=== PATIENT | female | born 1950 | race Caucasian/White ===

== ENCOUNTER 2023-06-27 13:04 | Observation (INO) | payer OTHER ==
--- OUTSIDE RECORDS SUMMARY | 2023-06-27 13:17 | XMS REPORT | Continuity of Care Document ---
Author Name Unknown Address [address] [facility] [address] [place] [address] [facility] thconnect Address [address] [facility] [address] [place] [address] Care Team Providers Care Watch Parts Inspector Name Role Phone Juan Carlos Snow Primary Care Physician [phone] JANICE ANDINO Attending Clinician Unavailable Sina HEATH, Janice Attending Clinician [phone] Doctor Unassigned, [place] Attending Clinician [facility] Attending Clinician Unavailable Abigail Carroll RN Attending Clinician Unavailable MARTHA SANABRIA Attending Clinician Unavailable Sugar PAC, K Priscilla Attending Clinician [phone] Martha Sanabria MD Attending Clinician [phone] Radiology Attending Clinician Unavailable RADIOLOGY Attending Clinician Unavailable MATT MILLS Attending Clinician Unavail able MATT MILLS Attending Clinician Unavail able Lissett Salgado Attending Clinician [phone] Sly Lechuga Attending Clinician [phone] LISSETT LEGGETT Attending Clinician Unavailable SLY NEUMANN Attending Clinician Unavailable Lab, Ang - Db Attending Clinician Unavailable Team, [facility] Maintenance Attending Clinicia n Unavailable Magdalene Orr LVN Attending Clinician Raul Tracy MD, Xena Zhu Attending Clinician [phone] Erinn CABRAL, Lucille Cabrales Attending Clinician Unavail able Keagan Solano Attending Clinician [phone] Edionwe MD, Mercy Attending Clinician XENA TRACY Attending Clinician Unavailmarko Cali MD, Fariha Bnada Attending Clinician [phone] FARIHA CALI Attending Clinician Raul Kearns RN, Elvis Zhu Attending Clinician Unavailab le Vaccine, Ang Db Cbc Fam Attending Clinician Unav ailable CHINO BARAHONA Attending Clinician Unavailable MAIKOL BILLY Attending Clinician Un available Maikol Billy MD Attending Clinician MARTHA SANABRIA Admitting Clinician Unavailable Daniele HEATH, Martha Admitting Clinician [phone] Vicki Gillespie MD Admitting Clinician [phone] VICKI GILLESPIE Admitting Clinician Unavailable MAIKOL BILLY Admitting Clinician Un available Maikol Billy MD Admitting Clinician Payers Payer Name Policy Type Policy Number Effective Date Expirati on Date Source [employer] MED[employer]AGE [id number] 2019 00:00:00 Problems Condition Name Condition Details Condition Category Status Onset Date Resolution Date Last Treatment Date Treating Clinician Comments Source Cardiomyop athy, unspecifie d type Cardiomyop athy, unspecifie d type Disease Active 06-14 00:00: 00 [facility] Chronic heart failure with preserved ejection fraction Chronic heart failure with preserved ejection fraction Disease Active 05-26 00:00: 00 [facility] Acute pulmonary edema Acute pulmonary edema Disease Active 05-26 00:00: 00 [facility] PAF (paroxysma l atrial fibrillati on) PAF (paroxysma l atrial fibrillati on) Disease Active 05-26 00:00: 00 [facility] Preop cardiovasc ular exam Preop cardiovasc ular exam Disease Active 05-26 00:00: 00 [facility] Nausea and vomiting, unspecifie d vomiting type Nausea and vomiting, unspecifie d vomiting type Disease Active - 00:00: 00 [facility] Chest pain, unspecifie d type Chest pain, unspecifie d type Disease Active 5- 00:00: 00 [facility] Status post fall Status post fall Disease Active 2021-04 00:00: 00 [facility] Acute left-sided low back pain, unspecifie d whether sciatica present Acute left-sided low back pain, unspecifie d whether sciatica present Disease Active 2021-04 00:00: 00 [facility] Flank pain Flank pain Disease Active 2021-04 00:00: 00 [facility] Hypomagnes emia Hypomagnes emia Disease Active 8 00:00: 00 [facility] Hematuria, unspecifie d type Hematuria, unspecifie d type Disease Active 8 00:00: 00 [facility] Hospital discharge follow-up Hospital discharge follow-up Disease Active 8 00:00: 00 [facility] E46 Unspecifie d severe protein-ca shant malnutriti on E46 Unspecifie d severe protein-ca shant malnutriti on Disease Active 11-20 00:00: 00 [facility] Diarrhea, unspecifie d type Diarrhea, unspecifie d type Disease Active 11-18 00:00: 00 [facility] Weight loss Weight loss Disease Active 11-18 00:00: 00 [facility] Non-intrac table vomiting with nausea, unspecifie d vomiting type Non-intrac table vomiting with nausea, unspecifie d vomiting type Disease Active 11-18 00:00: 00 [facility] Hyponatrem ia Hyponatrem ia Disease Active 11-18 00:00: 00 [facility] Mild anemia Mild anemia Disease Active 3-31 00:00: 00 [facility] Essential hypertensi on Essential hypertensi on Disease Active 2020-04 00:00: 00 [facility] Seasonal allergies Seasonal allergies Disease Active 2020-04 00:00: 00 [facility] Anxiety Anxiety Disease Active 2020-04 00:00: 00 [facility] Arthritis Arthritis Disease Active 2020-04 00:00: 00 [facility] Asthma Asthma Disease Active 2020-04 00:00: 00 [facility] Depression Depression Disease Active 2020-04 00:00: 00 [facility] Hyperchole sterolemia Hyperchole sterolemia Disease Active 2020-04 00:00: 00 [facility] GERD (gastroeso phageal reflux disease) GERD (gastroeso phageal reflux disease) Disease Active 2020-04 00:00: 00 [facility] Tachycardi a Tachycardi a Disease Active 2020-04 00:00: 00 [facility] Prediabete s Prediabete s Disease Active 2020-04 00:00: 00 [facility] 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 Disease Active 2020-04 00:00: 00 [facility] Allergies, Adverse Reactions, Alerts Allergy Name Allergy Type Status Severity Reaction(s) Onset Date Inactive Date Treating Clinician Comments Source SERTRALI NE DRUG INGREDI Active Dizziness 05-17 00:00: 00 [facility] DOXEPIN DRUG INGREDI Active Dizziness 05-17 00:00: 00 [facility] Doxepin Propensi ty to adverse reaction s Active Dizziness 05-17 00:00: 00 [facility] Sertrali ne Propensi ty to adverse reaction s Active Dizziness 05-17 00:00: 00 [facility] CODEINE DRUG INGREDI Active N/V 2020-04 00:00: 00 [facility] DESFLURA NE DRUG INGREDI Active N/V 2020-04 00:00: 00 [facility] FENTANYL DRUG INGREDI Active Other-Cmnt 2020-04 00:00: 00 [facility] IODINE DRUG INGREDI Active Hives 2020-04 00:00: 00 [facility] PROPOFOL DRUG INGREDI Active N/V 2020-04 00:00: 00 [facility] SUCCINYL CHOLINE DRUG INGREDI Active Other-Cmnt 2020-04 00:00: 00 [facility] ONDANSET KENNA HCL DRUG INGREDI Active N/V 2020-04 00:00: 00 [facility] Codeine Propensi ty to adverse reaction s Active Nausea and/or Vomiting 2020-04 00:00: 00 [facility] Desflura ne Propensi ty to adverse reaction s Active Nausea and/or Vomiting 2020-04 00:00: 00 [facility] Fentanyl Propensi ty to adverse reaction s Active Other - See comments 2020-04 00:00: 00 Slow recovery [facility] Iodine Propensi ty to adverse reaction s Active Shortness of Breath 2020-04 00:00: 00 [facility] Propofol Propensi ty to adverse reaction s Active Nausea and/or Vomiting 2020-04 00:00: 00 [facility] Succinyl choline Propensi ty to adverse reaction s Active Other - See comments 2020-04 00:00: 00 Due to pseudocho linestera se deficienc y [facility] Ondanset kenna Hcl Propensi ty to adverse reaction s Active Nausea and/or Vomiting 2020-04 00:00: 00 [facility] Social History Social Habit Start Date Stop Date Quantity Comments Source History SDOH Alcohol Frequency [facility] History SDOH Alcohol Std Drinks [facility] History SDOH Alcohol Binge [facility] Gender identity [facility] History of tobacco use Current smoker [facility] Alcohol intake 2023-06-14 00:00:00 2023-06-14 00:00:00 Ex-drinker (finding) [facility] Exposure to SARS-CoV-2 (event) 2022-09-04 00:00:00 2022-09-14 11:13:00 Not sure [facility] History of Social function 2022-03-30 00:00:00 2022-03-30 00:00:00 [facility] Tobacco Comment 2021-11-18 00:00:00 2021-11-18 00:00:00 smoked for less than 5 years after high school [facility] Tobacco use and exposure 2021-11-18 00:00:00 2021-11-18 00:00:00 Smokeless tobacco non-user [facility] Alcohol Comment 2021-03-02 00:00:00 2021-03-02 00:00:00 7 drinks per week [facility] Sex Assigned At 1950 00:00:00 1950 00:00:00 [facility] Smoking Status Start Date Stop Date Source Ex-smoker 2021-11-18 00:00:00 2021-11-18 00:00:00 [facility] Medications Ordered Medication Name Filled Medication Name Start Date Stop Date Current Medication? Ordering Clinician Indication Dosage Frequency Signature (SIG) Comments Components Source sulfur hexafluorid e microsphr (LUMASON) injection 5 mL 06-08 16:15: 00 06-08 16:12 :00 No [id number] 5mL 5 mL, Intravenou s, ONCE, 1 dose, On Tue06/08/23 at 1015, Routine [facility] aspirin 81 mg EC tablet 05-26 12:59: 22 Yes 81mg Take 1 tablet by mouth in the morning. [facility] cholecalcif bronwyn, vitamin D3, (VITAMIN D3 ORAL) 05-26 12:59: 22 Yes 1{capsu le} Take 1 capsule by mouth daily. [facility] aspirin 81 mg EC tablet 05-26 12:59: 22 Yes 81mg Take 1 tablet by mouth in the morning. [facility] cholecalcif bronwyn, vitamin D3, (VITAMIN D3 ORAL) 05-26 12:59: 22 Yes 1{capsu le} Take 1 capsule by mouth daily. [facility] aspirin 81 mg EC tablet 05-26 12:59: 22 Yes 81mg Take 1 tablet by mouth in the morning. [facility] cholecalcif bronwyn, vitamin D3, (VITAMIN D3 ORAL) 05-26 12:59: 22 Yes 1{capsu le} Take 1 capsule by mouth daily. [facility] aspirin 81 mg EC tablet 05-26 12:59: 22 Yes 81mg Take 1 tablet by mouth in the morning. [facility] cholecalcif bronwyn, vitamin D3, (VITAMIN D3 ORAL) 05-26 12:59: 22 Yes 1{capsu le} Take 1 capsule by mouth daily. [facility] aspirin 81 mg EC tablet 05-26 12:59: 22 Yes 81mg Take 1 tablet by mouth in the morning. [facility] cholecalcif bronwyn, vitamin D3, (VITAMIN D3 ORAL) 05-26 12:59: 22 Yes 1{capsu le} Take 1 capsule by mouth daily. [facility] aspirin 81 mg EC tablet 05-26 12:59: 22 Yes 81mg Take 1 tablet by mouth in the morning. [facility] cholecalcif bronwyn, vitamin D3, (VITAMIN D3 ORAL) 05-26 12:59: 22 Yes 1{capsu le} Take 1 capsule by mouth daily. [facility] aspirin 81 mg EC tablet 05-26 12:59: 22 Yes 81mg Take 1 tablet by mouth in the morning. [facility] cholecalcif bronwyn, vitamin D3, (VITAMIN D3 ORAL) 05-26 12:59: 22 Yes 1{capsu le} Take 1 capsule by mouth daily. [facility] aspirin 81 mg EC tablet 0 05-26 12:59: 22 Yes 81mg Take 1 tablet by mouth in the morning. [facility] cholecalcif bronwyn, vitamin D3, (VITAMIN D3 ORAL) 05-26 12:59: 22 Yes 1{capsu le} Take 1 capsule by mouth daily. [facility] aspirin 81 mg EC tablet 05-26 12:59: 22 Yes 81mg Take 1 tablet by mouth in the morning. [facility] cholecalcif bronwyn, vitamin D3, (VITAMIN D3 ORAL) 05-26 12:59: 22 Yes 1{capsu le} Take 1 capsule by mouth daily. [facility] aspirin 81 mg EC tablet 05-26 12:59: 22 Yes 81mg Take 1 tablet by mouth in the morning. [facility] cholecalcif bronwyn, vitamin D3, (VITAMIN D3 ORAL) 05-26 12:59: 22 Yes 1{capsu le} Take 1 capsule by mouth daily. [facility] aspirin 81 mg EC tablet 05-26 12:59: 22 Yes 81mg Take 1 tablet by mouth in the morning. [facility] cholecalcif bronwyn, vitamin D3, (VITAMIN D3 ORAL) 05-26 12:59: 22 Yes 1{capsu le} Take 1 capsule by mouth daily. [facility] aspirin 81 mg EC tablet 05-26 12:59: 22 Yes 81mg Take 1 tablet by mouth in the morning. [facility] cholecalcif bronwyn, vitamin D3, (VITAMIN D3 ORAL) 05-26 12:59: 22 Yes 1{capsu le} Take 1 capsule by mouth daily. [facility] aspirin 81 mg EC tablet 05-26 12:59: 22 Yes 81mg Take 1 tablet by mouth in the morning. [facility] cholecalcif bronwyn, vitamin D3, (VITAMIN D3 ORAL) 05-26 12:59: 22 Yes 1{capsu le} Take 1 capsule by mouth daily. [facility] atenoloL 25 mg tablet 05-26 00:00: 00 Yes [id number] 25mg Take 1 tablet by mouth in the morning and 1 tablet in the evening. [facility] furosemide 20 mg tablet 05-26 00:00: 00 Yes [id number] 20mg Take 1 tablet by mouth in the morning. [facility] KCL 20 mEq tablet 2023-0 2- 00:00: 00 Yes [id number] 20meq Take 1 tablet by mouth in the morning. [facility] atenoloL 25 mg tablet 2023-0 2- 00:00: 00 Yes [id number] 25mg Take 1 tablet by mouth in the morning and 1 tablet in the evening. [facility] furosemide 20 mg tablet 2023-0 2 00:00: 00 Yes [id number] 20mg Take 1 tablet by mouth in the morning. [facility] KCL 20 mEq tablet 2023-0 2- 00:00: 00 Yes [id number] 20meq Take 1 tablet by mouth in the morning. [facility] atenoloL 25 mg tablet 0 05-26 00:00: 00 Yes [id number] 25mg Take 1 tablet by mouth in the morning and 1 tablet in the evening. [facility] furosemide 20 mg tablet 2023-0 05-26 00:00: 00 Yes [id number] 20mg Take 1 tablet by mouth in the morning. [facility] KCL 20 mEq tablet 2023-0 05-26 00:00: 00 Yes [id number] 20meq Take 1 tablet by mouth in the morning. [facility] atenoloL 25 mg tablet 2023-0 05-26 00:00: 00 Yes [id number] 25mg Take 1 tablet by mouth in the morning and 1 tablet in the evening. [facility] furosemide 20 mg tablet 2023-0 2 00:00: 00 Yes [id number] 20mg Take 1 tablet by mouth in the morning. [facility] KCL 20 mEq tablet 2023-0 2 00:00: 00 Yes [id number] 20meq Take 1 tablet by mouth in the morning. [facility] atenoloL 25 mg tablet 2023-0 2- 00:00: 00 Yes [id number] 25mg Take 1 tablet by mouth in the morning and 1 tablet in the evening. [facility] furosemide 20 mg tablet 2023-0 2- 00:00: 00 Yes [id number] 20mg Take 1 tablet by mouth in the morning. [facility] KCL 20 mEq tablet 2023-0 2- 00:00: 00 Yes [id number] 20meq Take 1 tablet by mouth in the morning. [facility] atenoloL 25 mg tablet 2023-0 2- 00:00: 00 Yes [id number] 25mg Take 1 tablet by mouth in the morning and 1 tablet in the evening. [facility] furosemide 20 mg tablet 2023-0 2 00:00: 00 Yes [id number] 20mg Take 1 tablet by mouth in the morning. [facility] KCL 20 mEq tablet 2023-0 05-26 00:00: 00 Yes [id number] 20meq Take 1 tablet by mouth in the morning. [facility] atenoloL 25 mg tablet 2023-0 05-26 00:00: 00 Yes [id number] 25mg Take 1 tablet by mouth in the morning and 1 tablet in the evening. [facility] furosemide 20 mg tablet 2023-0 05-26 00:00: 00 Yes [id number] 20mg Take 1 tablet by mouth in the morning. [facility] KCL 20 mEq tablet 2023-0 05-26 00:00: 00 Yes [id number] 20meq Take 1 tablet by mouth in the morning. [facility] atenoloL 25 mg tablet 2023-0 05-26 00:00: 00 Yes [id number] 25mg Take 1 tablet by mouth in the morning and 1 tablet in the evening. [facility] furosemide 20 mg tablet 2023-0 2 00:00: 00 Yes [id number] 20mg Take 1 tablet by mouth in the morning. [facility] KCL 20 mEq tablet 2023-0 2 00:00: 00 Yes [id number] 20meq Take 1 tablet by mouth in the morning. [facility] atenoloL 25 mg tablet 2023-0 2 00:00: 00 Yes [id number] 25mg Take 1 tablet by mouth in the morning and 1 tablet in the evening. [facility] furosemide 20 mg tablet 2023-0 2 00:00: 00 Yes [id number] 20mg Take 1 tablet by mouth in the morning. [facility] KCL 20 mEq tablet 2023-0 2- 00:00: 00 Yes [id number] 20meq Take 1 tablet by mouth in the morning. [facility] atenoloL 25 mg tablet 2023-0 2- 00:00: 00 Yes [id number] 25mg Take 1 tablet by mouth in the morning and 1 tablet in the evening. [facility] furosemide 20 mg tablet 0 2 00:00: 00 Yes [id number] 20mg Take 1 tablet by mouth in the morning. [facility] KCL 20 mEq tablet 0 2- 00:00: 00 Yes [id number] 20meq Take 1 tablet by mouth in the morning. [facility] atenoloL 25 mg tablet 0 05-26 00:00: 00 Yes [id number] 25mg Take 1 tablet by mouth in the morning and 1 tablet in the evening. [facility] furosemide 20 mg tablet 2023-0 05-26 00:00: 00 Yes [id number] 20mg Take 1 tablet by mouth in the morning. [facility] KCL 20 mEq tablet 2023-0 05-26 00:00: 00 Yes [id number] 20meq Take 1 tablet by mouth in the morning. [facility] atenoloL 25 mg tablet 2023-0 05-26 00:00: 00 Yes [id number] 25mg Take 1 tablet by mouth in the morning and 1 tablet in the evening. [facility] furosemide 20 mg tablet 0 05-26 00:00: 00 Yes [id number] 20mg Take 1 tablet by mouth in the morning. [facility] KCL 20 mEq tablet 2023-0 2- 00:00: 00 Yes [id number] 20meq Take 1 tablet by mouth in the morning. [facility] atenoloL 25 mg tablet 2023-0 2 00:00: 00 Yes [id number] 25mg Take 1 tablet by mouth in the morning and 1 tablet in the evening. [facility] furosemide 20 mg tablet 2023-0 2- 00:00: 00 Yes [id number] 20mg Take 1 tablet by mouth in the morning. [facility] KCL 20 mEq tablet 2023-0 2-01 00:00: 00 Yes [id number] 20meq Take 1 tablet by mouth in the morning. [facility] foLIC acid 1 mg tablet 4-0 1-27 00:00: 00 Yes [id number] 1mg Take 1 tablet by mouth in the morning. [facility] thiamine 100 mg tablet 4-0 1-27 00:00: 00 Yes [id number] 100mg Take 1 tablet by mouth in the morning. [facility] foLIC acid 1 mg tablet 4-0 1-27 00:00: 00 Yes [id number] 1mg Take 1 tablet by mouth in the morning. [facility] thiamine 100 mg tablet 4-0 1-27 00:00: 00 Yes [id number] 100mg Take 1 tablet by mouth in the morning. [facility] foLIC acid 1 mg tablet 4-0 1-27 00:00: 00 Yes [id number] 1mg Take 1 tablet by mouth in the morning. [facility] thiamine 100 mg tablet 4-0 1-27 00:00: 00 Yes [id number] 100mg Take 1 tablet by mouth in the morning. [facility] foLIC acid 1 mg tablet 4-0 127 00:00: 00 Yes [id number] 1mg Take 1 tablet by mouth in the morning. [facility] thiamine 100 mg tablet 4-0 1-27 00:00: 00 Yes [id number] 100mg Take 1 tablet by mouth in the morning. [facility] foLIC acid 1 mg tablet 4-0 1-27 00:00: 00 Yes [id number] 1mg Take 1 tablet by mouth in the morning. [facility] thiamine 100 mg tablet 4-0 1-27 00:00: 00 Yes [id number] 100mg Take 1 tablet by mouth in the morning. [facility] foLIC acid 1 mg tablet 4-0 1-27 00:00: 00 Yes [id number] 1mg Take 1 tablet by mouth in the morning. [facility] thiamine 100 mg tablet 2024-0 1-27 00:00: 00 Yes [id number] 100mg Take 1 tablet by mouth in the morning. [facility] foLIC acid 1 mg tablet 4-0 1-27 00:00: 00 Yes [id number] 1mg Take 1 tablet by mouth in the morning. [facility] thiamine 100 mg tablet 4-0 127 00:00: 00 Yes [id number] 100mg Take 1 tablet by mouth in the morning. [facility] foLIC acid 1 mg tablet 4-0 1-27 00:00: 00 Yes [id number] 1mg Take 1 tablet by mouth in the morning. [facility] thiamine 100 mg tablet 2024-0 127 00:00: 00 Yes [id number] 100mg Take 1 tablet by mouth in the morning. [facility] foLIC acid 1 mg tablet 4-0 127 00:00: 00 Yes [id number] 1mg Take 1 tablet by mouth in the morning. [facility] thiamine 100 mg tablet 4-0 127 00:00: 00 Yes [id number] 100mg Take 1 tablet by mouth in the morning. [facility] foLIC acid 1 mg tablet 4-0 127 00:00: 00 Yes [id number] 1mg Take 1 tablet by mouth in the morning. [facility] thiamine 100 mg tablet 4-0 127 00:00: 00 Yes [id number] 100mg Take 1 tablet by mouth in the morning. [facility] foLIC acid 1 mg tablet 4-0 27 00:00: 00 Yes [id number] 1mg Take 1 tablet by mouth in the morning. [facility] thiamine 100 mg tablet 4-0 127 00:00: 00 Yes [id number] 100mg Take 1 tablet by mouth in the morning. [facility] foLIC acid 1 mg tablet 4-0 127 00:00: 00 Yes [id number] 1mg Take 1 tablet by mouth in the morning. [facility] thiamine 100 mg tablet 4-0 1-27 00:00: 00 Yes [id number] 100mg Take 1 tablet by mouth in the morning. [facility] foLIC acid 1 mg tablet 2024-0 1-27 00:00: 00 Yes [id number] 1mg Take 1 tablet by mouth in the morning. [facility] thiamine 100 mg tablet 2024-0 1-27 00:00: 00 Yes [id number] 100mg Take 1 tablet by mouth in the morning. [facility] foLIC acid 1 mg tablet 05-21 00:00: 00 Yes [id number] 1mg Take 1 tablet by mouth in the morning. [facility] thiamine 100 mg tablet 05-21 00:00: 00 Yes [id number] 100mg Take 1 tablet by mouth in the morning. [facility] foLIC acid 1 mg tablet 05-21 00:00: 00 Yes [id number] 1mg Take 1 tablet by mouth in the morning. [facility] thiamine 100 mg tablet 05-21 00:00: 00 Yes [id number] 100mg Take 1 tablet by mouth in the morning. [facility] aspirin 81 mg EC tablet 05-20 15:25: 42 Yes 81mg Take 1 tablet by mouth in the morning. [facility] cholecalcif bronwyn, vitamin D3, (VITAMIN D3 ORAL) 05-20 15:25: 42 Yes 1{capsu le} Take 1 capsule by mouth daily. [facility] aspirin 81 mg EC tablet 05-20 15:25: 42 Yes 81mg Take 1 tablet by mouth in the morning. [facility] cholecalcif bronwyn, vitamin D3, (VITAMIN D3 ORAL) 05-20 15:25: 42 Yes 1{capsu le} Take 1 capsule by mouth daily. [facility] lisinopriL (PRINIVIL,Z ESTRIL) tablet 20 mg 05-20 15:00: 00 Yes 20mg 20 mg, Oral, DAILY, First dose on Tue05/20/23 at 0900, Until Discontinu ed [facility] atorvastati n (LIPITOR) tablet 40 mg 05-20 15:00: 00 Yes 40mg 40 mg, Oral, DAILY, First dose on Tue05/20/23 at 0900, Until Discontinu ed, Routine [facility] dextrometho deborah-cesar enesin (ROBITUSSIN DM) 10-100 mg/5 mL solution 5 mL 05-20 07:57: 20 Yes 5mL 5 mL, Oral, Q6HPRN, Starting on Tue05/20/23 at 0157, Until Discontinu ed, Routine, Cough [facility] cyclobenzap rine (FLEXERIL) tablet 5 mg 05-20 02:00: 00 Yes 5mg 5 mg, Oral, TID, First dose on Tue05/19/23 at 2000, Until Discontinu ed, Routine [facility] dextrometho rphan-guaif enesin 10-100 mg/5 mL solution 05-20 00:00: 00 Yes [id number] 5mL Take 5 mL by mouth every 6 (six) hours as needed for Cough. [facility] cephALEXin 500 mg tablet 05-20 00:00: 00 Yes [id number] 500mg Take 1 tablet by mouth 4 (four) times daily. [facility] dextrometho rphan-guaif enesin 10-100 mg/5 mL solution 05-20 00:00: 00 Yes [id number] 5mL Take 5 mL by mouth every 6 (six) hours as needed for Cough. [facility] cephALEXin 500 mg tablet 05-20 00:00: 00 Yes [id number] 500mg Take 1 tablet by mouth 4 (four) times daily. [facility] dextrometho rphan-guaif enesin 10-100 mg/5 mL solution 05-20 00:00: 00 Yes [id number] 5mL Take 5 mL by mouth every 6 (six) hours as needed for Cough. [facility] cephALEXin 500 mg tablet 05-20 00:00: 00 Yes [id number] 500mg Take 1 tablet by mouth 4 (four) times daily. [facility] dextrometho rphan-guaif enesin 10-100 mg/5 mL solution 05-20 00:00: 00 Yes [id number] 5mL Take 5 mL by mouth every 6 (six) hours as needed for Cough. [facility] cephALEXin 500 mg tablet 05-20 00:00: 00 Yes [id number] 500mg Take 1 tablet by mouth 4 (four) times daily. [facility] dextrometho rphan-guaif enesin 10-100 mg/5 mL solution 0 05-20 00:00: 00 Yes [id number] 5mL Take 5 mL by mouth every 6 (six) hours as needed for Cough. [facility] cephALEXin 500 mg tablet 2023-0 05-20 00:00: 00 Yes [id number] 500mg Take 1 tablet by mouth 4 (four) times daily. [facility] dextrometho rphan-guaif enesin 10-100 mg/5 mL solution 0 05-20 00:00: 00 Yes [id number] 5mL Take 5 mL by mouth every 6 (six) hours as needed for Cough. [facility] cephALEXin 500 mg tablet 0 05-20 00:00: 00 Yes [id number] 500mg Take 1 tablet by mouth 4 (four) times daily. [facility] dextrometho rphan-guaif enesin 10-100 mg/5 mL solution 2023-0 05-20 00:00: 00 Yes [id number] 5mL Take 5 mL by mouth every 6 (six) hours as needed for Cough. [facility] cephALEXin 500 mg tablet 05-20 00:00: 00 Yes [id number] 500mg Take 1 tablet by mouth 4 (four) times daily. [facility] dextrometho rphan-guaif enesin 10-100 mg/5 mL solution 0 05-20 00:00: 00 Yes [id number] 5mL Take 5 mL by mouth every 6 (six) hours as needed for Cough. [facility] cephALEXin 500 mg tablet 0 05-20 00:00: 00 Yes [id number] 500mg Take 1 tablet by mouth 4 (four) times daily. [facility] dextrometho rphan-guaif enesin 10-100 mg/5 mL solution 2023-0 05-20 00:00: 00 Yes [id number] 5mL Take 5 mL by mouth every 6 (six) hours as needed for Cough. [facility] cephALEXin 500 mg tablet 0 05-20 00:00: 00 Yes [id number] 500mg Take 1 tablet by mouth 4 (four) times daily. [facility] dextrometho rphan-guaif enesin 10-100 mg/5 mL solution 05-20 00:00: 00 Yes [id number] 5mL Take 5 mL by mouth every 6 (six) hours as needed for Cough. [facility] cephALEXin 500 mg tablet 0 05-20 00:00: 00 Yes [id number] 500mg Take 1 tablet by mouth 4 (four) times daily. [facility] dextrometho rphan-guaif enesin 10-100 mg/5 mL solution 05-20 00:00: 00 Yes [id number] 5mL Take 5 mL by mouth every 6 (six) hours as needed for Cough. [facility] cephALEXin 500 mg tablet 0 05-20 00:00: 00 Yes [id number] 500mg Take 1 tablet by mouth 4 (four) times daily. [facility] dextrometho rphan-guaif enesin 10-100 mg/5 mL solution 05-20 00:00: 00 Yes [id number] 5mL Take 5 mL by mouth every 6 (six) hours as needed for Cough. [facility] cephALEXin 500 mg tablet 05-20 00:00: 00 Yes [id number] 500mg Take 1 tablet by mouth 4 (four) times daily. [facility] dextrometho rphan-guaif enesin 10-100 mg/5 mL solution 05-20 00:00: 00 Yes [id number] 5mL Take 5 mL by mouth every 6 (six) hours as needed for Cough. [facility] cephALEXin 500 mg tablet 0 05-20 00:00: 00 Yes [id number] 500mg Take 1 tablet by mouth 4 (four) times daily. [facility] dextrometho rphan-guaif enesin 10-100 mg/5 mL solution 0 05-20 00:00: 00 Yes [id number] 5mL Take 5 mL by mouth every 6 (six) hours as needed for Cough. [facility] cephALEXin 500 mg tablet 05-20 00:00: 00 Yes [id number] 500mg Take 1 tablet by mouth 4 (four) times daily. [facility] dextrometho rphan-guaif enesin 10-100 mg/5 mL solution 05-20 00:00: 00 Yes [id number] 5mL Take 5 mL by mouth every 6 (six) hours as needed for Cough. [facility] cephALEXin 500 mg tablet 05-20 00:00: 00 Yes [id number] 500mg Take 1 tablet by mouth 4 (four) times daily. [facility] atenoloL (TENORMIN) tablet 25 mg 05-19 23:45: 00 Yes 25mg 25 mg, Oral, DAILY, First dose on Priya 05/19/23 at 1745, Until Discontinu ed, Routine [facility] magnesium sulfate in water 2 gram/50 mL (4 %) infusion 2 g 05-18 23:45: 00 05-19 01:06 :00 No 2g 2 g, IV Piggyback, Administer over 60 Minutes, ONCE, 1 dose, On Tue05/18/23 at 1745, Routine [facility] cefTRIAXone (ROCEPHIN) 1,000 mg in NaCl 0.9% (NS) 100 mL MINI-BAG 05-18 20:30: 00 05-24 20:29 :00 Yes 1000mg 1,000 mg, IV Piggyback, Q24H ABX, 6 doses, First dose on Tue05/18/23 at 1430, Last dose on Tue05/23/23 at 1430, Administer over 30 Minutes, 100 mL
Reas on for Anti-Infec tive: Documented Infection< br>Documen suzette Infection Site: Urine
D uration of Therapy: 7 days [facility] magnesium sulfate in water 2 gram/50 mL (4 %) infusion 2 g 05-18 15:45: 00 05-18 17:20 :00 No 2g 2 g, IV Piggyback, Administer over 60 Minutes, ONCE, 1 dose, On Tue05/18/23 at 0945, Routine [facility] sodium chloride tablet 1 g 05-18 15:00: 00 Yes 1g 1 g, Oral, TID MEALS, First dose on Tue05/18/23 at 0900, Until Discontinu ed, Routine [facility] foLIC acid (FOLATE) tablet 1 mg 05-18 15:00: 00 Yes 1mg 1 mg, Oral, DAILY, First dose on Tue05/18/23 at 0900, Until Discontinu ed, Routine [facility] thiamine (VITAMIN B1) tablet 100 mg 05-18 15:00: 00 Yes 100mg 100 mg, Oral, DAILY, First dose on Tue05/18/23 at 0900, Until Discontinu ed, Routine [facility] pantoprazol e (PROTONIX) EC tablet 40 mg 05-18 15:00: 00 Yes 40mg 40 mg, Oral, QAM, First dose on Tue05/18/23 at 0900, Until Discontinu ed, Routine [facility] aspirin EC tablet 81 mg 05-18 15:00: 00 Yes 81mg 81 mg, Oral, DAILY, First dose on Tue05/18/23 at 0900, Until Discontinu ed, Routine [facility] albumin (PLASBUMIN) 25 % injection 25 g 05-18 04:30: 00 05-18 04:55 :00 No 25g 25 g, IV Infusion, ONCE, 1 dose, On Tue05/17/23 at 2230, 100 mL
Erlinda cation: HEPATORENA L SYNDROME (TREATMENT )
Comme nts: 1. Albumin + octreotide and midodrine< br>Comment s: 2. Albumin + norepineph rine for patients in the ICU [facility] enoxaparin (LOVENOX) injection 40 mg 05-17 23:00: 00 Yes 40mg 40 mg, Subcutaneo us, DAILY, First dose on Tue05/17/23 at 1700, Until Discontinu ed, Routine [facility] oxazepam (SERAX) capsule 15 mg 05-17 22:58: 52 Yes 15mg 15 mg, Oral, Q4HPRN, Starting on Tue05/17/23 at 1658, Until Discontinu ed, Routine, Only while awake for DBP equal to or greater than 100, HR equal to or greater than 100. [facility] magnesium sulfate in water 2 gram/50 mL (4 %) infusion 2 g 05-17 22:15: 00 05-17 23:12 :00 No 2g 2 g, IV Piggyback, Administer over 60 Minutes, ONCE, 1 dose, On Tue05/17/23 at 1615, STAT [facility] proMETHazin e (PHENERGAN) 25 mg in NS 50 mL IV piggyback (CNR) 05-17 21:47: 22 Yes 25mg 25 mg, IV Piggyback, at 200 mL/hr Administer over 15 Minutes, Q6HPRN, Starting on Tue05/17/23 at 1547, Until Discontinu ed, Routine, Nausea and Vomiting (N/V) [facility] lactated ringers IV infusion 1,000 mL 05-17 21:30: 00 Yes 1000mL at 150 mL/hr, 1,000 mL, IV Infusion, CONTINUOUS , Starting on Tue05/17/23 at 1530, Until Discontinu ed, Routine [facility] acetaminoph en (TYLENOL) tablet 650 mg 05-17 21:22: 59 Yes 650mg 650 mg, Oral, Q6HPRN, Starting on Tue05/17/23 at 1522, Until Discontinu ed, Routine, Pain (scale 1-3), Temp > 38 C [facility] traZODone (DESYREL) tablet 50 mg 05-17 21:21: 05 Yes 50mg 50 mg, Oral, QHSPRN, Starting on Tue05/17/23 at 1521, Until Discontinu ed, Routine, Insomnia [facility] cefTRIAXone (ROCEPHIN) 1,000 mg in NaCl 0.9% (NS) 100 mL MINI-BAG 05-17 19:45: 00 05-17 20:58 :00 No 1000mg 1,000 mg, IV Piggyback, ONCE, 1 dose, On Tue05/17/23 at 1345, Administer over 30 Minutes, 100 mL
Reas on for Anti-Infec tive: Documented Infection< br>Documen suzette Infection Site: Urine
D uration of Therapy: Other (see Comments) [facility] NaCl 0.9% (NS) bolus infusion 500 mL 05-17 19:15: 00 05-17 20:02 :00 No 500mL at 999 mL/hr, 500 mL, IV Infusion, ONCE, 1 dose, On Tue05/17/23 at 1315, STAT [facility] atorvastati n 40 mg tablet 12-20 00:00: 00 Yes [id number] 40mg Take 1 tablet by mouth in the morning. [facility] atorvastati n 40 mg tablet 12-20 00:00: 00 Yes [id number] 40mg Take 1 tablet by mouth in the morning. [facility] atorvastati n 40 mg tablet 0 12-20 00:00: 00 Yes [id number] 40mg Take 1 tablet by mouth in the morning. [facility] atorvastati n 40 mg tablet 0 12-20 00:00: 00 Yes [id number] 40mg Take 1 tablet by mouth in the morning. [facility] atorvastati n 40 mg tablet 0 12-20 00:00: 00 Yes [id number] 40mg Take 1 tablet by mouth in the morning. [facility] atorvastati n 40 mg tablet 0 12-20 00:00: 00 Yes [id number] 40mg Take 1 tablet by mouth in the morning. [facility] atorvastati n 40 mg tablet 0 12-20 00:00: 00 Yes [id number] 40mg Take 1 tablet by mouth in the morning. [facility] atorvastati n 40 mg tablet 2022-0 12-20 00:00: 00 Yes [id number] 40mg Take 1 tablet by mouth in the morning. [facility] atorvastati n 40 mg tablet 3-0 28 00:00: 00 Yes [id number] 40mg Take 1 tablet by mouth in the morning. [facility] atorvastati n 40 mg tablet 3-0 8 00:00: 00 Yes [id number] 40mg Take 1 tablet by mouth in the morning. [facility] atorvastati n 40 mg tablet 3-0 828 00:00: 00 Yes [id number] 40mg Take 1 tablet by mouth in the morning. [facility] atorvastati n 40 mg tablet 3-0 8 00:00: 00 Yes [id number] 40mg Take 1 tablet by mouth in the morning. [facility] atorvastati n 40 mg tablet 3-0 12-20 00:00: 00 Yes [id number] 40mg Take 1 tablet by mouth in the morning. [facility] atorvastati n 40 mg tablet 3-0 12-20 00:00: 00 Yes [id number] 40mg Take 1 tablet by mouth in the morning. [facility] atorvastati n 40 mg tablet 3-0 12-20 00:00: 00 Yes [id number] 40mg Take 1 tablet by mouth in the morning. [facility] atorvastati n 40 mg tablet 3-0 12-20 00:00: 00 Yes [id number] 40mg Take 1 tablet by mouth in the morning. [facility] atorvastati n 40 mg tablet 3-0 12-20 00:00: 00 Yes [id number] 40mg Take 1 tablet by mouth in the morning. [facility] atorvastati n 40 mg tablet 3-0 28 00:00: 00 Yes [id number] 40mg Take 1 tablet by mouth in the morning. [facility] atorvastati n 40 mg tablet 3-0 8-28 00:00: 00 Yes [id number] 40mg Take 1 tablet by mouth in the morning. [facility] atorvastati n 40 mg tablet 3-0 8-28 00:00: 00 Yes [id number] 40mg Take 1 tablet by mouth in the morning. [facility] atorvastati n 40 mg tablet 2022-0 12-20 00:00: 00 Yes [id number] 40mg Take 1 tablet by mouth in the morning. [facility] atorvastati n 40 mg tablet 2022-0 12-20 00:00: 00 Yes [id number] 40mg Take 1 tablet by mouth in the morning. [facility] atorvastati n 40 mg tablet 2022-0 12-20 00:00: 00 Yes [id number] 40mg Take 1 tablet by mouth in the morning. [facility] atorvastati n 40 mg tablet 2022-0 12-20 00:00: 00 Yes [id number] 40mg Take 1 tablet by mouth in the morning. [facility] traZODone 50 mg tablet 2022-0 12-16 00:00: 00 Yes [id number] 25mg Take 0.5-1 tablets by mouth at bedtime as needed for Insomnia. F/u and labs needed [facility] traZODone 50 mg tablet 3-0 12-16 00:00: 00 Yes [id number] 25mg Take 0.5-1 tablets by mouth at bedtime as needed for Insomnia. F/u and labs needed [facility] traZODone 50 mg tablet 3-0 12-16 00:00: 00 Yes [id number] 25mg Take 0.5-1 tablets by mouth at bedtime as needed for Insomnia. F/u and labs needed [facility] traZODone 50 mg tablet 3-0 824 00:00: 00 Yes [id number] 25mg Take 0.5-1 tablets by mouth at bedtime as needed for Insomnia. F/u and labs needed [facility] traZODone 50 mg tablet 3-0 824 00:00: 00 Yes [id number] 25mg Take 0.5-1 tablets by mouth at bedtime as needed for Insomnia. F/u and labs needed [facility] traZODone 50 mg tablet 3-0 824 00:00: 00 Yes [id number] 25mg Take 0.5-1 tablets by mouth at bedtime as needed for Insomnia. F/u and labs needed [facility] traZODone 50 mg tablet 2023-0 8-24 00:00: 00 Yes [id number] 25mg Take 0.5-1 tablets by mouth at bedtime as needed for Insomnia. F/u and labs needed [facility] traZODone 50 mg tablet 2023-0 8-24 00:00: 00 Yes [id number] 25mg Take 0.5-1 tablets by mouth at bedtime as needed for Insomnia. F/u and labs needed [facility] traZODone 50 mg tablet 2023-0 8-24 00:00: 00 Yes [id number] 25mg Take 0.5-1 tablets by mouth at bedtime as needed for Insomnia. F/u and labs needed [facility] traZODone 50 mg tablet 3-0 8-24 00:00: 00 Yes [id number] 25mg Take 0.5-1 tablets by mouth at bedtime as needed for Insomnia. F/u and labs needed [facility] traZODone 50 mg tablet 3-0 8-24 00:00: 00 Yes [id number] 25mg Take 0.5-1 tablets by mouth at bedtime as needed for Insomnia. F/u and labs needed [facility] traZODone 50 mg tablet 2023-0 8-24 00:00: 00 Yes [id number] 25mg Take 0.5-1 tablets by mouth at bedtime as needed for Insomnia. F/u and labs needed [facility] traZODone 50 mg tablet 2023-0 8-24 00:00: 00 Yes [id number] 25mg Take 0.5-1 tablets by mouth at bedtime as needed for Insomnia. F/u and labs needed [facility] traZODone 50 mg tablet 2023-0 8-24 00:00: 00 Yes [id number] 25mg Take 0.5-1 tablets by mouth at bedtime as needed for Insomnia. F/u and labs needed [facility] traZODone 50 mg tablet 2023-0 8-24 00:00: 00 Yes [id number] 25mg Take 0.5-1 tablets by mouth at bedtime as needed for Insomnia. F/u and labs needed [facility] traZODone 50 mg tablet 2023-0 8-24 00:00: 00 Yes [id number] 25mg Take 0.5-1 tablets by mouth at bedtime as needed for Insomnia. F/u and labs needed [facility] traZODone 50 mg tablet 2023-0 8-24 00:00: 00 Yes [id number] 25mg Take 0.5-1 tablets by mouth at bedtime as needed for Insomnia. F/u and labs needed [facility] traZODone 50 mg tablet 2023-0 8-24 00:00: 00 Yes [id number] 25mg Take 0.5-1 tablets by mouth at bedtime as needed for Insomnia. F/u and labs needed [facility] traZODone 50 mg tablet 3-0 8-24 00:00: 00 Yes [id number] 25mg Take 0.5-1 tablets by mouth at bedtime as needed for Insomnia. F/u and labs needed [facility] traZODone 50 mg tablet 3-0 8-24 00:00: 00 Yes [id number] 25mg Take 0.5-1 tablets by mouth at bedtime as needed for Insomnia. F/u and labs needed [facility] traZODone 50 mg tablet 3-0 8-24 00:00: 00 Yes [id number] 25mg Take 0.5-1 tablets by mouth at bedtime as needed for Insomnia. F/u and labs needed [facility] traZODone 50 mg tablet 2023-0 8-24 00:00: 00 Yes [id number] 25mg Take 0.5-1 tablets by mouth at bedtime as needed for Insomnia. F/u and labs needed [facility] traZODone 50 mg tablet 2023-0 8-24 00:00: 00 Yes [id number] 25mg Take 0.5-1 tablets by mouth at bedtime as needed for Insomnia. F/u and labs needed [facility] traZODone 50 mg tablet 2023-0 8-24 00:00: 00 Yes [id number] 25mg Take 0.5-1 tablets by mouth at bedtime as needed for Insomnia. F/u and labs needed [facility] traZODone 50 mg tablet 2022-0 8-24 00:00: 00 Yes [id number] 25mg Take 0.5-1 tablets by mouth at bedtime as needed for Insomnia. F/u and labs needed [facility] atenoloL 25 mg tablet 3-0 8-14 00:00: 00 Yes [id number] 25mg Take 1 tablet by mouth in the morning. [facility] atenoloL 25 mg tablet 2022-0 8-14 00:00: 00 Yes [id number] 25mg Take 1 tablet by mouth in the morning. [facility] atenoloL 25 mg tablet 2022-0 8-14 00:00: 00 Yes [id number] 25mg Take 1 tablet by mouth in the morning. [facility] atenoloL 25 mg tablet 2022-0 8-14 00:00: 00 Yes [id number] 25mg Take 1 tablet by mouth in the morning. [facility] atenoloL 25 mg tablet 2022-0 8-14 00:00: 00 Yes [id number] 25mg Take 1 tablet by mouth in the morning. [facility] atenoloL 25 mg tablet 2022-0 8-14 00:00: 00 Yes [id number] 25mg Take 1 tablet by mouth in the morning. [facility] atenoloL 25 mg tablet 3-0 8-14 00:00: 00 Yes [id number] 25mg Take 1 tablet by mouth in the morning. [facility] atenoloL 25 mg tablet 3-0 8-14 00:00: 00 Yes [id number] 25mg Take 1 tablet by mouth in the morning. [facility] atenoloL 25 mg tablet 3-0 8-14 00:00: 00 Yes [id number] 25mg Take 1 tablet by mouth in the morning. [facility] atenoloL 25 mg tablet 3-0 8-14 00:00: 00 Yes [id number] 25mg Take 1 tablet by mouth in the morning. [facility] atenoloL 25 mg tablet 3-0 8-14 00:00: 00 Yes [id number] 25mg Take 1 tablet by mouth in the morning. [facility] atenoloL 25 mg tablet 3-0 8-14 00:00: 00 Yes [id number] 25mg Take 1 tablet by mouth in the morning. [facility] atenoloL 25 mg tablet 3-0 8-14 00:00: 00 Yes [id number] 25mg Take 1 tablet by mouth in the morning. [facility] atenoloL 25 mg tablet 3-0 8-14 00:00: 00 Yes [id number] 25mg Take 1 tablet by mouth in the morning. [facility] atenoloL 25 mg tablet 3-0 8-14 00:00: 00 Yes [id number] 25mg Take 1 tablet by mouth in the morning. [facility] atenoloL 25 mg tablet 3-0 8-14 00:00: 00 Yes [id number] 25mg Take 1 tablet by mouth in the morning. [facility] atenoloL 25 mg tablet 3-0 8-14 00:00: 00 05-26 00:00 :00 No [id number] 25mg Take 1 tablet by mouth in the morning. [facility] atenoloL 25 mg tablet 3-0 8-14 00:00: 00 05-26 00:00 :00 No [id number] 25mg Take 1 tablet by mouth in the morning. [facility] atenoloL 25 mg tablet 3-0 8-14 00:00: 00 05-26 00:00 :00 No [id number] 25mg Take 1 tablet by mouth in the morning. [facility] atenoloL 25 mg tablet 3-0 8-14 00:00: 00 05-26 00:00 :00 No [id number] 25mg Take 1 tablet by mouth in the morning. [facility] atorvastati n 40 mg tablet 3-0 6-16 00:00: 00 Yes [id number] 40mg Take 1 tablet by mouth in the morning. [facility] atorvastati n 40 mg tablet 3-0 6-16 00:00: 00 Yes [id number] 40mg Take 1 tablet by mouth in the morning. [facility] atorvastati n 40 mg tablet 3-0 6-16 00:00: 00 Yes [id number] 40mg Take 1 tablet by mouth in the morning. [facility] atorvastati n 40 mg tablet 3-0 6-16 00:00: 00 Yes [id number] 40mg Take 1 tablet by mouth in the morning. [facility] atorvastati n 40 mg tablet 3-0 6-16 00:00: 00 Yes [id number] 40mg Take 1 tablet by mouth in the morning. [facility] atorvastati n 40 mg tablet 3-0 6-16 00:00: 00 Yes [id number] 40mg Take 1 tablet by mouth in the morning. [facility] atorvastati n 40 mg tablet 3-0 6-16 00:00: 00 Yes [id number] 40mg Take 1 tablet by mouth in the morning. [facility] atorvastati n 40 mg tablet 3-0 6-16 00:00: 00 Yes [id number] 40mg Take 1 tablet by mouth in the morning. [facility] atorvastati n 40 mg tablet 3-0 6-16 00:00: 00 Yes [id number] 40mg Take 1 tablet by mouth in the morning. [facility] atorvastati n 40 mg tablet 3-0 6-16 00:00: 00 202-28 00:00 :00 No [id number] 40mg Take 1 tablet by mouth in the morning. [facility] atorvastati n 40 mg tablet 3-0 5-23 00:00: 00 Yes [id number] 40mg Take 1 tablet by mouth in the morning. [facility] atorvastati n 40 mg tablet 3-0 5-23 00:00: 00 Yes [id number] 40mg Take 1 tablet by mouth in the morning. [facility] atorvastati n 40 mg tablet 3-0 5-23 00:00: 00 10-08 00:00 :00 No [id number] 40mg Take 1 tablet by mouth in the morning. [facility] tiZANidine 2 mg tablet 08-25 00:00: 00 Yes [id number] 2mg Take 1 tablet by mouth every 6 (six) hours as needed for Pain (scale 4-6). [facility] diclofenac 50 mg tablet 08-25 00:00: 00 Yes [id number] 50mg Take 1 tablet by mouth 3 (three) times daily as needed for Pain (scale 4-6). [facility] tiZANidine 2 mg tablet 08-25 00:00: 00 Yes [id number] 2mg Take 1 tablet by mouth every 6 (six) hours as needed for Pain (scale 4-6). [facility] diclofenac 50 mg tablet 08-25 00:00: 00 Yes [id number] 50mg Take 1 tablet by mouth 3 (three) times daily as needed for Pain (scale 4-6). [facility] tiZANidine 2 mg tablet 08-25 00:00: 00 Yes [id number] 2mg Take 1 tablet by mouth every 6 (six) hours as needed for Pain (scale 4-6). [facility] diclofenac 50 mg tablet 08-25 00:00: 00 Yes [id number] 50mg Take 1 tablet by mouth 3 (three) times daily as needed for Pain (scale 4-6). [facility] tiZANidine 2 mg tablet 08-25 00:00: 00 Yes [id number] 2mg Take 1 tablet by mouth every 6 (six) hours as needed for Pain (scale 4-6). [facility] diclofenac 50 mg tablet 08-25 00:00: 00 Yes [id number] 50mg Take 1 tablet by mouth 3 (three) times daily as needed for Pain (scale 4-6). [facility] tiZANidine 2 mg tablet 08-25 00:00: 00 Yes [id number] 2mg Take 1 tablet by mouth every 6 (six) hours as needed for Pain (scale 4-6). [facility] diclofenac 50 mg tablet 08-25 00:00: 00 Yes [id number] 50mg Take 1 tablet by mouth 3 (three) times daily as needed for Pain (scale 4-6). [facility] tiZANidine 2 mg tablet 08-25 00:00: 00 Yes [id number] 2mg Take 1 tablet by mouth every 6 (six) hours as needed for Pain (scale 4-6). [facility] diclofenac 50 mg tablet 08-25 00:00: 00 Yes [id number] 50mg Take 1 tablet by mouth 3 (three) times daily as needed for Pain (scale 4-6). [facility] tiZANidine 2 mg tablet 08-25 00:00: 00 Yes [id number] 2mg Take 1 tablet by mouth every 6 (six) hours as needed for Pain (scale 4-6). [facility] diclofenac 50 mg tablet 08-25 00:00: 00 Yes [id number] 50mg Take 1 tablet by mouth 3 (three) times daily as needed for Pain (scale 4-6). [facility] tiZANidine 2 mg tablet 08-25 00:00: 00 Yes [id number] 2mg Take 1 tablet by mouth every 6 (six) hours as needed for Pain (scale 4-6). [facility] diclofenac 50 mg tablet 0 08-25 00:00: 00 Yes [id number] 50mg Take 1 tablet by mouth 3 (three) times daily as needed for Pain (scale 4-6). [facility] tiZANidine 2 mg tablet 0 08-25 00:00: 00 Yes [id number] 2mg Take 1 tablet by mouth every 6 (six) hours as needed for Pain (scale 4-6). [facility] diclofenac 50 mg tablet 0 08-25 00:00: 00 Yes [id number] 50mg Take 1 tablet by mouth 3 (three) times daily as needed for Pain (scale 4-6). [facility] tiZANidine 2 mg tablet 08-25 00:00: 00 Yes [id number] 2mg Take 1 tablet by mouth every 6 (six) hours as needed for Pain (scale 4-6). [facility] diclofenac 50 mg tablet 08-25 00:00: 00 Yes [id number] 50mg Take 1 tablet by mouth 3 (three) times daily as needed for Pain (scale 4-6). [facility] tiZANidine 2 mg tablet 08-25 00:00: 00 Yes [id number] 2mg Take 1 tablet by mouth every 6 (six) hours as needed for Pain (scale 4-6). [facility] diclofenac 50 mg tablet 08-25 00:00: 00 Yes [id number] 50mg Take 1 tablet by mouth 3 (three) times daily as needed for Pain (scale 4-6). [facility] tiZANidine 2 mg tablet 08-25 00:00: 00 Yes [id number] 2mg Take 1 tablet by mouth every 6 (six) hours as needed for Pain (scale 4-6). [facility] diclofenac 50 mg tablet 08-25 00:00: 00 Yes [id number] 50mg Take 1 tablet by mouth 3 (three) times daily as needed for Pain (scale 4-6). [facility] tiZANidine 2 mg tablet 08-25 00:00: 00 Yes [id number] 2mg Take 1 tablet by mouth every 6 (six) hours as needed for Pain (scale 4-6). [facility] diclofenac 50 mg tablet 08-25 00:00: 00 Yes [id number] 50mg Take 1 tablet by mouth 3 (three) times daily as needed for Pain (scale 4-6). [facility] [facility] tablet 08-25 00:00: 00 Yes [id number] 2mg Take 1 tablet by mouth every 6 (six) hours as needed for Pain (scale 4-6). [facility] diclofenac 50 mg tablet 08-25 00:00: 00 Yes [id number] 50mg Take 1 tablet by mouth 3 (three) times daily as needed for Pain (scale 4-6). [facility] tiZANidine 2 mg tablet 08-25 00:00: 00 Yes [id number] 2mg Take 1 tablet by mouth every 6 (six) hours as needed for Pain (scale 4-6). [facility] diclofenac 50 mg tablet 08-25 00:00: 00 Yes [id number] 50mg Take 1 tablet by mouth 3 (three) times daily as needed for Pain (scale 4-6). [facility] tiZANidine 2 mg tablet 08-25 00:00: 00 Yes [id number] 2mg Take 1 tablet by mouth every 6 (six) hours as needed for Pain (scale 4-6). [facility] diclofenac 50 mg tablet 08-25 00:00: 00 Yes [id number] 50mg Take 1 tablet by mouth 3 (three) times daily as needed for Pain (scale 4-6). [facility] tiZANidine 2 mg tablet 08-25 00:00: 00 Yes [id number] 2mg Take 1 tablet by mouth every 6 (six) hours as needed for Pain (scale 4-6). [facility] diclofenac 50 mg tablet 08-25 00:00: 00 Yes [id number] 50mg Take 1 tablet by mouth 3 (three) times daily as needed for Pain (scale 4-6). [facility] tiZANidine 2 mg tablet 08-25 00:00: 00 Yes [id number] 2mg Take 1 tablet by mouth every 6 (six) hours as needed for Pain (scale 4-6). [facility] diclofenac 50 mg tablet 08-25 00:00: 00 Yes [id number] 50mg Take 1 tablet by mouth 3 (three) times daily as needed for Pain (scale 4-6). [facility] tiZANidine 2 mg tablet 08-25 00:00: 00 Yes [id number] 2mg Take 1 tablet by mouth every 6 (six) hours as needed for Pain (scale 4-6). [facility] diclofenac 50 mg tablet 08-25 00:00: 00 Yes [id number] 50mg Take 1 tablet by mouth 3 (three) times daily as needed for Pain (scale 4-6). [facility] tiZANidine 2 mg tablet 08-25 00:00: 00 Yes [id number] 2mg Take 1 tablet by mouth every 6 (six) hours as needed for Pain (scale 4-6). [facility] diclofenac 50 mg tablet 08-25 00:00: 00 Yes [id number] 50mg Take 1 tablet by mouth 3 (three) times daily as needed for Pain (scale 4-6). [facility] tiZANidine 2 mg tablet 08-25 00:00: 00 Yes [id number] 2mg Take 1 tablet by mouth every 6 (six) hours as needed for Pain (scale 4-6). [facility] diclofenac 50 mg tablet 08-25 00:00: 00 Yes [id number] 50mg Take 1 tablet by mouth 3 (three) times daily as needed for Pain (scale 4-6). [facility] tiZANidine 2 mg tablet 0 08-25 00:00: 00 Yes [id number] 2mg Take 1 tablet by mouth every 6 (six) hours as needed for Pain (scale 4-6). [facility] diclofenac 50 mg tablet 0 08-25 00:00: 00 Yes [id number] 50mg Take 1 tablet by mouth 3 (three) times daily as needed for Pain (scale 4-6). [facility] tiZANidine 2 mg tablet 0 08-25 00:00: 00 Yes [id number] 2mg Take 1 tablet by mouth every 6 (six) hours as needed for Pain (scale 4-6). [facility] diclofenac 50 mg tablet 0 08-25 00:00: 00 Yes [id number] 50mg Take 1 tablet by mouth 3 (three) times daily as needed for Pain (scale 4-6). [facility] tiZANidine 2 mg tablet 0 08-25 00:00: 00 Yes [id number] 2mg Take 1 tablet by mouth every 6 (six) hours as needed for Pain (scale 4-6). [facility] diclofenac 50 mg tablet 08-25 00:00: 00 Yes [id number] 50mg Take 1 tablet by mouth 3 (three) times daily as needed for Pain (scale 4-6). [facility] tiZANidine 2 mg tablet 08-25 00:00: 00 Yes [id number] 2mg Take 1 tablet by mouth every 6 (six) hours as needed for Pain (scale 4-6). [facility] diclofenac 50 mg tablet 08-25 00:00: 00 Yes [id number] 50mg Take 1 tablet by mouth 3 (three) times daily as needed for Pain (scale 4-6). [facility] tiZANidine 2 mg tablet 0 08-25 00:00: 00 Yes [id number] 2mg Take 1 tablet by mouth every 6 (six) hours as needed for Pain (scale 4-6). [facility] diclofenac 50 mg tablet 0 08-25 00:00: 00 Yes [id number] 50mg Take 1 tablet by mouth 3 (three) times daily as needed for Pain (scale 4-6). [facility] tiZANidine 2 mg tablet 0 08-25 00:00: 00 Yes [id number] 2mg Take 1 tablet by mouth every 6 (six) hours as needed for Pain (scale 4-6). [facility] diclofenac 50 mg tablet 0 08-25 00:00: 00 Yes [id number] 50mg Take 1 tablet by mouth 3 (three) times daily as needed for Pain (scale 4-6). [facility] tiZANidine 2 mg tablet 08-25 00:00: 00 Yes [id number] 2mg Take 1 tablet by mouth every 6 (six) hours as needed for Pain (scale 4-6). [facility] diclofenac 50 mg tablet 08-25 00:00: 00 Yes [id number] 50mg Take 1 tablet by mouth 3 (three) times daily as needed for Pain (scale 4-6). [facility] tiZANidine 2 mg tablet 08-25 00:00: 00 Yes [id number] 2mg Take 1 tablet by mouth every 6 (six) hours as needed for Pain (scale 4-6). [facility] diclofenac 50 mg tablet 08-25 00:00: 00 Yes [id number] 50mg Take 1 tablet by mouth 3 (three) times daily as needed for Pain (scale 4-6). [facility] tiZANidine 2 mg tablet 08-25 00:00: 00 Yes [id number] 2mg Take 1 tablet by mouth every 6 (six) hours as needed for Pain (scale 4-6). [facility] diclofenac 50 mg tablet 08-25 00:00: 00 Yes [id number] 50mg Take 1 tablet by mouth 3 (three) times daily as needed for Pain (scale 4-6). [facility] tiZANidine 2 mg tablet 08-25 00:00: 00 Yes [id number] 2mg Take 1 tablet by mouth every 6 (six) hours as needed for Pain (scale 4-6). [facility] diclofenac 50 mg tablet 08-25 00:00: 00 Yes [id number] 50mg Take 1 tablet by mouth 3 (three) times daily as needed for Pain (scale 4-6). [facility] tiZANidine 2 mg tablet 08-25 00:00: 00 Yes [id number] 2mg Take 1 tablet by mouth every 6 (six) hours as needed for Pain (scale 4-6). [facility] diclofenac 50 mg tablet 0 08-25 00:00: 00 Yes [id number] 50mg Take 1 tablet by mouth 3 (three) times daily as needed for Pain (scale 4-6). [facility] tiZANidine 2 mg tablet 08-25 00:00: 00 Yes [id number] 2mg Take 1 tablet by mouth every 6 (six) hours as needed for Pain (scale 4-6). [facility] diclofenac 50 mg tablet 08-25 00:00: 00 Yes [id number] 50mg Take 1 tablet by mouth 3 (three) times daily as needed for Pain (scale 4-6). [facility] tiZANidine 2 mg tablet 08-25 00:00: 00 Yes [id number] 2mg Take 1 tablet by mouth every 6 (six) hours as needed for Pain (scale 4-6). [facility] diclofenac 50 mg tablet 08-25 00:00: 00 Yes [id number] 50mg Take 1 tablet by mouth 3 (three) times daily as needed for Pain (scale 4-6). [facility] tiZANidine 2 mg tablet 0 08-25 00:00: 00 Yes [id number] 2mg Take 1 tablet by mouth every 6 (six) hours as needed for Pain (scale 4-6). [facility] diclofenac 50 mg tablet 0 08-25 00:00: 00 Yes [id number] 50mg Take 1 tablet by mouth 3 (three) times daily as needed for Pain (scale 4-6). [facility] tiZANidine 2 mg tablet 0 08-25 00:00: 00 Yes [id number] 2mg Take 1 tablet by mouth every 6 (six) hours as needed for Pain (scale 4-6). [facility] diclofenac 50 mg tablet 0 08-25 00:00: 00 Yes [id number] 50mg Take 1 tablet by mouth 3 (three) times daily as needed for Pain (scale 4-6). [facility] tiZANidine 2 mg tablet 08-25 00:00: 00 Yes [id number] 2mg Take 1 tablet by mouth every 6 (six) hours as needed for Pain (scale 4-6). [facility] diclofenac 50 mg tablet 08-25 00:00: 00 Yes [id number] 50mg Take 1 tablet by mouth 3 (three) times daily as needed for Pain (scale 4-6). [facility] tiZANidine 2 mg tablet 08-25 00:00: 00 Yes [id number] 2mg Take 1 tablet by mouth every 6 (six) hours as needed for Pain (scale 4-6). [facility] diclofenac 50 mg tablet 08-25 00:00: 00 Yes [id number] 50mg Take 1 tablet by mouth 3 (three) times daily as needed for Pain (scale 4-6). [facility] tiZANidine 2 mg tablet 08-25 00:00: 00 Yes [id number] 2mg Take 1 tablet by mouth every 6 (six) hours as needed for Pain (scale 4-6). [facility] diclofenac 50 mg tablet 08-25 00:00: 00 Yes [id number] 50mg Take 1 tablet by mouth 3 (three) times daily as needed for Pain (scale 4-6). [facility] tiZANidine 2 mg tablet 0 08-25 00:00: 00 Yes [id number] 2mg Take 1 tablet by mouth every 6 (six) hours as needed for Pain (scale 4-6). [facility] diclofenac 50 mg tablet 0 08-25 00:00: 00 Yes [id number] 50mg Take 1 tablet by mouth 3 (three) times daily as needed for Pain (scale 4-6). [facility] tiZANidine 2 mg tablet 0 08-25 00:00: 00 Yes [id number] 2mg Take 1 tablet by mouth every 6 (six) hours as needed for Pain (scale 4-6). [facility] diclofenac 50 mg tablet 08-25 00:00: 00 Yes [id number] 50mg Take 1 tablet by mouth 3 (three) times daily as needed for Pain (scale 4-6). [facility] tiZANidine 2 mg tablet 08-25 00:00: 00 Yes [id number] 2mg Take 1 tablet by mouth every 6 (six) hours as needed for Pain (scale 4-6). [facility] diclofenac 50 mg tablet 08-25 00:00: 00 Yes [id number] 50mg Take 1 tablet by mouth 3 (three) times daily as needed for Pain (scale 4-6). [facility] tiZANidine 2 mg tablet 08-25 00:00: 00 Yes [id number] 2mg Take 1 tablet by mouth every 6 (six) hours as needed for Pain (scale 4-6). [facility] diclofenac 50 mg tablet 08-25 00:00: 00 Yes [id number] 50mg Take 1 tablet by mouth 3 (three) times daily as needed for Pain (scale 4-6). [facility] aspirin 81 mg EC tablet 08-24 10:52: 58 Yes 81mg Take 1 tablet by mouth in the morning. [facility] cholecalcif bronwyn, vitamin D3, (VITAMIN D3 ORAL) 08-24 10:52: 58 Yes 1{capsu le} Take 1 capsule by mouth daily. [facility] aspirin 81 mg EC tablet 08-24 10:52: 58 Yes 81mg Take 1 tablet by mouth in the morning. [facility] cholecalcif bronwyn, vitamin D3, (VITAMIN D3 ORAL) 08-24 10:52: 58 Yes 1{capsu le} Take 1 capsule by mouth daily. [facility] aspirin 81 mg EC tablet 08-24 10:52: 58 Yes 81mg Take 1 tablet by mouth in the morning. [facility] cholecalcif bronwyn, vitamin D3, (VITAMIN D3 ORAL) 08-24 10:52: 58 Yes 1{capsu le} Take 1 capsule by mouth daily. [facility] aspirin 81 mg EC tablet 08-24 10:52: 58 Yes 81mg Take 1 tablet by mouth in the morning. [facility] cholecalcif bronwyn, vitamin D3, (VITAMIN D3 ORAL) 08-24 10:52: 58 Yes 1{capsu le} Take 1 capsule by mouth daily. [facility] aspirin 81 mg EC tablet 08-24 10:52: 58 Yes 81mg Take 1 tablet by mouth in the morning. [facility] cholecalcif bronwyn, vitamin D3, (VITAMIN D3 ORAL) 08-24 10:52: 58 Yes 1{capsu le} Take 1 capsule by mouth daily. [facility] aspirin 81 mg EC tablet 08-24 10:52: 58 Yes 81mg Take 1 tablet by mouth in the morning. [facility] cholecalcif bronwyn, vitamin D3, (VITAMIN D3 ORAL) 08-24 10:52: 58 Yes 1{capsu le} Take 1 capsule by mouth daily. [facility] aspirin 81 mg EC tablet 08-24 10:52: 58 Yes 81mg Take 1 tablet by mouth in the morning. [facility] cholecalcif bronwyn, vitamin D3, (VITAMIN D3 ORAL) 08-24 10:52: 58 Yes 1{capsu le} Take 1 capsule by mouth daily. [facility] aspirin 81 mg EC tablet 08-24 10:52: 58 Yes 81mg Take 1 tablet by mouth in the morning. [facility] cholecalcif bronwyn, vitamin D3, (VITAMIN D3 ORAL) 08-24 10:52: 58 Yes 1{capsu le} Take 1 capsule by mouth daily. [facility] aspirin 81 mg EC tablet 08-24 10:52: 58 Yes 81mg Take 1 tablet by mouth in the morning. [facility] cholecalcif bronwyn, vitamin D3, (VITAMIN D3 ORAL) 08-24 10:52: 58 Yes 1{capsu le} Take 1 capsule by mouth daily. [facility] aspirin 81 mg EC tablet 08-24 10:52: 58 Yes 81mg Take 1 tablet by mouth in the morning. [facility] cholecalcif bronwyn, vitamin D3, (VITAMIN D3 ORAL) 08-24 10:52: 58 Yes 1{capsu le} Take 1 capsule by mouth daily. [facility] aspirin 81 mg EC tablet 08-24 10:52: 58 Yes 81mg Take 1 tablet by mouth in the morning. [facility] cholecalcif bronwyn, vitamin D3, (VITAMIN D3 ORAL) 08-24 10:52: 58 Yes 1{capsu le} Take 1 capsule by mouth daily. [facility] aspirin 81 mg EC tablet 08-24 10:52: 58 Yes 81mg Take 1 tablet by mouth in the morning. [facility] cholecalcif bronwyn, vitamin D3, (VITAMIN D3 ORAL) 08-24 10:52: 58 Yes 1{capsu le} Take 1 capsule by mouth daily. [facility] aspirin 81 mg EC tablet 08-24 10:52: 58 Yes 81mg Take 1 tablet by mouth in the morning. [facility] cholecalcif bronwyn, vitamin D3, (VITAMIN D3 ORAL) 08-24 10:52: 58 Yes 1{capsu le} Take 1 capsule by mouth daily. [facility] aspirin 81 mg EC tablet 08-24 10:52: 58 Yes 81mg Take 1 tablet by mouth in the morning. [facility] cholecalcif bronwyn, vitamin D3, (VITAMIN D3 ORAL) 08-24 10:52: 58 Yes 1{capsu le} Take 1 capsule by mouth daily. [facility] aspirin 81 mg EC tablet 08-24 10:52: 58 Yes 81mg Take 1 tablet by mouth in the morning. [facility] cholecalcif bronwyn, vitamin D3, (VITAMIN D3 ORAL) 08-24 10:52: 58 Yes 1{capsu le} Take 1 capsule by mouth daily. [facility] aspirin 81 mg EC tablet 08-24 10:52: 58 Yes 81mg Take 1 tablet by mouth in the morning. [facility] cholecalcif bronwyn, vitamin D3, (VITAMIN D3 ORAL) 08-24 10:52: 58 Yes 1{capsu le} Take 1 capsule by mouth daily. [facility] aspirin 81 mg EC tablet 08-24 10:52: 58 Yes 81mg Take 1 tablet by mouth in the morning. [facility] cholecalcif bronwyn, vitamin D3, (VITAMIN D3 ORAL) 08-24 10:52: 58 Yes 1{capsu le} Take 1 capsule by mouth daily. [facility] aspirin 81 mg EC tablet 08-24 10:52: 58 Yes 81mg Take 1 tablet by mouth in the morning. [facility] cholecalcif bronwyn, vitamin D3, (VITAMIN D3 ORAL) 08-24 10:52: 58 Yes 1{capsu le} Take 1 capsule by mouth daily. [facility] aspirin 81 mg EC tablet 08-24 10:52: 58 Yes 81mg Take 1 tablet by mouth in the morning. [facility] cholecalcif bronwyn, vitamin D3, (VITAMIN D3 ORAL) 08-24 10:52: 58 Yes 1{capsu le} Take 1 capsule by mouth daily. [facility] aspirin 81 mg EC tablet 08-24 10:52: 58 Yes 81mg Take 1 tablet by mouth in the morning. [facility] cholecalcif bronwyn, vitamin D3, (VITAMIN D3 ORAL) 08-24 10:52: 58 Yes 1{capsu le} Take 1 capsule by mouth daily. [facility] aspirin 81 mg EC tablet 08-24 10:52: 58 Yes 81mg Take 1 tablet by mouth in the morning. [facility] cholecalcif bronwyn, vitamin D3, (VITAMIN D3 ORAL) 08-24 10:52: 58 Yes 1{capsu le} Take 1 capsule by mouth daily. [facility] aspirin 81 mg EC tablet 08-24 10:52: 58 Yes 81mg Take 1 tablet by mouth in the morning. [facility] cholecalcif bronwyn, vitamin D3, (VITAMIN D3 ORAL) 08-24 10:52: 58 Yes 1{capsu le} Take 1 capsule by mouth daily. [facility] aspirin 81 mg EC tablet 08-24 10:52: 58 Yes 81mg Take 1 tablet by mouth in the morning. [facility] cholecalcif bronwyn, vitamin D3, (VITAMIN D3 ORAL) 08-24 10:52: 58 Yes 1{capsu le} Take 1 capsule by mouth daily. [facility] aspirin 81 mg EC tablet 08-24 10:52: 58 Yes 81mg Take 1 tablet by mouth in the morning. [facility] cholecalcif bronwyn, vitamin D3, (VITAMIN D3 ORAL) 08-24 10:52: 58 Yes 1{capsu le} Take 1 capsule by mouth daily. [facility] aspirin 81 mg EC tablet 08-24 10:52: 58 Yes 81mg Take 1 tablet by mouth in the morning. [facility] cholecalcif bronwyn, vitamin D3, (VITAMIN D3 ORAL) 08-24 10:52: 58 Yes 1{capsu le} Take 1 capsule by mouth daily. [facility] aspirin 81 mg EC tablet 08-24 10:52: 58 Yes 81mg Take 1 tablet by mouth in the morning. [facility] cholecalcif bronwyn, vitamin D3, (VITAMIN D3 ORAL) 08-24 10:52: 58 Yes 1{capsu le} Take 1 capsule by mouth daily. [facility] aspirin 81 mg EC tablet 08-24 10:52: 58 Yes 81mg Take 1 tablet by mouth in the morning. [facility] cholecalcif bronwyn, vitamin D3, (VITAMIN D3 ORAL) 08-24 10:52: 58 Yes 1{capsu le} Take 1 capsule by mouth daily. [facility] aspirin 81 mg EC tablet 08-24 10:52: 58 Yes 81mg Take 1 tablet by mouth in the morning. [facility] cholecalcif bronwyn, vitamin D3, (VITAMIN D3 ORAL) 08-24 10:52: 58 Yes 1{capsu le} Take 1 capsule by mouth daily. [facility] aspirin 81 mg EC tablet 08-24 10:52: 58 Yes 81mg Take 1 tablet by mouth in the morning. [facility] cholecalcif bronwyn, vitamin D3, (VITAMIN D3 ORAL) 08-24 10:52: 58 Yes 1{capsu le} Take 1 capsule by mouth daily. [facility] aspirin 81 mg EC tablet 08-24 10:52: 58 Yes 81mg Take 1 tablet by mouth in the morning. [facility] cholecalcif bronwyn, vitamin D3, (VITAMIN D3 ORAL) 08-24 10:52: 58 Yes 1{capsu le} Take 1 capsule by mouth daily. [facility] aspirin 81 mg EC tablet 08-24 10:52: 58 Yes 81mg Take 1 tablet by mouth in the morning. [facility] cholecalcif bronwyn, vitamin D3, (VITAMIN D3 ORAL) 08-24 10:52: 58 Yes 1{capsu le} Take 1 capsule by mouth daily. [facility] aspirin 81 mg EC tablet 08-24 10:52: 58 Yes 81mg Take 1 tablet by mouth in the morning. [facility] cholecalcif bronwyn, vitamin D3, (VITAMIN D3 ORAL) 08-24 10:52: 58 Yes 1{capsu le} Take 1 capsule by mouth daily. [facility] aspirin 81 mg EC tablet 08-24 10:52: 58 Yes 81mg Take 1 tablet by mouth in the morning. [facility] cholecalcif bronwyn, vitamin D3, (VITAMIN D3 ORAL) 08-24 10:52: 58 Yes 1{capsu le} Take 1 capsule by mouth daily. [facility] aspirin 81 mg EC tablet 08-24 10:52: 58 Yes 81mg Take 1 tablet by mouth in the morning. [facility] cholecalcif bronwyn, vitamin D3, (VITAMIN D3 ORAL) 08-24 10:52: 58 Yes 1{capsu le} Take 1 capsule by mouth daily. [facility] aspirin 81 mg EC tablet 08-24 10:52: 58 Yes 81mg Take 1 tablet by mouth in the morning. [facility] cholecalcif bronwyn, vitamin D3, (VITAMIN D3 ORAL) 08-24 10:52: 58 Yes 1{capsu le} Take 1 capsule by mouth daily. [facility] aspirin 81 mg EC tablet 08-24 10:52: 58 Yes 81mg Take 1 tablet by mouth in the morning. [facility] cholecalcif bronwyn, vitamin D3, (VITAMIN D3 ORAL) 08-24 10:52: 58 Yes 1{capsu le} Take 1 capsule by mouth daily. [facility] aspirin 81 mg EC tablet 08-24 10:52: 58 Yes 81mg Take 1 tablet by mouth in the morning. [facility] cholecalcif bronwyn, vitamin D3, (VITAMIN D3 ORAL) 08-24 10:52: 58 Yes 1{capsu le} Take 1 capsule by mouth daily. [facility] aspirin 81 mg EC tablet 08-24 10:52: 58 Yes 81mg Take 1 tablet by mouth in the morning. [facility] cholecalcif bronwyn, vitamin D3, (VITAMIN D3 ORAL) 08-24 10:52: 58 Yes 1{capsu le} Take 1 capsule by mouth daily. [facility] aspirin 81 mg EC tablet 08-24 10:52: 58 Yes 81mg Take 1 tablet by mouth in the morning. [facility] cholecalcif bronwyn, vitamin D3, (VITAMIN D3 ORAL) 08-24 10:52: 58 Yes 1{maineu le} Take 1 capsule by mouth daily. [facility] cyclobenzap rine 5 mg tablet 08-24 00:00: 00 Yes [id number] 5mg Take 1 tablet by mouth in the morning and 1 tablet at noon and 1 tablet in the evening. [facility] cyclobenzap rine 5 mg tablet 08-24 00:00: 00 Yes [id number] 5mg Take 1 tablet by mouth in the morning and 1 tablet at noon and 1 tablet in the evening. [facility] cyclobenzap rine 5 mg tablet 08-24 00:00: 00 Yes [id number] 5mg Take 1 tablet by mouth in the morning and 1 tablet at noon and 1 tablet in the evening. [facility] cyclobenzap rine 5 mg tablet 08-24 00:00: 00 Yes [id number] 5mg Take 1 tablet by mouth in the morning and 1 tablet at noon and 1 tablet in the evening. [facility] cyclobenzap rine 5 mg tablet 08-24 00:00: 00 Yes [id number] 5mg Take 1 tablet by mouth in the morning and 1 tablet at noon and 1 tablet in the evening. [facility] cyclobenzap rine 5 mg tablet 0 08-24 00:00: 00 Yes [id number] 5mg Take 1 tablet by mouth in the morning and 1 tablet at noon and 1 tablet in the evening. [facility] cyclobenzap rine 5 mg tablet 0 08-24 00:00: 00 Yes [id number] 5mg Take 1 tablet by mouth in the morning and 1 tablet at noon and 1 tablet in the evening. [facility] cyclobenzap rine 5 mg tablet 0 08-24 00:00: 00 Yes [id number] 5mg Take 1 tablet by mouth in the morning and 1 tablet at noon and 1 tablet in the evening. [facility] cyclobenzap rine 5 mg tablet 0 08-24 00:00: 00 Yes [id number] 5mg Take 1 tablet by mouth in the morning and 1 tablet at noon and 1 tablet in the evening. [facility] cyclobenzap rine 5 mg tablet 2022-0 08-24 00:00: 00 Yes [id number] 5mg Take 1 tablet by mouth in the morning and 1 tablet at noon and 1 tablet in the evening. [facility] cyclobenzap rine 5 mg tablet 2022-0 08-24 00:00: 00 Yes [id number] 5mg Take 1 tablet by mouth in the morning and 1 tablet at noon and 1 tablet in the evening. [facility] cyclobenzap rine 5 mg tablet 2022-0 08-24 00:00: 00 Yes [id number] 5mg Take 1 tablet by mouth in the morning and 1 tablet at noon and 1 tablet in the evening. [facility] cyclobenzap rine 5 mg tablet 2022-0 08-24 00:00: 00 Yes [id number] 5mg Take 1 tablet by mouth in the morning and 1 tablet at noon and 1 tablet in the evening. [facility] cyclobenzap rine 5 mg tablet 2022-0 08-24 00:00: 00 Yes [id number] 5mg Take 1 tablet by mouth in the morning and 1 tablet at noon and 1 tablet in the evening. [facility] cyclobenzap rine 5 mg tablet 2022-0 08-24 00:00: 00 Yes [id number] 5mg Take 1 tablet by mouth in the morning and 1 tablet at noon and 1 tablet in the evening. [facility] cyclobenzap rine 5 mg tablet 2022-0 08-24 00:00: 00 Yes [id number] 5mg Take 1 tablet by mouth in the morning and 1 tablet at noon and 1 tablet in the evening. [facility] cyclobenzap rine 5 mg tablet 2022-0 - 00:00: 00 Yes [id number] 5mg Take 1 tablet by mouth in the morning and 1 tablet at noon and 1 tablet in the evening. [facility] cyclobenzap rine 5 mg tablet 3-0 - 00:00: 00 Yes [id number] 5mg Take 1 tablet by mouth in the morning and 1 tablet at noon and 1 tablet in the evening. [facility] cyclobenzap rine 5 mg tablet 2022-0 08-24 00:00: 00 Yes [id number] 5mg Take 1 tablet by mouth in the morning and 1 tablet at noon and 1 tablet in the evening. [facility] cyclobenzap rine 5 mg tablet 2022-0 08-24 00:00: 00 Yes [id number] 5mg Take 1 tablet by mouth in the morning and 1 tablet at noon and 1 tablet in the evening. [facility] cyclobenzap rine 5 mg tablet 2022-0 08-24 00:00: 00 Yes [id number] 5mg Take 1 tablet by mouth in the morning and 1 tablet at noon and 1 tablet in the evening. [facility] cyclobenzap rine 5 mg tablet 2022-0 - 00:00: 00 Yes [id number] 5mg Take 1 tablet by mouth in the morning and 1 tablet at noon and 1 tablet in the evening. [facility] cyclobenzap rine 5 mg tablet 2022-0 08-24 00:00: 00 Yes [id number] 5mg Take 1 tablet by mouth in the morning and 1 tablet at noon and 1 tablet in the evening. [facility] cyclobenzap rine 5 mg tablet 2022-0 08-24 00:00: 00 Yes [id number] 5mg Take 1 tablet by mouth in the morning and 1 tablet at noon and 1 tablet in the evening. [facility] cyclobenzap rine 5 mg tablet 2022-0 08-24 00:00: 00 Yes [id number] 5mg Take 1 tablet by mouth in the morning and 1 tablet at noon and 1 tablet in the evening. [facility] cyclobenzap rine 5 mg tablet 2022-0 5- 00:00: 00 Yes [id number] 5mg Take 1 tablet by mouth in the morning and 1 tablet at noon and 1 tablet in the evening. [facility] cyclobenzap rine 5 mg tablet 2022-0 - 00:00: 00 Yes [id number] 5mg Take 1 tablet by mouth in the morning and 1 tablet at noon and 1 tablet in the evening. [facility] cyclobenzap rine 5 mg tablet 2022-0 08-24 00:00: 00 Yes [id number] 5mg Take 1 tablet by mouth in the morning and 1 tablet at noon and 1 tablet in the evening. [facility] cyclobenzap rine 5 mg tablet 2022-0 08-24 00:00: 00 Yes [id number] 5mg Take 1 tablet by mouth in the morning and 1 tablet at noon and 1 tablet in the evening. [facility] cyclobenzap rine 5 mg tablet 2022-0 - 00:00: 00 Yes [id number] 5mg Take 1 tablet by mouth in the morning and 1 tablet at noon and 1 tablet in the evening. [facility] cyclobenzap rine 5 mg tablet 2022-0 - 00:00: 00 Yes [id number] 5mg Take 1 tablet by mouth in the morning and 1 tablet at noon and 1 tablet in the evening. [facility] cyclobenzap rine 5 mg tablet 2022-0 - 00:00: 00 Yes [id number] 5mg Take 1 tablet by mouth in the morning and 1 tablet at noon and 1 tablet in the evening. [facility] cyclobenzap rine 5 mg tablet 2022-0 08-24 00:00: 00 Yes [id number] 5mg Take 1 tablet by mouth in the morning and 1 tablet at noon and 1 tablet in the evening. [facility] cyclobenzap rine 5 mg tablet 2022-0 08-24 00:00: 00 Yes [id number] 5mg Take 1 tablet by mouth in the morning and 1 tablet at noon and 1 tablet in the evening. [facility] cyclobenzap rine 5 mg tablet 2022-0 - 00:00: 00 Yes [id number] 5mg Take 1 tablet by mouth in the morning and 1 tablet at noon and 1 tablet in the evening. [facility] cyclobenzap rine 5 mg tablet 3-0 5- 00:00: 00 Yes [id number] 5mg Take 1 tablet by mouth in the morning and 1 tablet at noon and 1 tablet in the evening. [facility] cyclobenzap rine 5 mg tablet 2022-0 08-24 00:00: 00 Yes [id number] 5mg Take 1 tablet by mouth in the morning and 1 tablet at noon and 1 tablet in the evening. [facility] cyclobenzap rine 5 mg tablet 2022-0 - 00:00: 00 Yes [id number] 5mg Take 1 tablet by mouth in the morning and 1 tablet at noon and 1 tablet in the evening. [facility] cyclobenzap rine 5 mg tablet 2022-0 - 00:00: 00 Yes [id number] 5mg Take 1 tablet by mouth in the morning and 1 tablet at noon and 1 tablet in the evening. [facility] cyclobenzap rine 5 mg tablet 2022-0 - 00:00: 00 Yes [id number] 5mg Take 1 tablet by mouth in the morning and 1 tablet at noon and 1 tablet in the evening. [facility] cyclobenzap rine 5 mg tablet 2022-0 - 00:00: 00 Yes [id number] 5mg Take 1 tablet by mouth in the morning and 1 tablet at noon and 1 tablet in the evening. [facility] cyclobenzap rine 5 mg tablet 2022-0 08-24 00:00: 00 Yes [id number] 5mg Take 1 tablet by mouth in the morning and 1 tablet at noon and 1 tablet in the evening. [facility] cyclobenzap rine 5 mg tablet 2022-0 - 00:00: 00 Yes [id number] 5mg Take 1 tablet by mouth in the morning and 1 tablet at noon and 1 tablet in the evening. [facility] cyclobenzap rine 5 mg tablet 3-0 08-24 00:00: 00 Yes [id number] 5mg Take 1 tablet by mouth in the morning and 1 tablet at noon and 1 tablet in the evening. [facility] cyclobenzap rine 5 mg tablet 2022-0 5- 00:00: 00 Yes [id number] 5mg Take 1 tablet by mouth in the morning and 1 tablet at noon and 1 tablet in the evening. [facility] cyclobenzap rine 5 mg tablet 3-0 - 00:00: 00 Yes [id number] 5mg Take 1 tablet by mouth in the morning and 1 tablet at noon and 1 tablet in the evening. [facility] cyclobenzap rine 5 mg tablet 0 08-24 00:00: 00 Yes [id number] 5mg Take 1 tablet by mouth in the morning and 1 tablet at noon and 1 tablet in the evening. [facility] cyclobenzap rine 5 mg tablet 0 08-24 00:00: 00 Yes [id number] 5mg Take 1 tablet by mouth in the morning and 1 tablet at noon and 1 tablet in the evening. [facility] cyclobenzap rine 5 mg tablet 0 08-24 00:00: 00 Yes [id number] 5mg Take 1 tablet by mouth in the morning and 1 tablet at noon and 1 tablet in the evening. [facility] cyclobenzap rine 5 mg tablet 0 08-24 00:00: 00 Yes [id number] 5mg Take 1 tablet by mouth in the morning and 1 tablet at noon and 1 tablet in the evening. [facility] cyclobenzap rine 5 mg tablet 0 08-24 00:00: 00 Yes [id number] 5mg Take 1 tablet by mouth in the morning and 1 tablet at noon and 1 tablet in the evening. [facility] cyclobenzap rine 5 mg tablet 08-24 00:00: 00 Yes [id number] 5mg Take 1 tablet by mouth in the morning and 1 tablet at noon and 1 tablet in the evening. [facility] cyclobenzap rine 5 mg tablet 0 08-24 00:00: 00 Yes [id number] 5mg Take 1 tablet by mouth in the morning and 1 tablet at noon and 1 tablet in the evening. [facility] hydrOXYzine 25 mg tablet 08-24 00:00: 00 10-24 04:59 :00 No [id number] 25mg Take 1 tablet by mouth every 6 (six) hours as needed for Itching or Anxiety for up to 60 days. [facility] hydrOXYzine 25 mg tablet 0 08-24 00:00: 00 10-24 04:59 :00 No [id number] 25mg Take 1 tablet by mouth every 6 (six) hours as needed for Itching or Anxiety for up to 60 days. [facility] hydrOXYzine 25 mg tablet 0 08-24 00:00: 00 10-24 04:59 :00 No [id number] 25mg Take 1 tablet by mouth every 6 (six) hours as needed for Itching or Anxiety for up to 60 days. [facility] hydrOXYzine 25 mg tablet 0 08-24 00:00: 00 10-24 04:59 :00 No [id number] 25mg Take 1 tablet by mouth every 6 (six) hours as needed for Itching or Anxiety for up to 60 days. [facility] hydrOXYzine 25 mg tablet 0 08-24 00:00: 00 10-24 04:59 :00 No [id number] 25mg Take 1 tablet by mouth every 6 (six) hours as needed for Itching or Anxiety for up to 60 days. [facility] hydrOXYzine 25 mg tablet 08-24 00:00: 00 10-24 04:59 :00 No [id number] 25mg Take 1 tablet by mouth every 6 (six) hours as needed for Itching or Anxiety for up to 60 days. [facility] hydrOXYzine 25 mg tablet 0 08-24 00:00: 00 10-24 04:59 :00 No [id number] 25mg Take 1 tablet by mouth every 6 (six) hours as needed for Itching or Anxiety for up to 60 days. [facility] hydrOXYzine 25 mg tablet 0 08-24 00:00: 00 10-24 04:59 :00 No [id number] 25mg Take 1 tablet by mouth every 6 (six) hours as needed for Itching or Anxiety for up to 60 days. [facility] hydrOXYzine 25 mg tablet 0 08-24 00:00: 00 10-24 04:59 :00 No [id number] 25mg Take 1 tablet by mouth every 6 (six) hours as needed for Itching or Anxiety for up to 60 days. [facility] hydrOXYzine 25 mg tablet 0 5 00:00: 00 10-24 04:59 :00 No [id number] 25mg Take 1 tablet by mouth every 6 (six) hours as needed for Itching or Anxiety for up to 60 days. [facility] hydrOXYzine 25 mg tablet 0 5 00:00: 00 10-24 04:59 :00 No [id number] 25mg Take 1 tablet by mouth every 6 (six) hours as needed for Itching or Anxiety for up to 60 days. [facility] hydrOXYzine 25 mg tablet 0 5 00:00: 00 10-24 04:59 :00 No [id number] 25mg Take 1 tablet by mouth every 6 (six) hours as needed for Itching or Anxiety for up to 60 days. [facility] hydrOXYzine 25 mg tablet 0 5 00:00: 00 10-24 04:59 :00 No [id number] 25mg Take 1 tablet by mouth every 6 (six) hours as needed for Itching or Anxiety for up to 60 days. [facility] hydrOXYzine 25 mg tablet 0 5 00:00: 00 10-24 04:59 :00 No [id number] 25mg Take 1 tablet by mouth every 6 (six) hours as needed for Itching or Anxiety for up to 60 days. [facility] hydrOXYzine 25 mg tablet 0 5 00:00: 00 10-24 04:59 :00 No [id number] 25mg Take 1 tablet by mouth every 6 (six) hours as needed for Itching or Anxiety for up to 60 days. [facility] hydrOXYzine 25 mg tablet 0 5- 00:00: 00 10-24 04:59 :00 No [id number] 25mg Take 1 tablet by mouth every 6 (six) hours as needed for Itching or Anxiety for up to 60 days. [facility] hydrOXYzine 25 mg tablet 0 5- 00:00: 00 10-24 04:59 :00 No [id number] 25mg Take 1 tablet by mouth every 6 (six) hours as needed for Itching or Anxiety for up to 60 days. [facility] hydrOXYzine 25 mg tablet 0 08-24 00:00: 00 10-24 04:59 :00 No [id number] 25mg Take 1 tablet by mouth every 6 (six) hours as needed for Itching or Anxiety for up to 60 days. [facility] hydrOXYzine 25 mg tablet 08-24 00:00: 00 10-24 04:59 :00 No [id number] 25mg Take 1 tablet by mouth every 6 (six) hours as needed for Itching or Anxiety for up to 60 days. [facility] hydrOXYzine 25 mg tablet 08-24 00:00: 00 10-24 04:59 :00 No [id number] 25mg Take 1 tablet by mouth every 6 (six) hours as needed for Itching or Anxiety for up to 60 days. [facility] hydrOXYzine 25 mg tablet 08-24 00:00: 00 10-24 04:59 :00 No [id number] 25mg Take 1 tablet by mouth every 6 (six) hours as needed for Itching or Anxiety for up to 60 days. [facility] hydrOXYzine 25 mg tablet 08-24 00:00: 00 10-24 04:59 :00 No [id number] 25mg Take 1 tablet by mouth every 6 (six) hours as needed for Itching or Anxiety for up to 60 days. [facility] traZODone 50 mg tablet 2022-0 07-30 00:00: 00 Yes [id number] 25mg Take 0.5-1 tablets by mouth at bedtime as needed for Insomnia. [facility] traZODone 50 mg tablet 2022-0 -07 00:00: 00 Yes [id number] 25mg Take 0.5-1 tablets by mouth at bedtime as needed for Insomnia. [facility] traZODone 50 mg tablet 3-0 -07 00:00: 00 Yes [id number] 25mg Take 0.5-1 tablets by mouth at bedtime as needed for Insomnia. [facility] traZODone 50 mg tablet 2023-0 4-07 00:00: 00 Yes [id number] 25mg Take 0.5-1 tablets by mouth at bedtime as needed for Insomnia. [facility] traZODone 50 mg tablet 2023-0 4- 00:00: 00 Yes [id number] 25mg Take 0.5-1 tablets by mouth at bedtime as needed for Insomnia. [facility] traZODone 50 mg tablet 2023-0 4-07 00:00: 00 Yes [id number] 25mg Take 0.5-1 tablets by mouth at bedtime as needed for Insomnia. [facility] traZODone 50 mg tablet 2023-0 4-07 00:00: 00 Yes [id number] 25mg Take 0.5-1 tablets by mouth at bedtime as needed for Insomnia. [facility] traZODone 50 mg tablet 2023-0 4- 00:00: 00 Yes [id number] 25mg Take 0.5-1 tablets by mouth at bedtime as needed for Insomnia. [facility] traZODone 50 mg tablet 2023-0 4-07 00:00: 00 Yes [id number] 25mg Take 0.5-1 tablets by mouth at bedtime as needed for Insomnia. [facility] traZODone 50 mg tablet 2023-0 4-07 00:00: 00 Yes [id number] 25mg Take 0.5-1 tablets by mouth at bedtime as needed for Insomnia. [facility] traZODone 50 mg tablet 2023-0 4-07 00:00: 00 Yes [id number] 25mg Take 0.5-1 tablets by mouth at bedtime as needed for Insomnia. [facility] traZODone 50 mg tablet 2023-0 4-07 00:00: 00 Yes [id number] 25mg Take 0.5-1 tablets by mouth at bedtime as needed for Insomnia. [facility] traZODone 50 mg tablet 2023-0 4-07 00:00: 00 Yes [id number] 25mg Take 0.5-1 tablets by mouth at bedtime as needed for Insomnia. [facility] traZODone 50 mg tablet 2023-0 4-07 00:00: 00 Yes [id number] 25mg Take 0.5-1 tablets by mouth at bedtime as needed for Insomnia. [facility] traZODone 50 mg tablet 2023-0 4- 00:00: 00 Yes [id number] 25mg Take 0.5-1 tablets by mouth at bedtime as needed for Insomnia. [facility] traZODone 50 mg tablet 2023-0 4-07 00:00: 00 Yes [id number] 25mg Take 0.5-1 tablets by mouth at bedtime as needed for Insomnia. [facility] traZODone 50 mg tablet 2023-0 4-07 00:00: 00 Yes [id number] 25mg Take 0.5-1 tablets by mouth at bedtime as needed for Insomnia. [facility] traZODone 50 mg tablet 2023-0 4- 00:00: 00 Yes [id number] 25mg Take 0.5-1 tablets by mouth at bedtime as needed for Insomnia. [facility] traZODone 50 mg tablet 2023-0 4-07 00:00: 00 Yes [id number] 25mg Take 0.5-1 tablets by mouth at bedtime as needed for Insomnia. [facility] traZODone 50 mg tablet 2023-0 4-07 00:00: 00 Yes [id number] 25mg Take 0.5-1 tablets by mouth at bedtime as needed for Insomnia. [facility] traZODone 50 mg tablet 2023-0 4-07 00:00: 00 Yes [id number] 25mg Take 0.5-1 tablets by mouth at bedtime as needed for Insomnia. [facility] traZODone 50 mg tablet 2023-0 4-07 00:00: 00 Yes [id number] 25mg Take 0.5-1 tablets by mouth at bedtime as needed for Insomnia. [facility] traZODone 50 mg tablet 2023-0 4-07 00:00: 00 Yes [id number] 25mg Take 0.5-1 tablets by mouth at bedtime as needed for Insomnia. [facility] traZODone 50 mg tablet 3-0 4-07 00:00: 00 Yes [id number] 25mg Take 0.5-1 tablets by mouth at bedtime as needed for Insomnia. [facility] traZODone 50 mg tablet 3-0 4- 00:00: 00 Yes [id number] 25mg Take 0.5-1 tablets by mouth at bedtime as needed for Insomnia. [facility] traZODone 50 mg tablet 3-0 4- 00:00: 00 Yes [id number] 25mg Take 0.5-1 tablets by mouth at bedtime as needed for Insomnia. [facility] traZODone 50 mg tablet 3-0 07-30 00:00: 00 Yes [id number] 25mg Take 0.5-1 tablets by mouth at bedtime as needed for Insomnia. [facility] traZODone 50 mg tablet 3-0 07-30 00:00: 00 Yes [id number] 25mg Take 0.5-1 tablets by mouth at bedtime as needed for Insomnia. [facility] traZODone 50 mg tablet 3-0 07-30 00:00: 00 Yes [id number] 25mg Take 0.5-1 tablets by mouth at bedtime as needed for Insomnia. [facility] traZODone 50 mg tablet 3-0 07-30 00:00: 00 Yes [id number] 25mg Take 0.5-1 tablets by mouth at bedtime as needed for Insomnia. [facility] traZODone 50 mg tablet 3-0 07-30 00:00: 00 Yes [id number] 25mg Take 0.5-1 tablets by mouth at bedtime as needed for Insomnia. [facility] traZODone 50 mg tablet 3-0 07-30 00:00: 00 12-15 00:00 :00 No [id number] 25mg Take 0.5-1 tablets by mouth at bedtime as needed for Insomnia. [facility] molnupiravi r 200 mg capsule 2022-0 3-02 00:00: 00 Yes [id number] 800mg Take 4 capsules by mouth every 12 (twelve) hours. [facility] molnupiravi r 200 mg capsule 2023-0 3-02 00:00: 00 Yes [id number] 800mg Take 4 capsules by mouth every 12 (twelve) hours. [facility] molnupiravi r 200 mg capsule 2023-0 3-02 00:00: 00 Yes [id number] 800mg Take 4 capsules by mouth every 12 (twelve) hours. [facility] molnupiravi r 200 mg capsule 2023-0 3-02 00:00: 00 Yes [id number] 800mg Take 4 capsules by mouth every 12 (twelve) hours. [facility] molnupiravi r 200 mg capsule 2023-0 3-02 00:00: 00 Yes [id number] 800mg Take 4 capsules by mouth every 12 (twelve) hours. [facility] molnupiravi r 200 mg capsule 2023-0 3-02 00:00: 00 Yes [id number] 800mg Take 4 capsules by mouth every 12 (twelve) hours. [facility] molnupiravi r 200 mg capsule 2023-0 3-02 00:00: 00 Yes [id number] 800mg Take 4 capsules by mouth every 12 (twelve) hours. [facility] molnupiravi r 200 mg capsule 2023-0 3-02 00:00: 00 Yes [id number] 800mg Take 4 capsules by mouth every 12 (twelve) hours. [facility] molnupiravi r 200 mg capsule 2023-0 3-02 00:00: 00 Yes [id number] 800mg Take 4 capsules by mouth every 12 (twelve) hours. [facility] molnupiravi r 200 mg capsule 2023-0 3-02 00:00: 00 Yes [id number] 800mg Take 4 capsules by mouth every 12 (twelve) hours. [facility] molnupiravi r 200 mg capsule 2023-0 3-02 00:00: 00 Yes [id number] 800mg Take 4 capsules by mouth every 12 (twelve) hours. [facility] molnupiravi r 200 mg capsule 2023-0 3-02 00:00: 00 Yes [id number] 800mg Take 4 capsules by mouth every 12 (twelve) hours. [facility] molnupiravi r 200 mg capsule 2023-0 3-02 00:00: 00 Yes [id number] 800mg Take 4 capsules by mouth every 12 (twelve) hours. [facility] molnupiravi r 200 mg capsule 2023-0 3-02 00:00: 00 Yes [id number] 800mg Take 4 capsules by mouth every 12 (twelve) hours. [facility] molnupiravi r 200 mg capsule 2023-0 3-02 00:00: 00 Yes [id number] 800mg Take 4 capsules by mouth every 12 (twelve) hours. [facility] molnupiravi r 200 mg capsule 2023-0 3-02 00:00: 00 Yes [id number] 800mg Take 4 capsules by mouth every 12 (twelve) hours. [facility] molnupiravi r 200 mg capsule 2023-0 3-02 00:00: 00 Yes [id number] 800mg Take 4 capsules by mouth every 12 (twelve) hours. [facility] molnupiravi r 200 mg capsule 2023-0 3-02 00:00: 00 Yes [id number] 800mg Take 4 capsules by mouth every 12 (twelve) hours. [facility] molnupiravi r 200 mg capsule 2023-0 3-02 00:00: 00 Yes [id number] 800mg Take 4 capsules by mouth every 12 (twelve) hours. [facility] molnupiravi r 200 mg capsule 2023-0 3-02 00:00: 00 Yes [id number] 800mg Take 4 capsules by mouth every 12 (twelve) hours. [facility] molnupiravi r 200 mg capsule 2023-0 3-02 00:00: 00 Yes [id number] 800mg Take 4 capsules by mouth every 12 (twelve) hours. [facility] molnupiravi r 200 mg capsule 2023-0 3-02 00:00: 00 Yes [id number] 800mg Take 4 capsules by mouth every 12 (twelve) hours. [facility] molnupiravi r 200 mg capsule 2023-0 3-02 00:00: 00 Yes [id number] 800mg Take 4 capsules by mouth every 12 (twelve) hours. [facility] molnupiravi r 200 mg capsule 2023-0 3-02 00:00: 00 Yes [id number] 800mg Take 4 capsules by mouth every 12 (twelve) hours. [facility] molnupiravi r 200 mg capsule 2023-0 3-02 00:00: 00 Yes [id number] 800mg Take 4 capsules by mouth every 12 (twelve) hours. [facility] molnupiravi r 200 mg capsule 2023-0 3-02 00:00: 00 Yes [id number] 800mg Take 4 capsules by mouth every 12 (twelve) hours. [facility] molnupiravi r 200 mg capsule 2023-0 3-02 00:00: 00 Yes [id number] 800mg Take 4 capsules by mouth every 12 (twelve) hours. [facility] molnupiravi r 200 mg capsule 2023-0 3-02 00:00: 00 Yes [id number] 800mg Take 4 capsules by mouth every 12 (twelve) hours. [facility] molnupiravi r 200 mg capsule 2023-0 3-02 00:00: 00 Yes [id number] 800mg Take 4 capsules by mouth every 12 (twelve) hours. [facility] molnupiravi r 200 mg capsule 2023-0 3-02 00:00: 00 Yes [id number] 800mg Take 4 capsules by mouth every 12 (twelve) hours. [facility] molnupiravi r 200 mg capsule 2023-0 3-02 00:00: 00 Yes [id number] 800mg Take 4 capsules by mouth every 12 (twelve) hours. [facility] molnupiravi r 200 mg capsule 2023-0 3-02 00:00: 00 Yes [id number] 800mg Take 4 capsules by mouth every 12 (twelve) hours. [facility] molnupiravi r 200 mg capsule 2023-0 3-02 00:00: 00 Yes [id number] 800mg Take 4 capsules by mouth every 12 (twelve) hours. [facility] molnupiravi r 200 mg capsule 2023-0 3-02 00:00: 00 Yes [id number] 800mg Take 4 capsules by mouth every 12 (twelve) hours. [facility] molnupiravi r 200 mg capsule 2023-0 3-02 00:00: 00 Yes [id number] 800mg Take 4 capsules by mouth every 12 (twelve) hours. [facility] molnupiravi r 200 mg capsule 2023-0 3-02 00:00: 00 Yes [id number] 800mg Take 4 capsules by mouth every 12 (twelve) hours. [facility] molnupiravi r 200 mg capsule 2023-0 3-02 00:00: 00 Yes [id number] 800mg Take 4 capsules by mouth every 12 (twelve) hours. [facility] molnupiravi r 200 mg capsule 2023-0 3-02 00:00: 00 Yes [id number] 800mg Take 4 capsules by mouth every 12 (twelve) hours. [facility] molnupiravi r 200 mg capsule 2023-0 3-02 00:00: 00 Yes [id number] 800mg Take 4 capsules by mouth every 12 (twelve) hours. [facility] molnupiravi r 200 mg capsule 2023-0 3-02 00:00: 00 Yes [id number] 800mg Take 4 capsules by mouth every 12 (twelve) hours. [facility] molnupiravi r 200 mg capsule 2023-0 3-02 00:00: 00 Yes [id number] 800mg Take 4 capsules by mouth every 12 (twelve) hours. [facility] molnupiravi r 200 mg capsule 2023-0 3-02 00:00: 00 Yes [id number] 800mg Take 4 capsules by mouth every 12 (twelve) hours. [facility] molnupiravi r 200 mg capsule 2023-0 3-02 00:00: 00 Yes [id number] 800mg Take 4 capsules by mouth every 12 (twelve) hours. [facility] molnupiravi r 200 mg capsule 2023-0 3-02 00:00: 00 Yes [id number] 800mg Take 4 capsules by mouth every 12 (twelve) hours. [facility] molnupiravi r 200 mg capsule 2023-0 3-02 00:00: 00 Yes [id number] 800mg Take 4 capsules by mouth every 12 (twelve) hours. [facility] molnupiravi r 200 mg capsule 2023-0 3-02 00:00: 00 Yes [id number] 800mg Take 4 capsules by mouth every 12 (twelve) hours. [facility] molnupiravi r 200 mg capsule 2023-0 3-02 00:00: 00 Yes [id number] 800mg Take 4 capsules by mouth every 12 (twelve) hours. [facility] molnupiravi r 200 mg capsule 2023-0 3-02 00:00: 00 Yes [id number] 800mg Take 4 capsules by mouth every 12 (twelve) hours. [facility] molnupiravi r 200 mg capsule 2023-0 3-02 00:00: 00 Yes [id number] 800mg Take 4 capsules by mouth every 12 (twelve) hours. [facility] molnupiravi r 200 mg capsule 2023-0 3-02 00:00: 00 Yes [id number] 800mg Take 4 capsules by mouth every 12 (twelve) hours. [facility] molnupiravi r 200 mg capsule 2023-0 3-02 00:00: 00 Yes [id number] 800mg Take 4 capsules by mouth every 12 (twelve) hours. [facility] molnupiravi r 200 mg capsule 2023-0 3-02 00:00: 00 Yes [id number] 800mg Take 4 capsules by mouth every 12 (twelve) hours. [facility] molnupiravi r 200 mg capsule 2023-0 3-02 00:00: 00 Yes [id number] 800mg Take 4 capsules by mouth every 12 (twelve) hours. [facility] molnupiravi r 200 mg capsule 2023-0 3-02 00:00: 00 Yes [id number] 800mg Take 4 capsules by mouth every 12 (twelve) hours. [facility] molnupiravi r 200 mg capsule 3-0 3-02 00:00: 00 Yes [id number] 800mg Take 4 capsules by mouth every 12 (twelve) hours. [facility] molnupiravi r 200 mg capsule 3-0 3-02 00:00: 00 Yes [id number] 800mg Take 4 capsules by mouth every 12 (twelve) hours. [facility] molnupiravi r 200 mg capsule 3-0 3-02 00:00: 00 Yes [id number] 800mg Take 4 capsules by mouth every 12 (twelve) hours. [facility] PANTOPRAZOL E 40 mg EC tablet 2022-0 2-13 00:00: 00 Yes [id number] TAKE 1 TABLET BY MOUTH IN THE MORNING [facility] PANTOPRAZOL E 40 mg EC tablet 2022-0 2-13 00:00: 00 Yes [id number] TAKE 1 TABLET BY MOUTH IN THE MORNING [facility] PANTOPRAZOL E 40 mg EC tablet 2022-0 2-13 00:00: 00 Yes [id number] TAKE 1 TABLET BY MOUTH IN THE MORNING [facility] PANTOPRAZOL E 40 mg EC tablet 2022-0 2-13 00:00: 00 Yes [id number] TAKE 1 TABLET BY MOUTH IN THE MORNING [facility] PANTOPRAZOL E 40 mg EC tablet 2022-0 2-13 00:00: 00 Yes [id number] TAKE 1 TABLET BY MOUTH IN THE MORNING [facility] PANTOPRAZOL E 40 mg EC tablet 2022-0 2-13 00:00: 00 Yes [id number] TAKE 1 TABLET BY MOUTH IN THE MORNING [facility] PANTOPRAZOL E 40 mg EC tablet 3-0 2-13 00:00: 00 Yes [id number] TAKE 1 TABLET BY MOUTH IN THE MORNING [facility] PANTOPRAZOL E 40 mg EC tablet 3-0 2-13 00:00: 00 Yes [id number] TAKE 1 TABLET BY MOUTH IN THE MORNING [facility] PANTOPRAZOL E 40 mg EC tablet 3-0 2-13 00:00: 00 Yes [id number] TAKE 1 TABLET BY MOUTH IN THE MORNING [facility] PANTOPRAZOL E 40 mg EC tablet 2022-0 2-13 00:00: 00 Yes [id number] TAKE 1 TABLET BY MOUTH IN THE MORNING [facility] PANTOPRAZOL E 40 mg EC tablet 2022-0 2-13 00:00: 00 Yes [id number] TAKE 1 TABLET BY MOUTH IN THE MORNING [facility] PANTOPRAZOL E 40 mg EC tablet 2022-0 2-13 00:00: 00 Yes [id number] TAKE 1 TABLET BY MOUTH IN THE MORNING [facility] PANTOPRAZOL E 40 mg EC tablet 2022-0 2-13 00:00: 00 Yes [id number] TAKE 1 TABLET BY MOUTH IN THE MORNING [facility] PANTOPRAZOL E 40 mg EC tablet 2022-0 2-13 00:00: 00 Yes [id number] TAKE 1 TABLET BY MOUTH IN THE MORNING [facility] PANTOPRAZOL E 40 mg EC tablet 2022-0 2-13 00:00: 00 Yes [id number] TAKE 1 TABLET BY MOUTH IN THE MORNING [facility] PANTOPRAZOL E 40 mg EC tablet 2022-0 2-13 00:00: 00 Yes [id number] TAKE 1 TABLET BY MOUTH IN THE MORNING [facility] PANTOPRAZOL E 40 mg EC tablet 2022-0 2-13 00:00: 00 Yes [id number] TAKE 1 TABLET BY MOUTH IN THE MORNING [facility] PANTOPRAZOL E 40 mg EC tablet 2022-0 2-13 00:00: 00 Yes [id number] TAKE 1 TABLET BY MOUTH IN THE MORNING [facility] PANTOPRAZOL E 40 mg EC tablet 2022-0 2-13 00:00: 00 Yes [id number] TAKE 1 TABLET BY MOUTH IN THE MORNING [facility] PANTOPRAZOL E 40 mg EC tablet 3-0 2-13 00:00: 00 Yes [id number] TAKE 1 TABLET BY MOUTH IN THE MORNING [facility] PANTOPRAZOL E 40 mg EC tablet 3-0 2-13 00:00: 00 Yes [id number] TAKE 1 TABLET BY MOUTH IN THE MORNING [facility] PANTOPRAZOL E 40 mg EC tablet 2022-0 2-13 00:00: 00 Yes [id number] TAKE 1 TABLET BY MOUTH IN THE MORNING [facility] PANTOPRAZOL E 40 mg EC tablet 2022-0 2-13 00:00: 00 Yes [id number] TAKE 1 TABLET BY MOUTH IN THE MORNING [facility] PANTOPRAZOL E 40 mg EC tablet 2022-0 2-13 00:00: 00 Yes [id number] TAKE 1 TABLET BY MOUTH IN THE MORNING [facility] PANTOPRAZOL E 40 mg EC tablet 2022-0 2-13 00:00: 00 Yes [id number] TAKE 1 TABLET BY MOUTH IN THE MORNING [facility] PANTOPRAZOL E 40 mg EC tablet 2022-0 2-13 00:00: 00 Yes [id number] TAKE 1 TABLET BY MOUTH IN THE MORNING [facility] PANTOPRAZOL E 40 mg EC tablet 2022-0 2-13 00:00: 00 Yes [id number] TAKE 1 TABLET BY MOUTH IN THE MORNING [facility] PANTOPRAZOL E 40 mg EC tablet 2022-0 2-13 00:00: 00 Yes [id number] TAKE 1 TABLET BY MOUTH IN THE MORNING [facility] PANTOPRAZOL E 40 mg EC tablet 2022-0 2-13 00:00: 00 Yes [id number] TAKE 1 TABLET BY MOUTH IN THE MORNING [facility] PANTOPRAZOL E 40 mg EC tablet 2022-0 2-13 00:00: 00 Yes [id number] TAKE 1 TABLET BY MOUTH IN THE MORNING [facility] PANTOPRAZOL E 40 mg EC tablet 2022-0 2-13 00:00: 00 Yes [id number] TAKE 1 TABLET BY MOUTH IN THE MORNING [facility] PANTOPRAZOL E 40 mg EC tablet 2022-0 2-13 00:00: 00 Yes [id number] TAKE 1 TABLET BY MOUTH IN THE MORNING [facility] PANTOPRAZOL E 40 mg EC tablet 2022-0 2-13 00:00: 00 Yes [id number] TAKE 1 TABLET BY MOUTH IN THE MORNING [facility] PANTOPRAZOL E 40 mg EC tablet 2022-0 2-13 00:00: 00 Yes [id number] TAKE 1 TABLET BY MOUTH IN THE MORNING [facility] PANTOPRAZOL E 40 mg EC tablet 2022-0 2-13 00:00: 00 Yes [id number] TAKE 1 TABLET BY MOUTH IN THE MORNING [facility] PANTOPRAZOL E 40 mg EC tablet 2022-0 2-13 00:00: 00 Yes [id number] TAKE 1 TABLET BY MOUTH IN THE MORNING [facility] PANTOPRAZOL E 40 mg EC tablet 2022-0 2-13 00:00: 00 Yes [id number] TAKE 1 TABLET BY MOUTH IN THE MORNING [facility] PANTOPRAZOL E 40 mg EC tablet 2022-0 2-13 00:00: 00 Yes [id number] TAKE 1 TABLET BY MOUTH IN THE MORNING [facility] PANTOPRAZOL E 40 mg EC tablet 2022-0 2-13 00:00: 00 Yes [id number] TAKE 1 TABLET BY MOUTH IN THE MORNING [facility] PANTOPRAZOL E 40 mg EC tablet 2022-0 2-13 00:00: 00 Yes [id number] TAKE 1 TABLET BY MOUTH IN THE MORNING [facility] PANTOPRAZOL E 40 mg EC tablet 2022-0 2-13 00:00: 00 Yes [id number] TAKE 1 TABLET BY MOUTH IN THE MORNING [facility] PANTOPRAZOL E 40 mg EC tablet 2022-0 2-13 00:00: 00 Yes [id number] TAKE 1 TABLET BY MOUTH IN THE MORNING [facility] PANTOPRAZOL E 40 mg EC tablet 2022-0 2-13 00:00: 00 Yes [id number] TAKE 1 TABLET BY MOUTH IN THE MORNING [facility] PANTOPRAZOL E 40 mg EC tablet 2022-0 2-13 00:00: 00 Yes [id number] TAKE 1 TABLET BY MOUTH IN THE MORNING [facility] PANTOPRAZOL E 40 mg EC tablet 3-0 2-13 00:00: 00 Yes [id number] TAKE 1 TABLET BY MOUTH IN THE MORNING [facility] PANTOPRAZOL E 40 mg EC tablet 3-0 2-13 00:00: 00 Yes [id number] TAKE 1 TABLET BY MOUTH IN THE MORNING [facility] PANTOPRAZOL E 40 mg EC tablet 2022-0 2-13 00:00: 00 Yes [id number] TAKE 1 TABLET BY MOUTH IN THE MORNING [facility] PANTOPRAZOL E 40 mg EC tablet 2022-0 2-13 00:00: 00 Yes [id number] TAKE 1 TABLET BY MOUTH IN THE MORNING [facility] PANTOPRAZOL E 40 mg EC tablet 2022-0 2-13 00:00: 00 Yes [id number] TAKE 1 TABLET BY MOUTH IN THE MORNING [facility] PANTOPRAZOL E 40 mg EC tablet 2022-0 2-13 00:00: 00 Yes [id number] TAKE 1 TABLET BY MOUTH IN THE MORNING [facility] PANTOPRAZOL E 40 mg EC tablet 2022-0 2-13 00:00: 00 Yes [id number] TAKE 1 TABLET BY MOUTH IN THE MORNING [facility] PANTOPRAZOL E 40 mg EC tablet 2022-0 2-13 00:00: 00 Yes [id number] TAKE 1 TABLET BY MOUTH IN THE MORNING [facility] PANTOPRAZOL E 40 mg EC tablet 2022-0 2-13 00:00: 00 Yes [id number] TAKE 1 TABLET BY MOUTH IN THE MORNING [facility] PANTOPRAZOL E 40 mg EC tablet 2022-0 2-13 00:00: 00 Yes [id number] TAKE 1 TABLET BY MOUTH IN THE MORNING [facility] PANTOPRAZOL E 40 mg EC tablet 2022-0 2-13 00:00: 00 Yes [id number] TAKE 1 TABLET BY MOUTH IN THE MORNING [facility] PANTOPRAZOL E 40 mg EC tablet 2022-0 2-13 00:00: 00 Yes [id number] TAKE 1 TABLET BY MOUTH IN THE MORNING [facility] PANTOPRAZOL E 40 mg EC tablet 2022-0 2-13 00:00: 00 Yes [id number] TAKE 1 TABLET BY MOUTH IN THE MORNING [facility] PANTOPRAZOL E 40 mg EC tablet 2022-0 2-13 00:00: 00 Yes [id number] TAKE 1 TABLET BY MOUTH IN THE MORNING [facility] PANTOPRAZOL E 40 mg EC tablet 2022-0 2-13 00:00: 00 Yes [id number] TAKE 1 TABLET BY MOUTH IN THE MORNING [facility] cyclobenzap rine 5 mg tablet 2021-04 00:00: 00 Yes [id number] 5mg Take 1 tablet by mouth in the morning and 1 tablet at noon and 1 tablet in the evening. [facility] cyclobenzap rine 5 mg tablet 2021-04 00:00: 00 Yes [id number] 5mg Take 1 tablet by mouth in the morning and 1 tablet at noon and 1 tablet in the evening. [facility] cyclobenzap rine 5 mg tablet 2021-04 00:00: 00 Yes [id number] 5mg Take 1 tablet by mouth in the morning and 1 tablet at noon and 1 tablet in the evening. [facility] cyclobenzap rine 5 mg tablet 2021-04 00:00: 00 Yes [id number] 5mg Take 1 tablet by mouth in the morning and 1 tablet at noon and 1 tablet in the evening. [facility] cyclobenzap rine 5 mg tablet 2021-04 00:00: 00 Yes [id number] 5mg Take 1 tablet by mouth in the morning and 1 tablet at noon and 1 tablet in the evening. [facility] cyclobenzap rine 5 mg tablet 2021-04 00:00: 00 Yes [id number] 5mg Take 1 tablet by mouth in the morning and 1 tablet at noon and 1 tablet in the evening. [facility] cyclobenzap rine 5 mg tablet 2021-04 00:00: 00 Yes [id number] 5mg Take 1 tablet by mouth in the morning and 1 tablet at noon and 1 tablet in the evening. [facility] cyclobenzap rine 5 mg tablet 2021-04 00:00: 00 Yes [id number] 5mg Take 1 tablet by mouth in the morning and 1 tablet at noon and 1 tablet in the evening. [facility] cyclobenzap rine 5 mg tablet 2021-04 00:00: 00 Yes [id number] 5mg Take 1 tablet by mouth in the morning and 1 tablet at noon and 1 tablet in the evening. [facility] cyclobenzap rine 5 mg tablet 2021-04 00:00: 00 Yes [id number] 5mg Take 1 tablet by mouth in the morning and 1 tablet at noon and 1 tablet in the evening. [facility] cyclobenzap rine 5 mg tablet 2021-04 00:00: 00 08-24 00:00 :00 No [id number] 5mg Take 1 tablet by mouth in the morning and 1 tablet at noon and 1 tablet in the evening. [facility] cyclobenzap rine 5 mg tablet 2021-04 00:00: 00 08-24 00:00 :00 No [id number] 5mg Take 1 tablet by mouth in the morning and 1 tablet at noon and 1 tablet in the evening. [facility] ibuprofen 600 mg tablet 2021-04 00:00: 00 05-06 05:59 :00 No [id number] 600mg Take 1 tablet by mouth every 6 (six) hours as needed for Temp > 38.5 C for up to 14 days. [facility] ibuprofen 600 mg tablet 2021-04 00:00: 00 05-06 05:59 :00 No [id number] 600mg Take 1 tablet by mouth every 6 (six) hours as needed for Temp > 38.5 C for up to 14 days. [facility] ibuprofen 600 mg tablet 2021-04 00:00: 00 05-06 05:59 :00 No [id number] 600mg Take 1 tablet by mouth every 6 (six) hours as needed for Temp > 38.5 C for up to 14 days. [facility] pantoprazol e 40 mg EC tablet 2021-04 00:00: 00 Yes [id number] 40mg Take 1 tablet by mouth every morning. [facility] pantoprazol e 40 mg EC tablet 2021-04 00:00: 00 Yes [id number] 40mg Take 1 tablet by mouth every morning. [facility] pantoprazol e 40 mg EC tablet 2021-04 00:00: 00 Yes [id number] 40mg Take 1 tablet by mouth every morning. [facility] pantoprazol e 40 mg EC tablet 2021-04 00:00: 00 Yes [id number] 40mg Take 1 tablet by mouth every morning. [facility] pantoprazol e 40 mg EC tablet 2021-04 00:00: 00 Yes [id number] 40mg Take 1 tablet by mouth every morning. [facility] pantoprazol e 40 mg EC tablet 2021-04 00:00: 00 Yes [id number] 40mg Take 1 tablet by mouth every morning. [facility] pantoprazol e 40 mg EC tablet 2021-04 00:00: 00 06-07 00:00 :00 No [id number] 40mg Take 1 tablet by mouth every morning. [facility] atorvastati n 40 mg tablet 2021-04 0-14 00:00: 00 Yes [id number] 40mg Take 1 tablet by mouth in the morning. [facility] atorvastati n 40 mg tablet 2021-04 014 00:00: 00 Yes [id number] 40mg Take 1 tablet by mouth in the morning. [facility] atorvastati n 40 mg tablet 2021-04 014 00:00: 00 Yes [id number] 40mg Take 1 tablet by mouth in the morning. [facility] atorvastati n 40 mg tablet 2021-04 0-14 00:00: 00 Yes [id number] 40mg Take 1 tablet by mouth in the morning. [facility] atorvastati n 40 mg tablet 2021-04 0-14 00:00: 00 Yes [id number] 40mg Take 1 tablet by mouth in the morning. [facility] atorvastati n 40 mg tablet 2021-04 0-14 00:00: 00 Yes [id number] 40mg Take 1 tablet by mouth in the morning. [facility] atorvastati n 40 mg tablet 2021-04 0-14 00:00: 00 Yes [id number] 40mg Take 1 tablet by mouth in the morning. [facility] atorvastati n 40 mg tablet 2021-04 014 00:00: 00 Yes [id number] 40mg Take 1 tablet by mouth in the morning. [facility] atorvastati n 40 mg tablet 2021-04 0-14 00:00: 00 Yes [id number] 40mg Take 1 tablet by mouth in the morning. [facility] atorvastati n 40 mg tablet 2021-04 0-14 00:00: 00 Yes [id number] 40mg Take 1 tablet by mouth in the morning. [facility] atorvastati n 40 mg tablet 2021-04 014 00:00: 00 Yes [id number] 40mg Take 1 tablet by mouth in the morning. [facility] atorvastati n 40 mg tablet 2021-04 014 00:00: 00 Yes [id number] 40mg Take 1 tablet by mouth in the morning. [facility] atorvastati n 40 mg tablet 2021-04 014 00:00: 00 Yes [id number] 40mg Take 1 tablet by mouth in the morning. [facility] atorvastati n 40 mg tablet 2021-04 014 00:00: 00 Yes [id number] 40mg Take 1 tablet by mouth in the morning. [facility] atorvastati n 40 mg tablet 2021-04 014 00:00: 00 Yes [id number] 40mg Take 1 tablet by mouth in the morning. [facility] atorvastati n 40 mg tablet 2021-04 014 00:00: 00 Yes [id number] 40mg Take 1 tablet by mouth in the morning. [facility] atorvastati n 40 mg tablet 2021-04 014 00:00: 00 Yes [id number] 40mg Take 1 tablet by mouth in the morning. [facility] atorvastati n 40 mg tablet 2021-04 0-14 00:00: 00 Yes [id number] 40mg Take 1 tablet by mouth in the morning. [facility] atorvastati n 40 mg tablet 2021-04 0-14 00:00: 00 Yes [id number] 40mg Take 1 tablet by mouth in the morning. [facility] atorvastati n 40 mg tablet 2021-04 0-14 00:00: 00 Yes [id number] 40mg Take 1 tablet by mouth in the morning. [facility] atorvastati n 40 mg tablet 2021-04 0-14 00:00: 00 Yes [id number] 40mg Take 1 tablet by mouth in the morning. [facility] atorvastati n 40 mg tablet 2021-04 0-14 00:00: 00 Yes [id number] 40mg Take 1 tablet by mouth in the morning. [facility] atorvastati n 40 mg tablet 2021-04 014 00:00: 00 Yes [id number] 40mg Take 1 tablet by mouth in the morning. [facility] atorvastati n 40 mg tablet 2021-04 014 00:00: 00 Yes [id number] 40mg Take 1 tablet by mouth in the morning. [facility] atorvastati n 40 mg tablet 2021-04 014 00:00: 00 Yes [id number] 40mg Take 1 tablet by mouth in the morning. [facility] atorvastati n 40 mg tablet 2021-04 014 00:00: 00 Yes [id number] 40mg Take 1 tablet by mouth in the morning. [facility] atorvastati n 40 mg tablet 2021-04 014 00:00: 00 Yes [id number] 40mg Take 1 tablet by mouth in the morning. [facility] atorvastati n 40 mg tablet 2021-04 014 00:00: 00 Yes [id number] 40mg Take 1 tablet by mouth in the morning. [facility] atorvastati n 40 mg tablet 2021-04 0-14 00:00: 00 Yes [id number] 40mg Take 1 tablet by mouth in the morning. [facility] atorvastati n 40 mg tablet 2021-04 0-14 00:00: 00 Yes [id number] 40mg Take 1 tablet by mouth in the morning. [facility] atorvastati n 40 mg tablet 2021-04 0-14 00:00: 00 Yes [id number] 40mg Take 1 tablet by mouth in the morning. [facility] atorvastati n 40 mg tablet 2021-04 014 00:00: 00 Yes [id number] 40mg Take 1 tablet by mouth in the morning. [facility] atorvastati n 40 mg tablet 2021-04 014 00:00: 00 Yes [id number] 40mg Take 1 tablet by mouth in the morning. [facility] atorvastati n 40 mg tablet 2021-0414 00:00: 00 Yes [id number] 40mg Take 1 tablet by mouth in the morning. [facility] atorvastati n 40 mg tablet 2021-04 0 00:00: 00 Yes [id number] 40mg Take 1 tablet by mouth in the morning. [facility] atorvastati n 40 mg tablet 2021-04 00:00: 00 Yes [id number] 40mg Take 1 tablet by mouth in the morning. [facility] atorvastati n 40 mg tablet 2021-0414 00:00: 00 Yes [id number] 40mg Take 1 tablet by mouth in the morning. [facility] atorvastati n 40 mg tablet 2021-04 014 00:00: 00 09-14 00:00 :00 No [id number] 40mg Take 1 tablet by mouth in the morning. [facility] atorvastati n 40 mg tablet 2021-0414 00:00: 00 09-14 00:00 :00 No [id number] 40mg Take 1 tablet by mouth in the morning. [facility] busPIRone 10 mg tablet 12-29 00:00: 00 Yes [id number] 10mg Take 1 tablet by mouth 2 (two) times daily as needed (anxiety). [facility] atenoloL 25 mg tablet 12-29 00:00: 00 Yes [id number] 25mg Take 1 tablet by mouth in the morning. [facility] busPIRone 10 mg tablet -06 00:00: 00 Yes [id number] 10mg Take 1 tablet by mouth 2 (two) times daily as needed (anxiety). [facility] atenoloL 25 mg tablet 2-0 - 00:00: 00 Yes [id number] 25mg Take 1 tablet by mouth in the morning. [facility] busPIRone 10 mg tablet 2-0 - 00:00: 00 Yes [id number] 10mg Take 1 tablet by mouth 2 (two) times daily as needed (anxiety). [facility] atenoloL 25 mg tablet 2021-0 - 00:00: 00 Yes [id number] 25mg Take 1 tablet by mouth in the morning. [facility] busPIRone 10 mg tablet 2021-0 - 00:00: 00 Yes [id number] 10mg Take 1 tablet by mouth 2 (two) times daily as needed (anxiety). [facility] atenoloL 25 mg tablet 2-0 - 00:00: 00 Yes [id number] 25mg Take 1 tablet by mouth in the morning. [facility] busPIRone 10 mg tablet 2-0 - 00:00: 00 Yes [id number] 10mg Take 1 tablet by mouth 2 (two) times daily as needed (anxiety). [facility] atenoloL 25 mg tablet 2-0 - 00:00: 00 Yes [id number] 25mg Take 1 tablet by mouth in the morning. [facility] busPIRone 10 mg tablet 2021-0 -06 00:00: 00 Yes [id number] 10mg Take 1 tablet by mouth 2 (two) times daily as needed (anxiety). [facility] atenoloL 25 mg tablet 2-0 -06 00:00: 00 Yes [id number] 25mg Take 1 tablet by mouth in the morning. [facility] busPIRone 10 mg tablet 2-0 -06 00:00: 00 Yes [id number] 10mg Take 1 tablet by mouth 2 (two) times daily as needed (anxiety). [facility] atenoloL 25 mg tablet 2021-0 12-29 00:00: 00 Yes [id number] 25mg Take 1 tablet by mouth in the morning. [facility] busPIRone 10 mg tablet 2021-0 12-29 00:00: 00 Yes [id number] 10mg Take 1 tablet by mouth 2 (two) times daily as needed (anxiety). [facility] 2021-0 12-29 00:00: 00 Yes [id number] 25mg Take 1 tablet by mouth in the morning. [facility] busPIRone 10 mg tablet 2021-0 12-29 00:00: 00 Yes [id number] 10mg Take 1 tablet by mouth 2 (two) times daily as needed (anxiety). [facility] atenoloL 25 mg tablet 2021-0 12-29 00:00: 00 Yes [id number] 25mg Take 1 tablet by mouth in the morning. [facility] busPIRone 10 mg tablet 2021-0 12-29 00:00: 00 Yes [id number] 10mg Take 1 tablet by mouth 2 (two) times daily as needed (anxiety). [facility] atenoloL 25 mg tablet 2021-0 12-29 00:00: 00 Yes [id number] 25mg Take 1 tablet by mouth in the morning. [facility] busPIRone 10 mg tablet 2021-0 12-29 00:00: 00 Yes [id number] 10mg Take 1 tablet by mouth 2 (two) times daily as needed (anxiety). [facility] atenoloL 25 mg tablet 2021-0 - 00:00: 00 Yes [id number] 25mg Take 1 tablet by mouth in the morning. [facility] busPIRone 10 mg tablet 2021-0 - 00:00: 00 Yes [id number] 10mg Take 1 tablet by mouth 2 (two) times daily as needed (anxiety). [facility] atenoloL 25 mg tablet 2021-0 - 00:00: 00 Yes [id number] 25mg Take 1 tablet by mouth in the morning. [facility] busPIRone 10 mg tablet 2021-0 12-29 00:00: 00 Yes [id number] 10mg Take 1 tablet by mouth 2 (two) times daily as needed (anxiety). [facility] atenoloL 25 mg tablet 2021-0 12-29 00:00: 00 Yes [id number] 25mg Take 1 tablet by mouth in the morning. [facility] busPIRone 10 mg tablet 2021-0 12-29 00:00: 00 Yes [id number] 10mg Take 1 tablet by mouth 2 (two) times daily as needed (anxiety). [facility] atenoloL 25 mg tablet 2021-0 12-29 00:00: 00 Yes [id number] 25mg Take 1 tablet by mouth in the morning. [facility] atenoloL 25 mg tablet 2021-0 12-29 00:00: 00 Yes [id number] 25mg Take 1 tablet by mouth in the morning. [facility] atenoloL 25 mg tablet 2021-0 12-29 00:00: 00 Yes [id number] 25mg Take 1 tablet by mouth in the morning. [facility] atenoloL 25 mg tablet 2021-0 12-29 00:00: 00 Yes [id number] 25mg Take 1 tablet by mouth in the morning. [facility] atenoloL 25 mg tablet 2021-0 12-29 00:00: 00 Yes [id number] 25mg Take 1 tablet by mouth in the morning. [facility] atenoloL 25 mg tablet 2021-0 12-29 00:00: 00 Yes [id number] 25mg Take 1 tablet by mouth in the morning. [facility] atenoloL 25 mg tablet 2021-0 12-29 00:00: 00 Yes [id number] 25mg Take 1 tablet by mouth in the morning. [facility] atenoloL 25 mg tablet 2-0 12-29 00:00: 00 Yes [id number] 25mg Take 1 tablet by mouth in the morning. [facility] atenoloL 25 mg tablet 2-0 - 00:00: 00 Yes [id number] 25mg Take 1 tablet by mouth in the morning. [facility] atenoloL 25 mg tablet 2-0 - 00:00: 00 Yes [id number] 25mg Take 1 tablet by mouth in the morning. [facility] atenoloL 25 mg tablet 2021-0 12-29 00:00: 00 Yes [id number] 25mg Take 1 tablet by mouth in the morning. [facility] atenoloL 25 mg tablet 2-0 12-29 00:00: 00 Yes [id number] 25mg Take 1 tablet by mouth in the morning. [facility] atenoloL 25 mg tablet 2-0 - 00:00: 00 Yes [id number] 25mg Take 1 tablet by mouth in the morning. [facility] atenoloL 25 mg tablet 2021-0 12-29 00:00: 00 Yes [id number] 25mg Take 1 tablet by mouth in the morning. [facility] atenoloL 25 mg tablet 2021-0 12-29 00:00: 00 Yes [id number] 25mg Take 1 tablet by mouth in the morning. [facility] atenoloL 25 mg tablet 2-0 12-29 00:00: 00 Yes [id number] 25mg Take 1 tablet by mouth in the morning. [facility] atenoloL 25 mg tablet 2021-0 12-29 00:00: 00 Yes [id number] 25mg Take 1 tablet by mouth in the morning. [facility] atenoloL 25 mg tablet 2-0 12-29 00:00: 00 Yes [id number] 25mg Take 1 tablet by mouth in the morning. [facility] atenoloL 25 mg tablet 2-0 12-29 00:00: 00 Yes [id number] 25mg Take 1 tablet by mouth in the morning. [facility] atenoloL 25 mg tablet 2-0 12-29 00:00: 00 Yes [id number] 25mg Take 1 tablet by mouth in the morning. [facility] atenoloL 25 mg tablet 2-0 - 00:00: 00 Yes [id number] 25mg Take 1 tablet by mouth in the morning. [facility] atenoloL 25 mg tablet 2022-0 12-29 00:00: 00 Yes [id number] 25mg Take 1 tablet by mouth in the morning. [facility] atenoloL 25 mg tablet 2-0 12-29 00:00: 00 Yes [id number] 25mg Take 1 tablet by mouth in the morning. [facility] atenoloL 25 mg tablet 2-0 12-29 00:00: 00 Yes [id number] 25mg Take 1 tablet by mouth in the morning. [facility] atenoloL 25 mg tablet 2-0 12-29 00:00: 00 Yes [id number] 25mg Take 1 tablet by mouth in the morning. [facility] atenoloL 25 mg tablet 2021-0 12-29 00:00: 00 Yes [id number] 25mg Take 1 tablet by mouth in the morning. [facility] atenoloL 25 mg tablet 2-0 12-29 00:00: 00 Yes [id number] 25mg Take 1 tablet by mouth in the morning. [facility] atenoloL 25 mg tablet 2-0 12-29 00:00: 00 Yes [id number] 25mg Take 1 tablet by mouth in the morning. [facility] atenoloL 25 mg tablet 2021-0 12-29 00:00: 00 Yes [id number] 25mg Take 1 tablet by mouth in the morning. [facility] atenoloL 25 mg tablet 2-0 12-29 00:00: 00 Yes [id number] 25mg Take 1 tablet by mouth in the morning. [facility] atenoloL 25 mg tablet 2-0 12-29 00:00: 00 Yes [id number] 25mg Take 1 tablet by mouth in the morning. [facility] atenoloL 25 mg tablet 2-0 12-29 00:00: 00 Yes [id number] 25mg Take 1 tablet by mouth in the morning. [facility] atenoloL 25 mg tablet 2-0 12-29 00:00: 00 Yes [id number] 25mg Take 1 tablet by mouth in the morning. [facility] atenoloL 25 mg tablet 12-29 00:00: 00 Yes [id number] 25mg Take 1 tablet by mouth in the morning. [facility] atenoloL 25 mg tablet 12-29 00:00: 00 Yes [id number] 25mg Take 1 tablet by mouth in the morning. [facility] atenoloL 25 mg tablet 12-29 00:00: 00 12-06 00:00 :00 No [id number] 25mg Take 1 tablet by mouth in the morning. [facility] busPIRone 10 mg tablet 12-29 00:00: 00 04-21 00:00 :00 No [id number] 10mg Take 1 tablet by mouth 2 (two) times daily as needed (anxiety). [facility] busPIRone 10 mg tablet 12-29 00:00: 00 04-21 00:00 :00 No [id number] 10mg Take 1 tablet by mouth 2 (two) times daily as needed (anxiety). [facility] aspirin 81 mg EC tablet 11-20 16:55: 00 Yes 81mg Take 81 mg by mouth daily. [facility] cholecalcif bronwyn, vitamin D3, (VITAMIN D3 ORAL) 11-20 16:55: 00 Yes 1{capsu le} Take 1 capsule by mouth daily. [facility] aspirin 81 mg EC tablet 11-20 16:55: 00 Yes 81mg Take 81 mg by mouth daily. [facility] cholecalcif bronwyn, vitamin D3, (VITAMIN D3 ORAL) 11-20 16:55: 00 Yes 1{capsu le} Take 1 capsule by mouth daily. [facility] aspirin 81 mg EC tablet 11-20 16:55: 00 Yes 81mg Take 81 mg by mouth daily. [facility] cholecalcif bronwyn, vitamin D3, (VITAMIN D3 ORAL) 11-20 16:55: 00 Yes 1{capsu le} Take 1 capsule by mouth daily. [facility] aspirin 81 mg EC tablet 11-20 16:55: 00 Yes 81mg Take 81 mg by mouth daily. [facility] cholecalcif bronwyn, vitamin D3, (VITAMIN D3 ORAL) 11-20 16:55: 00 Yes 1{capsu le} Take 1 capsule by mouth daily. [facility] aspirin 81 mg EC tablet 11-20 16:55: 00 Yes 81mg Take 81 mg by mouth daily. [facility] cholecalcif bronwyn, vitamin D3, (VITAMIN D3 ORAL) 11-20 16:55: 00 Yes 1{capsu le} Take 1 capsule by mouth daily. [facility] aspirin 81 mg EC tablet 11-20 16:55: 00 Yes 81mg Take 81 mg by mouth daily. [facility] cholecalcif bronwyn, vitamin D3, (VITAMIN D3 ORAL) 11-20 16:55: 00 Yes 1{capsu le} Take 1 capsule by mouth daily. [facility] aspirin 81 mg EC tablet 11-20 16:55: 00 Yes 81mg Take 81 mg by mouth daily. [facility] cholecalcif bronwyn, vitamin D3, (VITAMIN D3 ORAL) 11-20 16:55: 00 Yes 1{capsu le} Take 1 capsule by mouth daily. [facility] aspirin 81 mg EC tablet 11-20 16:55: 00 Yes 81mg Take 81 mg by mouth daily. [facility] cholecalcif bronwyn, vitamin D3, (VITAMIN D3 ORAL) 11-20 16:55: 00 Yes 1{capsu le} Take 1 capsule by mouth daily. [facility] aspirin 81 mg EC tablet 11-20 16:55: 00 Yes 81mg Take 81 mg by mouth daily. [facility] cholecalcif bronwyn, vitamin D3, (VITAMIN D3 ORAL) 11-20 16:55: 00 Yes 1{capsu le} Take 1 capsule by mouth daily. [facility] aspirin 81 mg EC tablet 11-20 16:55: 00 Yes 81mg Take 81 mg by mouth daily. [facility] cholecalcif bronwyn, vitamin D3, (VITAMIN D3 ORAL) 11-20 16:55: 00 Yes 1{capsu le} Take 1 capsule by mouth daily. [facility] aspirin 81 mg EC tablet 11-20 16:55: 00 Yes 81mg Take 81 mg by mouth daily. [facility] cholecalcif bronwyn, vitamin D3, (VITAMIN D3 ORAL) 11-20 16:55: 00 Yes 1{capsu le} Take 1 capsule by mouth daily. [facility] aspirin 81 mg EC tablet 11-20 16:55: 00 Yes 81mg Take 81 mg by mouth daily. [facility] cholecalcif bronwyn, vitamin D3, (VITAMIN D3 ORAL) 11-20 16:55: 00 Yes 1{capsu le} Take 1 capsule by mouth daily. [facility] aspirin 81 mg EC tablet 11-20 16:55: 00 Yes 81mg Take 81 mg by mouth daily. [facility] cholecalcif bronwyn, vitamin D3, (VITAMIN D3 ORAL) 11-20 16:55: 00 Yes 1{capsu le} Take 1 capsule by mouth daily. [facility] aspirin 81 mg EC tablet 11-20 16:55: 00 Yes 81mg Take 81 mg by mouth daily. [facility] cholecalcif bronwyn, vitamin D3, (VITAMIN D3 ORAL) 11-20 16:55: 00 Yes 1{capsu le} Take 1 capsule by mouth daily. [facility] aspirin 81 mg EC tablet 11-20 16:55: 00 Yes 81mg Take 81 mg by mouth daily. [facility] cholecalcif bronwyn, vitamin D3, (VITAMIN D3 ORAL) 11-20 16:55: 00 Yes 1{capsu le} Take 1 capsule by mouth daily. [facility] aspirin 81 mg EC tablet 11-20 16:55: 00 Yes 81mg Take 81 mg by mouth daily. [facility] cholecalcif bronwyn, vitamin D3, (VITAMIN D3 ORAL) 11-20 16:55: 00 Yes 1{capsu le} Take 1 capsule by mouth daily. [facility] aspirin 81 mg EC tablet 11-20 16:55: 00 Yes 81mg Take 81 mg by mouth daily. [facility] cholecalcif bronwyn, vitamin D3, (VITAMIN D3 ORAL) 11-20 16:55: 00 Yes 1{capsu le} Take 1 capsule by mouth daily. [facility] aspirin 81 mg EC tablet 11-20 16:55: 00 Yes 81mg Take 81 mg by mouth daily. [facility] cholecalcif bronwyn, vitamin D3, (VITAMIN D3 ORAL) 11-20 16:55: 00 Yes 1{capsu le} Take 1 capsule by mouth daily. [facility] aspirin 81 mg EC tablet 11-20 16:55: 00 Yes 81mg Take 81 mg by mouth daily. [facility] cholecalcif bronwyn, vitamin D3, (VITAMIN D3 ORAL) 11-20 16:55: 00 Yes 1{capsu le} Take 1 capsule by mouth daily. [facility] aspirin 81 mg EC tablet 11-20 16:55: 00 Yes 81mg Take 81 mg by mouth daily. [facility] cholecalcif bronwyn, vitamin D3, (VITAMIN D3 ORAL) 11-20 16:55: 00 Yes 1{capsu le} Take 1 capsule by mouth daily. [facility] aspirin 81 mg EC tablet 11-20 16:55: 00 Yes 81mg Take 81 mg by mouth daily. [facility] cholecalcif bronwyn, vitamin D3, (VITAMIN D3 ORAL) 11-20 16:55: 00 Yes 1{capsu le} Take 1 capsule by mouth daily. [facility] aspirin 81 mg EC tablet 11-20 16:55: 00 Yes 81mg Take 81 mg by mouth daily. [facility] cholecalcif bronwyn, vitamin D3, (VITAMIN D3 ORAL) 11-20 16:55: 00 Yes 1{capsu le} Take 1 capsule by mouth daily. [facility] aspirin 81 mg EC tablet 11-20 16:55: 00 Yes 81mg Take 81 mg by mouth daily. [facility] cholecalcif bronwyn, vitamin D3, (VITAMIN D3 ORAL) 11-20 16:55: 00 Yes 1{capsu le} Take 1 capsule by mouth daily. [facility] aspirin 81 mg EC tablet 11-20 16:55: 00 Yes 81mg Take 81 mg by mouth daily. [facility] cholecalcif bronwyn, vitamin D3, (VITAMIN D3 ORAL) 11-20 16:55: 00 Yes 1{capsu le} Take 1 capsule by mouth daily. [facility] PANTOPRAZOL E 40 mg EC tablet 11-18 00:00: 00 Yes [id number] TAKE 1 TABLET BY MOUTH IN THE MORNING [facility] PANTOPRAZOL E 40 mg EC tablet 11-18 00:00: 00 Yes [id number] TAKE 1 TABLET BY MOUTH IN THE MORNING [facility] PANTOPRAZOL E 40 mg EC tablet 11-18 00:00: 00 Yes [id number] TAKE 1 TABLET BY MOUTH IN THE MORNING [facility] PANTOPRAZOL E 40 mg EC tablet 11-18 00:00: 00 Yes [id number] TAKE 1 TABLET BY MOUTH IN THE MORNING [facility] PANTOPRAZOL E 40 mg EC tablet 11-18 00:00: 00 Yes [id number] TAKE 1 TABLET BY MOUTH IN THE MORNING [facility] PANTOPRAZOL E 40 mg EC tablet 0 11-18 00:00: 00 Yes [id number] TAKE 1 TABLET BY MOUTH IN THE MORNING [facility] PANTOPRAZOL E 40 mg EC tablet 11-18 00:00: 00 Yes [id number] TAKE 1 TABLET BY MOUTH IN THE MORNING [facility] PANTOPRAZOL E 40 mg EC tablet 11-18 00:00: 00 Yes [id number] TAKE 1 TABLET BY MOUTH IN THE MORNING [facility] PANTOPRAZOL E 40 mg EC tablet 11-18 00:00: 00 Yes [id number] TAKE 1 TABLET BY MOUTH IN THE MORNING [facility] PANTOPRAZOL E 40 mg EC tablet 11-18 00:00: 00 Yes [id number] TAKE 1 TABLET BY MOUTH IN THE MORNING [facility] PANTOPRAZOL E 40 mg EC tablet 11-18 00:00: 00 Yes [id number] TAKE 1 TABLET BY MOUTH IN THE MORNING [facility] PANTOPRAZOL E 40 mg EC tablet 11-18 00:00: 00 Yes [id number] TAKE 1 TABLET BY MOUTH IN THE MORNING [facility] PANTOPRAZOL E 40 mg EC tablet 11-18 00:00: 00 04-05 00:00 :00 No [id number] TAKE 1 TABLET BY MOUTH IN THE MORNING [facility] traZODone 50 mg tablet 2021-0 11-09 00:00: 00 Yes [id number] 25mg Take 0.5-1 tablets by mouth at bedtime as needed for Insomnia. [facility] traZODone 50 mg tablet 2021-0 18 00:00: 00 Yes [id number] 25mg Take 0.5-1 tablets by mouth at bedtime as needed for Insomnia. [facility] traZODone 50 mg tablet 2021-0 18 00:00: 00 Yes [id number] 25mg Take 0.5-1 tablets by mouth at bedtime as needed for Insomnia. [facility] traZODone 50 mg tablet 2021-0 18 00:00: 00 Yes [id number] 25mg Take 0.5-1 tablets by mouth at bedtime as needed for Insomnia. [facility] traZODone 50 mg tablet 2021-0 -18 00:00: 00 Yes [id number] 25mg Take 0.5-1 tablets by mouth at bedtime as needed for Insomnia. [facility] traZODone 50 mg tablet 2-0 -18 00:00: 00 Yes [id number] 25mg Take 0.5-1 tablets by mouth at bedtime as needed for Insomnia. [facility] traZ[facility] mg tablet 2022-0 7-18 00:00: 00 Yes [id number] 25mg Take 0.5-1 tablets by mouth at bedtime as needed for Insomnia. [facility] traZODone 50 mg tablet 2022-0 7-18 00:00: 00 Yes [id number] 25mg Take 0.5-1 tablets by mouth at bedtime as needed for Insomnia. [facility] traZODone 50 mg tablet 2022-0 7-18 00:00: 00 Yes [id number] 25mg Take 0.5-1 tablets by mouth at bedtime as needed for Insomnia. [facility] traZODone 50 mg tablet 2-0 7-18 00:00: 00 Yes [id number] 25mg Take 0.5-1 tablets by mouth at bedtime as needed for Insomnia. [facility] traZODone 50 mg tablet 2022-0 7-18 00:00: 00 Yes [id number] 25mg Take 0.5-1 tablets by mouth at bedtime as needed for Insomnia. [facility] traZODone 50 mg tablet 2-0 7-18 00:00: 00 Yes [id number] 25mg Take 0.5-1 tablets by mouth at bedtime as needed for Insomnia. [facility] traZODone 50 mg tablet 2022-0 7-18 00:00: 00 Yes [id number] 25mg Take 0.5-1 tablets by mouth at bedtime as needed for Insomnia. [facility] traZODone 50 mg tablet 2022-0 7-18 00:00: 00 Yes [id number] 25mg Take 0.5-1 tablets by mouth at bedtime as needed for Insomnia. [facility] traZODone 50 mg tablet 2022-0 7-18 00:00: 00 Yes [id number] 25mg Take 0.5-1 tablets by mouth at bedtime as needed for Insomnia. [facility] traZODone 50 mg tablet 2022-0 7-18 00:00: 00 Yes [id number] 25mg Take 0.5-1 tablets by mouth at bedtime as needed for Insomnia. [facility] traZODone 50 mg tablet 2-0 -18 00:00: 00 Yes [id number] 25mg Take 0.5-1 tablets by mouth at bedtime as needed for Insomnia. [facility] traZODone 50 mg tablet 2-0 7-18 00:00: 00 Yes [id number] 25mg Take 0.5-1 tablets by mouth at bedtime as needed for Insomnia. [facility] traZODone 50 mg tablet 2-0 -18 00:00: 00 Yes [id number] 25mg Take 0.5-1 tablets by mouth at bedtime as needed for Insomnia. [facility] traZODone 50 mg tablet 2021-0 -18 00:00: 00 Yes [id number] 25mg Take 0.5-1 tablets by mouth at bedtime as needed for Insomnia. [facility] traZODone 50 mg tablet 2-0 18 00:00: 00 Yes [id number] 25mg Take 0.5-1 tablets by mouth at bedtime as needed for Insomnia. [facility] traZODone 50 mg tablet 2021-0 18 00:00: 00 07-30 00:00 :00 No [id number] 25mg Take 0.5-1 tablets by mouth at bedtime as needed for Insomnia. [facility] enalapril 20 mg tablet 2020-04 00:00: 00 Yes 10mg Take 0.5 tablets by mouth daily. [facility] atorvastati n 40 mg tablet 2020-04 00:00: 00 Yes 40mg Take 1 tablet by mouth daily. [facility] enalapril 20 mg tablet 2020-04 00:00: 00 Yes 10mg Take 0.5 tablets by mouth daily. [facility] atorvastati n 40 mg tablet 2020-04 00:00: 00 Yes 40mg Take 1 tablet by mouth daily. [facility] enalapril 20 mg tablet 2020-04 00:00: 00 Yes 10mg Take 0.5 tablets by mouth daily. [facility] atorvastati n 40 mg tablet 2020-04 00:00: 00 Yes 40mg Take 1 tablet by mouth daily. [facility] enalapril 20 mg tablet 2020-04 00:00: 00 Yes 10mg Take 0.5 tablets by mouth daily. [facility] atorvastati n 40 mg tablet 2020-04 00:00: 00 Yes 40mg Take 1 tablet by mouth daily. [facility] enalapril 20 mg tablet 2020-04 00:00: 00 Yes 10mg Take 0.5 tablets by mouth daily. [facility] enalapril 20 mg tablet 2020-04 00:00: 00 Yes 10mg Take 0.5 tablets by mouth daily. [facility] enalapril 20 mg tablet 2020-04 00:00: 00 Yes 10mg Take 0.5 tablets by mouth daily. [facility] enalapril 20 mg tablet 2020-04 00:00: 00 Yes 10mg Take 0.5 tablets by mouth daily. [facility] enalapril 20 mg tablet 2020-04 00:00: 00 Yes 10mg Take 0.5 tablets by mouth daily. [facility] enalapril 20 mg tablet 2020-04 00:00: 00 Yes 10mg Take 0.5 tablets by mouth daily. [facility] enalapril 20 mg tablet 2020-04 00:00: 00 Yes 10mg Take 0.5 tablets by mouth daily. [facility] enalapril 20 mg tablet 2020-04 00:00: 00 Yes 10mg Take 0.5 tablets by mouth daily. [facility] enalapril 20 mg tablet 2020-04 00:00: 00 Yes 10mg Take 0.5 tablets by mouth daily. [facility] enalapril 20 mg tablet 2020-04 00:00: 00 Yes 10mg Take 0.5 tablets by mouth daily. [facility] enalapril 20 mg tablet 2020-04 00:00: 00 Yes 10mg Take 0.5 tablets by mouth daily. [facility] enalapril 20 mg tablet 2020-04 00:00: 00 Yes 10mg Take 0.5 tablets by mouth daily. [facility] enalapril 20 mg tablet 2020-04 00:00: 00 Yes 10mg Take 0.5 tablets by mouth daily. [facility] enalapril 20 mg tablet 2020-04 00:00: 00 Yes 10mg Take 0.5 tablets by mouth daily. [facility] enalapril 20 mg tablet 2020-04 00:00: 00 Yes 10mg Take 0.5 tablets by mouth daily. [facility] enalapril 20 mg tablet 2020-04 00:00: 00 Yes 10mg Take 0.5 tablets by mouth daily. [facility] enalapril 20 mg tablet 2020-04 00:00: 00 Yes 10mg Take 0.5 tablets by mouth daily. [facility] enalapril 20 mg tablet 2020-04 00:00: 00 Yes 10mg Take 0.5 tablets by mouth daily. [facility] enalapril 20 mg tablet 2020-04 00:00: 00 Yes 10mg Take 0.5 tablets by mouth daily. [facility] enalapril 20 mg tablet 2020-04 00:00: 00 Yes 10mg Take 0.5 tablets by mouth daily. [facility] enalapril 20 mg tablet 2020-04 00:00: 00 Yes 10mg Take 0.5 tablets by mouth in the morning. [facility] enalapril 20 mg tablet 2020-04 00:00: 00 Yes 10mg Take 0.5 tablets by mouth in the morning. [facility] enalapril 20 mg tablet 2020-04 00:00: 00 Yes 10mg Take 0.5 tablets by mouth in the morning. [facility] enalapril 20 mg tablet 2020-04 00:00: 00 Yes 10mg Take 0.5 tablets by mouth in the morning. [facility] enalapril 20 mg tablet 2020-04 00:00: 00 Yes 10mg Take 0.5 tablets by mouth in the morning. [facility] enalapril 20 mg tablet 2020-04 00:00: 00 Yes 10mg Take 0.5 tablets by mouth in the morning. [facility] enalapril 20 mg tablet 2020-04 00:00: 00 Yes 10mg Take 0.5 tablets by mouth in the morning. [facility] enalapril 20 mg tablet 2020-04 00:00: 00 Yes 10mg Take 0.5 tablets by mouth in the morning. [facility] enalapril 20 mg tablet 2020-04 00:00: 00 Yes 10mg Take 0.5 tablets by mouth in the morning. [facility] enalapril 20 mg tablet 2020-04 00:00: 00 Yes 10mg Take 0.5 tablets by mouth in the morning. [facility] enalapril 20 mg tablet 2020-04 00:00: 00 Yes 10mg Take 0.5 tablets by mouth in the morning. [facility] enalapril 20 mg tablet 2020-04 00:00: 00 Yes 10mg Take 0.5 tablets by mouth in the morning. [facility] enalapril 20 mg tablet 2020-04 00:00: 00 Yes 10mg Take 0.5 tablets by mouth in the morning. [facility] enalapril 20 mg tablet 2020-04 00:00: 00 Yes 10mg Take 0.5 tablets by mouth in the morning. [facility] enalapril 20 mg tablet 2020-04 00:00: 00 Yes 10mg Take 0.5 tablets by mouth in the morning. [facility] enalapril 20 mg tablet 2020-04 00:00: 00 Yes 10mg Take 0.5 tablets by mouth in the morning. [facility] enalapril 20 mg tablet 2020-04 00:00: 00 Yes 10mg Take 0.5 tablets by mouth in the morning. [facility] enalapril 20 mg tablet 2020-04 00:00: 00 Yes 10mg Take 0.5 tablets by mouth in the morning. [facility] enalapril 20 mg tablet 2020-04 00:00: 00 Yes 10mg Take 0.5 tablets by mouth in the morning. [facility] enalapril 20 mg tablet 2020-04 00:00: 00 Yes 10mg Take 0.5 tablets by mouth in the morning. [facility] enalapril 20 mg tablet 2020-04 00:00: 00 Yes 10mg Take 0.5 tablets by mouth in the morning. [facility] enalapril 20 mg tablet 2020-04 00:00: 00 Yes 10mg Take 0.5 tablets by mouth in the morning. [facility] enalapril 20 mg tablet 2020-04 00:00: 00 Yes 10mg Take 0.5 tablets by mouth in the morning. [facility] enalapril 20 mg tablet 2020-04 00:00: 00 Yes 10mg Take 0.5 tablets by mouth in the morning. [facility] enalapril 20 mg tablet 2020-04 00:00: 00 Yes 10mg Take 0.5 tablets by mouth in the morning. [facility] enalapril 20 mg tablet 2020-04 00:00: 00 Yes 10mg Take 0.5 tablets by mouth in the morning. [facility] enalapril 20 mg tablet 2020-04 00:00: 00 Yes 10mg Take 0.5 tablets by mouth in the morning. [facility] enalapril 20 mg tablet 2020-04 00:00: 00 Yes 10mg Take 0.5 tablets by mouth in the morning. [facility] enalapril 20 mg tablet 2020-04 00:00: 00 Yes 10mg Take 0.5 tablets by mouth in the morning. [facility] enalapril 20 mg tablet 2020-04 00:00: 00 Yes 10mg Take 0.5 tablets by mouth in the morning. [facility] enalapril 20 mg tablet 2020-04 00:00: 00 Yes 10mg Take 0.5 tablets by mouth in the morning. [facility] enalapril 20 mg tablet 2020-04 00:00: 00 Yes 10mg Take 0.5 tablets by mouth in the morning. [facility] enalapril 20 mg tablet 2020-04 00:00: 00 Yes 10mg Take 0.5 tablets by mouth in the morning. [facility] enalapril 20 mg tablet 2020-04 00:00: 00 Yes 10mg Take 0.5 tablets by mouth in the morning. [facility] enalapril 20 mg tablet 2020-04 00:00: 00 Yes 10mg Take 0.5 tablets by mouth in the morning. [facility] enalapril 20 mg tablet 2020-04 00:00: 00 Yes 10mg Take 0.5 tablets by mouth in the morning. [facility] enalapril 20 mg tablet 2020-04 00:00: 00 Yes 10mg Take 0.5 tablets by mouth in the morning. [facility] enalapril 20 mg tablet 2020-04 00:00: 00 Yes 10mg Take 0.5 tablets by mouth in the morning. [facility] enalapril 20 mg tablet 2020-04 00:00: 00 Yes 10mg Take 0.5 tablets by mouth in the morning. [facility] enalapril 20 mg tablet 2020-04 00:00: 00 Yes 10mg Take 0.5 tablets by mouth in the morning. [facility] enalapril 20 mg tablet 2020-04 00:00: 00 Yes 10mg Take 0.5 tablets by mouth in the morning. [facility] enalapril 20 mg tablet 2020-04 00:00: 00 Yes 10mg Take 0.5 tablets by mouth in the morning. [facility] enalapril 20 mg tablet 2020-04 00:00: 00 Yes 10mg Take 0.5 tablets by mouth in the morning. [facility] enalapril 20 mg tablet 2020-04 00:00: 00 Yes 10mg Take 0.5 tablets by mouth in the morning. [facility] enalapril 20 mg tablet 2020-04 00:00: 00 Yes 10mg Take 0.5 tablets by mouth in the morning. [facility] enalapril 20 mg tablet 2020-04 00:00: 00 Yes 10mg Take 0.5 tablets by mouth in the morning. [facility] enalapril 20 mg tablet 2020-04 00:00: 00 Yes 10mg Take 0.5 tablets by mouth in the morning. [facility] enalapril 20 mg tablet 2020-04 00:00: 00 Yes 10mg Take 0.5 tablets by mouth in the morning. [facility] enalapril 20 mg tablet 2020-04 00:00: 00 Yes 10mg Take 0.5 tablets by mouth in the morning. [facility] enalapril 20 mg tablet 2020-04 00:00: 00 Yes 10mg Take 0.5 tablets by mouth in the morning. [facility] enalapril 20 mg tablet 2020-04 00:00: 00 Yes 10mg Take 0.5 tablets by mouth in the morning. [facility] enalapril 20 mg tablet 2020-04 00:00: 00 Yes 10mg Take 0.5 tablets by mouth in the morning. [facility] enalapril 20 mg tablet 2020-04 00:00: 00 Yes 10mg Take 0.5 tablets by mouth in the morning. [facility] enalapril 20 mg tablet 2020-04 00:00: 00 Yes 10mg Take 0.5 tablets by mouth in the morning. [facility] atorvastati n 40 mg tablet 2020-04 00:00: 00 02-05 00:00 :00 No 40mg Take 1 tablet by mouth daily. [facility] atorvastati n 40 mg tablet 2020-04 00:00: 00 02-05 00:00 :00 No 40mg Take 1 tablet by mouth daily. [facility] Immunizations Ordered Immunization Name Filled Immunization Name Date Status Comments Source Influenza High Dose 2021-12-22 00:00:00 Completed [facility] Influenza High Dose 2021-12-22 00:00:00 Completed [facility] Influenza High Dose 2021-12-22 00:00:00 Completed [facility] Influenza High Dose 2021-12-22 00:00:00 Completed [facility] Influenza High Dose 2021-12-22 00:00:00 Completed [facility] Influenza High Dose 2021-12-22 00:00:00 Completed [facility] Influenza High Dose 2021-12-22 00:00:00 Completed [facility] Influenza High Dose 2021-12-22 00:00:00 Completed [facility] Influenza High Dose 2021-12-22 00:00:00 Completed [facility] Influenza High Dose 2021-12-22 00:00:00 Completed [facility] Influenza High Dose 2021-12-22 00:00:00 Completed [facility] Influenza High Dose 2021-12-22 00:00:00 Completed [facility] Influenza High Dose 2021-12-22 00:00:00 Completed [facility] Influenza High Dose 2021-12-22 00:00:00 Completed [facility] Influenza High Dose 2021-12-22 00:00:00 Completed [facility] Influenza High Dose 2021-12-22 00:00:00 Completed [facility] Influenza High Dose 2021-12-22 00:00:00 Completed [facility] Influenza High Dose 2021-12-22 00:00:00 Completed [facility] Influenza High Dose 2021-12-22 00:00:00 Completed [facility] Influenza High Dose 2021-12-22 00:00:00 Completed [facility] Influenza High Dose 2021-12-22 00:00:00 Completed [facility] Influenza High Dose 2021-12-22 00:00:00 Completed [facility] Influenza High Dose 2021-12-22 00:00:00 Completed [facility] Influenza High Dose 2021-12-22 00:00:00 Completed [facility] Influenza High Dose 2021-12-22 00:00:00 Completed [facility] Influenza High Dose 2021-12-22 00:00:00 Completed [facility] Influenza High Dose 2021-12-22 00:00:00 Completed [facility] Influenza High Dose 2021-12-22 00:00:00 Completed [facility] Influenza High Dose 2021-12-22 00:00:00 Completed [facility] Influenza High Dose 2021-12-22 00:00:00 Completed [facility] Influenza High Dose 2021-12-22 00:00:00 Completed [facility] Influenza High Dose 2021-12-22 00:00:00 Completed [facility] Influenza High Dose 2021-12-22 00:00:00 Completed [facility] Influenza High Dose 2021-12-22 00:00:00 Completed [facility] Influenza High Dose 2021-12-22 00:00:00 Completed [facility] Influenza High Dose 2021-12-22 00:00:00 Completed [facility] Influenza High Dose 2021-12-22 00:00:00 Completed [facility] Influenza High Dose 2021-12-22 00:00:00 Completed [facility] Influenza High Dose 2021-12-22 00:00:00 Completed [facility] Influenza High Dose 2021-12-22 00:00:00 Completed [facility] Influenza High Dose 2021-12-22 00:00:00 Completed [facility] Influenza High Dose 2021-12-22 00:00:00 Completed [facility] Influenza High Dose 2021-12-22 00:00:00 Completed [facility] Influenza High Dose 2021-12-22 00:00:00 Completed [facility] Influenza High Dose 2021-12-22 00:00:00 Completed [facility] Influenza High Dose 2021-12-22 00:00:00 Completed [facility] Influenza High Dose 2021-12-22 00:00:00 Completed [facility] Influenza High Dose 2021-12-22 00:00:00 Completed [facility] Influenza High Dose 2021-12-22 00:00:00 Completed [facility] Influenza High Dose 2021-12-22 00:00:00 Completed [facility] Influenza High Dose 2021-12-22 00:00:00 Completed [facility] Influenza High Dose 2021-12-22 00:00:00 Completed [facility] Influenza High Dose 2021-12-22 00:00:00 Completed [facility] Influenza High Dose 2021-12-22 00:00:00 Completed [facility] Influenza High Dose 2021-12-22 00:00:00 Completed [facility] SARS-COV-2 COVID-19 PFIZER VACCINE 2021-11-13 00:00:00 Completed [facility] SARS-COV-2 COVID-19 PFIZER VACCINE 2021-11-13 00:00:00 Completed [facility] SARS-COV-2 COVID-19 PFIZER VACCINE 2021-11-13 00:00:00 Completed [facility] SARS-COV-2 COVID-19 PFIZER VACCINE 2021-11-13 00:00:00 Completed [facility] SARS-COV-2 COVID-19 PFIZER VACCINE 2021-11-13 00:00:00 Completed [facility] SARS-COV-2 COVID-19 PFIZER VACCINE 2021-11-13 00:00:00 Completed [facility] SARS-COV-2 COVID-19 PFIZER VACCINE 2021-11-13 00:00:00 Completed [facility] SARS-COV-2 COVID-19 PFIZER VACCINE 2021-11-13 00:00:00 Completed [facility] SARS-COV-2 COVID-19 PFIZER VACCINE 2021-11-13 00:00:00 Completed [facility] SARS-COV-2 COVID-19 PFIZER VACCINE 2021-11-13 00:00:00 Completed [facility] SARS-COV-2 COVID-19 PFIZER VACCINE 2021-11-13 00:00:00 Completed [facility] SARS-COV-2 COVID-19 PFIZER VACCINE 2021-11-13 00:00:00 Completed [facility] SARS-COV-2 COVID-19 PFIZER VACCINE 2021-11-13 00:00:00 Completed [facility] SARS-COV-2 COVID-19 PFIZER VACCINE 2021-11-13 00:00:00 Completed [facility] SARS-COV-2 COVID-19 PFIZER VACCINE 2021-11-13 00:00:00 Completed [facility] SARS-COV-2 COVID-19 PFIZER VACCINE 2021-11-13 00:00:00 Completed [facility] SARS-COV-2 COVID-19 PFIZER VACCINE 2021-11-13 00:00:00 Completed [facility] SARS-COV-2 COVID-19 PFIZER VACCINE 2021-11-13 00:00:00 Completed [facility] SARS-COV-2 COVID-19 PFIZER VACCINE 2021-11-13 00:00:00 Completed [facility] SARS-COV-2 COVID-19 PFIZER VACCINE 2021-11-13 00:00:00 Completed [facility] SARS-COV-2 COVID-19 PFIZER VACCINE 2021-11-13 00:00:00 Completed [facility] SARS-COV-2 COVID-19 PFIZER VACCINE 2021-11-13 00:00:00 Completed [facility] SARS-COV-2 COVID-19 PFIZER VACCINE 2021-11-13 00:00:00 Completed [facility] SARS-COV-2 COVID-19 PFIZER VACCINE 2021-11-13 00:00:00 Completed [facility] SARS-COV-2 COVID-19 PFIZER VACCINE 2021-11-13 00:00:00 Completed [facility] SARS-COV-2 COVID-19 PFIZER VACCINE 2021-11-13 00:00:00 Completed [facility] SARS-COV-2 COVID-19 PFIZER VACCINE 2021-11-13 00:00:00 Completed [facility] SARS-COV-2 COVID-19 PFIZER VACCINE 2021-11-13 00:00:00 Completed [facility] SARS-COV-2 COVID-19 PFIZER VACCINE 2021-11-13 00:00:00 Completed [facility] SARS-COV-2 COVID-19 PFIZER VACCINE 2021-11-13 00:00:00 Completed [facility] SARS-COV-2 COVID-19 PFIZER VACCINE 2021-11-13 00:00:00 Completed [facility] SARS-COV-2 COVID-19 PFIZER VACCINE 2021-11-13 00:00:00 Completed [facility] SARS-COV-2 COVID-19 PFIZER VACCINE 2021-11-13 00:00:00 Completed [facility] SARS-COV-2 COVID-19 PFIZER VACCINE 2021-11-13 00:00:00 Completed [facility] SARS-COV-2 COVID-19 PFIZER VACCINE 2021-11-13 00:00:00 Completed [facility] SARS-COV-2 COVID-19 PFIZER VACCINE 2021-11-13 00:00:00 Completed [facility] SARS-COV-2 COVID-19 PFIZER VACCINE 2021-11-13 00:00:00 Completed [facility] SARS-COV-2 COVID-19 PFIZER VACCINE 2021-11-13 00:00:00 Completed [facility] SARS-COV-2 COVID-19 PFIZER VACCINE 2021-11-13 00:00:00 Completed [facility] SARS-COV-2 COVID-19 PFIZER VACCINE 2021-11-13 00:00:00 Completed [facility] SARS-COV-2 COVID-19 PFIZER VACCINE 2021-11-13 00:00:00 Completed [facility] SARS-COV-2 COVID-19 PFIZER VACCINE 2021-11-13 00:00:00 Completed [facility] SARS-COV-2 COVID-19 PFIZER VACCINE 2021-11-13 00:00:00 Completed [facility] SARS-COV-2 COVID-19 PFIZER VACCINE 2021-11-13 00:00:00 Completed [facility] SARS-COV-2 COVID-19 PFIZER VACCINE 2021-11-13 00:00:00 Completed [facility] SARS-COV-2 COVID-19 PFIZER VACCINE 2021-11-13 00:00:00 Completed [facility] SARS-COV-2 COVID-19 PFIZER VACCINE 2021-11-13 00:00:00 Completed [facility] SARS-COV-2 COVID-19 PFIZER VACCINE 2021-11-13 00:00:00 Completed [facility] SARS-COV-2 COVID-19 PFIZER VACCINE 2021-11-13 00:00:00 Completed [facility] SARS-COV-2 COVID-19 PFIZER VACCINE 2021-11-13 00:00:00 Completed [facility] SARS-COV-2 COVID-19 PFIZER VACCINE 2021-11-13 00:00:00 Completed [facility] SARS-COV-2 COVID-19 PFIZER VACCINE 2021-11-13 00:00:00 Completed [facility] SARS-COV-2 COVID-19 PFIZER VACCINE 2021-11-13 00:00:00 Completed [facility] SARS-COV-2 COVID-19 PFIZER VACCINE 2021-11-13 00:00:00 Completed [facility] SARS-COV-2 COVID-19 PFIZER VACCINE 2021-11-13 00:00:00 Completed [facility] SARS-COV-2 COVID-19 PFIZER VACCINE 2021-04-28 00:00:00 Completed [facility] SARS-COV-2 COVID-19 PFIZER VACCINE 2021-04-28 00:00:00 Completed [facility] SARS-COV-2 COVID-19 PFIZER VACCINE 2021-04-28 00:00:00 Completed [facility] SARS-COV-2 COVID-19 PFIZER VACCINE 2021-04-28 00:00:00 Completed [facility] SARS-COV-2 COVID-19 PFIZER VACCINE 2021-04-28 00:00:00 Completed [facility] SARS-COV-2 COVID-19 PFIZER VACCINE 2021-04-28 00:00:00 Completed [facility] SARS-COV-2 COVID-19 PFIZER VACCINE 2021-04-28 00:00:00 Completed [facility] SARS-COV-2 COVID-19 PFIZER VACCINE 2021-04-28 00:00:00 Completed [facility] SARS-COV-2 COVID-19 PFIZER VACCINE 2021-04-28 00:00:00 Completed [facility] SARS-COV-2 COVID-19 PFIZER VACCINE 2021-04-28 00:00:00 Completed [facility] SARS-COV-2 COVID-19 PFIZER VACCINE 2021-04-28 00:00:00 Completed [facility] SARS-COV-2 COVID-19 PFIZER VACCINE 2021-04-28 00:00:00 Completed [facility] SARS-COV-2 COVID-19 PFIZER VACCINE 2021-04-28 00:00:00 Completed [facility] SARS-COV-2 COVID-19 PFIZER VACCINE 2021-04-28 00:00:00 Completed [facility] SARS-COV-2 COVID-19 PFIZER VACCINE 2021-04-28 00:00:00 Completed [facility] SARS-COV-2 COVID-19 PFIZER VACCINE 2021-04-28 00:00:00 Completed [facility] SARS-COV-2 COVID-19 PFIZER VACCINE 2021-04-28 00:00:00 Completed [facility] SARS-COV-2 COVID-19 PFIZER VACCINE 2021-04-28 00:00:00 Completed [facility] SARS-COV-2 COVID-19 PFIZER VACCINE 2021-04-28 00:00:00 Completed [facility] SARS-COV-2 COVID-19 PFIZER VACCINE 2021-04-28 00:00:00 Completed [facility] SARS-COV-2 COVID-19 PFIZER VACCINE 2021-04-28 00:00:00 Completed [facility] SARS-COV-2 COVID-19 PFIZER VACCINE 2021-04-28 00:00:00 Completed [facility] SARS-COV-2 COVID-19 PFIZER VACCINE 2021-04-28 00:00:00 Completed [facility] SARS-COV-2 COVID-19 PFIZER VACCINE 2021-04-28 00:00:00 Completed [facility] SARS-COV-2 COVID-19 PFIZER VACCINE 2021-04-28 00:00:00 Completed [facility] SARS-COV-2 COVID-19 PFIZER VACCINE 2021-04-28 00:00:00 Completed [facility] SARS-COV-2 COVID-19 PFIZER VACCINE 2021-04-28 00:00:00 Completed [facility] SARS-COV-2 COVID-19 PFIZER VACCINE 2021-04-28 00:00:00 Completed [facility] SARS-COV-2 COVID-19 PFIZER VACCINE 2021-04-28 00:00:00 Completed [facility] SARS-COV-2 COVID-19 PFIZER VACCINE 2021-04-28 00:00:00 Completed [facility] SARS-COV-2 COVID-19 PFIZER VACCINE 2021-04-28 00:00:00 Completed [facility] SARS-COV-2 COVID-19 PFIZER VACCINE 2021-04-28 00:00:00 Completed [facility] SARS-COV-2 COVID-19 PFIZER VACCINE 2021-04-28 00:00:00 Completed [facility] SARS-COV-2 COVID-19 PFIZER VACCINE 2021-04-28 00:00:00 Completed [facility] SARS-COV-2 COVID-19 PFIZER VACCINE 2021-04-28 00:00:00 Completed [facility] SARS-COV-2 COVID-19 PFIZER VACCINE 2021-04-28 00:00:00 Completed [facility] SARS-COV-2 COVID-19 PFIZER VACCINE 2021-04-28 00:00:00 Completed [facility] SARS-COV-2 COVID-19 PFIZER VACCINE 2021-04-28 00:00:00 Completed [facility] SARS-COV-2 COVID-19 PFIZER VACCINE 2021-04-28 00:00:00 Completed [facility] SARS-COV-2 COVID-19 PFIZER VACCINE 2021-04-28 00:00:00 Completed [facility] SARS-COV-2 COVID-19 PFIZER VACCINE 2021-04-28 00:00:00 Completed [facility] SARS-COV-2 COVID-19 PFIZER VACCINE 2021-04-28 00:00:00 Completed [facility] SARS-COV-2 COVID-19 PFIZER VACCINE 2021-04-28 00:00:00 Completed [facility] SARS-COV-2 COVID-19 PFIZER VACCINE 2021-04-28 00:00:00 Completed [facility] SARS-COV-2 COVID-19 PFIZER VACCINE 2021-04-28 00:00:00 Completed [facility] SARS-COV-2 COVID-19 PFIZER VACCINE 2021-04-28 00:00:00 Completed [facility] SARS-COV-2 COVID-19 PFIZER VACCINE 2021-04-28 00:00:00 Completed [facility] SARS-COV-2 COVID-19 PFIZER VACCINE 2021-04-28 00:00:00 Completed [facility] SARS-COV-2 COVID-19 PFIZER VACCINE 2021-04-28 00:00:00 Completed [facility] SARS-COV-2 COVID-19 PFIZER VACCINE 2021-04-28 00:00:00 Completed [facility] SARS-COV-2 COVID-19 PFIZER VACCINE 2021-04-28 00:00:00 Completed [facility] SARS-COV-2 COVID-19 PFIZER VACCINE 2021-04-28 00:00:00 Completed [facility] SARS-COV-2 COVID-19 PFIZER VACCINE 2021-04-28 00:00:00 Completed [facility] SARS-COV-2 COVID-19 PFIZER VACCINE 2021-04-28 00:00:00 Completed [facility] SARS-COV-2 COVID-19 PFIZER VACCINE 2021-04-28 00:00:00 Completed [facility] Influenza Virus Vaccine,quad Im,preserve Free 2021-03-02 00:00:00 Completed [facility] Influenza Virus Vaccine,quad Im,preserve Free 2021-03-02 00:00:00 Completed [facility] Influenza Virus Vaccine,quad Im,preserve Free 2021-03-02 00:00:00 Completed [facility] Influenza Virus Vaccine,quad Im,preserve Free 2021-03-02 00:00:00 Completed [facility] Influenza Virus Vaccine,quad Im,preserve Free 2021-03-02 00:00:00 Completed [facility] Influenza Virus Vaccine,quad Im,preserve Free 2021-03-02 00:00:00 Completed [facility] Influenza Virus Vaccine,quad Im,preserve Free 2021-03-02 00:00:00 Completed [facility] Influenza Virus Vaccine,quad Im,preserve Free 2021-03-02 00:00:00 Completed [facility] Influenza Virus Vaccine,quad Im,preserve Free 2021-03-02 00:00:00 Completed [facility] Influenza Virus Vaccine,quad Im,preserve Free 2021-03-02 00:00:00 Completed [facility] Influenza Virus Vaccine,quad Im,preserve Free 2021-03-02 00:00:00 Completed [facility] Influenza Virus Vaccine,quad Im,preserve Free 2021-03-02 00:00:00 Completed [facility] Influenza Virus Vaccine,quad Im,preserve Free 2021-03-02 00:00:00 Completed [facility] Influenza Virus Vaccine,quad Im,preserve Free 2021-03-02 00:00:00 Completed [facility] Influenza Virus Vaccine,quad Im,preserve Free 2021-03-02 00:00:00 Completed [facility] Influenza Virus Vaccine,quad Im,preserve Free 2021-03-02 00:00:00 Completed [facility] Influenza Virus Vaccine,quad Im,preserve Free 2021-03-02 00:00:00 Completed [facility] Influenza Virus Vaccine,quad Im,preserve Free 2021-03-02 00:00:00 Completed [facility] Influenza Virus Vaccine,quad Im,preserve Free 2021-03-02 00:00:00 Completed [facility] Influenza Virus Vaccine,quad Im,preserve Free 2021-03-02 00:00:00 Completed [facility] Influenza Virus Vaccine,quad Im,preserve Free 2021-03-02 00:00:00 Completed [facility] Influenza Virus Vaccine,quad Im,preserve Free 2021-03-02 00:00:00 Completed [facility] Influenza Virus Vaccine,quad Im,preserve Free 2021-03-02 00:00:00 Completed [facility] Influenza Virus Vaccine,quad Im,preserve Free 2021-03-02 00:00:00 Completed [facility] Influenza Virus Vaccine,quad Im,preserve Free 2021-03-02 00:00:00 Completed [facility] Influenza Virus Vaccine,quad Im,preserve Free 2021-03-02 00:00:00 Completed [facility] Influenza Virus Vaccine,quad Im,preserve Free 2021-03-02 00:00:00 Completed [facility] Influenza Virus Vaccine,quad Im,preserve Free 2021-03-02 00:00:00 Completed [facility] Influenza Virus Vaccine,quad Im,preserve Free 2021-03-02 00:00:00 Completed [facility] Influenza Virus Vaccine,quad Im,preserve Free 2021-03-02 00:00:00 Completed [facility] Influenza Virus Vaccine,quad Im,preserve Free 2021-03-02 00:00:00 Completed [facility] Influenza Virus Vaccine,quad Im,preserve Free 2021-03-02 00:00:00 Completed [facility] Influenza Virus Vaccine,quad Im,preserve Free 2021-03-02 00:00:00 Completed [facility] Influenza Virus Vaccine,quad Im,preserve Free 2021-03-02 00:00:00 Completed [facility] Influenza Virus Vaccine,quad Im,preserve Free 2021-03-02 00:00:00 Completed [facility] Influenza Virus Vaccine,quad Im,preserve Free 2021-03-02 00:00:00 Completed [facility] Influenza Virus Vaccine,quad Im,preserve Free 2021-03-02 00:00:00 Completed [facility] Influenza Virus Vaccine,quad Im,preserve Free 2021-03-02 00:00:00 Completed [facility] Influenza Virus Vaccine,quad Im,preserve Free 2021-03-02 00:00:00 Completed [facility] Influenza Virus Vaccine,quad Im,preserve Free 2021-03-02 00:00:00 Completed [facility] Influenza Virus Vaccine,quad Im,preserve Free 2021-03-02 00:00:00 Completed [facility] Influenza Virus Vaccine,quad Im,preserve Free 2021-03-02 00:00:00 Completed [facility] Influenza Virus Vaccine,quad Im,preserve Free 65+ 2021-03-02 00:00:00 Completed [facility] Influenza Virus Vaccine,quad Im,preserve Free 65+ 2021-03-02 00:00:00 Completed [facility] Influenza Virus Vaccine,quad Im,preserve Free 65+ 2021-03-02 00:00:00 Completed [facility] Influenza Virus Vaccine,quad Im,preserve Free 65+ 2021-03-02 00:00:00 Completed [facility] Influenza Virus Vaccine,quad Im,preserve Free 65+ 2021-03-02 00:00:00 Completed [facility] Influenza Virus Vaccine,quad Im,preserve Free 65+ 2021-03-02 00:00:00 Completed [facility] Influenza Virus Vaccine,quad Im,preserve Free 65+ 2021-03-02 00:00:00 Completed [facility] Influenza Virus Vaccine,quad Im,preserve Free 65+ 2021-03-02 00:00:00 Completed [facility] Influenza Virus Vaccine,quad Im,preserve Free 652021-03-02 00:00:00 Completed [facility] Influenza Virus Vaccine,quad Im,preserve Free 65+ 2021-03-02 00:00:00 Completed [facility] Influenza Virus Vaccine,quad Im,preserve Free 65+ 2021-03-02 00:00:00 Completed [facility] Influenza Virus Vaccine,quad Im,preserve Free + 2021-03-02 00:00:00 Completed [facility] Influenza Virus Vaccine,quad Im,preserve Free 65+ (FLUAD) 2021-03-02 00:00:00 Completed [facility] Zoster Vaccine Recombinant 2021-01-23 00:00:00 Completed [facility] Zoster Vaccine Recombinant 2021-01-23 00:00:00 Completed [facility] Zoster Vaccine Recombinant 2021-01-23 00:00:00 Completed [facility] Zoster Vaccine Recombinant 2021-01-23 00:00:00 Completed [facility] Zoster Vaccine Recombinant 2021-01-23 00:00:00 Completed [facility] Zoster Vaccine Recombinant 2021-01-23 00:00:00 Completed [facility] Zoster Vaccine Recombinant 2021-01-23 00:00:00 Completed [facility] Zoster Vaccine Recombinant 2021-01-23 00:00:00 Completed [facility] Zoster Vaccine Recombinant 2021-01-23 00:00:00 Completed [facility] Zoster Vaccine Recombinant 2021-01-23 00:00:00 Completed [facility] Zoster Vaccine Recombinant 2021-01-23 00:00:00 Completed [facility] Zoster Vaccine Recombinant 2021-01-23 00:00:00 Completed [facility] Zoster Vaccine Recombinant 2021-01-23 00:00:00 Completed [facility] Zoster Vaccine Recombinant 2021-01-23 00:00:00 Completed [facility] Zoster Vaccine Recombinant 2021-01-23 00:00:00 Completed [facility] Zoster Vaccine Recombinant 2021-01-23 00:00:00 Completed [facility] Zoster Vaccine Recombinant 2021-01-23 00:00:00 Completed [facility] Zoster Vaccine Recombinant 2021-01-23 00:00:00 Completed [facility] Zoster Vaccine Recombinant 2021-01-23 00:00:00 Completed [facility] Zoster Vaccine Recombinant 2021-01-23 00:00:00 Completed [facility] Zoster Vaccine Recombinant 2021-01-23 00:00:00 Completed [facility] Zoster Vaccine Recombinant 2021-01-23 00:00:00 Completed [facility] Zoster Vaccine Recombinant 2021-01-23 00:00:00 Completed [facility] Zoster Vaccine Recombinant 2021-01-23 00:00:00 Completed [facility] Zoster Vaccine Recombinant 2021-01-23 00:00:00 Completed [facility] Zoster Vaccine Recombinant 2021-01-23 00:00:00 Completed [facility] Zoster Vaccine Recombinant 2021-01-23 00:00:00 Completed [facility] Zoster Vaccine Recombinant 2021-01-23 00:00:00 Completed [facility] Zoster Vaccine Recombinant 2021-01-23 00:00:00 Completed [facility] Zoster Vaccine Recombinant 2021-01-23 00:00:00 Completed [facility] Zoster Vaccine Recombinant 2021-01-23 00:00:00 Completed [facility] Zoster Vaccine Recombinant 2021-01-23 00:00:00 Completed [facility] Zoster Vaccine Recombinant 2021-01-23 00:00:00 Completed [facility] Zoster Vaccine Recombinant 2021-01-23 00:00:00 Completed [facility] Zoster Vaccine Recombinant 2021-01-23 00:00:00 Completed [facility] Zoster Vaccine Recombinant 2021-01-23 00:00:00 Completed [facility] Zoster Vaccine Recombinant 2021-01-23 00:00:00 Completed [facility] Zoster Vaccine Recombinant 2021-01-23 00:00:00 Completed [facility] Zoster Vaccine Recombinant 2021-01-23 00:00:00 Completed [facility] Zoster Vaccine Recombinant 2021-01-23 00:00:00 Completed [facility] Zoster Vaccine Recombinant 2021-01-23 00:00:00 Completed [facility] Zoster Vaccine Recombinant 2021-01-23 00:00:00 Completed [facility] Zoster Vaccine Recombinant 2021-01-23 00:00:00 Completed [facility] Zoster Vaccine Recombinant 2021-01-23 00:00:00 Completed [facility] Zoster Vaccine Recombinant 2021-01-23 00:00:00 Completed [facility] Zoster Vaccine Recombinant 2021-01-23 00:00:00 Completed [facility] Zoster Vaccine Recombinant 2021-01-23 00:00:00 Completed [facility] Zoster Vaccine Recombinant 2021-01-23 00:00:00 Completed [facility] Zoster Vaccine Recombinant 2021-01-23 00:00:00 Completed [facility] Zoster Vaccine Recombinant 2021-01-23 00:00:00 Completed [facility] Zoster Vaccine Recombinant 2021-01-23 00:00:00 Completed [facility] Zoster Vaccine Recombinant 2021-01-23 00:00:00 Completed [facility] Zoster Vaccine Recombinant 2021-01-23 00:00:00 Completed [facility] Zoster Vaccine Recombinant 2021-01-23 00:00:00 Completed [facility] Zoster Vaccine Recombinant 2021-01-23 00:00:00 Completed [facility] Zoster Vaccine Recombinant 2020-11-23 00:00:00 Completed [facility] Zoster Vaccine Recombinant 2020-11-23 00:00:00 Completed [facility] Zoster Vaccine Recombinant 2020-11-23 00:00:00 Completed [facility] Zoster Vaccine Recombinant 2020-11-23 00:00:00 Completed [facility] Zoster Vaccine Recombinant 2020-11-23 00:00:00 Completed [facility] Zoster Vaccine Recombinant 2020-11-23 00:00:00 Completed [facility] Zoster Vaccine Recombinant 2020-11-23 00:00:00 Completed [facility] Zoster Vaccine Recombinant 2020-11-23 00:00:00 Completed [facility] Zoster Vaccine Recombinant 2020-11-23 00:00:00 Completed [facility] Zoster Vaccine Recombinant 2020-11-23 00:00:00 Completed [facility] Zoster Vaccine Recombinant 2020-11-23 00:00:00 Completed [facility] Zoster Vaccine Recombinant 2020-11-23 00:00:00 Completed [facility] Zoster Vaccine Recombinant 2020-11-23 00:00:00 Completed [facility] Zoster Vaccine Recombinant 2020-11-23 00:00:00 Completed [facility] Zoster Vaccine Recombinant 2020-11-23 00:00:00 Completed [facility] Zoster Vaccine Recombinant 2020-11-23 00:00:00 Completed [facility] Zoster Vaccine Recombinant 2020-11-23 00:00:00 Completed [facility] Zoster Vaccine Recombinant 2020-11-23 00:00:00 Completed [facility] Zoster Vaccine Recombinant 2020-11-23 00:00:00 Completed [facility] Zoster Vaccine Recombinant 2020-11-23 00:00:00 Completed [facility] Zoster Vaccine Recombinant 2020-11-23 00:00:00 Completed [facility] Zoster Vaccine Recombinant 2020-11-23 00:00:00 Completed [facility] Zoster Vaccine Recombinant 2020-11-23 00:00:00 Completed [facility] Zoster Vaccine Recombinant 2020-11-23 00:00:00 Completed [facility] Zoster Vaccine Recombinant 2020-11-23 00:00:00 Completed [facility] Zoster Vaccine Recombinant 2020-11-23 00:00:00 Completed [facility] Zoster Vaccine Recombinant 2020-11-23 00:00:00 Completed [facility] Zoster Vaccine Recombinant 2020-11-23 00:00:00 Completed [facility] Zoster Vaccine Recombinant 2020-11-23 00:00:00 Completed [facility] Zoster Vaccine Recombinant 2020-11-23 00:00:00 Completed [facility] Zoster Vaccine Recombinant 2020-11-23 00:00:00 Completed [facility] Zoster Vaccine Recombinant 2020-11-23 00:00:00 Completed [facility] Zoster Vaccine Recombinant 2020-11-23 00:00:00 Completed [facility] [facility] Vaccine Recombinant 2020-11-23 00:00:00 Completed [facility] Zoster Vaccine Recombinant 2020-11-23 00:00:00 Completed [facility] Zoster Vaccine Recombinant 2020-11-23 00:00:00 Completed [facility] Zoster Vaccine Recombinant 2020-11-23 00:00:00 Completed [facility] Zoster Vaccine Recombinant 2020-11-23 00:00:00 Completed [facility] Zoster Vaccine Recombinant 2020-11-23 00:00:00 Completed [facility] Zoster Vaccine Recombinant 2020-11-23 00:00:00 Completed [facility] Zoster Vaccine Recombinant 2020-11-23 00:00:00 Completed [facility] Zoster Vaccine Recombinant 2020-11-23 00:00:00 Completed [facility] Zoster Vaccine Recombinant 2020-11-23 00:00:00 Completed [facility] Zoster Vaccine Recombinant 2020-11-23 00:00:00 Completed [facility] Zoster Vaccine Recombinant 2020-11-23 00:00:00 Completed [facility] Zoster Vaccine Recombinant 2020-11-23 00:00:00 Completed [facility] Zoster Vaccine Recombinant 2020-11-23 00:00:00 Completed [facility] Zoster Vaccine Recombinant 2020-11-23 00:00:00 Completed [facility] Zoster Vaccine Recombinant 2020-11-23 00:00:00 Completed [facility] Zoster Vaccine Recombinant 2020-11-23 00:00:00 Completed [facility] Zoster Vaccine Recombinant 2020-11-23 00:00:00 Completed [facility] Zoster Vaccine Recombinant 2020-11-23 00:00:00 Completed [facility] Zoster Vaccine Recombinant 2020-11-23 00:00:00 Completed [facility] Zoster Vaccine Recombinant 2020-11-23 00:00:00 Completed [facility] Zoster Vaccine Recombinant 2020-11-23 00:00:00 Completed [facility] SARS-COV-2 COVID-19 PFIZER VACCINE 2020-07-08 00:00:00 Completed [facility] SARS-COV-2 COVID-19 PFIZER VACCINE 2020-07-08 00:00:00 Completed [facility] SARS-COV-2 COVID-19 PFIZER VACCINE 2020-07-08 00:00:00 Completed [facility] SARS-COV-2 COVID-19 PFIZER VACCINE 2020-07-08 00:00:00 Completed [facility] SARS-COV-2 COVID-19 PFIZER VACCINE 2020-07-08 00:00:00 Completed [facility] SARS-COV-2 COVID-19 PFIZER VACCINE 2020-07-08 00:00:00 Completed [facility] SARS-COV-2 COVID-19 PFIZER VACCINE 2020-07-08 00:00:00 Completed [facility] SARS-COV-2 COVID-19 PFIZER VACCINE 2020-07-08 00:00:00 Completed [facility] SARS-COV-2 COVID-19 PFIZER VACCINE 2020-07-08 00:00:00 Completed [facility] SARS-COV-2 COVID-19 PFIZER VACCINE 2020-07-08 00:00:00 Completed [facility] SARS-COV-2 COVID-19 PFIZER VACCINE 2020-07-08 00:00:00 Completed [facility] SARS-COV-2 COVID-19 PFIZER VACCINE 2020-07-08 00:00:00 Completed [facility] SARS-COV-2 COVID-19 PFIZER VACCINE 2020-07-08 00:00:00 Completed [facility] SARS-COV-2 COVID-19 PFIZER VACCINE 2020-07-08 00:00:00 Completed [facility] SARS-COV-2 COVID-19 PFIZER VACCINE 2020-07-08 00:00:00 Completed [facility] SARS-COV-2 COVID-19 PFIZER VACCINE 2020-07-08 00:00:00 Completed [facility] SARS-COV-2 COVID-19 PFIZER VACCINE 2020-07-08 00:00:00 Completed [facility] SARS-COV-2 COVID-19 PFIZER VACCINE 2020-07-08 00:00:00 Completed [facility] SARS-COV-2 COVID-19 PFIZER VACCINE 2020-07-08 00:00:00 Completed [facility] SARS-COV-2 COVID-19 PFIZER VACCINE 2020-07-08 00:00:00 Completed [facility] SARS-COV-2 COVID-19 PFIZER VACCINE 2020-07-08 00:00:00 Completed [facility] SARS-COV-2 COVID-19 PFIZER VACCINE 2020-07-08 00:00:00 Completed [facility] SARS-COV-2 COVID-19 PFIZER VACCINE 2020-07-08 00:00:00 Completed [facility] SARS-COV-2 COVID-19 PFIZER VACCINE 2020-07-08 00:00:00 Completed [facility] SARS-COV-2 COVID-19 PFIZER VACCINE 2020-07-08 00:00:00 Completed [facility] SARS-COV-2 COVID-19 PFIZER VACCINE 2020-07-08 00:00:00 Completed [facility] SARS-COV-2 COVID-19 PFIZER VACCINE 2020-07-08 00:00:00 Completed [facility] SARS-COV-2 COVID-19 PFIZER VACCINE 2020-07-08 00:00:00 Completed [facility] SARS-COV-2 COVID-19 PFIZER VACCINE 2020-07-08 00:00:00 Completed [facility] SARS-COV-2 COVID-19 PFIZER VACCINE 2020-07-08 00:00:00 Completed [facility] SARS-COV-2 COVID-19 PFIZER VACCINE 2020-07-08 00:00:00 Completed [facility] SARS-COV-2 COVID-19 PFIZER VACCINE 2020-07-08 00:00:00 Completed [facility] SARS-COV-2 COVID-19 PFIZER VACCINE 2020-07-08 00:00:00 Completed [facility] SARS-COV-2 COVID-19 PFIZER VACCINE 2020-07-08 00:00:00 Completed [facility] SARS-COV-2 COVID-19 PFIZER VACCINE 2020-07-08 00:00:00 Completed [facility] SARS-COV-2 COVID-19 PFIZER VACCINE 2020-07-08 00:00:00 Completed [facility] SARS-COV-2 COVID-19 PFIZER VACCINE 2020-07-08 00:00:00 Completed [facility] SARS-COV-2 COVID-19 PFIZER VACCINE 2020-07-08 00:00:00 Completed [facility] SARS-COV-2 COVID-19 PFIZER VACCINE 2020-07-08 00:00:00 Completed [facility] SARS-COV-2 COVID-19 PFIZER VACCINE 2020-07-08 00:00:00 Completed [facility] SARS-COV-2 COVID-19 PFIZER VACCINE 2020-07-08 00:00:00 Completed [facility] SARS-COV-2 COVID-19 PFIZER VACCINE 2020-07-08 00:00:00 Completed [facility] SARS-COV-2 COVID-19 PFIZER VACCINE 2020-07-08 00:00:00 Completed [facility] SARS-COV-2 COVID-19 PFIZER VACCINE 2020-07-08 00:00:00 Completed [facility] SARS-COV-2 COVID-19 PFIZER VACCINE 2020-07-08 00:00:00 Completed [facility] SARS-COV-2 COVID-19 PFIZER VACCINE 2020-07-08 00:00:00 Completed [facility] SARS-COV-2 COVID-19 PFIZER VACCINE 2020-07-08 00:00:00 Completed [facility] SARS-COV-2 COVID-19 PFIZER VACCINE 2020-07-08 00:00:00 Completed [facility] SARS-COV-2 COVID-19 PFIZER VACCINE 2020-07-08 00:00:00 Completed [facility] SARS-COV-2 COVID-19 PFIZER VACCINE 2020-07-08 00:00:00 Completed [facility] SARS-COV-2 COVID-19 PFIZER VACCINE 2020-07-08 00:00:00 Completed [facility] SARS-COV-2 COVID-19 PFIZER VACCINE 2020-07-08 00:00:00 Completed [facility] SARS-COV-2 COVID-19 PFIZER VACCINE 2020-07-08 00:00:00 Completed [facility] SARS-COV-2 COVID-19 PFIZER VACCINE 2020-07-08 00:00:00 Completed [facility] SARS-COV-2 COVID-19 PFIZER VACCINE 2020-07-08 00:00:00 Completed [facility] SARS-COV-2 COVID-19 PFIZER VACCINE 2020-06-17 00:00:00 Completed [facility] SARS-COV-2 COVID-19 PFIZER VACCINE 2020-06-17 00:00:00 Completed [facility] SARS-COV-2 COVID-19 PFIZER VACCINE 2020-06-17 00:00:00 Completed [facility] SARS-COV-2 COVID-19 PFIZER VACCINE 2020-06-17 00:00:00 Completed [facility] SARS-COV-2 COVID-19 PFIZER VACCINE 2020-06-17 00:00:00 Completed [facility] SARS-COV-2 COVID-19 PFIZER VACCINE 2020-06-17 00:00:00 Completed [facility] SARS-COV-2 COVID-19 PFIZER VACCINE 2020-06-17 00:00:00 Completed [facility] SARS-COV-2 COVID-19 PFIZER VACCINE 2020-06-17 00:00:00 Completed [facility] SARS-COV-2 COVID-19 PFIZER VACCINE 2020-06-17 00:00:00 Completed [facility] SARS-COV-2 COVID-19 PFIZER VACCINE 2020-06-17 00:00:00 Completed [facility] SARS-COV-2 COVID-19 PFIZER VACCINE 2020-06-17 00:00:00 Completed [facility] SARS-COV-2 COVID-19 PFIZER VACCINE 2020-06-17 00:00:00 Completed [facility] SARS-COV-2 COVID-19 PFIZER VACCINE 2020-06-17 00:00:00 Completed [facility] SARS-COV-2 COVID-19 PFIZER VACCINE 2020-06-17 00:00:00 Completed [facility] SARS-COV-2 COVID-19 PFIZER VACCINE 2020-06-17 00:00:00 Completed [facility] SARS-COV-2 COVID-19 PFIZER VACCINE 2020-06-17 00:00:00 Completed [facility] SARS-COV-2 COVID-19 PFIZER VACCINE 2020-06-17 00:00:00 Completed [facility] SARS-COV-2 COVID-19 PFIZER VACCINE 2020-06-17 00:00:00 Completed [facility] SARS-COV-2 COVID-19 PFIZER VACCINE 2020-06-17 00:00:00 Completed [facility] SARS-COV-2 COVID-19 PFIZER VACCINE 2020-06-17 00:00:00 Completed [facility] SARS-COV-2 COVID-19 PFIZER VACCINE 2020-06-17 00:00:00 Completed [facility] SARS-COV-2 COVID-19 PFIZER VACCINE 2020-06-17 00:00:00 Completed [facility] SARS-COV-2 COVID-19 PFIZER VACCINE 2020-06-17 00:00:00 Completed [facility] SARS-COV-2 COVID-19 PFIZER VACCINE 2020-06-17 00:00:00 Completed [facility] SARS-COV-2 COVID-19 PFIZER VACCINE 2020-06-17 00:00:00 Completed [facility] SARS-COV-2 COVID-19 PFIZER VACCINE 2020-06-17 00:00:00 Completed [facility] SARS-COV-2 COVID-19 PFIZER VACCINE 2020-06-17 00:00:00 Completed [facility] SARS-COV-2 COVID-19 PFIZER VACCINE 2020-06-17 00:00:00 Completed [facility] SARS-COV-2 COVID-19 PFIZER VACCINE 2020-06-17 00:00:00 Completed [facility] SARS-COV-2 COVID-19 PFIZER VACCINE 2020-06-17 00:00:00 Completed [facility] SARS-COV-2 COVID-19 PFIZER VACCINE 2020-06-17 00:00:00 Completed [facility] SARS-COV-2 COVID-19 PFIZER VACCINE 2020-06-17 00:00:00 Completed [facility] SARS-COV-2 COVID-19 PFIZER VACCINE 2020-06-17 00:00:00 Completed [facility] SARS-COV-2 COVID-19 PFIZER VACCINE 2020-06-17 00:00:00 Completed [facility] SARS-COV-2 COVID-19 PFIZER VACCINE 2020-06-17 00:00:00 Completed [facility] SARS-COV-2 COVID-19 PFIZER VACCINE 2020-06-17 00:00:00 Completed [facility] SARS-COV-2 COVID-19 PFIZER VACCINE 2020-06-17 00:00:00 Completed [facility] SARS-COV-2 COVID-19 PFIZER VACCINE 2020-06-17 00:00:00 Completed [facility] SARS-COV-2 COVID-19 PFIZER VACCINE 2020-06-17 00:00:00 Completed [facility] SARS-COV-2 COVID-19 PFIZER VACCINE 2020-06-17 00:00:00 Completed [facility] SARS-COV-2 COVID-19 PFIZER VACCINE 2020-06-17 00:00:00 Completed [facility] SARS-COV-2 COVID-19 PFIZER VACCINE 2020-06-17 00:00:00 Completed [facility] SARS-COV-2 COVID-19 PFIZER VACCINE 2020-06-17 00:00:00 Completed [facility] SARS-COV-2 COVID-19 PFIZER VACCINE 2020-06-17 00:00:00 Completed [facility] SARS-COV-2 COVID-19 PFIZER VACCINE 2020-06-17 00:00:00 Completed [facility] SARS-COV-2 COVID-19 PFIZER VACCINE 2020-06-17 00:00:00 Completed [facility] SARS-COV-2 COVID-19 PFIZER VACCINE 2020-06-17 00:00:00 Completed [facility] SARS-COV-2 COVID-19 PFIZER VACCINE 2020-06-17 00:00:00 Completed [facility] SARS-COV-2 COVID-19 PFIZER VACCINE 2020-06-17 00:00:00 Completed [facility] SARS-COV-2 COVID-19 PFIZER VACCINE 2020-06-17 00:00:00 Completed [facility] SARS-COV-2 COVID-19 PFIZER VACCINE 2020-06-17 00:00:00 Completed [facility] SARS-COV-2 COVID-19 PFIZER VACCINE 2020-06-17 00:00:00 Completed [facility] SARS-COV-2 COVID-19 PFIZER VACCINE 2020-06-17 00:00:00 Completed [facility] SARS-COV-2 COVID-19 PFIZER VACCINE 2020-06-17 00:00:00 Completed [facility] SARS-COV-2 COVID-19 PFIZER VACCINE 2020-06-17 00:00:00 Completed [facility] Pneumococcal Polysaccharide, PPSV23 (PNEUMOVAX) 2018-10-14 00:00:00 Completed [facility] Pneumococcal Polysaccharide, PPSV23 (PNEUMOVAX) 2018-10-14 00:00:00 Completed [facility] Pneumococcal Polysaccharide, PPSV23 (PNEUMOVAX) 2018-10-14 00:00:00 Completed [facility] Pneumococcal Polysaccharide, PPSV23 (PNEUMOVAX) 2018-10-14 00:00:00 Completed [facility] Pneumococcal Polysaccharide, PPSV23 (PNEUMOVAX) 2018-10-14 00:00:00 Completed [facility] Pneumococcal Polysaccharide, PPSV23 (PNEUMOVAX) 2018-10-14 00:00:00 Completed [facility] Pneumococcal Polysaccharide, PPSV23 (PNEUMOVAX) 2018-10-14 00:00:00 Completed [facility] Pneumococcal Polysaccharide, PPSV23 (PNEUMOVAX) 2018-10-14 00:00:00 Completed [facility] Pneumococcal Polysaccharide, PPSV23 (PNEUMOVAX) 2018-10-14 00:00:00 Completed [facility] Pneumococcal Polysaccharide, PPSV23 (PNEUMOVAX) 2018-10-14 00:00:00 Completed [facility] Pneumococcal Polysaccharide, PPSV23 (PNEUMOVAX) 2018-10-14 00:00:00 Completed [facility] Pneumococcal Polysaccharide, PPSV23 (PNEUMOVAX) 2018-10-14 00:00:00 Completed [facility] Pneumococcal Polysaccharide, PPSV23 (PNEUMOVAX) 2018-10-14 00:00:00 Completed [facility] Pneumococcal Polysaccharide, PPSV23 (PNEUMOVAX) 2018-10-14 00:00:00 Completed [facility] Pneumococcal Polysaccharide, PPSV23 (PNEUMOVAX) 2018-10-14 00:00:00 Completed [facility] Pneumococcal Polysaccharide, PPSV23 (PNEUMOVAX) 2018-10-14 00:00:00 Completed [facility] Pneumococcal Polysaccharide, PPSV23 (PNEUMOVAX) 2018-10-14 00:00:00 Completed [facility] Pneumococcal Polysaccharide, PPSV23 (PNEUMOVAX) 2018-10-14 00:00:00 Completed [facility] Pneumococcal Polysaccharide, PPSV23 (PNEUMOVAX) 2018-10-14 00:00:00 Completed [facility] Pneumococcal Polysaccharide, PPSV23 (PNEUMOVAX) 2018-10-14 00:00:00 Completed [facility] Pneumococcal Polysaccharide, PPSV23 (PNEUMOVAX) 2018-10-14 00:00:00 Completed [facility] Pneumococcal Polysaccharide, PPSV23 (PNEUMOVAX) 2018-10-14 00:00:00 Completed [facility] Pneumococcal Polysaccharide, PPSV23 (PNEUMOVAX) 2018-10-14 00:00:00 Completed [facility] Pneumococcal Polysaccharide, PPSV23 (PNEUMOVAX) 2018-10-14 00:00:00 Completed [facility] Pneumococcal Polysaccharide, PPSV23 (PNEUMOVAX) 2018-10-14 00:00:00 Completed [facility] Pneumococcal Polysaccharide, PPSV23 (PNEUMOVAX) 2018-10-14 00:00:00 Completed [facility] Pneumococcal Polysaccharide, PPSV23 (PNEUMOVAX) 2018-10-14 00:00:00 Completed [facility] Pneumococcal Polysaccharide, PPSV23 (PNEUMOVAX) 2018-10-14 00:00:00 Completed [facility] Pneumococcal Polysaccharide, PPSV23 (PNEUMOVAX) 2018-10-14 00:00:00 Completed [facility] Pneumococcal Polysaccharide, PPSV23 (PNEUMOVAX) 2018-10-14 00:00:00 Completed [facility] Pneumococcal Polysaccharide, PPSV23 (PNEUMOVAX) 2018-10-14 00:00:00 Completed [facility] Pneumococcal Polysaccharide, PPSV23 (PNEUMOVAX) 2018-10-14 00:00:00 Completed [facility] Pneumococcal Polysaccharide, PPSV23 (PNEUMOVAX) 2018-10-14 00:00:00 Completed [facility] Pneumococcal Polysaccharide, PPSV23 (PNEUMOVAX) 2018-10-14 00:00:00 Completed [facility] Pneumococcal Polysaccharide, PPSV23 (PNEUMOVAX) 2018-10-14 00:00:00 Completed [facility] Pneumococcal Polysaccharide, PPSV23 (PNEUMOVAX) 2018-10-14 00:00:00 Completed [facility] Pneumococcal Polysaccharide, PPSV23 (PNEUMOVAX) 2018-10-14 00:00:00 Completed [facility] Pneumococcal Polysaccharide, PPSV23 (PNEUMOVAX) 2018-10-14 00:00:00 Completed [facility] Pneumococcal Polysaccharide, PPSV23 (PNEUMOVAX) 2018-10-14 00:00:00 Completed [facility] Pneumococcal Polysaccharide, PPSV23 (PNEUMOVAX) 2018-10-14 00:00:00 Completed [facility] Pneumococcal Polysaccharide, PPSV23 (PNEUMOVAX) 2018-10-14 00:00:00 Completed [facility] Pneumococcal Polysaccharide, PPSV23 (PNEUMOVAX) 2018-10-14 00:00:00 Completed [facility] Pneumococcal Polysaccharide, PPSV23 (PNEUMOVAX) 2018-10-14 00:00:00 Completed [facility] Pneumococcal Polysaccharide, PPSV23 (PNEUMOVAX) 2018-10-14 00:00:00 Completed [facility] Pneumococcal Polysaccharide, PPSV23 (PNEUMOVAX) 2018-10-14 00:00:00 Completed [facility] Pneumococcal Polysaccharide, PPSV23 (PNEUMOVAX) 2018-10-14 00:00:00 Completed [facility] Pneumococcal Polysaccharide, PPSV23 (PNEUMOVAX) 2018-10-14 00:00:00 Completed [facility] Pneumococcal Polysaccharide, PPSV23 (PNEUMOVAX) 2018-10-14 00:00:00 Completed [facility] Pneumococcal Polysaccharide, PPSV23 (PNEUMOVAX) 2018-10-14 00:00:00 Completed [facility] Pneumococcal Polysaccharide, PPSV23 (PNEUMOVAX) 2018-10-14 00:00:00 Completed [facility] Pneumococcal Polysaccharide, PPSV23 (PNEUMOVAX) 2018-10-14 00:00:00 Completed [facility] Pneumococcal Polysaccharide, PPSV23 (PNEUMOVAX) 2018-10-14 00:00:00 Completed [facility] Pneumococcal Polysaccharide, PPSV23 (PNEUMOVAX) 2018-10-14 00:00:00 Completed [facility] Pneumococcal Polysaccharide, PPSV23 (PNEUMOVAX) 2018-10-14 00:00:00 Completed [facility] Pneumococcal Polysaccharide, PPSV23 (PNEUMOVAX) 2018-10-14 00:00:00 Completed [facility] SARS-COV-2 COVID-19 PFIZER VACCINE Unknown Completed [facility] SARS-COV-2 COVID-19 PFIZER VACCINE Unknown Completed [facility] Influenza Virus Vaccine,quad Im,preserve Free 65+ (FLUAD) Unknown Completed [facility] SARS-COV-2 COVID-19 PFIZER VACCINE Unknown Completed [facility] Pneumococcal Polysaccharide, PPSV23 (PNEUMOVAX) Unknown Completed [facility] Vaccine Recombinant Unknown Completed [facility] Vaccine Recombinant Unknown Completed [facility] Influenza High Dose Unknown Completed [facility] SARS-COV-2 COVID-19 PFIZER VACCINE Unknown Completed [facility] SARS-COV-2 COVID-19 PFIZER VACCINE Unknown Completed [facility] SARS-COV-2 COVID-19 PFIZER VACCINE Unknown Completed [facility] Influenza Virus Vaccine,quad Im,preserve Free 65+ (FLUAD) Unknown Completed [facility] SARS-COV-2 COVID-19 PFIZER VACCINE Unknown Completed [facility] Pneumococcal Polysaccharide, PPSV23 (PNEUMOVAX) Unknown Completed [facility] Vaccine Recombinant Unknown Completed [facility] Vaccine Recombinant Unknown Completed [facility] Influenza High Dose Unknown Completed [facility] SARS-COV-2 COVID-19 PFIZER VACCINE Unknown Completed [facility] SARS-COV-2 COVID-19 PFIZER VACCINE Unknown Completed [facility] SARS-COV-2 COVID-19 PFIZER VACCINE Unknown Completed [facility] Influenza Virus Vaccine,quad Im,preserve Free 65+ (FLUAD) Unknown Completed [facility] SARS-COV-2 COVID-19 PFIZER VACCINE Unknown Completed [facility] Pneumococcal Polysaccharide, PPSV23 (PNEUMOVAX) Unknown Completed [facility] Vaccine Recombinant Unknown Completed [facility] Vaccine Recombinant Unknown Completed [facility] Influenza High Dose Unknown Completed [facility] SARS-COV-2 COVID-19 PFIZER VACCINE Unknown Completed [facility] SARS-COV-2 COVID-19 PFIZER VACCINE Unknown Completed [facility] SARS-COV-2 COVID-19 PFIZER VACCINE Unknown Completed [facility] Influenza Virus Vaccine,quad Im,preserve Free 65+ (FLUAD) Unknown Completed [facility] SARS-COV-2 COVID-19 PFIZER VACCINE Unknown Completed [facility] Pneumococcal Polysaccharide, PPSV23 (PNEUMOVAX) Unknown Completed [facility] Vaccine Recombinant Unknown Completed [facility] Vaccine Recombinant Unknown Completed [facility] Influenza High Dose Unknown Completed [facility] SARS-COV-2 COVID-19 PFIZER VACCINE Unknown Completed [facility] SARS-COV-2 COVID-19 PFIZER VACCINE Unknown Completed [facility] SARS-COV-2 COVID-19 PFIZER VACCINE Unknown Completed [facility] Influenza Virus Vaccine,quad Im,preserve Free 65+ (FLUAD) Unknown Completed [facility] SARS-COV-2 COVID-19 PFIZER VACCINE Unknown Completed [facility] Pneumococcal Polysaccharide, PPSV23 (PNEUMOVAX) Unknown Completed [facility] Vaccine Recombinant Unknown Completed [facility] Vaccine Recombinant Unknown Completed [facility] Influenza High Dose Unknown Completed [facility] SARS-COV-2 COVID-19 PFIZER VACCINE Unknown Completed [facility] SARS-COV-2 COVID-19 PFIZER VACCINE Unknown Completed [facility] SARS-COV-2 COVID-19 PFIZER VACCINE Unknown Completed [facility] Influenza Virus Vaccine,quad Im,preserve Free 65+ (FLUAD) Unknown Completed [facility] SARS-COV-2 COVID-19 PFIZER VACCINE Unknown Completed [facility] Pneumococcal Polysaccharide, PPSV23 (PNEUMOVAX) Unknown Completed [facility] Vaccine Recombinant Unknown Completed [facility] Vaccine Recombinant Unknown Completed [facility] Influenza High Dose Unknown Completed [facility] SARS-COV-2 COVID-19 PFIZER VACCINE Unknown Completed [facility] SARS-COV-2 COVID-19 PFIZER VACCINE Unknown Completed [facility] SARS-COV-2 COVID-19 PFIZER VACCINE Unknown Completed [facility] Influenza Virus Vaccine,quad Im,preserve Free 65+ (FLUAD) Unknown Completed [facility] SARS-COV-2 COVID-19 PFIZER VACCINE Unknown Completed [facility] Pneumococcal Polysaccharide, PPSV23 (PNEUMOVAX) Unknown Completed [facility] Vaccine Recombinant Unknown Completed [facility] Vaccine Recombinant Unknown Completed [facility] Influenza High Dose Unknown Completed [facility] SARS-COV-2 COVID-19 PFIZER VACCINE Unknown Completed [facility] SARS-COV-2 COVID-19 PFIZER VACCINE Unknown Completed [facility] SARS-COV-2 COVID-19 PFIZER VACCINE Unknown Completed [facility] Influenza Virus Vaccine,quad Im,preserve Free 65+ (FLUAD) Unknown Completed [facility] SARS-COV-2 COVID-19 PFIZER VACCINE Unknown Completed [facility] Pneumococcal Polysaccharide, PPSV23 (PNEUMOVAX) Unknown Completed [facility] Vaccine Recombinant Unknown Completed [facility]oster Vaccine Recombinant Unknown Completed [facility] Influenza High Dose Unknown Completed [facility] SARS-COV-2 COVID-19 PFIZER VACCINE Unknown Completed [facility] SARS-COV-2 COVID-19 PFIZER VACCINE Unknown Completed [facility] SARS-COV-2 COVID-19 PFIZER VACCINE Unknown Completed [facility] Influenza Virus Vaccine,quad Im,preserve Free 65+ (FLUAD) Unknown Completed [facility] SARS-COV-2 COVID-19 PFIZER VACCINE Unknown Completed [facility] Pneumococcal Polysaccharide, PPSV23 (PNEUMOVAX) Unknown Completed [facility] Vaccine Recombinant Unknown Completed [facility] Zoster Vaccine Recombinant Unknown Completed [facility] Influenza High Dose Unknown Completed [facility] SARS-COV-2 COVID-19 PFIZER VACCINE Unknown Completed [facility] SARS-COV-2 COVID-19 PFIZER VACCINE Unknown Completed [facility] SARS-COV-2 COVID-19 PFIZER VACCINE Unknown Completed [facility] Influenza Virus Vaccine,quad Im,preserve Free 65+ (FLUAD) Unknown Completed [facility] SARS-COV-2 COVID-19 PFIZER VACCINE Unknown Completed [facility] Pneumococcal Polysaccharide, PPSV23 (PNEUMOVAX) Unknown Completed [facility] Vaccine Recombinant Unknown Completed [facility] Zoster Vaccine Recombinant Unknown Completed [facility] Influenza High Dose Unknown Completed [facility] SARS-COV-2 COVID-19 PFIZER VACCINE Unknown Completed [facility] SARS-COV-2 COVID-19 PFIZER VACCINE Unknown Completed [facility] SARS-COV-2 COVID-19 PFIZER VACCINE Unknown Completed [facility] Influenza Virus Vaccine,quad Im,preserve Free 65+ (FLUAD) Unknown Completed [facility] SARS-COV-2 COVID-19 PFIZER VACCINE Unknown Completed [facility] Pneumococcal Polysaccharide, PPSV23 (PNEUMOVAX) Unknown Completed [facility] Vacc[facility] Recombinant Unknown Completed [facility] Zoster Vaccine Recombinant Unknown Completed [facility] Influenza High Dose Unknown Completed [facility] SARS-COV-2 COVID-19 PFIZER VACCINE Unknown Completed [facility] SARS-COV-2 COVID-19 PFIZER VACCINE Unknown Completed [facility] SARS-COV-2 COVID-19 PFIZER VACCINE Unknown Completed [facility] Influenza Virus Vaccine,quad Im,preserve Free 65+ (FLUAD) Unknown Completed [facility] SARS-COV-2 COVID-19 PFIZER VACCINE Unknown Completed [facility] Pneumococcal Polysaccharide, PPSV23 (PNEUMOVAX) Unknown Completed [facility] Vaccine Recombinant Unknown Completed [facility] Zoster Vaccine Recombinant Unknown Completed [facility] Influenza High Dose Unknown Completed [facility] SARS-COV-2 COVID-19 PFIZER VACCINE Unknown Completed [facility] SARS-COV-2 COVID-19 PFIZER VACCINE Unknown Completed [facility] SARS-COV-2 COVID-19 PFIZER VACCINE Unknown Completed [facility] Influenza Virus Vaccine,quad Im,preserve Free 65+ (FLUAD) Unknown Completed [facility] SARS-COV-2 COVID-19 PFIZER VACCINE Unknown Completed [facility] Pneumococcal Polysaccharide, PPSV23 (PNEUMOVAX) Unknown Completed [facility] Vaccine Recombinant Unknown Completed [facility] Zoster Vaccine Recombinant Unknown Completed [facility] Influenza High Dose Unknown Completed [facility] SARS-COV-2 COVID-19 PFIZER VACCINE Unknown Completed [facility] SARS-COV-2 COVID-19 PFIZER VACCINE Unknown Completed [facility] SARS-COV-2 COVID-19 PFIZER VACCINE Unknown Completed [facility] Influenza Virus Vaccine,quad Im,preserve Free 65+ (FLUAD) Unknown Completed [facility] SARS-COV-2 COVID-19 PFIZER VACCINE Unknown Completed [facility] Pneumococcal Polysaccharide, PPSV23 (PNEUMOVAX) Unknown Completed [facility] Vaccine Recombinant Unknown Completed [facility] Zoster Vaccine Recombinant Unknown Completed [facility] Influenza High Dose Unknown Completed [facility] SARS-COV-2 COVID-19 PFIZER VACCINE Unknown Completed [facility] SARS-COV-2 COVID-19 PFIZER VACCINE Unknown Completed [facility] SARS-COV-2 COVID-19 PFIZER VACCINE Unknown Completed [facility] Influenza Virus Vaccine,quad Im,preserve Free 65+ (FLUAD) Unknown Completed [facility] SARS-COV-2 COVID-19 PFIZER VACCINE Unknown Completed [facility] Pneumococcal Polysaccharide, PPSV23 (PNEUMOVAX) Unknown Completed [facility] Vaccine Recombinant Unknown Completed [facility] Zoster Vaccine Recombinant Unknown Completed [facility] Influenza High Dose Unknown Completed [facility] SARS-COV-2 COVID-19 PFIZER VACCINE Unknown Completed [facility] SARS-COV-2 COVID-19 PFIZER VACCINE Unknown Completed [facility] SARS-COV-2 COVID-19 PFIZER VACCINE Unknown Completed [facility] Influenza Virus Vaccine,quad Im,preserve Free 65+ (FLUAD) Unknown Completed [facility] SARS-COV-2 COVID-19 PFIZER VACCINE Unknown Completed [facility] Pneumococcal Polysaccharide, PPSV23 (PNEUMOVAX) Unknown Completed [facility] Vaccine Recombinant Unknown Completed [facility] Zoster Vaccine Recombinant Unknown Completed [facility] Influenza High Dose Unknown Completed [facility] SARS-COV-2 COVID-19 PFIZER VACCINE Unknown Completed [facility] SARS-COV-2 COVID-19 PFIZER VACCINE Unknown Completed [facility] SARS-COV-2 COVID-19 PFIZER VACCINE Unknown Completed [facility] Influenza Virus Vaccine,quad Im,preserve Free 65+ (FLUAD) Unknown Completed [facility] SARS-COV-2 COVID-19 PFIZER VACCINE Unknown Completed [facility] Pneumococcal Polysaccharide, PPSV23 (PNEUMOVAX) Unknown Completed [facility] Vaccine Recombinant Unknown Completed [facility] Zoster Vaccine Recombinant Unknown Completed [facility] Influenza High Dose Unknown Completed [facility] SARS-COV-2 COVID-19 PFIZER VACCINE Unknown Completed [facility] SARS-COV-2 COVID-19 PFIZER VACCINE Unknown Completed [facility] SARS-COV-2 COVID-19 PFIZER VACCINE Unknown Completed [facility] Influenza Virus Vaccine,quad Im,preserve Free 65+ (FLUAD) Unknown Completed [facility] SARS-COV-2 COVID-19 PFIZER VACCINE Unknown Completed [facility] Pneumococcal Polysaccharide, PPSV23 (PNEUMOVAX) Unknown Completed [facility] Vaccine Recombinant Unknown Completed [facility] Zoster Vaccine Recombinant Unknown Completed [facility] Influenza High Dose Unknown Completed [facility] SARS-COV-2 COVID-19 PFIZER VACCINE Unknown Completed [facility] SARS-COV-2 COVID-19 PFIZER VACCINE Unknown Completed [facility] SARS-COV-2 COVID-19 PFIZER VACCINE Unknown Completed [facility] Influenza Virus Vaccine,quad Im,preserve Free 65+ (FLUAD) Unknown Completed [facility] SARS-COV-2 COVID-19 PFIZER VACCINE Unknown Completed [facility] Pneumococcal Polysaccharide, PPSV23 (PNEUMOVAX) Unknown Completed [facility] Vaccine Recombinant Unknown Completed [facility] Zoster Vaccine Recombinant Unknown Completed [facility] Influenza High Dose Unknown Completed [facility] SARS-COV-2 COVID-19 PFIZER VACCINE Unknown Completed [facility] SARS-COV-2 COVID-19 PFIZER VACCINE Unknown Completed [facility] SARS-COV-2 COVID-19 PFIZER VACCINE Unknown Completed [facility] Influenza Virus Vaccine,quad Im,preserve Free 65+ (FLUAD) Unknown Completed [facility] SARS-COV-2 COVID-19 PFIZER VACCINE Unknown Completed [facility] Pneumococcal Polysaccharide, PPSV23 (PNEUMOVAX) Unknown Completed [facility] Vaccine Recombinant Unknown Completed [facility] Zoster Vaccine Recombinant Unknown Completed [facility] Influenza High Dose Unknown Completed [facility] SARS-COV-2 COVID-19 PFIZER VACCINE Unknown Completed [facility] SARS-COV-2 COVID-19 PFIZER VACCINE Unknown Completed [facility] SARS-COV-2 COVID-19 PFIZER VACCINE Unknown Completed [facility] Influenza Virus Vaccine,quad Im,preserve Free 65+ (FLUAD) Unknown Completed [facility] SARS-COV-2 COVID-19 PFIZER VACCINE Unknown Completed [facility] Pneumococcal Polysaccharide, PPSV23 (PNEUMOVAX) Unknown Completed [facility] Vaccine Recombinant Unknown Completed [facility] Zoster Vaccine Recombinant Unknown Completed [facility] Influenza High Dose Unknown Completed [facility] SARS-COV-2 COVID-19 PFIZER VACCINE Unknown Completed [facility] SARS-COV-2 COVID-19 PFIZER VACCINE Unknown Completed [facility] SARS-COV-2 COVID-19 PFIZER VACCINE Unknown Completed [facility] Influenza Virus Vaccine,quad Im,preserve Free 65+ (FLUAD) Unknown Completed [facility] SARS-COV-2 COVID-19 PFIZER VACCINE Unknown Completed [facility] Pneumococcal Polysaccharide, PPSV23 (PNEUMOVAX) Unknown Completed [facility] Vaccine Recombinant Unknown Completed [facility] Zoster Vaccine Recombinant Unknown Completed [facility] Influenza High Dose Unknown Completed [facility] SARS-COV-2 COVID-19 PFIZER VACCINE Unknown Completed [facility] SARS-COV-2 COVID-19 PFIZER VACCINE Unknown Completed [facility] SARS-COV-2 COVID-19 PFIZER VACCINE Unknown Completed [facility] Influenza Virus Vaccine,quad Im,preserve Free 65+ (FLUAD) Unknown Completed [facility] SARS-COV-2 COVID-19 PFIZER VACCINE Unknown Completed [facility] Pneumococcal Polysaccharide, PPSV23 (PNEUMOVAX) Unknown Completed [facility] Vaccine Recombinant Unknown Completed [facility] Zoster Vaccine Recombinant Unknown Completed [facility] Influenza High Dose Unknown Completed [facility] SARS-COV-2 COVID-19 PFIZER VACCINE Unknown Completed [facility] Vital Signs Vital Name Observation Time Observation Value Comments S ource Systolic blood pressure 2023-06-14 19:37:00 145 mm[Hg] [facility] Diastolic blood pressure 2023-06-14 19:37:00 80 mm[Hg] [facility] Heart rate 2023-06-14 19:34:00 79 /min Unive [facility] Body temperature 2023-06-14 19:34:00 36.78 Amanda [facility] Body height 2023-06-14 19:34:00 157.5 cm Univ [facility] Body weight 2023-06-14 19:34:00 44.135 kg Univ [facility] BMI 2023-06-14 19:34:00 17.80 kg/m2 Univ [facility] Oxygen saturation in Arterial blood by Pulse oximetry 2023-06-14 19:34:00 100 /min [facility] Systolic blood pressure 2023-05-26 19:08:00 147 mm[Hg] [facility] Diastolic blood pressure 2023-05-26 19:08:00 100 mm[Hg] [facility] Heart rate 2023-05-26 19:08:00 101 /min Unive [facility] Body height 2023-05-26 19:08:00 157.5 cm [facility] Body weight 2023-05-26 19:08:00 48.444 kg [facility] BMI 2023-05-26 19:08:00 19.53 kg/m2 [facility] Oxygen saturation in Arterial blood by Pulse oximetry 2023-05-26 19:08:00 94 /min [facility] Systolic blood pressure 2023-05-20 17:38:00 103 mm[Hg] [facility] Diastolic blood pressure 2023-05-20 17:38:00 64 mm[Hg] [facility] Heart rate 2023-05-20 17:38:00 79 /min Un[facility] Body temperature 2023-05-20 17:38:00 36.94 Amanda [facility] Respiratory rate 2023-05-20 17:38:00 18 /min [facility] Oxygen saturation in Arterial blood by Pulse oximetry 2023-05-20 17:38:00 95 /min [facility] Body weight 2023-05-20 09:31:00 50.621 kg Univ [facility] BMI 2023-05-20 09:31:00 20.41 kg/m2 Univ [facility] Body height 2023-05-17 21:21:00 157.5 cm [facility] Systolic blood pressure 2022-08-24 15:51:00 183 mm[Hg] [facility] Diastolic blood pressure 2022-08-24 15:51:00 74 mm[Hg] [facility] Heart rate 2022-08-24 15:50:00 66 /min Unive [facility] Body temperature 2022-08-24 15:50:00 36.72 Amanda [facility] Body height 2022-08-24 15:50:00 157.5 cm [facility] Body weight 2022-08-24 15:50:00 44.135 kg [facility] BMI 2022-08-24 15:50:00 17.80 kg/m2 [facility] Oxygen saturation in Arterial blood by Pulse oximetry 2022-08-24 15:50:00 99 /min [facility] Systolic blood pressure 2022-04-21 19:26:00 133 mm[Hg] [facility] Diastolic blood pressure 2022-04-21 19:26:00 72 mm[Hg] [facility] Heart rate 2022-04-21 19:26:00 78 /min Unive [facility] Body temperature 2022-04-21 19:26:00 36.72 Amanda [facility] Body height 2022-04-21 19:26:00 157.5 cm Univ [facility] Body weight 2022-04-21 19:26:00 44.453 kg [facility] BMI 2022-04-21 19:26:00 17.92 kg/m2 [facility] Oxygen saturation in Arterial blood by Pulse oximetry 2022-04-21 19:26:00 99 /min [facility] Systolic blood pressure 2022-03-30 16:46:00 133 mm[Hg] [facility] Diastolic blood pressure 2022-03-30 16:46:00 63 mm[Hg] [facility] Heart rate 2022-03-30 16:46:00 63 /min [facility] Body temperature 2022-03-30 16:46:00 36.83 Amanda [facility] Body height 2022-03-30 16:46:00 157.5 cm [facility] Body weight 2022-03-30 16:46:00 44.725 kg [facility] BMI 2022-03-30 16:46:00 18.03 kg/m2 [facility] Oxygen saturation in Arterial blood by Pulse oximetry 2022-03-30 16:46:00 98 /min [facility] Procedures Procedure Date / Time Performed Performing Clinician Source MEDICAL RELEASE/CLEARANCE FORMS 2023-06-21 06:01:00 Doctor Unassigned, [place] [facility] TRANSTHORACIC ECHO (TTE) COMPLETE W/ CONTRAST 2023-06-08 16:30:00 Janice Andino [facility] HB ECG ROUTINE & RHYTHM STRIP 2023-05-26 19:03:[facility]W 2023-05-20 09:49:05 Vicki Gillespie [facility] LIPASE 2023-05-19 10:46:00 [facility] 2023-05-19 10:46:00 Gldais Escobar [facility] HEPATIC FUNCTION PANEL (73844) (ALB,T.PRO,BILI T,BU/BC,ALT,AST,ALK PHOS) 2023-05-19 10:46:00 Martha Sanabria [facility] BASIC METABOLIC PANEL (NA, K, CL, CO2, GLUCOSE, BUN, CREATININE, CA) 2023-05-19 10:46:00 Gladis Escobar [facility] CBC WITHOUT DIFF 2023-05-19 10:46:00 Martha Sanabria [facility] MAGNESIUM 2023-05-18 23:09:00 Gladis Escobar [facility] LIPASE 2023-05-18 10:42:00 Martha Sanabria [facility] MAGNESIUM 2023-05-18 10:42:00 [facility] (50365) (ALB,T.PRO,BILI T,BU/BC,ALT,AST,ALK PHOS) 2023-05-18 10:42:00 Daniele [facility] BASIC METABOLIC PANEL (NA, K, CL, CO2, GLUCOSE, BUN, CREATININE, CA) 2023-05-18 10:42:00 Daniele [facility] CBC WITH DIFF 2023-05-18 10:42[facility]00 [facility] URINE CULTURE 2023-05-18 03:40:00 Marvel Wooten Priscilla [facility] PROTHROMBIN TIME / INR 2023-05-17 20:57:00 Naif Sanabria [facility] LIPASE 2023-05-17 18:10:00 [facility] MAGNESIUM 2023-05-17 18:10:00 [facility] COMP. METABOLIC PANEL (56670) 2023-05-17 18:10:00 Marvel Wooten Priscilla [facility] CBC WITH DIFF 2023-05-17 18:10:00 Marvel Wooten [facility] GLYCOSYLATED HEMOGLOBIN (A1C) 2023-05-17 18:10:00 Gladis Escobar [facility] URINALYSIS 2023-05-17 18:10:00 Mavrel Wooten [facility] ASSIGNMENT OF BENEFITS 2023-05-06 20:31:09 Docto r Unassigned, [place] [facility] MEDICAL RELEASE/CLEARANCE FORMS 2023-04-06 06:01:00 Doctor Unassigned, [place] [facility] REFERRAL- REQUEST/RESPONSE 2023-02-02 05:01:00 Doctor Unassigned, [place] [facility] DEXA AXIAL (HIP AND SPINE) 2022-09-14 15:01:36 Sly Neumann [facility] CONSENT/REFUSAL FOR DIAGNOSIS AND TREATMENT 2022-09-14 14:39:10 Doctor Unassigned, [place] [facility] ASSIGNMENT OF BENEFITS 2022-09-14 14:38:56 Docto r Unassigned, [place] [facility] PATIENT FINANCIAL POLICY 2022-08-24 15:19:41 Doctor Unassigned, [place] [facility] EXTERNAL FIT DNA 2021-03-13 16:49:00 Doctor Unas signed, [place] [facility] Encounters Start Date/Time End Date/Time Encounter Type Admission Type Attending [facility] Facility Care Department Encounter ID Source 2023-07-13 13:40:00 2023-07-13 13:40:00 Outpatient R SINA [facility] [id number] [facility] 2023-06-21 00:00:00 2023-06-21 00:00:00 Telephone Sina [facility] BUILDING [id number] 350.1.13.10 4.2.7.2.686 [id number] [facility] 2023-06-21 00:00:00 2023-06-21 00:00:00 Orders Only Doctor Unassigned, [place] [facility] 1.2.840.114 350.1.13.10 4.2.7.2.686 [id number] [facility] 2023-06-14 14:15:00 2023-06-14 14:30:00 Vinyl Hanger Visit 2, Adc Lab Sina [facility] BUILDING 1.2.840.114 350.1.13.10 4.2.7.2.686 [id number] [facility] 2023-06-14 14:15:00 2023-06-14 14:15:00 [facility] [id number] 2023-06-14 13:40:00 2023-06-14 13:53:14 Office Visit Sina [facility] BUILDING 1.2.840.114 350.1.13.10 4.2.7.2.686 [id number] [facility] 2023-06-08 09:36:33 2023-06-08 23:59:00 [id number] 2023-06-08 09:36:33 2023-06-08 23:59:00 Hospital Encounter Sina [facility] BUILDING 1.2.840.114 350.1.13.10 4.2.7.2.686 [id number] [facility] 2023-06-08 08:30:00 2023-06-08 09:35:00 Hospital Encounter Sina [facility] 1.2.840.114 350.1.13.10 4.2.7.2.686 [id number] [facility] 2023-05-26 13:00:00 2023-05-26 13:33:54 [facility] [id number] [facility] 2023-05-26 13:00:00 2023-05-26 13:33:54 Office Visit Sina [facility] 1.2.840.114 350.1.13.10 4.2.7.2.686 [id number] [facility] 2023-05-26 00:00:00 2023-05-26 00:00:00 [facility] 1.2.840.114 350.1.13.10 4.2.7.2.686 [id number] [facility] 2023-05-23 00:00:00 2023-05-23 00:00:00 Transition of Care Abigail Carroll 1.2.840.114 350.1.13.10 4.2.7.2.686 [id number] [facility] 2023-05-17 11:05:00 2023-05-20 15:23:00 Inpatient X MARTHA SANABRIA [facility] [id number] [facility] 2023-05-17 11:05:00 2023-05-20 15:23:00 Hospital Encounter Sugar Marvel Priscilla Martha Sanabria [facility] 1.2.840.114 350.1.13.10 4.2.7.2.686 [id number] [facility] 2023-05-06 14:32:38 2023-05-06 23:59:00 Hospital Encounter Radiology [facility] 1.2.840.114 350.1.13.10 4.2.7.2.686 [id number] [facility] 2023-05-06 14:32:05 2023-05-06 23:59:00 Outpatient R RADIOLOGY [facility] [id number] [facility] 2023-05-06 14:32:05 2023-05-06 23:59:00 Hospital Encounter Radiology [facility] 1.2.840.114 350.1.13.10 4.2.7.2.686 [id number] [facility] 2023-05-06 00:00:00 2023-05-06 00:00:00 Orders Only Doctor Unassigned, [place] [facility] 1.2.840.114 350.1.13.10 4.2.7.2.686 [id number] [facility] 2023-04-28 10:00:00 2023-04-28 10:00:00 Outpatient R JANICE ANDINO [facility] [id number] [facility] 2023-04-06 00:00:00 2023-04-06 00:00:00 Telephone Janice Andino [facility] 1.0.114 350.1.13.10 4.2.7.2.686 [id number] [facility] 2023-04-06 00:00:00 2023-04-06 00:00:00 Orders Only Doctor Unassigned, [place] [facility] 1.20.114 350.1.13.10 4.2.7.2.686 [id number] [facility] 2023-03-11 13:40:00 2023-03-11 13:40:00 Outpatient MATT GOLDSTEIN HOWARD [facility] [id number] [facility] 2023-02-10 00:00:00 2023-02-10 00:00:00 Patient Secure Msg Doctor Unassigned, [place] [facility] 1.0.114 350.1.13.10 4.2.7.2.686 [id number] [facility] 2023-02-02 00:00:00 2023-02-02 00:00:00 Orders Only Doctor Unassigned, [place] [facility] 1.20.114 350.1.13.10 4.2.7.2.686 [id number] [facility] 2022-12-27 00:00:00 2022-12-27 00:00:00 Telephone [facility] 1..114 350.1.13.10 4.2.7.2.686 [id number] [facility] 2022-12-20 00:00:00 2022-12-20 00:00:00 Refill Betsey [facility] 1.0.114 350.1.13.10 4.2.7.2.686 [id number] [facility] 2022-12-15 00:00:00 2022-12-15 00:00:00 Refill Sly Neumann [facility] 1.2840.114 350.1.13.10 4.2.7.2.686 [id number] [facility] 2022-12-15 00:00:00 2022-12-15 00:00:00 Refill Sly Neumann [facility] 1.840.114 350.1.13.10 4.2.7.2.686 [id number] [facility] 2022-12-08 00:00:00 2022-12-08 00:00:00 Telephone Lissett Leggett [facility] 1.2840.114 350.1.13.10 4.2.7.2.686 [id number] [facility] 2022-12-06 00:00:00 2022-12-06 00:00:00 Refill Sly Neumann [facility] [facility] 1.2840.114 350.1.13.10 4.2.7.2.686 [id number] [facility] 2022-11-28 00:00:00 2022-11-28 00:00:00 Refill Sly Neumann [facility] 1.2840.114 350.1.13.10 4.2.7.2.686 [id number] [facility] 2022-10-31 00:00:00 2022-10-31 00:00:00 Refill Sly Neumann [facility] DE [facility] G[facility] 1.2840.114 350.1.13.10 4.2.7.2.686 [id number] [id number] [facility] 2022-10-18 00:00:00 2022-10-18 00:00:00 Refill NelSly [facility] 1.84.114 350.1.13.10 4.2.7.2.686 [id number] [facility] 2022-10-08 00:00:00 2022-10-08 00:00:00 Telephone Lissett Leggett [facility] 1.84.114 350.1.13.10 4.2.7.2.686 [id number] [id number] [facility] 2022-10-02 00:00:00 2022-10-02 00:00:00 Refill Barbara LeggettOn license of [facility] HOLLI?[facility] 1.84.114 350.1.13.10 4.2.7.2.686 [id number] 044 [id number] [facility] 2022-09-28 14:00:00 2022-09-28 14:00:00 Outpatient R LISSETT LEGGETT [facility] [id number] [facility] 2022-09-14 09:39:33 2022-09-14 23:59:00 Outpatient R SLY NEUMANN [facility] [id number] [facility] 2022-09-14 09:39:33 2022-09-14 23:59:00 Hospital Encounter Sly Neumann [facility] 1.840.114 350.1.13.10 4.2.7.2.686 [id number] [facility] 2022-09-14 11:15:00 2022-09-14 11:20:59 Vinyl Hanger Visit Lab, Kimo - Yang Neumann Sly [facility] 1.2840.114 350.1.13.10 4.2.7.2.686 [id number] [facility] 2022-09-14 00:00:00 2022-09-14 00:00:00 Orders Only Doctor Unassigned, [place] [facility] 1.2840.114 350.1.13.10 4.2.7.2.686 [id number] [facility] 2022-09-11 00:00:00 2022-09-11 00:00:00 Telephone Lissett Leggett [facility] 1.2840.114 350.1.13.10 4.2.7.2.686 [id number] 044 [id number] [facility] 2022-09-06 00:00:00 2022-09-06 00:00:00 Telephone Team, [facility] 1.2840.114 350.1.13.10 4.2.7.2.686 [id number] [facility] 2022-08-25 00:00:00 2022-08-25 00:00:00 Patient Secure Magdalene Larose [facility] 1.2840.114 350.1.13.10 4.2.7.2.686 [id number] [id number] [facility] 2022-08-25 00:00:00 2022-08-25 00:00:00 Telephone Sly Neumann [facility] 1.2840.114 350.1.13.10 4.2.7.2.686 [id number] [facility] 2022-08-25 00:00:00 2022-08-25 00:00:00 Telephone Sly Neumann [facility] 1.2840.114 350.1.13.10 4.2.7.2.686 [id number] [id number] [facility] 2022-08-25 00:00:00 2022-08-25 00:00:00 Telephone RafaelSly zhu [facility] 1.840.114 350.1.13.10 4.2.7.2.686 [id number] 044 [id number] [facility] 2022-08-24 11:00:00 2022-08-24 11:15:00 Vinyl Hanger Visit Lab, Lissett Banegas [facility] 1..114 350.1.13.10 4.2.7.2.686 [id number] [facility] 2022-08-24 10:30:00 2022-08-24 11:07:37 Outpatient R RAFAELSLY Zhu [facility] [id number] [facility] 2022-08-24 10:30:00 2022-08-24 11:07:37 Office Visit [facility] 1..114 350.1.13.10 4.2.7.2.686 [id number] [id number] [facility] 2022-08-24 00:00:00 2022-08-24 00:00:00 Orders Only Doctor Unassigned, [place] [facility] 1..114 350.1.13.10 4.2.7.2.686 [id number] [facility] 2022-08-24 00:00:00 2022-08-24 00:00:00 Telephone Sly Neumann [facility] 1.0.114 350.1.13.10 4.2.7.2.686 [id number] 044 [id number] [facility] 2022-08-07 00:00:00 2022-08-07 00:00:00 Refill Sly Neumann [facility] 1.2840.114 350.1.13.10 4.2.7.2.686 [id number] 044 [id number] [facility] 2022-07-30 00:00:00 2022-07-30 00:00:00 Refill Lissett Leggett [facility] 1.2840.114 350.1.13.10 4.2.7.2.686 [id number] 044 [id number] [facility] 2022-06-23 00:00:00 2022-06-23 00:00:00 Telephone Lissett Leggett [facility] 1.2840.114 350.1.13.10 4.2.7.2.686 [id number] [id number] [facility] 2022-06-07 00:00:00 2022-06-07 00:00:00 Refill Sly Neumann [facility] 1.2840.114 350.1.13.10 4.2.7.2.686 [id number] 044 [id number] [facility] 2022-06-06 00:00:00 2022-06-06 00:00:00 Refill Sly Neumann [facility] 1.2840.114 350.1.13.10 4.2.7.2.686 [id number] [id number] [facility] 2022-05-12 00:00:00 2022-05-12 00:00:00 Telephone Lissett Leggett [facility] 1.2840.114 350.1.13.10 4.2.7.2.686 [id number] [id number] [facility] 2022-04-21 13:43:12 2022-04-21 23:59:00 Outpatient R NEL SLY [facility] [id number] [facility] 2022-04-21 14:00:00 2022-04-21 14:15:00 Vinyl Hanger Visit Lab, Kimo - Yang HallSly zhu [facility] 1.2.840.114 350.1.13.10 4.2.7.2.686 [id number] [facility] 2022-04-21 13:30:00 2022-04-21 14:00:00 Office Visit NelSly [facility] 1.2.840.114 350.1.13.10 4.2.7.2.686 [id number] 044 [id number] [facility] 2022-04-20 00:00:00 2022-04-20 00:00:00 Refill Lissett Leggett [facility] 1..840.114 350.1.13.10 4.2.7.2.686 [id number] 044 [id number] [facility] 2022-04-05 00:00:00 2022-04-05 00:00:00 Refill NelSly [facility] 1.2.840.114 350.1.13.10 4.2.7.2.686 [id number] [id number] [facility] 2022-03-30 11:00:00 2022-03-30 11:03:11 Outpatient R NEL SLY [facility] [id number] [facility] 2022-03-30 11:00:00 2022-03-30 11:03:11 Office Visit NelSly [facility] 1.2.840.114 350.1.13.10 4.2.7.2.686 [id number] [id number] [facility] 2022-03-12 00:00:00 2022-03-12 00:00:00 Patient Secure Msg Doctor Unassigned, [place] [facility] 1.2840.114 350.1.13.10 4.2.7.2.686 [id number] 044 [id number] [facility] 2022-03-05 00:00:00 2022-03-05 00:00:00 Telephone Nel Sly [facility] 1.84.114 350.1.13.10 4.2.7.2.686 [id number] [id number] [facility] 2022-02-23 11:15:00 2022-02-23 11:30:00 Vinyl Hanger Visit Lab, Kimo Neumann Sly [facility] 1.84.114 350.1.13.10 4.2.7.2.686 [id number] [facility] 2022-02-23 11:15:00 2022-02-23 11:15:00 Outpatient R SLY NEUMANN [facility] [id number] [facility] 2022-02-04 00:00:00 2022-02-04 00:00:00 Lissett Reese [facility] 1.84.114 350.1.13.10 4.2.7.2.686 [id number] [id number] [facility] 2022-01-26 00:00:00 2022-01-26 00:00:00 Telephone Nel Sly [facility] 1.840.114 350.1.13.10 4.2.7.2.686 [id number] [id number] [facility] 2022-01-25 11:30:00 2022-01-25 11:45:00 Vinyl Hanger Visit [facility] 1.2.840.114 350.1.13.10 4.2.7.2.686 [id number] [facility] 2022-01-25 11:30:00 2022-01-25 11:30:00 Outpatient Jay LISSETT LEGGETT [facility] [id number] [facility] 2022-01-22 11:30:00 2022-01-22 11:30:00 Outpatient Jay LISSETT LEGGETT [facility] [id number] [facility] 2022-01-22 11:30:00 2022-01-22 11:30:00 Outpatient R DAVIDLISSETT LI [facility] [id number] [facility] 2022-01-22 11:30:00 2022-01-22 11:30:00 Outpatient R LISSETT LEGGETT [facility] [id number] [facility] 2022-01-22 11:30:00 2022-01-22 11:30:00 Outpatient R LISSETT LEGGETT [facility] [id number] [facility] 2021-12-30 00:00:00 2021-12-30 00:00:00 Telephone Sly Neumann [facility] 1.2.840.114 350.1.13.10 4.2.7.2.686 [id number] [facility] 2021-12-29 12:00:00 2021-12-29 12:00:00 Outpatient SLY SCHUSTER [facility] [id number] [facility] 2021-12-29 12:00:00 2021-12-29 12:00:00 Vinyl Hanger Visit Lab, Sly Bustos [facility] 1.2.840.114 350.1.13.10 4.2.7.2.686 [id number] [facility] 2021-12-29 11:00:00 2021-12-29 11:30:00 Office Visit Sly Neumann [facility] 1.840.114 350.1.13.10 4.2.7.2.686 [id number] 044 [id number] [facility] 2021-12-29 11:00:00 2021-12-29 11:00:00 Outpatient R RAFAELSLY Zhu [facility] [id number] [facility] 2021-12-29 11:00:00 2021-12-29 11:00:00 Outpatient R RAFAELSLY Zhu [facility] [id number] [facility] 2021-12-18 00:00:00 2021-12-18 00:00:00 Telephone Lissett Leggett [facility] 1.840.114 350.1.13.10 4.2.7.2.686 [id number] [facility] 2021-12-02 00:00:00 2021-12-02 00:00:00 Patient Secure Msg Doctor Unassigned, [place] [facility] 1..840.114 350.1.13.10 4.2.7.2.686 [id number] [facility] 2021-11-27 10:45:00 2021-11-27 11:00:00 Vinyl Hanger Visit Lab, Kimo Hallmarko Sly [facility] 1..840.114 350.1.13.10 4.2.7.2.686 [id number] [facility] 2021-11-27 10:00:00 2021-11-27 10:48:11 Outpatient R SLY NEUMANN [facility] [id number] [facility] 2021-11-27 10:00:00 2021-11-27 10:48:11 Office Visit Sly Neumann [facility] 1.2840.114 350.1.13.10 4.2.7.2.686 [id number] [facility] 2021-11-27 10:00:00 2021-11-27 10:00:00 Outpatient R SLY NEUMANN [facility] [id number] [facility] 2021-11-27 00:00:00 2021-11-27 00:00:00 Telephone Sly Neumann [facility] 1.840.114 350.1.13.10 4.2.7.2.686 [id number] [facility] 2021-11-25 00:00:00 2021-11-25 00:00:00 Refill Rossana, Xena Zhu [facility] 1..114 350.1.13.10 4.2.7.2.686 [id number] 044 [id number] [facility] 2021-11-23 00:00:00 2021-11-23 00:00:00 Transition of Care Lucille Plasencia 1.20.114 350.1.13.10 4.2.7.2.686 [id number] [facility] 2021-11-18 18:32:00 2021-11-20 16:03:00 Hospital Encounter Keagan Coreas, Martha Sullivan [facility] 1.20.114 350.1.13.10 4.2.7.2.686 [id number] [facility] 2021-11-18 11:00:00 2021-11-18 11:15:00 Vinyl Hanger Visit Lab, Kimo Neumann Sly [facility] 1.840.114 350.1.13.10 4.2.7.2.686 [id number] [facility] 2021-11-18 09:30:00 2021-11-18 11:01:17 Outpatient R NELSLY [facility] [id number] [facility] 2021-11-18 09:30:00 2021-11-18 11:01:17 [facility] 1.840.114 350.1.13.10 4.2.7.2.686 [id number] [id number] [facility] 2021-11-18 09:30:00 2021-11-18 11:01:17 Outpatient R RAFAELSLY Zhu [facility] [id number] [facility] 2021-11-18 09:30:00 2021-11-18 11:01:17 Outpatient R NELSLY [facility] [id number] [facility] 2021-11-18 00:00:00 2021-11-18 00:00:00 [facility] 1.840.114 350.1.13.10 4.2.7.2.686 [id number] 044 [id number] [facility] 2021-11-09 16:00:00 2021-11-09 16:15:00 Vinyl Hanger Visit Lab, Lissett Banegas [facility] 1..840.114 350.1.13.10 4.2.7.2.686 [id number] [facility] 2021-11-09 16:00:00 2021-11-09 16:09:54 Vinyl Hanger Visit Lab, Ang - Db Lissett Leggett [facility] 1..840.114 350.1.13.10 4.2.7.2.686 [id number] [facility] 2021-11-09 16:00:00 2021-11-09 16:00:00 Outpatient R LISSETT LEGGETT [facility] [id number] [facility] 2021-11-09 15:00:00 2021-11-09 15:57:42 Office Visit Barbara LeggettOn license of [facility] 1..840.114 350.1.13.10 4.2.7.2.686 [id number] [facility] 2021-11-09 15:00:00 2021-11-09 15:57:42 Outpatient R LISSETT LEGGETT [facility] [id number] [facility] 2021-11-09 15:00:00 2021-11-09 15:57:42 Outpatient R LISSETT LEGGETT [facility] [id number] [facility] 2021-11-09 15:00:00 2021-11-09 15:57:42 Office Visit Barbara LeggettOn license of [facility] 1..840.114 350.1.13.10 4.2.7.2.686 [id number] [facility] 2021-09-10 00:00:00 2021-09-10 00:00:00 Refill Xena Tracy A [facility] 1..840.114 350.1.13.10 4.2.7.2.686 [id number] [facility] 2021-08-04 00:00:00 2021-08-04 00:00:00 Refill Xena Tracy [facility] 1.840.114 350.1.13.10 4.2.7.2.686 [id number] [facility] 2021-07-23 12:15:00 2021-07-23 12:30:00 Vinyl Hanger Visit Lab, Ang - Yang Xena Tracy [facility] 1.840.114 350.1.13.10 4.2.7.2.686 [id number] [facility] 2021-07-23 11:30:00 2021-07-23 12:13:54 Outpatient R ROSSANA XENA [facility] [id number] [facility] 2021-07-23 11:30:00 2021-07-23 12:13:54 Office Visit Xena Tracy [facility] 1.840.114 350.1.13.10 4.2.7.2.686 [id number] [facility] 2021-07-21 10:30:00 2021-07-21 10:30:00 Outpatient R ROSSANA LORRAINEELIANLENO [facility] [id number] [facility] 2021-07-21 10:30:00 2021-07-21 10:30:00 Outpatient R ROSSANA LORRAINEELIANLENO [facility] [id number] [facility] 2021-06-23 13:00:00 2021-06-23 13:47:11 Outpatient R ROSSANA LORRAINEELIANLENO [facility] [id number] [facility] 2021-06-12 11:15:00 2021-06-12 11:30:00 [facility] 1..840.114 350.1.13.10 4.2.7.2.686 [id number] [facility] 2021-06-12 11:15:00 2021-06-12 11:15:00 Outpatient R FARIHA CALI [facility] [id number] [facility] 2021-05-28 00:00:00 2021-05-28 00:00:00 Telephone Elvis Kearns [facility] 1.2840.114 350.1.13.10 4.2.7.2.686 [id number] [facility] 2021-05-25 00:00:00 2021-05-25 00:00:00 Telephone Xena Tracy Marko [facility] 1.284.114 350.1.13.10 4.2.7.2.686 [id number] [facility] 2021-05-25 00:00:00 2021-05-25 00:00:00 Telephone Xena Tracy [facility] 1.2840.114 350.1.13.10 4.2.7.2.686 [id number] [facility] 2021-05-25 00:00:00 2021-05-25 00:00:00 Refill Xena Tracy Marko [facility] 1.2840.114 350.1.13.10 4.2.7.2.686 [id number] [facility] 2021-04-28 16:00:00 2021-04-28 16:10:00 Imm/Inj Visit Vaccine, Ang Db Cbc Fam Rossana Lorraineelianful A [facility] 1.2840.114 350.1.13.10 4.2.7.2.686 [id number] [facility] 2021-04-28 16:00:00 2021-04-28 16:00:00 Outpatient R XENA TARCY [facility] [id number] [facility] 2021-04-10 11:00:00 2021-04-10 11:00:00 Outpatient R [facility] [id number] [facility] 2021-03-06 00:00:00 2021-03-06 00:00:00 Telephone Xena Tracy [facility] HOLLI?[facility] [id number] 350.1.13.10 4.2.7.2.686 [id number] [facility] 2021-03-02 13:40:07 2021-03-02 14:33:01 Office Visit Xena Tracy [facility] HOLLI?[facility] [id number] 350.1.13.10 4.2.7.2.686 [id number] [facility] 2021-03-02 13:30:00 2021-03-02 14:33:01 Outpatient R XENA TRACY [facility] [id number] [facility] 2021-03-02 13:30:00 2021-03-02 14:33:01 Outpatient R XENA TRACY [facility] [id number] [facility] 2020-12-23 14:29:02 2020-12-23 23:59:00 Hospital Encounter Radiology [facility] 1.2840.114 350.1.13.10 4.2.7.2.686 [id number] [facility] 2020-12-23 14:29:02 2020-12-23 23:59:00 Outpatient R RADIOLOGY [facility] [id number] [facility] 2020-12-23 14:27:10 2020-12-23 14:28:00 Hospital Encounter Radiology [facility] [id number] 350.1.13.10 4.2.7.2.686 [id number] [facility] 2020-12-23 00:00:00 2020-12-23 00:00:00 Outpatient R RADIOLOGY [facility] [id number] [facility] 2020-07-08 11:30:00 2020-07-08 11:30:00 Outpatient R CHINO BARAHONA [facility] [id number] [facility] 2020-06-17 10:20:00 2020-06-17 10:20:00 Outpatient R CHINO BARAHONA [facility] [id number] [facility] 2019-11-01 00:00:00 2019-11-01 00:00:00 Outpatient R RADIOLOGY [facility] [id number] [facility] 2019-05-03 00:00:00 2019-05-03 23:59:00 Outpatient R SHAKEEL BILLY I [facility] [id number] [facility] 2019-05-03 14:11:09 2019-05-03 14:12:00 Outpatient R SHAKEEL BILLY I [facility] [id number] [facility] 2019-05-03 14:11:00 2019-05-03 14:12:00 Hospital Encounter Shakeel Billy i [facility] [id number] 350.1.13.10 4.2.7.2.686 [id number] [facility] Results Test Description Test Time Test Comments Results Result Co [facility] [id number] 09:58:05Study: Single view chest. Ordering Physician: ANISA GILLESPIE Date: 05/20/2023 3:45 AM History:shortness of breath and cough COMPARISON: None. Findings: Single frontal view chest demonstrates a normal heart size.Perihilar interstitial edema is present with small pleural effusions.Bibasilar airspace opacities are identified which may result fromatelectasis or pneumonia. No pneumothorax is present. [facility]2023-05-18 02:08:43* Test Item Value Reference Range Interpretation Comme nts HGB A1C (test code = 4548-4) 5.4 % 4.0-5.7 AGUSTIN (test code = AGUSTIN) Reference RangesNormal: <5.7%Prediabetes: 5.7 - 6.4%Diabetes: > 6.5% Lab Interpretation (test code = 65936-8) Normal [facility] / [id number] 21:27:23* Test Item Value Reference Range Interpretation Comme nts PROTIME PATIENT (test code = 5964-2) 12.1 See_Comment [Automated [employer]] The system which generated this result transmitted reference range: 12.0 - 14.7 Seconds. The reference range was not used to interpret this result as normal/abnormal. INR (test code = 6301-6) 0.9 Normal INR <1.1; Warfarin Therapeutic range 2.0 to 3.0 or 2.5 to 3.5, depending upon the indications. Lab Interpretation (test code = 20085-0) [facility]22:03* Test Item Value Reference Range Interpretation Comme nts MAGNESIUM (test code = 1715129682) 0.8 mg/dL 1.7-2.4 L Lab Interpretation (test cod e = 36234-7) [facility] (26341)2023-05-17 19:05:37* Test Item Value Reference Range Interpretation Comme nts NA (test code = 5969785000) 127 mmol/L 135-145 L K (test code = 8800255052) 3.6 mmol/L 3.5-5.0 CL (test code = 1714198336) 87 mmol/L 98-108 L CO2 TOTAL (test code = 3646249714) 16 mmol/L 23-31 L AGAP (test code = 2793181735) 24 2-16 H BUN (test code = 0639359774) 13 mg/dL 7-23 GLUCOSE (test code = 9866231296) 179 mg/dL 70-110 H CREATININE (test code = 5016030874) 0.64 mg/dL 0.50-1.04 TOTAL BILI (test code = 0283967955) 2.1 mg/dL 0.1-1.1 H CALCIUM (test code = 5128968083) 9.0 mg/dL 8.6-10.6 T PROTEIN (test code = 9494643249) 8.6 g/dL 6.3-8.2 H ALBUMIN (test code = 3397937970) 4.9 g/dL 3.5-5.0 ALK PHOS (test code = 7243144403) 165 U/L 34-122 H ALTv (test code = 1742-6) 118 U/L 5-35 H AST(SGOT) (test code = 3658437182) 237 U/L 13-40 H eGFR (test code = 72141-3) 94.6 mL/min/1.73m2 CKD-EPI eGFR (2020). Assuming creatinine has been stable day-to-day for at least three months, the eGFR indicates Category G1 (>= 90 mL/min/1.73 m2) Lab Interpretation (test code = 28646-5) [facility] 19:05:36* Test Item Value Reference Range Interpretation Comme nts LIPASE (test code = 3684727436) 265 U/L 0-220 H Lab Interpretation (test cod e = 48764-0) [facility] NortheastCb with Afho8493-03-81 18:53:14* Test Item Value Reference Range Interpretation Comme nts WBC (test code = 6690-2) 10.19 See_Comment [[employer]ated [employer]] The system which generated this result transmitted reference range: 4.30 - 11.10 10*3/?L. The reference range was not used to interpret this result as normal/abnormal. RBC (test code = 789-8) 3.68 See_Comment L [[employer]] The system which generated this result transmitted reference range: 3.93 - 5.25 10*6/?L. The reference range was not used to interpret this result as normal/abnormal. HGB (test code = 718-7) 13.2 g/dL 11.6-15.0 HCT (test code = 4544-3) 37.7 % 35.7-45.2 MCV (test code = 787-2) 102.4 fL 80.6-95.5 H MCH (test code = 785-6) 35.9 pg 25.9-32.8 H MCHC (test code = 786-4) 35.0 g/dL 31.6-35.1 RDW-SD (test code = 22091-6) 48.0 fL 39.0-49.9 RDW-CV (test code = 788-0) 12.8 % 12.0-15.5 PLT (test code = 777-3) 133 See_Comment L [Automated messa ge] The system which generated this result transmitted reference range: 166 - 358 10*3/?L. The reference range was not used to interpret this result as normal/abnormal. MPV (test code = 97240-4) 11.0 fL 9.5-12.9 NRBC/100 WBC (test code = 1480747847) 0.0 See_Comment [Automated me ssage] The system which generated this result transmitted reference range: 0.0 - 10.0 /100 WBCs. The reference range was not used to interpret this result as normal/abnormal. NRBC x10^3 (test code = 3743765282) See_Comment [Automated messa ge] The system which generated this result transmitted reference range: 10*3/?L. The reference range was not used to interpret this result as normal/abnormal. GRAN MAT (NEUT) % (test code = 770-8) 79.6 % IMM GRAN % (test code = 3678714038) 0.80 % LYMPH % (test code = 736-9) 8.6 % MONO % (test code = 5905-5) 10.8 % EOS % (test code = 713-8) 0.0 % BASO % (test code = 706-2) 0.2 % GRAN MAT x10^3(ANC) (test code = 1994656638) 8.11 10*3/uL 1.88-7.09 H IMM GRAN x10^3 (test code = 5696487906) 0.08 10*3/uL 0.00-0.06 H LYMPH x10^3 (test code = 731-0) 0.88 10*3/uL 1.32-3.29 L MONO x10^3 (test code = 742-7) 1.10 10*3/uL 0.33-0.92 H EOS x10^3 (test code = 711-2) 0.03-0.39 L BASO x10^3 (test code = 704-7) 0.01-0.07 Lab Interpretation (test code = 75446-0) [facility] FIT VIZ3662-18-07 07:58:00* Test Item Value Reference Range Interpretation Comme nts AGUSTIN (test code = AGUSTIN) Please find result in Care Everywhere. Specimen: ?Stool - Rectum structure (body structure) Test Result Negative CommentsNEGATIVE TEST RESULT. A negative Cologuard result indicates a low likelihood that a colorectal cancer (CRC) or advanced adenoma (adenomatous polyps with more advanced pre-malignant features) ?is present. The chance that a person with a negative Cologuard test has a colorectal cancer is less than 1 in 1500 (negative predictive value >99.9%) or has an ?advanced adenoma is less than ?5.3% (negative predictive value 94.7%). These data are based on a prospective cross-sectional study of 10,000 individuals at average risk for colorectal cancer who were screened with both Cologuard and colonoscopy. (Hanna Deras. et al, N Engl J Med 2014;370(14):8099-0217) The normal value (reference range) for this assay is negative. COLOGUARD RE-SCREENING RECOMMENDATION: Periodic colorectal cancer screening is an important part of preventive healthcare for asymptomatic individuals at average risk for colorectal cancer. ?Following a negative Cologuard result, the [employer] [employer] and U.S. Multi-Society Task Force?screening guidelines recommend a Cologuard re-screening interval of 3 years. References: [employer] [employer] Guideline for Colorectal Cancer Screening: https://www.cancer.org/ cancer/frrgi-ehwcie-hvw cer/detection-diagnosis -staging/acs-recommenda tions.html.; [place] MATAMOROS, Laura MARTINEZ, Dirk HopsonK, Colorectal Cancer Screening: Recommendations for Physicians and Patients from the U.S. Multi-Society Task Force on Colorectal Cancer Screening , Am J Gastroenterology 2017; 112:6187-8033. TEST DESCRIPTION: Composite algorithmic analysis of stool DNA-biomarkers with hemoglobin immunoassay. ? Quantitative values of individual biomarkers are not reportable and are not associated with individual biomarker result reference ranges. Cologuard is intended for colorectal cancer screening of adults of either sex, 45 years or older, who are at average-risk for colorectal cancer (CRC). Cologuard has been approved for use by the U.S. FDA. The performance of Cologuard was established in a cross sectional study of average-risk adults aged 50-84. Cologuard performance in patients ages 45 to 49 years was estimated by sub-group analysis of near-age groups. Colonoscopies performed for a positive result may find as the most clinically significant lesion: colorectal cancer [4.0%], advanced adenoma (including sessile serrated polyps greater than or equal to 1cm diameter) [20%] or non- advanced adenoma [31%]; or no colorectal neoplasia [45%]. These estimates are derived from a prospective cross-sectional screening study of 10,000 individuals at average risk for colorectal cancer who were screened with both Cologuard and colonoscopy. (Hanna Ruff et al, N Engl J Med 2014;370(14):2316-7345. ) Cologuard may produce a false negative or false positive result (no colorectal cancer or?precancerous polyp present at colonoscopy follow up). A negative Cologuard test result does not guarantee the absence of CRC or advanced adenoma (pre-cancer). The current Cologuard screening interval is every 3 years. ([employer] [employer] and U.S. Multi-Society Task Force). Cologuard performance data in a 10,000 patient pivotal study using colonoscopy as the reference method can be accessed at the following location: www.[employer]/resul ts. Additional description of the Cologuard test process, warnings and precautions can be found at www.[employer]. Resulting Agency [employer] (CLIA #:[id number]) Specimen Collected: 03/13/21 10:49 Last Resulted: 03/25/21 01:58 Received From: [facility] Result Received: 08/24/22 10:19 Lab Interpretation (test code = 78706-6) [facility] History and Physical Notes Date/Time Note Provider Source 2023-05-17 17:58:26 DnkfHlcRZ9qlLG2bOYOF OXZzhfDkB4/i13C8um9ymZ /HlSZFEeRMaIa/NWGqAe1049-63-32V19:58:26F ormatting of this note is different from the original.[facility] Hospitalist Admission H&PDate of Service: 4CHIEF COMPLAINT: Nausea and diarrheaHISTORY OF PRESENT ILLNESSHomar Alvarez is a 73 year old female with history of anxiety, depression, GERD, HTN who presents with vaginal onset of vomiting and diarrhea for the last 2 weeks. Patient reports that the vomiting happened several times today whenever she with put any food in her stomach she would have immediate emesis. Patient denies fever, chills, abdominal pain. Although patient does state that she has loss weight over several months. Patient was brought in by her son to the ED for evaluation. Hospitalist were consulted for inpatient admission and further evaluation.PAST MEDICAL HISTORYPast Medical History:Diagnosis DateAnxiety 1Arrhythmia 03/02/2021rthritis 03/02/2021sthma 03/02/2021epression 1Essential hypertension 03/02/2021GERD (gastroesophageal reflux disease)History of hepatitis AHypercholesterolemia 03/02/2021Mild anemia 2Persistent disorder of initiating or maintaining sleep 03/02/2021rediabetesSeasonal allergies 03/02/2021Tachycardia 1PAST SURGICAL HISTORYPast Surgical History:Procedure Laterality DateBLEPHAROPLASTYBREAST BIOPSY [id number]-imri, 1993-B/lBUNIONECTOMYRADICAL HYSTERECTOMYALLERGIESAllergiesAllergen ReactionsCodeine Nausea and/or VomitingDesflurane Nausea and/or VomitingDoxepin DizzinessFentanyl Other - See commentsSlow recoveryIodine Hives, Nausea and/or Vomiting and Shortness of BreathPropofol Nausea and/or VomitingSertraline DizzinessSuccinylcholine Other - See commentsDue to pseudocholinesterase deficiencyZofran [Ondansetron Hcl] Nausea and/or VomitingMEDICATIONSCurrent home medication list reviewed:Current Discharge Medication ListSTOP taking these medicationsatorvastatin 40 mg tablet Comments:Reason for Stopping:traZODone 50 mg tablet Comments:Reason for Stopping:atenoloL 25 mg tablet Comments:Reason for Stopping:diclofenac 50 mg tablet Comments:Reason for Stopping:tiZANidine 2 mg tablet Comments:Reason for Stopping:cyclobenzaprine 5 mg tablet Comments:Reason for Stopping:molnupiravir 200 mg capsule Comments:Reason for Stopping:PANTOPRAZOLE 40 mg EC tablet Comments:Reason for Stopping:aspirin 81 mg EC tablet Comments:Reason for Stopping:cholecalciferol, vitamin D3, (VITAMIN D3 ORAL) Comments:Reason for Stopping:enalapril 20 mg tablet Comments:Reason for Stopping:FAMILY HISTORYFamily HistoryProblem Relation Age of OnsetBreast Cancer MotherAllergies MotherLung Cancer FatherStroke FatherHypertension FatherDiabetes FatherHeart FatherSOCIAL HISTORYSocial HistorySocioeconomic HistoryMarital status: WidowedNumber of children: 2Tobacco UseSmoking status: FormerSmokeless tobacco: NeverTobacco comments:smoked for less than 5 years after high schoolSubstance and Sexual ActivityAlcohol use: YesComment: 7 drinks per weekREVIEW OF SYSTEMSConstitutional: negative fevers/chills, weight changesEyes: negative acute blurry vision, eye dischargeEars, Nose, Mouth, Throat: negative dysphagia, runny nose, sore throat, tinnitusCardiovascular: negative chest pain, paplitaitonsRespiratory: negative sob, coughGastrointestinal: Positive for nausea, vomiting diarrheaGenitourinary: Negative dysuria, hematuriaMusculoskeletal: negative calf pain, swellingIntegumentray: negative rash, itchingNeurological: negative syncope, focal weaknessPsychiatric: negative hallucinationsPHYSICAL EXAMINATIONBP 114/73 | Pulse 82 | Temp 36.7 ?C (98 ?F) (Temporal Artery) | Resp 16 | Ht 1.575 m (5' 2") | Wt 46.3 kg (102 lb) | SpO2 99% | BMI 18.66 kg/m?General: No acute distress, thinHEENT: Normal oral mucosa, anicteric sclerae, NCATCardiovascular: RRR, strong symmetric radial pulsesLungs: CTABAbdomen: Soft, NTNDMusculoskeletal: Normal ROM, normal muscle massGenitourinary: NormalSkin: No rash, lesionsNeuro: AAOx3, fine hand tremorsPsych: Normal affectLABS - reviewed pertinent labs as below:CBC BMP PT/INRWBC (10*3/?L)Date Value05/17/2023 10.19NA (mmol/L)Date Value05/17/2023 127 (L)No results found for: "PT"RBC (10*6/?L)Date Value05/17/2023 3.68 (L)K (mmol/L)Date Value05/17/2023 3.6INR (no units)Date Value05/17/2023 0.9PLT (10*3/?L)Date Value05/17/2023 133 (L)CALCIUM (mg/dL)Date Value05/17/2023 9.0HGB (g/dL)Date Value05/17/2023 13.2CL (mmol/L)Date Value05/17/2023 87 (L)aPTTHCT (%)Date Value05/17/2023 37.7BUN (mg/dL)Date Value05/17/2023 13No results found for: "APTTPAT"CREATININE (mg/dL)Date Value05/17/2023 0.64IMAGING - reviewed, pertinent results as below:No results found for this visit on 05/17/23.ASSESSMENT/Homar Bergman 73 years old admitted for:Nausea and diarrhea-- Reports nausea and vomiting for the past 14 days-- Zofran as needed-- Stool sample for fecal-- Patient may need to follow-up with GI on an outpatient basis. Patient reports she has a consult and has not followed up yet-- Hemoglobin A1c pendingHyponatremiaHypomagnesia likely secondary to nausea and diarrhea--Will replace and trendMCV elevation likely secondary to alcoholismElevated LFTs--Patient with hand tremors she reports that she stopped drinking 2 weeks ago then she said a month ago patient does report she does not have any alcohol in the house.--Will continue IVF--CIWA protocol, with Serax taper doseAcute cystitis-- Urinalysis abnormal-- Urine culture pending-- Patient has received 1 dose of ceftriaxone although she was unable to give urine for cultureHypertension-- Patient takes atenolol, hold medication for now will reevaluateDepression/anxiety--Continue trazodone 50 mg at bedtimeProphylaxis: DVT- enoxaparinStress Ulcer: no indication for prophylaxisAdvanced Care Planning (Z71.89)Above assessment and plan discussed at length with patient, patient expressed full understanding. Questions and concerned addressed, I spent 18 minutes discussing the advance care plan.Surrogate decision maker: selfLevel of care expected after discharge: independantCode status: Full codeSmoking Cessation: (Z71.6)Tobacco user?: non smokerPatient will require inpatient stay of 2 midnights or more given high risk of morbidity and mortality.[place] [employer]AILER was viewed during this stayTanmichelle Escobar, FNP ssociated attestation - Martha Sanabria MD - 05/17/2023 7:48 PM CST I have independently seen and evaluated this patient. I agree with the findings and documentation provided in the ENMANUEL's notes. Patient is a 73 y/o F with PMH of HTN, prediabetes, HLD, asthma, GERD, severe protein calorie malnutrition, depression, anxiety and alcohol abuse who presented with nausea, vomiting, diarrhea, hyponatremia, hypomagnesemia and an acute UTI likely due to alcohol use, alcoholic hepatitis, poor nutrition and dehydration. I agree with IVFs, magnesium replacement and Serax taper. Maddrey's discriminant function is 2.1, so no need for steroid therapy. Medicine team will continue to provide daily care.Martha Sanabria MD 05/17/2023 7:42 DS95181-3Ndxjobr and physical [id number], Jelani1.2.840.991701.1.13.104.2.7.2.893810 YqmtnxXadupoDF3235-71-28X88:48:06History and physical noteTXT1.2.840.410267.1.13.104.2.7.2.84948 9|[id number] for patient hjla34643-7Llulsla and physical noteLNNARRATIVEFormatted C-CDA narrative textUTMBUT77 Ramos [id number] WGSPDHGRJQKOXIAY9865-89-74K74:48:061.2.840 .849346.1.72.3.15|1.2.840.442192.1.13.104. 2.7.2.727879_[id number] [facility] Notes Date/Time Note Provider Source 2023-06-21 12:42:02 67Y6RWBQmuWS8EDmmoIJPMLOdWB+oAxZMID k5WkC11dqIBf6S+AqQu8L1vzXna2k8325-2 06-21T12:42:02 Cardiac Clearance faxed back to [facility] and scanned into chart along with fax confirmation. 69655-1Yodzqtmju encounter SxigYN4032-43-37X39:42:35Telephone encounter NoteTXT1.2.840.139636.1.13.104.2.7. 2.668055|[id number] for patient gdwc19558-0AtwyPHZTNUVWGQPFwaounsfj C-CDA narrative [id number] D Garcia [address] [id number] 9FEPUQQBOUAPDDBCOPYKJZX9879-24-50M3 2:42:351.2.840.219021.1.72.3.15|1.2 .840.483231.1.13.104.2.7.2.727879_2 [id number] Lashon Vigil MA [facility] 2023-06-21 10:10:24 KBCislb/NwE1zKoVFvU02tcG1qKBvywjEN9 cmAAGNSiZI+faIfwfc1V5lKmNxbpK5480-6 06-21T10:10:24 Received cardiac clearance request from [facility], placed in Dr. Andino's folder for review . 36185-3Txpmdutpb encounter QokzAV6023-13-07Y65:11:55Telephone encounter NoteTXT1.2.840.699672.1.13.104.2.7. 2.899944|[id number] for patient pvgz37276-1FhyvEOLMSMABDSPTerkvqmlr C-CDA narrative [id number] Ayala MA[address] Hq[id number] 0TAUGXXLSGWDAOUDGLYSYOF3519-64-88G0 0:11:551.2.840.326897.1.72.3.15|1.2 .840.137421.1.13.104.2.7.2.727879_2 [id number] Cinthya Ayala MA [facility] 2023-06-14 14:15:00 ysthxAGE5oUOJ2YI7lgkAebqBstbiIDSWLN /v34G9nppyqH4ivef9IoIv2OuyxId1110-6 4:15:00 Images from the original note were not included.Venipuncture collection performed by clean technique on the left anticubitus. Total of 1 attempts were made. Slight pressure and a bandage/dressing were applied to the site(s). The patient experienced no complications. The following specimens were processed according to instructions and sent to [facility] laboratories per lab order on 06/14/2023:LT BLUESST 1REDLAVPPTDK GREEN (LiHep)DK GREEN (SodH)GRAYDK BLUE (K2)DK BLUE (S)ACDBlood CultureNIPT/NTD 66932-7Htnqw EsdrOZ0134-95-03R61:19:33Nurse NoteTXT1.2.840.542269.1.13.104.2.7. 2.937583|[id number] for patient imzs13120-2Yggya NoteLNNARRATIVEFormatted C-CDA narrative text[address] Nelson [id number] 3DMJVOICGEIGICTYMOIWXKM4785-38-63W6 4:19:331.2.840.357500.1.72.3.15|1.2 .840.344617.1.13.104.2.7.2.727879_2 [id number] [facility] 2023-06-08 08:30:00 223ef8lTljnoEQh/jF3sLzO/80ndScqs02b ddae5TBurgFAQWCplaKCR3Gblld//06-08T08:30:00 24 hour holter (SEER 1000, #1) applied to patient, tolerated well. Wear, care, diary entry and monitor return teaching given, understanding verbalized. Monitor to be returned on tomorrow by noon, return letter acknowledged and signed. 26235-7Hbhna MvegKN2737-43-64I58:45:08Nurse NoteTXT1.2.840.857723.1.13.104.2.7. 2.942364|[id number] for patient pueg91373-4Carcx NoteLNNARRATIVEFormatted C-CDA narrative [id number] Castaneda MAUT[address] Lars[address] [id number] 2VVQAKISTZNQWMKZLFJGUYG7127-25-75C4 0:45:081.2.840.920703.1.72.3.15|1.2 .840.876451.1.13.104.2.7.2.727879_2 [id number] Jose Roberto Conley MA [facility] 2023-05-26 15:08:13 toTClSQSBbQCoVYPO45mGaRTrgqpugeCcb1 9m69N0T+2xqngKEBd95SoMKU692a04988-9 5:08:13 Received refill request for:Medication:Requested PrescriptionsPending Prescriptions Disp RefillsKCL 20 mEq tablet 30 tablet 1Sig: Take 1 tablet by mouth in the morning.Requested PrescriptionsPending Prescriptions Disp RefillsKCL 20 mEq tablet 30 tablet 1Sig: Take 1 tablet by mouth in the morning.Endocrinology: Minerals - Potassium Supplementation Passed - 05/26/2023 2:34 PMPassed - Valid encounter within last 12 monthsRecent VisitsNo visits were found meeting these conditions.Showing recent visits within past 365 days and meeting all other requirementsToday's VisitsDate Type Provider Dept05/26/23 Office Visit Janice Andino MD [facility] FacultyShowing today's visits and meeting all other requirementsFuture AppointmentsDate Type Provider Dept06/14/23 Appointment Janice Andino MD [facility] FacultyShowing future appointments within next 365 days and meeting all other requirementsMedication Last filled:4Provider Note:Your Medication List (continued) as of May 26, 2023 2:46 PMKCL 20 mEq tabletCommonly known as: KLOR-CON M20For diagnoses: Acute lung edemaQuantity: 30 tabletStarted by: Janice Andino MDTake 1 tablet by mouth in the morningRecent VisitsNo visits were found meeting these conditions.Showing recent visits within past 365 days and meeting all other requirementsToday's VisitsDate Type Provider Dept05/26/23 Office Visit Janice Andino MD [facility] FacultyShowing today's visits and meeting all other requirementsFuture AppointmentsDate Type Provider Dept06/14/23 Appointment Janice Andino MD [facility] FacultyShowing future appointments within next 365 days and meeting all other requirementsRefilled approval sent to:[id number] [place], [place] - [address] [facility] [address] [address]Gzpvo: [phone] [facility]) - [place], [place] - [address] [facility] [address]Zcgli: [phone] [facility] - [place], [place] - [address] [address]Tloeh: [phone] [facility] - [place], [place] - [address] [address]Fpfja: [phone] Skksrftq based on current protocol and last office visit note.Viviana Noonan 05/26/2023 3:09 PMAdmission on 05/17/2023, Discharged on 4Component Date ValueWBC 05/17/2023 10.19RBC 05/17/2023 3.68 (L)HGB 05/17/2023 13.2HCT 05/17/2023 37.7MCV 05/17/2023 102.4 (H)MCH 05/17/2023 35.9 (H)MCHC 05/17/2023 35.0RDW-SD 05/17/2023 48.0RDW-CV 05/17/2023 12.8PLT 05/17/2023 133 (L)MPV 05/17/2023 11.0NRBC/100 WBC 05/17/2023 0.0NRBC x10^3 05/17/2023 <0.01GRAN MAT (NEUT) % 05/17/2023 79.6IMM GRAN % 05/17/2023 0.80LYMPH % 05/17/2023 8.6MONO % 05/17/2023 10.8EOS % 05/17/2023 0.0BASO % 05/17/2023 0.2GRAN MAT x10^3(ANC) 05/17/2023 8.11 (H)IMM GRAN x10^3 05/17/2023 0.08 (H)LYMPH x10^3 05/17/2023 0.88 (L)MONO x10^3 05/17/2023 1.10 (H)EOS x10^3 05/17/2023 <0.03 (L)BASO x10^3 05/17/2023 <0.03NA 05/17/2023 127 (L)K 05/17/2023 3.6CL 05/17/2023 87 (L)CO2 TOTAL 05/17/2023 16 (L)AGAP 05/17/2023 24 (H)BUN 05/17/2023 13GLUCOSE 05/17/2023 179 (H)CREATININE 05/17/2023 0.64TOTAL BILI 05/17/2023 2.1 (H)CALCIUM 05/17/2023 9.0T PROTEIN 05/17/2023 8.6 (H)ALBUMIN 05/17/2023 4.9ALK PHOS 05/17/2023 165 (H)ALTv 05/17/2023 118 (H)AST(SGOT) 05/17/2023 237 (H)eGFR 05/17/2023 94.6APPEARANCE 05/17/2023 Cloudy (A)COLOR 05/17/2023 Gertrudis (A)PH 05/17/2023 5.0SP GRAVITY 05/17/2023 1.039 (H)GLU U QUAL 05/17/2023 50 mg/dL (A)BLOOD 05/17/2023 1+ (A)KETONES 05/17/2023 20 mg/dL (A)PROTEIN 05/17/2023 500 mg/dL (A)UROBILIN 05/17/2023 4.0 mg/dL (A)BILIRUBIN 05/17/2023 4 mg/dL (A)NITRITE 05/17/2023 NegativeLEUK JAZZ 05/17/2023 75/uL (A)RBC/HPF 05/17/2023 91 (H)WBC/HPF 05/17/2023 >182 (H)BACTERIA 05/17/2023 Moderate (A)MUCOUS 05/17/2023 Marked (A)SQ EPITH 05/17/2023 28REN EPITH 05/17/2023 5 (H)Ictotest 05/17/2023 PositiveLIPASE 05/17/2023 265 (H)URINE CULTURE 05/17/2023 No aerobic growth (< 1000 CFU/mL)MAGNESIUM 05/17/2023 0.8 (L)PROTIME PATIENT 05/17/2023 12.1INR 05/17/2023 0.9HGB A1C 05/17/2023 5.4NA 05/18/2023 125 (L)K 05/18/2023 3.6CL 05/18/2023 91 (L)CO2 TOTAL 05/18/2023 25AGAP 05/18/2023 9BUN 05/18/2023 9GLUCOSE 05/18/2023 147 (H)CREATININE 05/18/2023 0.48 (L)CALCIUM 05/18/2023 8.5 (L)eGFR 05/18/2023 101.4WBC 05/18/2023 4.93RBC 05/18/2023 2.83 (L)HGB 05/18/2023 10.0 (L)HCT 05/18/2023 26.8 (L)MCV 05/18/2023 94.7MCH 05/18/2023 35.3 (H)MCHC 05/18/2023 37.3 (H)RDW-SD 05/18/2023 44.1RDW-CV 05/18/2023 12.9PLT 05/18/2023 89 (L)MPV 05/18/2023 11.0IPF % 05/18/2023 11.5 (H)NRBC/100 WBC 05/18/2023 0.0NRBC x10^3 05/18/2023 <0.01GRAN MAT (NEUT) % 05/18/2023 68.9IMM GRAN % 05/18/2023 0.20LYMPH % 05/18/2023 18.5MONO % 05/18/2023 11.0EOS % 05/18/2023 0.8BASO % 05/18/2023 0.6GRAN MAT x10^3(ANC) 05/18/2023 3.40IMM GRAN x10^3 05/18/2023 <0.03LYMPH x10^3 05/18/2023 0.91 (L)MONO x10^3 05/18/2023 0.54EOS x10^3 05/18/2023 0.04BASO x10^3 05/18/2023 0.03PLT ESTIMATE 05/18/2023 Decreased (A)GIANT PLATELETS 05/18/2023 Present (A)TOTAL BILI 05/18/2023 1.4 (H)BILI UNCON 05/18/2023 0.9BILI CONJ 05/18/2023 0.0T PROTEIN 05/18/2023 7.2ALBUMIN 05/18/2023 4.1ALK PHOS 05/18/2023 101ALTv 05/18/2023 73 (H)AST(SGOT) 05/18/2023 147 (H)LIPASE 05/18/2023 292 (H)MAGNESIUM 05/18/2023 1.1 (L)MAGNESIUM 05/18/2023 1.5 (L)NA 05/19/2023 133 (L)K 05/19/2023 3.6CL 05/19/2023 100CO2 TOTAL 05/19/2023 30AGAP 05/19/2023 3BUN 05/19/2023 5 (L)GLUCOSE 05/19/2023 117 (H)CREATININE 05/19/2023 0.58CALCIUM 05/19/2023 8.4 (L)eGFR 05/19/2023 96.9MAGNESIUM 05/19/2023 1.8WBC 05/19/2023 4.81RBC 05/19/2023 2.70 (L)HGB 05/19/2023 9.6 (L)HCT 05/19/2023 27.5 (L)MCH 05/19/2023 35.6 (H)MCV 05/19/2023 101.9 (H)MCHC 05/19/2023 34.9PLT 05/19/2023 102 (L)MPV 05/19/2023 10.7RDW-CV 05/19/2023 12.6RDW-SD 05/19/2023 46.9NRBC x10^3 05/19/2023 <0.01NRBC/100 WBC 05/19/2023 0.0IPF % 05/19/2023 8.0 (H)LIPASE 05/19/2023 272 (H)TOTAL BILI 05/19/2023 0.8BILI UNCON 05/19/2023 0.5BILI CONJ 05/19/2023 0.0T PROTEIN 05/19/2023 6.2 (L)ALBUMIN 05/19/2023 3.3 (L)ALK PHOS 05/19/2023 122ALTv 05/19/2023 90 (H)AST(SGOT) 05/19/2023 245 (H) 91001-6Gqhayuwju encounter NiliBR4905-79-08M99:10:42Telephone encounter NoteTXT1.2.840.446184.1.13.104.2.7. 2.129614|[id number] for patient exda05837-7KghdCXOSJXFCPRXMfanlwtlw C-CDA narrative [id number] L Reynolds[address] Wa[id number] 1AACPEVGFKVRZGXGMWNBRKU9035-27-55N9 5:10:421.2.840.609425.1.72.3.15|1.2 .840.247901.1.13.104.2.7.2.727879_2 [id number] Viviana Noonan [facility] 2023-05-26 14:33:50 /T9LE8KaLyZgoOtQGY0wYtoV82wssn9y8rE SbI4j1pdaT79kU6ZUtGPQqtXBTgBZ4690-6 4:33:50 Received a 90 day request 64321-0Vnrokcopn encounter ItbuAH3926-12-05G19:34:42Telephone encounter NoteTXT1.2.840.873888.1.13.104.2.7. 2.415312|[id number] for patient lpya47623-9XqznXGCUKZHQWNRVmrcjcgsk C-CDA narrative [address] Wf[id number] 5TELYARGXFHDUTXLDOOLRWS9325-47-85G6 4:34:421.2.840.676118.1.72.3.15|1.2 .840.833574.1.13.104.2.7.2.727879_2 [id number] [facility] 2023-05-23 15:22:31 0fWd2h9d+6eh5TsBFpVvUg8Dw7hCZT3CtsY ubeMyIgMiUu/kBX/7evzxWj5FMfsz4141-4 05-23T15:22:31 TRANSITIONAL CARE MANAGEMENT ASSESSMENT05/23/2023Homar AlvarezQczqma885797HHihvx Avilez is a 73 year old /White female was admitted on 05/17/[address] [facility], ADC MED SURG. She was discharged on 05/20/23 with discharge disposition of HR- Routine Discharge.Admitting Physician: Olayinka Sanabria Diagnosis: Nausea and diarrheaLinked EpisodesType: Episode: Status: Noted: Resolved: Last update: Updated by:TRANSITION OF CARE TCM Active 05/23/2023 05/23/2023 1:57 PM Abigail Carroll RNComments:JEREL Tde-uaru-qi-face outreach documentation:Discharge AssessmentChart Assessed: 05/23/23Future Appointments:Future AppointmentsProvider Department Dept Phone05/26/2023 1:00 PM Janice Andino [facility] [phone] CM attempted to contact patient x2. CM left a discreet voicemail explaining purpose of call and call back information. Abigail Carroll RN, MSN, MEDSURG-BC, CCRN, CCMTransitions of Care ManagerProficient Persian InterpreterAmbulatory Care ManagementOffice: [phone] signed by Abigail Carroll RN at 05/23/2023 3:23 PM VYT68078-6Twyabajzz encounter BvxyPA7367-25-65Q13:23:07Telephone encounter NoteTXT1.2.840.664549.1.13.104.2.7. 2.471458|[id number] for patient phoi01371-7JlyaKGBXWOJHATJKoketybdl C-CDA narrative [id number] Carly CABRAL[id number] 6ZFYXUXQZAFXTYTGFQUKYHY3888-38-48C5 5:23:071.2.840.035256.1.72.3.15|1.2 .840.322499.1.13.104.2.7.2.727879_2 [id number] Abigail Carroll RN [facility] 2023-05-23 13:57:21 MUgzcU+nzO0QhFd3Q3xPiCcKtl9D4GN5i79 GxFC73wlUSB/qzD+1FqTUdWeHxkwn7521-3 05-23T13:57:21 CM LVM to return call. Will attempt again at a later time. 07202-1Izkkuoxpx encounter CheoUE1682-78-80M06:57:34Telephone encounter NoteTXT1.2.840.632374.1.13.104.2.7. 2.628395|[id number] for patient fuqa80116-9YbqdMYLOWZYXKZVYkaqphzad C-CDA narrative text[id number] 3BVNITOMPMDZCFDKMQWEEMQ6255-18-70U2 3:57:341.2.840.337432.1.72.3.15|1.2 .840.237937.1.13.104.2.7.2.727879_2 [id number] [facility] 2023-05-20 13:14:01 Xo6QhZNu5vHVFNMoG3+V49TRNAFLlKm4ttN 96ohu2qCNJ/H72fANPwVlQt18X6s38348-7 05-20T13:14:01 Problem: Falls, Risk ofGoal: Absence of fallsOutcome: ResolvedProblem: PainGoal: Control of pain at or below patient's documented comfort goalOutcome: ResolvedGoal: Reduction in pain sensationOutcome: ResolvedProblem: Cognitive-Perceptual Pattern - ImpairedGoal: Cognitive status restored to baselineOutcome: ResolvedProblem: Nutrition DeficitGoal: Adequate nutritional intakeOutcome: ResolvedProblem: Sleep Pattern DisturbanceGoal: Able to sleepOutcome: ResolvedProblem: Violence, Self/Other-Directed, Risk ofGoal: Absence of violenceOutcome: ResolvedProblem: Nausea/VomitingGoal: Absence of nausea/vomitingOutcome: ResolvedProblem: Coping - Ineffective, IndividualGoal: Effective copingOutcome: ResolvedGoal: Knowledge of positive coping patternsOutcome: ResolvedGoal: Knowledge of depression symptomsOutcome: Resolved 35265-5Ebvq of care rtqiDN9398-41-42K01:14:03Plan of care noteTXT1.2.840.538344.1.13.104.2.7. 2.050427|[id number] for patient ngeg37587-5IbziLLMRPBCDOOBGxfqzmtel C-CDA narrative eflt508082021DppcvwSonal Parra RNUT[address] Ys[id number] 4ORXUUXITUMLKFDUTEXKGYJ5727-22-38I7 3:14:031.2.840.009999.1.72.3.15|1.2 .840.091225.1.13.104.2.7.2.727879_2 [id number] Sonal Parra RN [facility] 2023-05-20 00:53:40 y0CboAGn2OIzDh72vuq27GN6L4bxaoe9Vh1 M5nUXb8la7KiXnQae/G8JgaumB3mK8799-9 00:53:40 Problem: Falls, Risk ofGoal: Absence of fallsOutcome: Progressing as expectedProblem: PainGoal: Control of pain at or below patient's documented comfort goalOutcome: Progressing as expectedGoal: Reduction in pain sensationOutcome: Progressing as expectedProblem: Cognitive-Perceptual Pattern - ImpairedGoal: Cognitive status restored to baselineOutcome: Progressing as expectedProblem: Nutrition DeficitGoal: Adequate nutritional intakeOutcome: Progressing as expectedProblem: Sleep Pattern DisturbanceGoal: Able to sleepOutcome: Progressing as expectedProblem: Violence, Self/Other-Directed, Risk ofGoal: Absence of violenceOutcome: Progressing as expectedProblem: Nausea/VomitingGoal: Absence of nausea/vomitingOutcome: Progressing as expectedProblem: Coping - Ineffective, IndividualGoal: Effective copingOutcome: Progressing as expectedGoal: Knowledge of positive coping patternsOutcome: Progressing as expectedGoal: Knowledge of depression symptomsOutcome: Progressing as expected 64827-1Jheq of care sssaAR3138-54-93I61:53:54Plan of care noteTXT1.2.840.594476.1.13.104.2.7. 2.053771|[id number] for patient axfh42392-5YoujOGHLSTGBCFUKodqowwrj C-CDA narrative [id number] Fuentes RNUT[address] Zg[id number] 6BSLQNOOHXNTMCQCHQNLRJV4880-28-17V0 0:53:541.2.840.843710.1.72.3.15|1.2 .840.445723.1.13.104.2.7.2.727879_2 [id number] Vanessa Meredith RN [facility] 2023-05-19 18:07:09 zcibWNOhiJTE5iLlb4S/qLmdfJkFHX6//HZ pccdGHbKHIj8VlgOpDDT6rYTzCAbK9605-3 05-19T18:07:09 Problem: Falls, Risk ofGoal: Absence of fallsOutcome: Progressing as expectedProblem: PainGoal: Control of pain at or below patient's documented comfort goalOutcome: Progressing as expectedGoal: Reduction in pain sensationOutcome: Progressing as expectedProblem: Cognitive-Perceptual Pattern - ImpairedGoal: Cognitive status restored to baselineOutcome: Progressing as expectedProblem: Nutrition DeficitGoal: Adequate nutritional intakeOutcome: Progressing as expectedProblem: Sleep Pattern DisturbanceGoal: Able to sleepOutcome: Progressing as expectedProblem: Violence, Self/Other-Directed, Risk ofGoal: Absence of violenceOutcome: Progressing as expectedProblem: Nausea/VomitingGoal: Absence of nausea/vomitingOutcome: Progressing as expectedProblem: Coping - Ineffective, IndividualGoal: Effective copingOutcome: Progressing as expectedGoal: Knowledge of positive coping patternsOutcome: Progressing as expectedGoal: Knowledge of depression symptomsOutcome: Progressing as expected 79638-8Ozmv of care cawiKJ5478-97-94Z69:07:11Plan of care noteTXT1.2.840.843196.1.13.104.2.7. 2.449849|[id number] for patient vtrn39495-5LqdjCFLVWDKVECFRkmknluhk C-CDA narrative textUT[address] StreetOrjqAtmccpdnfLvaecdwsaVXSH089582838 9AUOVYYISUYINREEXHWZOSZ9635-36-80X3 8:07:111.2.840.073786.1.72.3.15|1.2 .840.957244.1.13.104.2.7.2.727879_2 [id number] [facility] 2023-05-19 00:17:37 1BM50iSP4BwkLCqHy+2Cp/V8UEMsNjdYgwB yvJfnORhZZzl9nePjH9rqAkgWR6K49156-7 05-19T00:17:37 Problem: Falls, Risk ofGoal: Absence of fallsOutcome: Progressing as expectedProblem: PainGoal: Control of pain at or below patient's documented comfort goalOutcome: Progressing as expectedGoal: Reduction in pain sensationOutcome: Progressing as expectedProblem: Cognitive-Perceptual Pattern - ImpairedGoal: Cognitive status restored to baselineOutcome: Progressing as expectedProblem: Nutrition DeficitGoal: Adequate nutritional intakeOutcome: Progressing as expectedProblem: Sleep Pattern DisturbanceGoal: Able to sleepOutcome: Progressing as expectedProblem: Violence, Self/Other-Directed, Risk ofGoal: Absence of violenceOutcome: Progressing as expectedProblem: Nausea/VomitingGoal: Absence of nausea/vomitingOutcome: Progressing as expectedProblem: Coping - Ineffective, IndividualGoal: Effective copingOutcome: Progressing as expectedGoal: Knowledge of positive coping patternsOutcome: Progressing as expectedGoal: Knowledge of depression symptomsOutcome: Progressing as expected 50290-4Tglv of care ndowPD1743-02-32W02:17:40Plan of care noteTXT1.2.840.019020.1.13.104.2.7. 2.420667|[id number] for patient oeam30977-7ImelDRSJFAGPVXQDbgmlphah C-CDA narrative [id number] A Irobi RNUT[address] [id number] 6PDTTTXXWDHATRGXLVTWBOA7394-52-27C3 0:17:401.2.840.887210.1.72.3.15|1.2 .840.099309.1.13.104.2.7.2.727879_2 [id number] Shania Sousa MARIANNA [facility] 2023-05-18 17:52:00 UM1k3AmnUv1kHqDpJ5PQXpdoHyvvO+G6dsZ t6ZuoiZOIbPNMERZkUu9G5EqAtZ5z3702-0 05-18T17:52:00 Problem: Falls, Risk ofGoal: Absence of fallsOutcome: Progressing as expectedProblem: PainGoal: Control of pain at or below patient's documented comfort goalOutcome: Progressing as expectedGoal: Reduction in pain sensationOutcome: Progressing as expectedProblem: Cognitive-Perceptual Pattern - ImpairedGoal: Cognitive status restored to baselineOutcome: Progressing as expectedProblem: Nutrition DeficitGoal: Adequate nutritional intakeOutcome: Progressing as expectedProblem: Sleep Pattern DisturbanceGoal: Able to sleepOutcome: Progressing as expectedProblem: Violence, Self/Other-Directed, Risk ofGoal: Absence of violenceOutcome: Progressing as expectedProblem: Nausea/VomitingGoal: Absence of nausea/vomitingOutcome: Progressing as expectedProblem: Coping - Ineffective, IndividualGoal: Effective copingOutcome: Progressing as expectedGoal: Knowledge of positive coping patternsOutcome: Progressing as expectedGoal: Knowledge of depression symptomsOutcome: Progressing as expected 35545-6Mibo of care shcpXT6205-96-02H58:41:49Plan of care noteTXT1.2.840.796756.1.13.104.2.7. 2.561184|[id number] for patient rulf20135-1YcclEBBPUZNDAKEKlitdnlva C-CDA narrative pphq482405368Ntoixbc Roye RNUT[address] StreetXpmaPatjyhmnxGpjapragwMVLX750748889 8LPBEHXADIPDOCAUKGVWUXR9016-10-09X7 8:41:491.2.840.795937.1.72.3.15|1.2 .840.481830.1.13.104.2.7.2.727879_2 [id number] Joyce Washington RN [facility] 2023-05-18 01:47:36 SlkDJ3utHMS+7dqJUW1zbhmOBLeRs4R82Ui n6ZFZxdoQgZxvhzMeVrJdMzlfiYxp2283-0 05-18T01:47:36 Problem: Falls, Risk ofGoal: Absence of fallsOutcome: Progressing as expectedProblem: PainGoal: Control of pain at or below patient's documented comfort goalOutcome: Progressing as expectedGoal: Reduction in pain sensationOutcome: Progressing as expectedProblem: Cognitive-Perceptual Pattern - ImpairedGoal: Cognitive status restored to baselineOutcome: Progressing as expectedProblem: Nutrition DeficitGoal: Adequate nutritional intakeOutcome: Progressing as expectedProblem: Sleep Pattern DisturbanceGoal: Able to sleepOutcome: Progressing as expectedProblem: Violence, Self/Other-Directed, Risk ofGoal: Absence of violenceOutcome: Progressing as expectedProblem: Nausea/VomitingGoal: Absence of nausea/vomitingOutcome: Progressing as expectedProblem: Coping - Ineffective, IndividualGoal: Effective copingOutcome: Progressing as expectedGoal: Knowledge of positive coping patternsOutcome: Progressing as expectedGoal: Knowledge of depression symptomsOutcome: Progressing as expected 14276-9Sbxr of care uixnYX4155-21-38X26:47:39Plan of care noteTXT1.2.840.697369.1.13.104.2.7. 2.413228|[id number] for patient gipd50497-9DzwfLKQJJDJQRJIXwteoopzf C-CDA narrative [id number] Cardenas RNUT[address] CflhEzxpumpncTmedkqqlpWKCI736688196 0NJRXQUVTTDGUGZXBRLLQPT2424-50-52C5 1:47:391.2.840.593292.1.72.3.15|1.2 .840.539747.1.13.104.2.7.2.727879_2 [id number] Yi Arroyo RN [facility] 2023-05-17 17:35:00 jZOSRR2zvQO4eHCPkS81SuVlEN4fAoL4lw1 lvnpekUCk0jTVTJUldPWqPx/T+A2I6355-3 7:35:00 Problem: Falls, Risk ofGoal: Absence of fallsOutcome: Progressing as expectedProblem: PainGoal: Control of pain at or below patient's documented comfort goalOutcome: Progressing as expectedGoal: Reduction in pain sensationOutcome: Progressing as expectedProblem: Cognitive-Perceptual Pattern - ImpairedGoal: Cognitive status restored to baselineOutcome: Progressing as expectedProblem: Nutrition DeficitGoal: Adequate nutritional intakeOutcome: Progressing as expectedProblem: Sleep Pattern DisturbanceGoal: Able to sleepOutcome: Progressing as expectedProblem: Violence, Self/Other-Directed, Risk ofGoal: Absence of violenceOutcome: Progressing as expectedProblem: Nausea/VomitingGoal: Absence of nausea/vomitingOutcome: Progressing as expectedProblem: Coping - Ineffective, IndividualGoal: Effective copingOutcome: Progressing as expectedGoal: Knowledge of positive coping patternsOutcome: Progressing as expectedGoal: Knowledge of depression symptomsOutcome: Progressing as expected 45197-4Viwt of care aalnKC2743-25-93L16:33:52Plan of care noteTXT1.2.840.068311.1.13.104.2.7. 2.694961|[id number] for patient sxhk13119-0YdleHOKXICPYXFSIsnsfkkme C-CDA narrative textUT[address] HbqrHhpqqzvgwRwvfmqbzzXCBR390399698 5YMTTJVECCTJKHRLPZJWGAR7714-58-13A5 8:33:521.2.840.152658.1.72.3.15|1.2 .840.589016.1.13.104.2.7.2.727879_2 [id number] [facility] 2023-05-17 14:49:14 pLBWjeynTgpJePWqmuRSAbMFRQ6JOFCRBGw rmkDJI0RznKSdzxserErIUfVpHX/O7007-9 05-17T14:49:14 Nurse ReportReport given to MARIANNA Rebolledo over the phone, no questions received. Chief complaint, assessment findings and medications were discussed. Plan of care discussed with patient/family member at bedside, patient aware of plan.Patient in stable condition at time report was given,no distress. Vital signs reassessed.Patient will [place] moved [place] [address]-0Lhoatfnta department CugcBP7218-43-63W01:50:00Emergency department NoteTXT1.2.840.547714.1.13.104.2.7. 2.967938|[id number] for patient rink98658-5VartRSJZHUXBCBXFtsfcxxtk C-CDA narrative xamq530423398Zrjskxox [place] RNUTMB[address] YoybPqlkpzcacJdmhukfxaNEYW334068977 3WNVBIDSSHDINVQCEOGIOSC5465-19-10H3 4:50:001.2.840.242696.1.72.3.15|1.2 .840.903690.1.13.104.2.7.2.727879_2 [id number] Melissa Ferris RN [facility] 2023-05-17 11:35:00 bcXZLnx7q9rQWKqinXnCdQdY+oaOU1u7Wf8 LxAqh8YPk43hGr79AbqbJ3KCEXYPw3023-4 1:35:00 Patient's name and verified with patient.Family member at bedside with patient.Chief ComplaintPatient presents withVomitingPatient ambulatory with steady gait with EC arrival.Patient is conscious and alert, with normal/unlabored breathing, and normal color/tone for ethnicity -oriented to name, time, place, and situation. GCS 15.Patient reports that she has been experiencing nausea/diarrhea and vomiting ~7 days ago. Mentions that this has happened before and she had abnormal electrolytes.Reports nausea is not constant but "it comes and goes".Past Medical History:Diagnosis DateAnxiety 03/02/2021rrhythmia 03/02/2021rthritis 03/02/2021sthma 03/02/2021epression 03/02/2021ssential hypertension 03/02/2021GERD (gastroesophageal reflux disease)History of hepatitis AHypercholesterolemia 03/02/2021Mild anemia 2Persistent disorder of initiating or maintaining sleep 03/02/2021rediabetesSeasonal allergies 03/02/2021Tachycardia 03/02/2021llergies in chart.Vitals obtained. Assessment performed.IV in place and patent.Placed on continuous spo2/cardiac monitoring, HR 87, sinus rhythm on monitor.Bed low and locked, secured with two rails, call light within reach.Belongings at bedside. Patient aware [place] [address]-2Ekhjmmuhm department KnywFM1081-29-24J18:58:12Emergency department NoteTXT1.2.840.175207.1.13.104.2.7. 2.240942|[id number] for patient ejhu41712-7UbegUFZHDGFZZCJVwjyqlzkc C-CDA narrative textUT40 [address] StreetEifqHropkqfjtTrtjheyuqLHBX487617456 1FFMJFEDYDWHNGKGUQEROWU4615-02-98P7 2:58:121.2.840.029678.1.72.3.15|1.2 .840.620689.1.13.104.2.7.2.727879_2 [id number] [facility] 2023-05-17 11:05:51 oV9K3kwr5VJ8MBpvS8SdwMnR2LAzgUja4Gj Qe7C2LR6GyoW9Y8lj0bilgJcP/JZx9546-0 1:05:51 Pt reports vomiting every time she eats solid food and frequent BM for a couple of weeks. Pt states she can swallow liquids and keep them down but any solid food comes back up. Pt has a hx of electrolyte deficiency. 29341-4Gcvobbuez department Triage fmobHE7539-94-94K11:13:40[facility] Triage noteTXT1.2.840.263860.1.13.104.2.7. 2.938163|[id number] for patient cwrj49703-2Isdzpqaos department NoteLNNARRATIVEFormatted C-CDA narrative kokj457834258Vfzk E Linkes RN[address] QrnuUkloycgulDopqaevadXAWU860324725 1BVLOFFBIIZSFBGTZSDEGMC9589-20-01I5 1:13:401.2.840.190019.1.72.3.15|1.2 .840.684796.1.13.104.2.7.2.727879_2 [id number] Bailey Harmon RN [facility] 2023-05-17 10:59:00 Q16pZ3A7hvdoUWbiD41ZDW2tPp9RgxerVRM /+qbo92dncgWBRZaXEuQ2WXtpeiE00518-0 05-17T10:59:00 [facility] Emergency Department NotePatient Name: Homar Suresh of : 1950 73 year old femaleTreatment Room: Critical access hospital222301Medical Record Number: [id number] Care Physician: Juan Carlos SnowPatient Escorted by: Family [5]Mode of Arrival: Personal means [1]EMS Treatment Prior to ED Arrival:[employer]PERATOR treatment: NoneTravel and Exposure Screening:SymptomsDoes patient have any of these symptoms?: (not recorded)Exposure ScreeningHas patient had contact with someone with a communicable disease in the last month?: (not recorded)Diseases exposed to:: (not recorded)Is Patient ?: (not recorded)Exposure Date: (not recorded)Chief Complaint:Chief ComplaintPatient presents withVomitingHistory of Present Illness:Patient presents with complaint of vomiting that has been worsened over the past few days. She has history of chronic vomiting and has had approximate 20 pound weight loss over the last year. She has been referred to GI by her PCP, but has not followed up. She admits to previous alcohol use but states she quit 1 month ago. She is able to keep down fluids but unable to keep down solids. She denies any abdominal pain and has no other complaints. She admits frequent falls at home.Past Medical History/Immunizations:Past Medical History:Diagnosis DateAnxiety 03/02/2021rrhythmia 03/02/2021rthritis 03/02/2021sthma 03/02/2021epression 03/02/2021ssential hypertension 03/02/2021GERD (gastroesophageal reflux disease)History of hepatitis AHypercholesterolemia 03/02/2021Mild anemia 07/23/2021ersistent disorder of initiating or maintaining sleep 03/02/2021rediabetesSeasonal allergies 03/02/2021Tachycardia 03/02/2021Tetanus received in last 5 years: UnknownAllergies:AllergiesAllergen ReactionsCodeine Nausea and/or VomitingDesflurane Nausea and/or VomitingDoxepin DizzinessFentanyl Other - See commentsSlow recoveryIodine Hives, Nausea and/or Vomiting and Shortness of BreathPropofol Nausea and/or VomitingSertraline DizzinessSuccinylcholine Other - See commentsDue to pseudocholinesterase deficiencyZofran [Ondansetron Hcl] Nausea and/or VomitingPast Social History:Tobacco UseFormerSmokeless Tobacco: Never used smokeless tobacco.Tobacco Cessation: Counseling given: Not AnsweredComments: smoked for less than 5 years after high schoolVaping UseNever usedAlcohol UseNot Currently.Comments: 7 drinks per weekPast Surgical History:Past Surgical History:Procedure Laterality DateBLEPHAROPLASTYBREAST BIOPSY RQFUOEEW3627-jujn, 1993-B/lBUNIONECTOMYRADICAL HYSTERECTOMYReview of Systems:Review of SystemsConstitutional: Negative for fever.Respiratory: Negative for shortness of breath.Cardiovascular: Negative for chest pain.Gastrointestinal: Positive for vomiting. Negative for abdominal pain.Physical Exam:ED Triage VitalsWeight 05/17/23 1112 40.8 kg (90 lb)Actual or estimated 05/17/23 1521 ActualHeight 05/17/23 1112 1.575 m (5' 2")BP 05/17/23 1112 (!) 112/99Pulse 05/17/23 1112 88Resp 05/17/23 1112 11Temp 05/17/23 1112 36.9 ?C (98.4 ?F)Temp source 05/17/23 1517 TEMPORAL ARTSpO2 05/17/23 1112 97 %Measured on 05/17/23 1120 Room airPhysical ExamVitals and nursing note reviewed.Constitutional:General: She is not in acute distress.Comments: Thin and appears malnourished.HENT:Nose: Nose normal. No congestion.Mouth/Throat:Mouth: Mucous membranes are moist.Cardiovascular:Rate and Rhythm: Normal rate and regular rhythm.Pulses: Normal pulses.Heart sounds: Normal heart sounds. No murmur heard.Pulmonary:Effort: Pulmonary effort is normal. No respiratory distress.Breath sounds: Normal breath sounds.Abdominal:General: Abdomen is flat. There is no distension.Palpations: Abdomen is soft.Tenderness: There is no abdominal tenderness. There is no guarding.Musculoskeletal:General: Normal range of motion.Skin:General: Skin is warm and dry.Neurological:Mental Status: She is alert.Radiology:No orders to displayLab Results:Lab ResultsCBC WITH DIFF - AbnormalResult Value Ref RangeWBC 10.19 4.30 - 11.10 10*3/?LRBC 3.68 (*) 3.93 - 5.25 10*6/?LHGB 13.2 11.6 - 15.0 g/dLHCT 37.7 35.7 - 45.2 %MCV 102.4 (*) 80.6 - 95.5 fLMCH 35.9 (*) 25.9 - 32.8 pgMCHC 35.0 31.6 - 35.1 g/dLRDW-SD 48.0 39.0 - 49.9 fLRDW-CV 12.8 12.0 - 15.5 %PLT 133 (*) 166 - 358 10*3/?LMPV 11.0 9.5 - 12.9 fLNRBC/100 WBC 0.0 0.0 - 10.0 /100 WBCsNRBC x10^3 <0.01 10*3/?LGRAN MAT (NEUT) % 79.6 %IMM GRAN % 0.80 %LYMPH % 8.6 %MONO % 10.8 %EOS % 0.0 %BASO % 0.2 %GRAN MAT x10^3(ANC) 8.11 (*) 1.88 - 7.09 10*3/uLIMM GRAN x10^3 0.08 (*) 0.00 - 0.06 10*3/uLLYMPH x10^3 0.88 (*) 1.32 - 3.29 10*3/uLMONO x10^3 1.10 (*) 0.33 - 0.92 10*3/uLEOS x10^3 <0.03 (*) 0.03 - 0.39 10*3/uLBASO x10^3 <0.03 0.01 - 0.07 10*3/uLCOMP. METABOLIC PANEL (07074) - AbnormalNA 127 (*) 135 - 145 mmol/LK 3.6 3.5 - 5.0 mmol/LCL 87 (*) 98 - 108 mmol/LCO2 TOTAL 16 (*) 23 - 31 mmol/LAGAP 24 (*) 2 - 16BUN 13 7 - 23 mg/dLGLUCOSE 179 (*) 70 - 110 mg/dLCREATININE 0.64 0.50 - 1.04 mg/dLTOTAL BILI 2.1 (*) 0.1 - 1.1 mg/dLCALCIUM 9.0 8.6 - 10.6 mg/Daniel PROTEIN 8.6 (*) 6.3 - 8.2 g/dLALBUMIN 4.9 3.5 - 5.0 g/dLALK PHOS 165 (*) 34 - 122 U/LALTv 118 (*) 5 - 35 U/LAST(SGOT) 237 (*) 13 - 40 U/LeGFR 94.6 mL/min/[id number] - AbnormalAPPEARANCE Cloudy (*) ClearCOLOR Gertrudis (*) YellowPH 5.0 4.8 - 8.0SP GRAVITY 1.039 (*) 1.003 - 1.030GLU U QUAL 50 mg/dL (*) NormalBLOOD 1+ (*) NegativeKETONES 20 mg/dL (*) NegativePROTEIN 500 mg/dL (*) NegativeUROBILIN 4.0 mg/dL (*) NormalBILIRUBIN 4 mg/dL (*) NegativeNITRITE Negative NegativeLEUK JAZZ 75/uL (*) NegativeRBC/HPF 91 (*) 0 - 3 HPFWBC/HPF >182 (*) 0 - 5 HPFBACTERIA Moderate (*) NegativeMUCOUS Marked (*) Negative LPFSQ EPITH 28 HPFREN EPITH 5 (*) <=1 HPFIctotest PositiveLIPASE - AbnormalLIPASE 265 (*) 0 - 220 U/LMAGNESIUM - AbnormalMAGNESIUM 0.8 (*) 1.7 - 2.4 mg/dLURINE CULTUREEKG:If EKG completed, see Procedure Note.Orders and Treatments:Orders Placed This EncounterProceduresCbc with DiffComp. Metabolic Panel (60728)UrinalysisLipaseUrine CultureMagnesiumProthrombin Time / INRBasic Metabolic Panel (NA, K, CL, CO2, GLUCOSE, BUN, CREATININE, CA)CBC with DifferentialHEPATIC FUNCTION PANEL (97770) (ALB,T.PRO,BILI T,BU/BC,ALT,AST,ALK PHOS)LipaseGlycosylated Hemoglobin (A1C)Orders Placed This EncounterMedicationsNaCl 0.9% (NS) bolus infusion 500 mLcefTRIAXone (ROCEPHIN) 1,000 mg in NaCl 0.9% (NS) 100 mL MINI-BAGaspirin EC tablet 81 mgpantoprazole (PROTONIX) EC tablet 40 mgtraZODone (DESYREL) tablet 50 mglactated ringers IV infusion 1,000 mLenoxaparin (LOVENOX) injection 40 mgacetaminophen (TYLENOL) tablet 650 mgtraMADoL (ULTRAM) tablet 50 mgmorpHINE (2 mg/mL) injection 4 mgDISCONTD: ondansetron (ZOFRAN (PF)) injection 4 mgmagnesium sulfate in water 2 gram/50 mL (4 %) infusion 2 gproMETHazine (PHENERGAN) 25 mg in NS 50 mL IV piggyback (CNR)FOLLOWED BY Linked Order Groupoxazepam (SERAX) capsule 15 mgoxazepam (SERAX) capsule 15 mgoxazepam (SERAX) capsule 15 mgoxazepam (SERAX) capsule 15 mgthiamine (VITAMIN B1) tablet 100 mgfoLIC acid (FOLATE) tablet 1 mgcefTRIAXone (ROCEPHIN) 1,000 mg in NaCl 0.9% (NS) 100 mL MINI-BAGDISCONTD: albumin (PLASBUMIN) 25 % injection 46.3 galbumin (PLASBUMIN) 25 % injection 46.3 gFirst Provider Eval:ED EventsDate/Time Event User Mhxzndyh17/23/24 1130 Medical Screening Begins PRISCILLA CARUSO --05/17/23 1130 First Provider Evaluation PRISCILLA CARUSO --ED COURSEDiagnosis/Impression as of 05/17/232108Nausea and vomiting, unspecified vomiting typeAcute cystitis with hematuriaHypomagnesemiaHyponatremia Procedures:ProceduresMDM:Medical Decision MakingPatient with complaint of increased vomiting over the past 3 days. She has history of chronic vomiting. History of alcohol use, states she quit 1 month ago.Patient is hyponatremic, low magnesium, low platelets.Marked UTI on urinalysisRocephin given in ER with 500 mL normal saline.Patient taken upstairs for admission prior to magnesium replacement.Normal sinus rhythm on telemetryProblems Addressed:Acute cystitis with hematuria: acute illness or injuryHypomagnesemia: acute illness or injuryHyponatremia: acute illness or injuryNausea and vomiting, unspecified vomiting type: acute illness or injuryAmount and/or Complexity of Data ReviewedLabs: ordered. Decision-making details documented in ED Course.Discussion of management or test interpretation with external provider(s): Pt d/w DR sanabria, [facility], exam, labs, admission.RiskPrescription drug management.Parenteral controlled substances.Decision regarding hospitalization.Flowsheet Documentation:Scoring Tools:No data recordedDisposition/Condition:ED DispositionED DispositionAdmit - InpatientCondition--Comment--Electr onically signed by:Marvel Wooten, [facility]05/17/232108 ssociated attestation - Darnell Carranza DO - 05/18/2023 8:42 AM CST I was available for consultation at all times during the patient encounter and present in the Emergency Department providing general supervision. However, I did not see or evaluate the patient. Patient seen and evaluated by ENMANUEL.10814-4Vtyhzjoaq Emergency department [id number], Phillip1.2.840.826708.1.13.104.2.7. 2.035265CvzokaZyxlncuIT0310-39-92F1 8:42:28[facility] Emergency department NoteTXT1.2.840.002602.1.13.104.2.7. 2.237481|[id number] for patient gobp76087-0Keteeztbe department NoteLNNARRATIVEFormatted C-CDA narrative text[address] Sp[id number] 6MNJVBDOPOHCGQIGEUYPRXH7654-71-82F3 8:42:281.2.840.736184.1.72.3.15|1.2 .840.589675.1.13.104.2.7.2.727879_2 [id number] [facility] 2022-12-27 10:11:11 uqrn21mDWStYmBjlsjIODuu1DVUDYptp+ai s3QZfqTIdNquzshXZ2NiUv+dHJDzD8160-3 12-27T10:11:11 Lipitor Tab 40 m GTake on tablet by mouth in the morningQty: 90 25965-6Njduyhqsw encounter UqpcXQ4781-26-88W81:12:20Telephone encounter NoteTXT1.2.840.104160.1.13.104.2.7. 2.678410|[id number] for patient [id number] D [address] Eu[id number] 0GGILCGFMLKQPDXMENISKRG1531-31-39C1 0:12:201.2.840.904581.1.72.3.15|1.2 .840.112754.1.13.104.2.7.2.727879_1 [id number] Gelacio Nicole [facility] 2022-12-20 12:37:59 DzPF8SmsNKU0GPkh9Dwl1xdMrXObG3UVYTH dtkeBnfYGZUMNjBQujlvRKzhw2Gra6683-8 12-20T12:37:59 Outpatient Medication Detail Disp Refills Start End EVAN atorvastatin 40 mg tablet 90 tablet 0 10/08/2022 -- Sig: Take 1 tablet by mouth in the morning. Sent to pharmacy as: atorvastatin 40 mg tablet (LIPITOR) Class: eRX Route: Oral Order: [id number] Date/Time Signed: 10/08/2022 11:40 E-Prescribing Status: Receipt confirmed by pharmacy (10/08/2022 11:41 AM CDT) Recent VisitsDate Type Provider Dept 08/24/22 Office Visit Sly Neumann FNP [facility] Med 04/21/22 Office Visit Sly Neumann FNP [facility] Med 03/30/22 Office Visit Cotta, Sly, COUNTER HELPER [facility] 12/29/21 Office Visit Sly Neumann, COUNTER HELPER [facility] 11/27/21 Office Visit Sly Neumann, COUNTER HELPER [facility] 11/18/21 Office Visit Sly Neumann, COUNTER HELPER [facility] 11/09/21 Office Visit Lissett Leggett, COUNTER HELPER [facility] Showing recent visits within past 540 days with a meds authorizing provider and meeting all other requirementsFuture AppointmentsNo visits were found meeting these conditions.Showing future appointments within next 150 days with a meds authorizing provider and meeting all other requirements 40251-8Tumadeafh encounter UylbSK7244-69-74E73:38:21Telephone encounter NoteTXT1.2.840.475078.1.13.104.2.7. 2.101328|[id number] for patient sdgm62793-3ZfayNQRHCZXJCP[address] Dy[id number] 7RUIZZVFONJLRHVMGKBJUPC2119-13-50K4 2:38:211.2.840.458464.1.72.3.15|1.2 .840.721039.1.13.104.2.7.2.727879_1 [id number] [facility] 2022-12-20 10:23:25 58q/VSp39pJSfGCnShvTVui92OpIkLKD/l4 Z1ef5DTDQMEBUmfoX5/wY6AcKAknV7008-0 12-20T10:23:25 Lipitor Tab 40 mgTake one tablet by mouth in the morningQty:90 74899-3Nethnekzh encounter NmufAR1377-65-38B50:31:45Telephone encounter NoteTXT1.2.840.516817.1.13.104.2.7. 2.734801|[id number] for patient mdri19540-6EfadAN601273725Rhvol D [address] Bo[id number] 7DHEMFTUEMWVGWIIBGYTNXL5240-27-01E9 0:31:451.2.840.411159.1.72.3.15|1.2 .840.633040.1.13.104.2.7.2.727879_1 [id number] Gelacio Nicole [facility] 2022-12-16 08:48:30 [facility]+lttm5V6DY9/0MFpZDfwKJxBrT5FFBly JCFiq5bP3rylGLoEcaHTy8TNEpLn46352-0 12-16T08:48:30 Images from the original note were not included.Please review and sign if appropriate. traZODone 50 mg tablet Sig: Take 0.5-1 tablets by mouth at bedtime as needed for Insomnia. Disp: 90 tablet Refills: 1 Start: 12/15/2022 Class: eRX For: Persistent disorder of initiating or maintaining sleep Last ordered: 4 months ago (07/30/2022) by CELINA Dotson Psychiatry: Antidepressants Failed 12/15/2022 10:06 PM Protocol Details Manual Review: Verify no changes in dose in the last 3 months Valid encounter within last 12 months To be filled at: [facility] ([facility]) - [address] Preferred delivery: Mail Recent VisitsDate Type Provider Dept 08/24/22 Office Visit Sly Neumann FNP [facility] 04/21/22 Office Visit Sly Neumann FNP [facility] 03/30/22 Office Visit Sly Neumann FNP [facility] 12/29/21 Office Visit Sly Neumann FNP [facility] 11/27/21 Office Visit Sly Neumann FNP [facility] 11/18/21 Office Visit Nel Sly, CELINA [facility] 11/09/21 Office Visit Lissett Leggett, COUNTER HELPER [facility] Showing recent visits within past 540 days with a meds authorizing provider and meeting all other requirementsFuture AppointmentsNo visits were found meeting these conditions.Showing future appointments within next 150 days with a meds authorizing provider and meeting all other requirements 96736-6Lbsaqufoa encounter IuthMA4409-68-74F87:49:48Telephone encounter NoteTXT1.2.840.214086.1.13.104.2.7. 2.415335|[id number] for patient febz95894-2KkbyVSBBOXBHMN[address] Yu [id number] 7OTDDCOJWFLEVCREWZOYEXA0234-85-71A5 8:49:481.2.840.380084.1.72.3.15|1.2 .840.528776.1.13.104.2.7.2.727879_1 [id number] [facility] 2022-12-10 14:04:53 aJO+rw93Aerk9llV5MKbpw25A4dFOEsj3cm DTEQzqnGSiBADTCq6QxWwS11raV3b3835-3 12-10T14:04:53 Per insurance to maximize their benefits, a 100 day supply is requested. 76201-3Rcggbipky encounter YmyhQC4666-41-40I50:07:43Telephone encounter NoteTXT1.2.840.549917.1.13.104.2.7. 2.786501|[id number] for patient leif42665-3RrrlQGXDOMWQEK31 [address] [id number] 9VSMEJYCIGPJAEAJFTDSEPN5525-14-32Y4 4:07:431.2.840.929366.1.72.3.15|1.2 .840.370983.1.13.104.2.7.2.727879_1 [id number] [facility] 2022-12-08 15:51:53 t3bK7ZClz7KM+WzTewII3p78euc4k58dzvU HhGc8ASwu+Q+glwWSE0TC9era+j7+12-08T15:51:53 Received [employer] medical clarification request. Placed in providers basket. 62289-1Dctxsbzmx encounter CbtvAB7518-93-27F31:59:19Telephone encounter NoteTXT1.2.840.209667.1.13.104.2.7. 2.997777|[id number] for patient orcx68346-3RoupWN882948061Bozmul [address] UmgoP[id number] 5KSTEHSJKBDRBAKMXTXUXCM2240-73-60E4 5:59:191.2.840.627501.1.72.3.15|1.2 .840.323154.1.13.104.2.7.2.727879_1 [id number] Izabella Ceballos [facility] 2022-12-06 10:03:49 LOamTDo6xPC5b2fOxyvCzRRJLABVeegoLzb 5pn73xZ/9dOYRfQ6Muuu+J9Rlio1H7438-4 12-06T10:03:49 Medication refilled per policy:Last office visit: 08/24/22Nex office visit: not scheduledRequested Prescriptions Pending Prescriptions Disp Refills atenoloL 25 mg tablet 90 tablet 1 Sig: Take 1 tablet by mouth in the morning. Refused Prescriptions Disp Refills pantoprazole 40 mg EC tablet 90 tablet 3 Sig: Take 1 tablet by mouth every morning. [id number] [place] [facility] [address] [facility] BLAYNEPhone: Pcwedmcwvhzdab signed by Jackie Mata LVN at 12/06/2022 10:07 AM LOI84209-2Ygpfnubvx encounter EfwbUI5788-69-82W52:07:56Telephone encounter NoteTXT1.2.840.324617.1.13.104.2.7. 2.210475|[id number] for patient piap87283-5UavoPMWUIFWTIM[address] No[id number] 9KFOAUUMVTJIWICSWNXAVGH5085-71-65I3 0:07:561.2.840.694515.1.72.3.15|1.2 .840.295214.1.13.104.2.7.2.727879_1 [id number] [facility]
[2023-06-27] MEDS ORDERED: ONDANSETRON 4 MG/2 ML VIAL ONE (13:30)
[2023-06-27] MEDS ORDERED: MORPHINE 4 MG/ML SYR ONE (13:31)
[2023-06-27 13:51] LABS: Basophils % 0.3 % (0-1.3); Eosinophils % 0.1 % (0-4.4); Hematocrit 32.9 % (36.0-45.0); Hemoglobin 11.5 g/dL (12.0-15.0); Lymphocytes % 9.2 % (15.3-44.8); MPV 8.3 fL (7.6-11.3); Platelets 245 thou/uL (152-406); RBC Red Blood Cell Count 3.29 M/uL (3.86-4.86)
[2023-06-27 13:55] LABS: Protime INR 1.23
[2023-06-27] MEDS ORDERED: METOPROLOL TARTRATE 5 MG/5 ML INJ IV ONE ×2 (13:59→14:44)
[2023-06-27 14:12] LABS: Albumin 2.9 g/dL (3.4-5.0); Albumin/Globulin Ratio 0.5 (1.1-1.8); Anion Gap 11.5 mEq/L (5.0-15.0); Bilirubin Direct 0.2 mg/dL (0-0.2); Bilirubin Indirect, Calculated 0.7 mg/dL (0.2-0.8); Bilirubin Total 0.9 mg/dL (0.2-1.0); Globulin 5.6 g/dL (2.3-3.5); Magnesium 1.3 mg/dL (1.6-2.4); Potassium 3.5 mEq/L (3.5-5.1); Protein, Total 8.5 g/dL (6.4-8.2); Troponin High Sensitivity 8.6 pg/mL (<58.9)
[2023-06-27] MEDS ORDERED: LORazepam 2 MG/ML VIAL ONE (14:53)
--- NOTE | 2023-06-27 15:07 | RAD REPORT ---
EXAM DESCRIPTION: RADChest Single View06/27/2023 2:20 pm CLINICAL HISTORY: CHEST PAIN COMPARISON: Ribs Left dated 06/27/2023; Chest Abd Pelvis Wo Con dated 02/09/2023 TECHNIQUE: Portable AP view of the chest. FINDINGS: The lungs are clear. No pneumothorax or effusion. The cardiomediastinal contours are unre markable. IMPRESSION: No acute cardiopulmonary process.
--- NOTE | 2023-06-27 15:29 | RAD REPORT ---
EXAM DESCRIPTION: RAD - Ribs Left - 06/27/2023 2:20 pm CLINICAL HISTORY: PAIN COMPARISON: Chest Single View dated 06/27/2023 TECHNIQUE: Left ribs, 3 views. FINDINGS: Irregularity along the lateral left sixth rib, may reflect an acute or chronic fracture. No aggressive rib lesion. No underlying pneumothorax, effusion, infiltrate or pulmonary contusion. IMPRESSION: Left lateral sixth rib irregularity may reflect an acute or chronic fracture.
--- NOTE | 2023-06-27 15:40 | ER ---
Nurse's Notes [facility] Name: Flower Alvarez Age: 73 yrs Sex: Female : 1950 Arrival Date: 06/27/2023 Time: 13:04 Bed 2 Private MD: Renae Grullon Diagnosis: Chest pain, unspecified;Fracture of one rib, left side;Unspecified atrial flutter Presentation: 06/26 13:19 Chief complaint: Patient states: pain to left breast but if feels like it's in my ribs, iw pain radiates to my back. Coronavirus screen: At this time, the client does not indicate any symptoms associated with coronavirus-19. Ebola Screen: Patient negative for fever greater than or equal to 101.5 degrees Fahrenheit, and additional compatible Ebola Virus Disease symptoms Patient denies exposure to infectious person. Patient denies travel to an Ebola-affected area in the 21 days before illness onset. No symptoms or risks identified at this time. Risk Assessment: Do you want to hurt yourself or someone else? Patient reports no desire to harm self or others. 13:19 Method Of Arrival: Wheelchair iw 13:19 Acuity: ANUP 3 iw 13:57 Initial Sepsis Screen: Does the patient meet any 2 criteria? No. Patient's initial ko1 sepsis screen is negative. Does the patient have a suspected source of infection? No. Patient's initial sepsis screen is negative. Onset of symptoms is unknown. Triage Assessment: 13:30 General: Appears distressed, uncomfortable, Behavior is cooperative, appropriate for ko1 age, anxious. Musculoskeletal: Reports pain in left breast and chest and left lateral anterior chest. Historical: - Allergies: 13:56 Codeine; ko1 13:56 Fentanyl; ko1 14:37 Iodine; sb4 - Immunization history:: Adult Immunizations up to date. - Social history:: Smoking status: Patient denies any tobacco usage or history of. Screenin:55 [facility] ED Fall Risk Assessment (Adult) History of falling in the last 3 months, ko1 including since admission No falls in past 3 months (0 pts) Confusion or Disorientation No (0 pts) Intoxicated or Sedated No (0 pts) Impaired Gait No (0 pts) Mobility Assist Device Used No (0 pt) Altered Elimination No (0 pt) Score/Fall Risk Level 0 - 2 = Low Risk Oriented to surroundings, Maintained a safe environment, Educated pt \T\ family on fall prevention, incl call for assistance when getting out of bed, Assessed \T\ reinforced patient's understanding of fall precautions, Provided non-skid footwear, Hourly rounding (assess needs \T\ fall precautionary measures) done, Used ambulatory aids as needed (educated on \T\ assisted with), Used gait belt as appropriate. Abuse screen: Denies threats or abuse. Denies injuries from another. Nutritional screening: No deficits noted. Tuberculosis screening: No symptoms or risk factors identified. Assessment: 13:15 General: Appears distressed, uncomfortable, Behavior is cooperative, appropriate for ko1 age, anxious. Pain: Complains of pain in left breast. Neuro: Level of Consciousness is awake, alert, obeys commands, Oriented to person, place, time, situation, Appropriate for age. Cardiovascular: Reports chest pain. Respiratory: No deficits noted. GI: No deficits noted. : No deficits noted. EENT: No deficits noted. Derm: No deficits noted. Musculoskeletal: No deficits noted. Vital Signs: 13:15 BP 162 / 88; Pulse 102; Resp 14; Pulse Ox 98% on R/A; ko1 13:20 BP 169 / 107; Pulse 144; Resp 19; Temp 99.1(O); Pulse Ox 99% on R/A; iw 13:55 BP 154 / 90; Pulse 126; Resp 24; Pulse Ox 99% on R/A; ko1 14:26 BP 159 / 85; Pulse 103; Resp 22; Pulse Ox 99% ; ko1 14:50 BP 143 / 77; Pulse 103; Resp 19; Pulse Ox 99% ; ko1 15:28 BP 132 / 77; Pulse 102; Resp 19; Pulse Ox 99% ; ko1 ED Course: 13:06 Patient arrived in ED. mr 13:06 Renae Grullon is Private Physician. mr 13:07 [facility] sb4 13:07 Brian Gleason DO is Attending Physician. sb4 13:15 Provided Education on: na. ko1 13:15 Arm band placed on right wrist. Patient placed in an exam room, on a stretcher, on ko1 bench examiner, on pulse oximetry, Patient notified of wait time. 13:20 Triage completed. iw 13:[address], RN is Primary Nurse. ko1 13:45 Inserted saline lock: 22 gauge in right antecubital area, using aseptic technique. ko1 Blood collected. 13:49 Basic Metabolic Panel Sent. ko1 13:49 CBC with Diff Sent. ko1 13:49 LFT's Sent. ko1 13:49 Magnesium Sent. ko1 13:49 NT PRO-BNP Sent. ko1 13:49 PT-INR Sent. ko1 13:49 Troponin HS Sent. ko1 13:55 Patient has correct armband on for positive identification. Placed in gown. Bed in low ko1 position. Call light in reach. Side rails up X2. Client placed on continuous cardiac and pulse oximetry monitoring. NIBP monitoring applied. flight operations engineer on. Door closed. Noise minimized. Lights dimmed. Warm blanket given. Pillow given. 14:21 XRAY Chest (1 view) In Process Unspecified. EDMS 14:21 Ribs Left XRAY In Process Unspecified. EDMS 15:39 Guilherme Skelton MD is Hospitalizing Provider. sb4 15:43 Brad Steward MD is Hospitalizing Provider. la1 15:45 Guilherme Skelton MD is Hospitalizing Provider. la1 15:50 Malick Steward MD is Hospitalizing Provider. sb4 15:50 Hospitalizing Provider role handed off by Malick Steward MD sb4 15:50 Brad Steward MD is Hospitalizing Provider. sb4 15:52 Guilherme Skelton MD is Hospitalizing Provider. sb4 16:34 Brad Steward MD is Hospitalizing Provider. sb4 16:44 Assisted to bathroom. ko1 16:47 No provider procedures requiring assistance completed. Patient admitted, IV remains in ko1 place. Administered Medications: 13:35 Drug: Ondansetron IVP 4 mg IVP once; over 2 minutes Route: IVP; Site: right antecubital;ko1 14:02 Follow up: Response: No adverse reaction ko1 13:40 Drug: morphine IVP or IV 4 mg IVP once over 4 mins Route: IVP; Infused Over: 4 mins; ko1 Site: right antecubital; 14:02 Follow up: Response: No adverse reaction ko1 14:20 Drug: Metoprolol IVP 5 mg IVP every 5 minutes; Hold for SBP < 100 or HR < 60. x3 Route: ko1 IVP; Site: right antecubital; 14:50 Drug: Metoprolol IVP 5 mg IVP every 5 minutes; Hold for SBP < 100 or HR < 60. x3 Route: ko1 IVP; Site: right antecubital; 14:55 Drug: Metoprolol IVP 5 mg IVP every 5 minutes; Hold for SBP < 100 or HR < 60. x3 Route: ko1 IVP; Site: right antecubital; 15:02 Drug: Ativan IVP 1 mg IVP once Route: IVP; Site: right antecubital; ko1 16:48 Follow up: Response: No adverse reaction; Anxiety decreased ko1 16:39 Drug: Magnesium Sulfate IVPB 2 grams IVPB once over 2 hrs Route: IVPB; Infused Over: 2 ko1 hrs; Site: right antecubital; Medication: 13:55 VIS not applicable for this client. ko1 Outcome: 15:40 Decision to Hospitalize by Provider. sb4 15:40 Admitted to ER Hold. [facility]. ko1 15:40 Condition: stable 15:40 Instructed on the need for admit, 17:20 Admitted to Tele accompanied by tech, via wheelchair, room 429, with chart, Report ko1 called to MARIANNA Fisher 18:02 Patient left the ED. ko1 Signatures: Dispatcher [employer] EDMS Nidhi Miller, Reg Reg mr Chelita Kirkland RN RN iw Ammon Mix, SOUND TRUCK OPERATOR-C SOUND TRUCK OPERATOR-Citlalli1 Kailee Lane RN RN ko1 Brown, Sophia, PA-C PA-C sb4 Corrections: (The following items were deleted from the chart) 13:22 13:20 BP 169 / 107; Resp 19bpm; Pulse Ox 99% RA; iw iw
--- NOTE | 2023-06-27 15:40 | EDPHYS ---
Physician Documentation [facility] Name: Flower Alvarez Age: 73 yrs Sex: Female : 1950 Arrival Date: 06/27/2023 Time: 13:04 Bed 2 Private MD: Renae Grullon ED Physician Brian Gleason HPI: 06/26 13:27 This 73 yrs old Female presents to ER via Wheelchair with complaints of Chest Pain. sb4 13:27 The patient or guardian reports chest pain that is located primarily in the anterior sb4 chest wall, left. Onset: 6 day(s) ago. The pain radiates to back. 13:28 The chest pain is described as sharp. Modifying factors: The symptoms are alleviated by sb4 remaining still, the symptoms are aggravated by activity, breathing, cough, deep breath, exertion, movement, palpation of area. Severity of pain: in the emergency department the pain is unchanged is a 10 / 10. The patient has not experienced similar symptoms in the past. 13:29 left anterior wall chest/breast pain x 6 days. released from [facility] 1 week sb4 ago after treatment of hypokalemia/hypomagnesmia and apparently had some episodes of afib but was never formally diagnosed, although her atenolol was recently doubled. Historical: - Allergies: 13:56 Codeine; ko1 13:56 Fentanyl; ko1 14:37 Iodine; sb4 - Immunization history:: Adult Immunizations up to date. - Social history:: Smoking status: Patient denies any tobacco usage or history of. ROS: 14:55 Constitutional: Negative for fever, chills, and weight loss, sb4 14:55 Cardiovascular: Positive for chest pain, with cough, with movement, of the left lateral anterior chest, 14:55 All other systems are negative, Exam: 14:55 Head/Face: Normocephalic, atraumatic. Eyes: Extra-ocular motions intact. Periorbital sb4 areas with no swelling, redness, or edema. ENT: Mucous membranes moist. Respiratory: Lungs have equal breath sounds bilaterally, clear to auscultation and percussion. No rales, rhonchi or wheezes noted. No increased work of breathing, no retractions or nasal flaring. Abdomen/GI: Soft, non-tender, no distension. Skin: Warm, dry with normal turgor. Normal color with no rashes, no lesions, and no evidence of cellulitis. MS/ Extremity: Pulses equal, no cyanosis. Neurovascular intact. Full, normal range of motion. Neuro: Awake and alert, GCS 15, oriented to person, place, time, and situation. Motor strength 5/5 in all extremities. Sensory grossly intact. 14:55 Constitutional: The patient appears alert, awake, anxious, 14:55 Cardiovascular: Rate: tachycardic, Rhythm: regular, Pulses: no pulse deficits are appreciated, Heart sounds: normal, Edema: is not appreciated, JVD: is not appreciated, 14:55 Chest/axilla: Inspection: normal, Palpation: tenderness, that is moderate, of the left sb4 lateral anterior chest, Vital Signs: 13:15 BP 162 / 88; Pulse 102; Resp 14; Pulse Ox 98% on R/A; ko1 13:20 BP 169 / 107; Pulse 144; Resp 19; Temp 99.1(O); Pulse Ox 99% on R/A; iw 13:55 BP 154 / 90; Pulse 126; Resp 24; Pulse Ox 99% on R/A; ko1 14:26 BP 159 / 85; Pulse 103; Resp 22; Pulse Ox 99% ; ko1 14:50 BP 143 / 77; Pulse 103; Resp 19; Pulse Ox 99% ; ko1 15:28 BP 132 / 77; Pulse 102; Resp 19; Pulse Ox 99% ; ko1 MDM: 13:24 Patient medically screened. sb4 14:56 ECG:. sb4 15:38 Data reviewed: vital signs, nurses notes, lab test result(s), EKG, radiologic studies, sb4 I have discussed the patient's presentation/case with the attending Emergency Department Physician; and as a result, I will admit patient. Counseling: I had a detailed discussion with the patient and/or guardian regarding the historical points, exam findings, and any diagnostic results supporting the discharge/admit diagnosis, lab results, radiology results, the need for further work-up and treatment in the hospital. 06/26 13:24 Order name: Basic Metabolic Panel; Complete Time: 14:12 sb4 06/26 13:24 Order name: CBC with Diff; Complete Time: 14:00 sb4 06/26 13:24 Order name: LFT's; Complete Time: 14:12 sb4 06/26 13:24 Order name: Magnesium; Complete Time: 14:12 sb4 06/26 13:24 Order name: NT PRO-BNP; Complete Time: 14:12 sb4 06/26 13:24 Order name: PT-INR; Complete Time: 14:00 sb4 06/26 13:24 Order name: Troponin HS; Complete Time: 14:12 sb4 06/26 13:24 Order name: XRAY Chest (1 view); Complete Time: 15:16 sb4 06/26 13:26 Order name: Ribs Left XRAY; Complete Time: 15:30 sb4 06/26 13:24 Order name: EKG; Complete Time: 13:25 sb4 06/26 13:24 Order name: Cardiac monitoring; Complete Time: 13:27 sb4 06/26 13:24 Order name: EKG - Nurse/Tech; Complete Time: 13:42 sb4 06/26 13:24 Order name: IV Saline Lock; Complete Time: 13:49 sb4 06/26 13:24 Order name: Labs collected and sent; Complete Time: 13:49 sb4 06/26 13:24 Order name: O2 Per Protocol; Complete Time: 13:27 sb4 06/26 13:24 Order name: O2 Sat Monitoring; Complete Time: 13:27 sb4 EC:46 Rate is 140 beats/min. Rhythm is irregular, A flutter with 2:1. QRS interval is normal sb4 at 64 msec. QT interval is normal at 358 msec. No Q waves. Clinical impression: Atrial Flutter. Interpreted by me. Reviewed by me. Administered Medications: 13:35 Drug: Ondansetron IVP 4 mg IVP once; over 2 minutes Route: IVP; Site: right antecubital;ko1 14:02 Follow up: Response: No adverse reaction ko1 13:40 Drug: morphine IVP or IV 4 mg IVP once over 4 mins Route: IVP; Infused Over: 4 mins; ko1 Site: right antecubital; 14:02 Follow up: Response: No adverse reaction ko1 14:20 Drug: Metoprolol IVP 5 mg IVP every 5 minutes; Hold for SBP < 100 or HR < 60. x3 Route: ko1 IVP; Site: right antecubital; 14:50 Drug: Metoprolol IVP 5 mg IVP every 5 minutes; Hold for SBP < 100 or HR < 60. x3 Route: ko1 IVP; Site: right antecubital; 14:55 Drug: Metoprolol IVP 5 mg IVP every 5 minutes; Hold for SBP < 100 or HR < 60. x3 Route: ko1 IVP; Site: right antecubital; 15:02 Drug: Ativan IVP 1 mg IVP once Route: IVP; Site: right antecubital; ko1 16:48 Follow up: Response: No adverse reaction; Anxiety decreased ko1 16:39 Drug: Magnesium Sulfate IVPB 2 grams IVPB once over 2 hrs Route: IVPB; Infused Over: 2 ko1 hrs; Site: right antecubital; Disposition: 17:58 I was immediately available on-site in the Emergency Department for consultation in the ms3 care of the patient. Disposition Summary: 06/27/23 15:40 Hospitalization Ordered Notes: Hospitalization Status: Observation sb4 [facility] sb4 Condition: Fair sb4 Problem: new sb4 Symptoms: are unchanged sb4 Bed/Room Type: Standard sb4 Provider: Brad Steward(06/27/23 16:34) sb4 Room Assignment: [facility](06/27/23 17:16) sarah Diagnosis - Chest pain, unspecified sb4 - Fracture of one rib, left side sb4 - Unspecified atrial flutter sb4 Forms: - Medication Reconciliation Form sb4 - SBAR form sb4 - Leadership Thank You Letter sb4 Signatures: Dispatcher [employer] EDRI Isabell Patterson Lee, FOOD SAFETY SPECIALIST-C FOOD SAFETY SPECIALIST-Citlalli1 Gunnar Leonardo, RN RN ja1 Brian Gleason DO DO ms3 Kailee Lane RN RN ko1 Kaitlin Garvey PA-C PACong sb4 Corrections: (The following items were deleted from the chart) 13:29 13:27 The pain radiates to sb4 sb4 14:41 14:31 Chest For PE Angio+CT.RAD.BRZ ordered. EDRI EDRI 15:43 15:40 Guilherme Skelton sb4 la1 15:45 15:43 Brad Steward la1 la1 15:50 15:45 Skelton, Mohammad la1 sb4 15:52 15:50 Brad Steward sb4 sb4 16:34 15:52 Guilherme Skelton sb4 sb4 16:37 15:40 sb4 bd 16:49 16:37 410 bd ja1 17:16 16:49 431 ja1 ja1
[2023-06-27] MEDS ORDERED: Magnesium Sulfate 2gm IVPB 2 G/50 ML BAG IV ONE (16:31)
--- NOTE | 2023-06-27 17:36 | P.HP ---
Certification for Inpatient Patient admitted to: Observation With expected LOS: <2 Midnights Patient will require the following post-hospital care: None Practitioner: I am a practitioner with admitting privileges, knowledge of patient current condition, hospital course, and medical plan of care. Services: Services provided to patient in accordance with Admission requirements found in Title 42 Section 412.3 of the Code of Federal Regulations Patient History Date of Service: 06/27/23 Reason for admission: Rib fracture, chest pain, tachycardia History of Present Illness: 73-year-old female with history of hypertension, hyperlipidemia, questionable history of persistent tachycardia versus atrial fibrillation/atrial flutter presented to the emergency department chief complaint of left-sided chest pain that she felt was related to her ribs. She reports she had a fall last week on June 21 and had been having worsening chest/rib pain since then. Upon arrival to the hospital patient was tachycardic with a rate in the 140s, this improved with IV Lopressor and pain control possible sinus tach versus atrial flutter. She was evaluated in the emergency department her labs are significant for hemoglobin 11.5 medic at 32.9 sodium 131 chloride 97 magnesium 1.3 BNP 808 chest x-ray showed no acute findings ribs left show left lateral sixth rib i rregularity be reflect an acute or chronic fracture. It is suspected this is acute given her pain. She reports he was recently hospitalized at [facility] for hyponatremia, hypomagnesemia, hypokalemia. She felt like there was also some discussion possibly by atrial fibrillation/atrial flutter but she is unsure. 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 Andino. Patient also reports that in the past she has worn a Holter monitor and her heart rate jumps up quite often. Patient be admitted for further evaluation management of chest pain, rib fracture, possible atrial fibrillation versus sinus tachycardia - Past Medical/Surgical History -: GERD -: Hypertension -: Hyperlipidemia -: Tachycardia -: Hysterectomy -: Breast implants Psychosocial/ Personal History: Lives at home with her son - Family History Family History: Reviewed- Non-Contributory - Social History Smoking Status: Never smoker Alcohol use: Yes CD- Drugs: No Caffeine use: Yes Place of Residence: Home Review of Systems 10-point ROS is otherwise unremarkable Respiratory: Shortness of Breath Cardiovascular: Chest Pain Physical Examination - Physical Exam General: Alert, In no apparent distress, Oriented x3 HEENT: Atraumatic, PERRLA, Mucous membr. moist/pink Neck: Supple, 2+ carotid pulse no bruit, No LAD Respiratory: Clear to auscultation bilaterally, Normal air movement Cardiovascular: Regular rate/rhythm, Normal S1 S2 Gastrointestinal: Normal bowel sounds, No tenderness Musculoskeletal: No tenderness Integumentary: No rashes Neurological: Normal speech, Normal strength at 5/5 x4 extr, Normal tone, Normal affect - Studies Laboratory Data (last 24 hrs) 06/27/23 06/27/23 06/27/23 12:38 12:38 12:38 WBC 10.40 Hgb 11.5 L Hct 32.9 L Plt Count 245 PT 13.4 H INR 1.23 Sodium 131 L Potassium 3.5 BUN 7 Creatinine 0.87 Glucose 129 H Magnesium 1.3 L Total Bilirubin 0.9 AST 9 L ALT 15 Alkaline Phosphatase 76 Assessment and Plan - Plan Assessment: Left lateral sixth rib fracture Chest pain Sinus tachycardia versus atrial flutter Hypomagnesemia Hypertension Hyperlipidemia GERD Plan: Left lateral sixth rib fracture Chest pain Sinus tachycardia versus atrial flutter As needed pain medications, incentive spirometry for rib fracture Will trend troponin, monitor on telemetry given the ongoing pain radiating to the right side EKG on presentation to ER with a rate in the 140s concerning for possible atrial flutter Given Lopressor IV with improvement in rate currently around 100 appears to be sinus Monitor on telemetry, cardiology consult in place Recently had atenolol increased from 25 mg once daily to 25 mg twice daily, will continue for now Appreciate further input from cardiology Hypomagnesemia Replacement ordered in ED, protocol also placed Hypertension Hyperlipidemia GERD Home medications continued DVT PPX: Lovenox Code status: Full Discharge Plan: Home Plan to discharge in: 24 Hours - Advance Directives Does patient have a Living Will: Yes Does patient have a Durable POA for Healthcare: Yes - Code Status/Comfort Care Code Status Assessed: Yes (Full code) Critical Care: No Time Spent Managing Pts Care (In Minutes): 70
[2023-06-27 18:19] VITALS: BMI 19.2
[2023-06-27] MEDS ORDERED: TRAMADOL HCL 50 MG TAB PO PRN (18:30)
[2023-06-27] MEDS: MORPHINE 2 MG/ML SYR IV PRN (19:48)
[2023-06-27] MEDS: NA CHLORIDE 0.9% 1,000 ML IV SCH (19:48)
[2023-06-27] MEDS: ATORVASTATIN 40 MG TAB PO SCH (19:49)
[2023-06-27] MEDS: atenoloL 25 MG TAB PO SCH (20:19)
[2023-06-28] MEDS: ACETAMINOPHEN 500 MG TAB PO PRN (01:49)
[2023-06-28] MEDS: PANTOPRAZOLE 40MG TABLET PO SCH (05:59)
[2023-06-28 06:46] LABS: Hematocrit 28.3 % (36.0-45.0); Hemoglobin 9.8 g/dL (12.0-15.0); MCV 100.9 fL (80-100); Platelets 234 thou/uL (152-406); RBC Red Blood Cell Count 2.81 M/uL (3.86-4.86)
[2023-06-28 06:47] LABS: Absolute Eosinophils 0.1 K/uL (0-0.5); Absolute Lymphocytes (CBC) 1.4 K/uL (0.7-4.9); Basophils % 0.5 % (0-1.3); Eosinophils % 1.7 % (0-4.4); MPV 8.1 fL (7.6-11.3)
[2023-06-28 07:16] LABS: Anion Gap 8.9 mEq/L (5.0-15.0); Magnesium 1.9 mg/dL (1.6-2.4); Potassium 3.9 mEq/L (3.5-5.1); Thyroid Stimulating Hormone 0.694 uIU/mL (0.358-3.740); Troponin High Sensitivity 6.4 pg/mL (<58.9)
[2023-06-28] MEDS: ASPIRIN EC 81 MG TAB PO SCH (08:34)
[2023-06-28] MEDS: ENOXAPARIN 30 MG/0.3 ML SQ SCH (08:34)
[2023-06-28] MEDS: CITALOPRAM 10 MG TABLET PO SCH (08:34)
[2023-06-28] MEDS: ENALAPRIL 10 MG TAB PO SCH (08:35)
[2023-06-28] MEDS: POTASSIUM CL SA 10 MEQ TAB PO ONE (08:40)
[2023-06-28 08:58] LABS: Blood Morphology Comment NOT SEEN (NOT SEEN); Eosinophils 2 % (0-3); Platelet Estimate ADEQ
--- NOTE | 2023-06-28 15:37 | P.PN ---
Subjective Date of Service: 06/28/23 Chief Complaint: Rib fracture, chest pain, tachycardia Patient is complaining of left flank and chest pain. Her heart rate has improved. Physical Examination - Vital Signs Temperature: 99.2 F Blood Pressure: 146/85 Pulse: 93 Respirations: 16 Pulse Ox (%): 97 Assessment And Plan - Plan Physical Exam General: Alert, In no apparent distress, Oriented x3 HEENT: Atraumatic, mucous membraone is moist/pink Neck: Supple, No LAD Respiratory: Clear to auscultation bilaterally, Normal air movement Cardiovascular: Irregular rhythm, rapid, Normal S1 S2 Gastrointestinal: Normal bowel sounds, No tenderness Musculoskeletal: Tenderness-left axilla area. Integumentary: No rashes Neurological: Normal speech, Normal strength at 5/5 x4 extr, Normal tone, Normal affect Diagnosis Left lateral sixth rib fracture Musculoskeletal chest pain Sinus tachycardia versus atrial flutter Hypomagnesemia Hypertension Hyperlipidemia GERD Plan: Left lateral sixth rib fracture Chest pain Sinus tachycardia versus atrial flutter Analgesics as needed, incentive spirometry for rib fracture Troponin trended negative EKG concerning for possible atrial flutter. Heart rate improved. Monitor on telemetry, cardiology consult in place Continue atenolol 25 mg twice daily Anticipating heart rates to improve with adequate pain control. Hypomagnesemia Replace as needed Hypertension Hyperlipidemia GERD Home medications continued DVT prophylaxis: Lovenox Code status: Full
--- NOTE | 2023-06-28 17:07 | EKG ---
Test Date: 2023-06-27 Test Time: 13:26:47 Nursing Teacher: AKIW MEASUREMENT RESULTS: Intervals: Rate: 140 [place]: QRSD: 64 QT: 358 QTc: [address] [place]: P: [place]: QRS: 10 T: 90 INTERPRETIVE STATEMENTS: Supraventricular tachycardia Possible Anterior infarct, age undetermined ST & T wave abnormality, consider lateral ischemia Abnormal ECG No previous ECG available for comparison Electronically Signed On 06-28-23 17:03:38 SALES COMMUNICATIONS MANAGER by Mehdi Joiner
--- NOTE | 2023-06-28 19:54 | CON ---
Date of Consultation: 06/28/2023 Reason For Consultation: Tachycardia. History Of Present Illness: This is a 73-year-old female, history of dyslipidemia, hypertension, pre sented to the emergency room with left-sided chest pain in the ribs area. She reported a fall last w , was found to have rib fracture that accounted for the chest pain. However, upon arrival, she wa s tachycardic, heart rate was in the 140, improved with IV Lopressor. Currently, she is in sinus rhy thm. I do not have the strips for the initial presentation to elaborate on the initial rhythm. Past Medical History: As outlined above in the HPI. Medications: Refer reconciliation sheet for detailed list. Allergies: IODINE, PROPOFOL, DOXEPIN, FENTANYL, ZOFRAN, SERTRALINE, AND CODEINE. Family History: No premature coronary artery disease or cancer. Social History: She does not smoke or drink. Does not use any drugs. Review of Systems: All systems reviewed are negative except mentioned in HPI. Physical Examination: Vital signs: Reviewed. Head and Neck: Pupils are equal, reactive to light. Intact eye movements. No JVD. No cervical lym phadenopathy. Neck is supple. Thyroid is not enlarged. Lungs: Clear to auscultation bilaterally. No rhonchi, rales, or crackles. No accessory muscle use. Heart: Regular rate and rhythm. No extra sounds. Abdomen: Soft, nontender. Bowel sounds positive. No organomegaly. No masses or hernia. No rigidi ty or rebound. Extremities: No edema, clubbing, or cyanosis. Intact pulses. Skin: No rash. Neurologic: Alert, awake, oriented x3. No acute focal deficits appreciated. Investigations: Cardiac enzymes x3 are negative. BUN 8, creatinine 0.81. Hemoglobin 9.8. The ribs x-ray showed left lateral sixth rib irregularity, might reflect acute versus chronic fracture. Assessment/recommendation: 1.Chest pain, probably due to the rib fracture. Cardiac enzymes are negative. No further acute bala n. Recommend outpatient stress test once she is clinically stable. 2.Tachycardia on presentation. No strips are available for the presenting rhythm, but currently she is in sinus rhythm and heart rate is in the mid 80s. Continue atenolol. I will plan for outpatient event monitor. 3.Dyslipidemia. Continue statin. Cardiology will sign off. SR/MODL Voice ID: [id number] Report ID: [id number]
[2023-06-29] MEDS: HYDROCODONE/APAP 5/325 MG TAB PO PRN (00:20)
[2023-06-29 06:43] LABS: Absolute Eosinophils 0.3 K/uL (0-0.5); Absolute Lymphocytes (CBC) 1.5 K/uL (0.7-4.9); Basophils % 0.4 % (0-1.3); Eosinophils % 5.1 % (0-4.4); Hematocrit 27.4 % (36.0-45.0); Hemoglobin 9.6 g/dL (12.0-15.0); Lymphocytes % 26.7 % (15.3-44.8); MCV 100.5 fL (80-100); MPV 7.7 fL (7.6-11.3); Platelets 276 thou/uL (152-406); RBC Red Blood Cell Count 2.72 M/uL (3.86-4.86)
[2023-06-29 07:00] LABS: Anion Gap 10.2 mEq/L (5.0-15.0); Magnesium 1.7 mg/dL (1.6-2.4); Potassium 4.2 mEq/L (3.5-5.1)
[2023-06-29] MEDS: POTASSIUM CL SA 10 MEQ TAB PO SCH (08:32)
[2023-06-29] MEDS: MAGNESIUM SULFATE 1 gm IVPB 1 GM/100 ML BAG IV ONE (08:33)
[2023-06-29] MEDS: THIAMINE HCL 100 MG TABLET PO SCH (08:33)
[2023-06-29] MEDS: MAGNESIUM OXIDE 400 MG TAB PO SCH (08:33)
[2023-06-29] MEDS: VITAMIN D 1000 UNIT TAB PO SCH (08:33)
[2023-06-29 08:56] VITALS: BP 109/51
[2023-06-29] MEDS ORDERED: CITALOPRAM 10 MG TABLET PO SCH (09:00)
[2023-06-29] MEDS ORDERED: PANTOPRAZOLE SODIUM 20 MG PO SCH (09:00)
[2023-06-29] MEDS ORDERED: ATORVASTATIN 40 MG TAB PO SCH (09:00)
--- NOTE | 2023-06-29 09:25 | P.DS ---
Admission Date: 06/27/23 Discharge Date: 06/29/23 Disposition: ROUTINE DISCHARGE Discharge Condition: FAIR Reason for Admission: Rib fracture, chest pain, tachycardia Brief History of Present Illness: 73-year-old female with history of hypertension, hyperlipidemia, questionable history of tachycardia versus atrial fibrillation/atrial flutter presented to the emergency department chief complaint of left-sided chest pain that she felt was related to her ribs. She reports she had a fall on June 21 and had been having worsening chest/rib pain since then. Upon arrival to the hospital patient was tachycardic with a rate in the 140s, this improved with IV Lopressor and pain control possible sinus tach versus atrial flutter. She was evaluated in the emergency department her labs are significant for hemoglobin 11.5 medic at 32.9 sodium 131 chloride 97 magnesium 1.3 BNP 808 chest x-ray showed no acute findings ribs left show left lateral sixth rib irregularity be reflect an acute or chronic fracture. It is suspected this is acute given her pain. She reports he was recently hospitalized at [facility] for hyponatremia, hypomagnesemia, hypokalemia. 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 She sees Dr. Andino. Patient also reported she wore an event monitor about 20 years ago and was told her heart rate fluctuated from very high rate to low rate and used to experience lightheadedness with the low heart rate. Patient be admitted for further evaluation management of chest pain, rib fracture, possible atrial fibrillation versus sinus tachycardia. Hospital Course: Patient admitted to the medical floor and the following medical problems addressed: Diagnosis Left lateral sixth rib fracture Musculoskeletal chest pain Sinus tachycardia versus atrial flutter Hypomagnesemia Hypertension Hyperlipidemia GERD Plan: Left lateral sixth rib fracture Chest pain Sinus tachycardia versus atrial flutter Patient was treated with analgesics as needed, incentive spirometry for rib fracture Troponin trended negative EKG concerning for possible atrial flutter. Heart rate improved. Patient seen by cardiology and noted to be in sinus rhythm. Cardiology recommend follow-up as outpatient for an event monitor placement. Continued home dose atenolol 25 mg twice daily. Patient is ambulatory without assistance. She is discharged to follow-up with cardiology. She is informed not to drive until cardiac workup has been completed. Hypomagnesemia Replaced as needed Hypertension Hyperlipidemia GERD Home medications continued Vital Signs/Physical Exam: Temp Pulse Resp BP Pulse Ox 97.4 F 72 16 109/51 L 97 06/29/23 04:00 06/29/23 08:34 06/29/23 04:00 06/29/23 08:34 06/29/23 04:00 General: Alert, In no apparent distress, Oriented x3 HEENT: Mucous membr. moist/pink Neck: Supple, JVD not distended Respiratory: Clear to auscultation bilaterally, Normal air movement Cardiovascular: No edema, Regular rate/rhythm, Normal S1 S2 Gastrointestinal: Soft and benign, Non-distended, No tenderness Musculoskeletal: No swelling Integumentary: No cyanosis Neurological: Normal strength at 5/5 x4 extr Laboratory Data at Discharge: WBC 5.40 thou/uL (4.3-10.9) 06/29/23 05:50 Hgb 9.6 g/dL (12.0-15.0) L 06/29/23 05:50 Hct 27.4 % (36.0-45.0) L 06/29/23 05:50 Plt Count 276 thou/uL (152-406) 06/29/23 05:50 PT 13.4 SECONDS (9.5-12.5) H 06/27/23 12:38 INR 1.23 06/27/23 12:38 Sodium 137 mEq/L (136-145) 06/29/23 05:50 Potassium 4.2 mEq/L (3.5-5.1) 06/29/23 05:50 BUN 9 mg/dL (7-18) 06/29/23 05:50 Creatinine 0.76 mg/dL (0.55-1.02) 06/29/23 05:50 Glucose 116 mg/dL (74-106) H 06/29/23 05:50 Magnesium 1.7 mg/dL (1.6-2.4) 06/29/23 05:50 Total Bilirubin 0.9 mg/dL (0.2-1.0) 06/27/23 12:38 AST 9 U/L (15-37) L 06/27/23 12:38 ALT 15 U/L (13-56) 06/27/23 12:38 Alkaline Phosphatase 76 U/L (45-117) 06/27/23 12:38 Home Medications: Aspirin 1 tab PO DAILY 06/27/23 Atenolol [Tenormin] 1 tab PO BID 06/27/23 Atorvastatin Calcium 1 tab PO DAILY 06/27/23 Cholecalciferol (Vitamin D3) [Vitamin D3] 1 tab PO DAILY 06/27/23 Citalopram [Celexa*] 1 tab PO DAILY 06/27/23 Magnesium Oxide [Magnesium] 1 tab PO DAILY 06/27/23 Pantoprazole Sodium 1 tab PO DAILY 06/27/23 Pnv Cmb#95/Ferrous Fumarate/FA [ Tablet] 1 tab PO DAILY 06/27/23 Potassium Chloride 1 tab PO DAILY 06/27/23 Thiamine HCl [Vitamin B-1] 1 tab PO DAILY 06/27/23 Hydrocodone 5/APAP 325 [[place] 5/325*] 1 tab PO Q6H PRN #20 tab 06/29/23 New Medications: Hydrocodone 5/APAP 325 [[place] 5/325*] 1 tab PO Q6H PRN #20 tab PRN Reason: Pain Scale 5-7 (Moderate) Physician Discharge Instructions: Please do not drive until you have seen the extrusion die 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 Diet: AHA Activity: Fall precautions Followup: Mehdi Joiner MD [ACTIVE - CAN ADMIT] - 1-2 Weeks (call to schedule an appointemnt) Renae Grullon FNP [Primary Care Provider] - 1-2 Weeks (call to schedule an appointment) Time spent managing pt's care (in minutes): 29
[2023-06-29 09:52] VITALS: O2SAT 96
[2023-06-29 10:23] VITALS: TEMP 97.3
== END 2023-06-29 11:25 | disposition home or self-care (01) ==
LOC: ER 13:04 → ERHOLD 16:28 → 4TH 16:50
PROVIDERS: ADMIT Hospitalist; ATTEND Internal Medicine
DX: S22.32XA Fracture of one rib, left side, initial encounter for closed fracture (principal); W19.XXXA Unspecified fall, initial encounter; Y93.9 Activity, unspecified; Y92.9 Unspecified place or not applicable; E83.42 Hypomagnesemia; I10 Essential (primary) hypertension; E78.5 Hyperlipidemia, unspecified; K21.9 Gastro-esophageal reflux disease without esophagitis; R07.89 Other chest pain; R00.0 Tachycardia, unspecified
CPT/HCPCS: 93005; 85025 ×3; 80048 ×3; 36415 ×2; 83735 ×3; 85610; 80076; 84443; 84484 ×3; 84439; 83880; 71045; 71100; 97116; 97161; 94010; 96375; 96374; 99285; J3475 ×2; J2270 ×2; J2405; J7030; G0378; J1650

== ENCOUNTER 2025-01-17 10:07 | Emergency (ER) | payer OTHER ==
--- OUTSIDE RECORDS SUMMARY | 2025-01-17 10:19 | XMS REPORT | Continuity of Care Document ---
Author Name Unknown Address [address] [facility] [address] [place] [address] Organization [facility] [place] Address [address] [facility] [address] [place] [address] Care Team Providers Care Financial Administrative Assistant Name Role Phone Shanique Wang MD Primary Care Physician + [phone] Renae Grullon Attending Clinician Unavail able PHUC TOTH Attending Clinician Unav ailPHUC Syed Attending Clinician Unav aillars Doctor Unassigned, [place] Attending Clinician U Phuc Barraza MD Attending Clinician + Shanique Wang MD Attending Clinician [phone] RADIOLOGY Attending Clinician Unavailable Sly Lechuga Attending Clinician +[phone] JANICE ANDINO Attending Clinician Unavailable SHANIQUE WANG Attending Clinician Unavailable SILVANO VALDOVINOS Attending Clinician Unavailable SILVANO VALDOVINOS Attending Clinician Unavailable Silvano Valdovinos MD Attending Clinician [phone] Janice Andino MD Attending Clinician +[phone] 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, [place]iss[place] Attending Clinician + [phone] Delano HEATH, [place] Attending Clinician [phone] Sina HEATH, Janice Attending Clinician [phone] Doctor Unassigned, [place] Attending Clinician U navailable 2, Adc Lab Attending Clinician Unavailable Carly CABRAL, Abigail Attending Clinician Unavailable MARTHA SANABRIA Attending Clinician Unavailable Sugar PAC, K Priscilla Attending Clinician + [phone] Daniele HEATH, Martha Attending Clinician +[phone] Radiology Attending Clinician Unavailable MATT MILLS Attending Clinician Unavail able MATT MILLS Attending Clinician Unavail able 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, [place] Attending Clinician + Nel SUPERVISOR DRYING [employer] WINDING, Sly Attending Clinician [phone] BETSEY, LISSETT Attending Clinician Unavailable SLY NEUMANN Attending Clinician Unavailable Lab, Ang - Db Attending Clinician Unavailable Team, [facility] Attending Clinicia n Unavailable Kirby GENERAL DUTY NURSE, Magdalene M Attending Clinician Raul Tracy MD, Xena Zhu Attending Clinician + [phone] Erinn CABRAL, Lucille Cabrales Attending Clinician Unavail able Lyudmila BARNESP, Marielausho F Attending Clinician [phone] Vicki Gillespie MD Attending Clinician [phone] XENA TRACY Attending Clinician UnavailFariha Smith MD Attending Clinician + [phone] FARIHA CALI Attending Clinician Raul Kearns RN, Elvis Zhu Attending Clinician Unavailab le Vaccine, Ang Db Cbc Fam Attending Clinician UnaCHINO Umana Attending Clinician Unavailable MAIKOL BILLY Attending Clinician Un available Elder HEATH, Maikol Attending Clinician JANICE ANDINO Admitting Clinician Unavailable MARTHA SANABRIA Admitting Clinician Unavailable Daniele HEATH, Martha Admitting Clinician [phone] Vicki Gillespie MD Admitting Clinician +[phone] VICKI GILLESPIE Admitting Clinician Unavailable MAIKOL BILLY Admitting Clinician Un available Maikol Billy MD Admitting Clinician Payers Payer Name Policy Type Policy Number Effective Date Expirati on Date Source [employer] MED[employer]ARE ADVANTAGE HMO/POS [id number] 2019 00:00:00 Problems Condition Name Condition Details Condition Category Status Onset Date Resolution Date Last Treatment Date Treating Clinician Comments Source At risk for falls At risk for falls Disease Active 09-13 00:00: 00 [facility] Unspecifie d abnormalit ies of gait and mobility Unspecifie d abnormalit ies of gait and mobility Disease Active 09-13 00:00: 00 [facility] Anxiety, generalize d Anxiety, generalize d Disease Active 09-13 00:00: 00 [facility] Cardiomyop athy, unspecifie d type Cardiomyop athy, unspecifie d type Disease Active -20 00:00: 00 [facility] Chronic heart failure with preserved ejection fraction Chronic heart failure with preserved ejection fraction Disease Active 2- 00:00: 00 [facility] Acute pulmonary edema Acute pulmonary edema Disease Active 2- 00:00: 00 [facility] PAF (paroxysma l atrial fibrillati on) PAF (paroxysma l atrial fibrillati on) Disease Active 2- 00:00: 00 [facility] Preop cardiovasc ular exam Preop cardiovasc ular exam Disease Active 2- 00:00: 00 [facility] Nausea and vomiting, unspecifie d vomiting type Nausea and vomiting, unspecifie d vomiting type Disease Active - 00:00: 00 [facility] Chest pain, unspecifie d type Chest pain, unspecifie d type Disease Active 5- 00:00: 00 [facility] Status post fall Status post fall Disease Active 2021-04- 00:00: 00 [facility] Acute left-sided low back pain, unspecifie d whether sciatica present Acute left-sided low back pain, unspecifie d whether sciatica present Disease Active 2021-04 00:00: 00 [facility] Flank pain Flank pain Disease Active 2021-04 00:00: 00 [facility] Hospital discharge follow-up Hospital discharge follow-up Disease Active 8- 00:00: 00 [facility] Hypomagnes emia Hypomagnes emia Disease Active 8 00:00: 00 [facility] Hematuria, unspecifie d type Hematuria, unspecifie d type Disease Active 8 00:00: 00 [facility] E46 Unspecifie d severe protein-ca shant malnutriti on E46 Unspecifie d severe protein-ca shant malnutriti on Disease Active 11-20 00:00: 00 [facility] Weight loss Weight loss Disease Active 11-18 00:00: 00 [facility] Diarrhea, unspecifie d type Diarrhea, unspecifie d type Disease Active 11-18 00:00: 00 [facility] Weight loss Weight loss Disease Active 11-18 00:00: 00 [facility] Non-intrac table vomiting with nausea, unspecifie d vomiting type Non-intrac table vomiting with nausea, unspecifie d vomiting type Disease Active 11-18 00:00: 00 [facility] Hyponatrem ia Hyponatrem ia Disease Active 11-18 00:00: 00 [facility] Mild anemia Mild anemia Disease Active 3-31 00:00: 00 [facility] Essential hypertensi on Essential hypertensi on Disease Active 2020-04 00:00: 00 [facility] Seasonal allergies Seasonal allergies Disease Active 2020-04 00:00: 00 [facility] Anxiety Anxiety Disease Active 2020-04 00:00: 00 [facility] Arthritis Arthritis Disease Active 2020-04 00:00: 00 [facility] Asthma Asthma Disease Active 2020-04 00:00: 00 [facility] Depression Depression Disease Active 2020-04 00:00: 00 [facility] Hyperchole sterolemia Hyperchole sterolemia Disease Active 2020-04 00:00: 00 [facility] GERD (gastroeso phageal reflux disease) GERD (gastroeso phageal reflux disease) Disease Active 2020-04 00:00: 00 [facility] Tachycardi a Tachycardi a Disease Active 2020-04 00:00: 00 [facility] Prediabete s Prediabete s Disease Active 2020-04 00:00: 00 [facility] 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 Disease Active 2020-04 00:00: 00 [facility] Moderately severe depression Moderately severe depression Disease Active 2020-04 00:00: 00 [facility] [id number] Sacroiliit is Problem [facility] Chronic pain syndrome Chronic pain syndrome Problem [facility] Arrhythmia Arrhythmia Disease Resolve d 2020-04 00:00: 00 2021-03-02 00:00:00 2021-03-02 14:06:07 [facility] Allergies, Adverse Reactions, Alerts Allergy Name Allergy Type Status Severity Reaction(s) Onset Date Inactive Date Treating Clinician Comments Source SERTRALI NE DRUG INGREDI Active Dizziness 05-17 00:00: 00 [facility] DOXEPIN DRUG INGREDI Active Dizziness 05-17 00:00: 00 [facility] Doxepin Propensi ty to adverse reaction s Active Dizziness 05-17 00:00: 00 [facility] Sertrali ne Propensi ty to adverse reaction s Active Dizziness 05-17 00:00: 00 [facility] CODEINE DRUG INGREDI Active N/V 2020-04 00:00: 00 [facility] DESFLURA NE DRUG INGREDI Active N/V 2020-04 00:00: [address] [facility] FENTANYL DRUG INGREDI Active Other-Cmnt 2020-04 00:00: [address] [facility] IODINE DRUG INGREDI Active Hives 2020-04 00:00: 00 [facility] PROPOFOL DRUG INGREDI Active N/V 2020-04 00:00: 00 [facility] SUCCINYL CHOLINE DRUG INGREDI Active Other-Cmnt 2020-04 00:00: [address] [facility] ONDANSET KENNA HCL DRUG INGREDI Active N/V 2020-04 00:00: 00 [facility] Codeine Propensi ty to adverse reaction s Active Nausea and/or Vomiting 2020-04 00:00: 00 [facility] Desflura ne Propensi ty to adverse reaction s Active Nausea and/or Vomiting 2020-04 00:00: 00 [facility] Fentanyl Propensi ty to adverse reaction s Active Other - See comments 2020-04 00:00: 00 Slow recovery [facility] Iodine Propensi ty to adverse reaction s Active Shortness of Breath 2020-04 00:00: 00 [facility] Propofol Propensi ty to adverse reaction s Active Nausea and/or Vomiting 2020-04 00:00: 00 [facility] Succinyl choline Propensi ty to adverse reaction s Active Other - See comments 2020-04 00:00: 00 Due to pseudocho linestera se deficienc y [facility] Ondanset kenna Hcl Propensi ty to adverse reaction s Active Nausea and/or Vomiting 2020-04 00:00: 00 [facility] codeine codeine Active Unknown [facility] doxepin doxepin Active Unknown [facility] 30 Drug allergy Active Unknown [facility] sertrali ne sertrali ne Active Unknown [facility] [id number] Drug allergy Active Unknown [facility] propofol propofol Active Unknown [facility] fentanyl fentanyl Active Unknown [facility] Family History Family Member Diagnosis Comments Start Date Stop Date Sourc e Natural father [facility] Natural father Hypert[facility] father Lung Cancer [facility] Natural father [facility] Natural mother All[facility]ies [facility] mother Breast [facility] Social History Social Habit Start Date Stop Date Quantity Comments Source History SDOH Alcohol Frequency [facility] History SDOH Alcohol Std Drinks [facility] History SDOH Alcohol Binge [facility] Gender identity [facility] Sexual orientation U [facility] ASSERTION Not [facility] Sex Assigned At [facility] History of Tobacco Use [facility] Alcoholic beverage intake 2024-09-14 00:00:00 2024-09-14 00:00:00 Ex-drinker (finding) [facility] History of Social function 2024-08-06 00:00:00 2024-08-06 00:00:00 [facility] Alcohol intake 2023-06-14 00:00:00 2023-06-14 00:00:00 Ex-drinker (finding) [facility] Exposure to SARS-CoV-2 (event) 2022-09-04 00:00:00 2022-09-14 11:13:[address] [facility] Tobacco Comment 2021-11-18 00:00:00 2021-11-18 00:00:00 smoked for less than [address] [facility] Tobacco use and exposure 2021-11-18 00:00:00 2021-11-18 00:00:00 Smokeless tobacco non-user [facility] Alcohol Comment 2021-03-02 00:00:00 2021-03-02 00:00:[address] [facility] Smoking Status Start Date Stop Date Source Ex-smoker 2021-11-18 00:00:00 2021-11-18 00:00:00 U [facility] Medications Ordered Medication Name Filled Medication Name Start Date Stop Date Current Medication? Ordering Clinician Indication Dosage Frequency Signature (SIG) Comments Components Source pantoprazol e 40 mg EC tablet 8-08 00:00: 00 Yes [id number] 40mg TAKE 1 TABLET BY MOUTH IN THE MORNING [facility] aspirin 81 mg tablet 09-13 15:03: 01 09-13 00:00 :00 No 81mg Take 1 tablet by mouth in the morning. [facility] carvediloL 25 mg tablet 09-13 15:02: 28 09-13 00:00 :00 No 25mg Take 1 tablet by mouth in the morning and 1 tablet in the evening. Take with meals. [facility] hydroxychlo roquine 200 mg tablet 09-13 14:31: 51 Yes 200mg Take 1 tablet by mouth in the morning. [facility] buPROPion XL 150 mg 24 hr tablet 09-13 14:23: 49 Yes 150mg Take 1 tablet by mouth in the morning and 1 tablet in the evening. [facility] amitriptyli ne 100 mg tablet 09-13 14:13: 27 Yes 100mg Take 1 tablet by mouth at bedtime. [facility] atorvastati n 40 mg tablet 09-13 00:00: 00 Yes [id number] 40mg Take 1 tablet by mouth in the morning. [facility] gabapentin 100 mg capsule 09-13 00:00: 00 Yes [id number] 100mg Take 1 capsule by mouth at bedtime. [facility] traZODone 50 mg tablet 09-13 00:00: 00 Yes [id number] 25mg Take 0.5-1 tablets by mouth at bedtime as needed for Insomnia. F/u and labs needed [facility] B complex-vit aranda C-folic acid tablet 09-13 00:00: 00 Yes [id number] 1{tbl} Take 1 tablet by mouth daily with breakfast. [facility] apixaban 5 mg tablet apixaban 5 mg tablet 08-14 00:00: 00 Yes [id number] 5mg Take 1 tablet by mouth in the morning and 1 tablet in the evening. Indication s: atrial fibrillati on [facility] atenoloL 25 mg tablet 4-14 00:00: 00 Yes [id number] 50mg Take 2 tablets by mouth in the morning and 2 tablets in the evening. [facility] apixaban 5 mg tablet 4-14 00:00: 00 08-14 00:00 :00 No [id number] 5mg Take 1 tablet by mouth in the morning and 1 tablet in the evening. Indication s: atrial fibrillati on [facility] PANTOPRAZOL E 40 mg EC tablet 9-16 00:00: 00 11-30 00:00 :00 No [id number] 40mg TAKE 1 TABLET BY MOUTH EVERY MORNING [facility] pantoprazol e 40 mg EC tablet 12-19 00:00: 00 01-08 00:00 :00 No [id number] 40mg Take 1 tablet by mouth every morning. MUST BE SEEN FOR FURTHER REFILLS [facility] Gabapentin 100 MG Gabapentin 100 MG 8- 00:00: 00 No 1{capsu le} QD Gabapentin 100 MG atenoloL 25 mg tablet 7-17 00:00: 00 08-06 00:00 :00 No [id number] 25mg Take 1 tablet by mouth in the morning and 1 tablet in the evening. [facility] pantoprazol e 40 mg EC tablet 5-16 00:00: 00 12-19 00:00 :00 No [id number] 40mg Take 1 tablet by mouth every morning. [facility] atenoloL 25 mg tablet 4-30 00:00: 00 11-08 00:00 :00 No [id number] 25mg Take 1 tablet by mouth in the morning and 1 tablet in the evening. [facility] sulfur hexafluorid e microsphr (LUMASON) injection 5 mL 06-08 16:15: 00 06-08 16:12 :00 No [id number] 5mL 5 mL, Intravenou s, ONCE, 1 dose, On Tue06/08/23 at 1015, Routine [facility] cholecalcif bronwyn, vitamin D3, (VITAMIN D3 ORAL) 05-26 12:59: 22 Yes 1{capsu le} Take 1 capsule by mouth daily. [facility] aspirin 81 mg EC tablet 05-26 12:59: 22 08-06 00:00 :00 No 81mg Take 1 tablet by mouth in the morning. [facility] atenoloL 25 mg tablet 05-26 00:00: 00 Yes [id number] 25mg Take 1 tablet by mouth in the morning and 1 tablet in the evening. [facility] furosemide 20 mg tablet 05-26 00:00: 00 07-12 00:00 :00 No [id number] 20mg Take 1 tablet by mouth in the morning. [facility] KCL 20 mEq tablet 05-26 00:00: 00 07-12 00:00 :00 No [id number] 20meq Take 1 tablet by mouth in the morning. [facility] thiamine 100 mg tablet 05-21 00:00: 00 Yes [id number] 100mg Take 1 tablet by mouth in the morning. [facility] foLIC acid 1 mg tablet 05-21 00:00: 00 09-13 00:00 :00 No [id number] 1mg Take 1 tablet by mouth in the morning. [facility] aspirin 81 mg EC tablet 05-20 15:25: 42 Yes 81mg Take 1 tablet by mouth in the morning. [facility] cholecalcif bronwyn, vitamin D3, (VITAMIN D3 ORAL) 05-20 15:25: 42 Yes 1{capsu le} Take 1 capsule by mouth daily. [facility] lisinopriL (PRINIVIL,Z ESTRIL) tablet 20 mg 05-20 15:00: 00 Yes 20mg 20 mg, Oral, DAILY, First dose on Tue05/20/23 at 0900, Until Discontinu ed [facility] atorvastati n (LIPITOR) tablet 40 mg 05-20 15:00: 00 Yes 40mg 40 mg, Oral, DAILY, First dose on Tue05/20/23 at 0900, Until Discontinu ed, Routine [facility] dextrometho rphan-guaif enesin (ROBITUSSIN DM) 10-100 mg/5 mL solution 5 mL 05-20 07:57: 20 Yes 5mL 5 mL, Oral, Q6HPRN, Starting on Tue05/20/23 at 0157, Until Discontinu ed, Routine, Cough [facility] cyclobenzap rine (FLEXERIL) tablet 5 mg 05-20 02:00: 00 Yes 5mg 5 mg, Oral, TID, First dose on Tue05/19/23 at 2000, Until Discontinu ed, Routine [facility] dextrometho rphan-guaif enesin 10-100 mg/5 mL solution 05-20 00:00: 00 09-13 00:00 :00 No [id number] 5mL Take 5 mL by mouth every 6 (six) hours as needed for Cough. [facility] it[facility] cephALEXin 500 mg tablet 05-20 00:00: 00 09-13 00:00 :00 No [id number] 500mg Take 1 tablet by mouth 4 (four) times daily. [facility] atenoloL (TENORMIN) tablet 25 mg 05-19 23:45: 00 Yes 25mg 25 mg, Oral, DAILY, First dose on Tue05/19/23 at 1745, Until Discontinu ed, Routine [facility] magnesium sulfate in water 2 gram/50 mL (4 %) infusion 2 g 05-18 23:45: 00 05-19 01:06 :00 No 2g 2 g, IV Piggyback, Administer over 60 Minutes, ONCE, 1 dose, On Tue05/18/23 at 1745, Routine [facility] cefTRIAXone (ROCEPHIN) 1,000 mg in NaCl 0.9% (NS) 100 mL MINI-BAG 05-18 20:30: 00 05-24 20:29 :00 No 1000mg 1,000 mg, IV Piggyback, Q24H ABX, 6 doses, First dose on Tue05/18/23 at 1430, Last dose on Tue05/23/23 at 1430, Administer over 30 Minutes, 100 mL
Reas on for Anti-Infec tive: Documented Infection< br>Documen suzette Infection Site: Urine
D uration of Therapy: 7 days [facility] magnesium sulfate in water 2 gram/50 mL (4 %) infusion 2 g 05-18 15:45: 00 05-18 17:20 :00 No 2g 2 g, IV Piggyback, Administer over 60 Minutes, ONCE, 1 dose, On Tue05/18/23 at 0945, [facility] 1 g 05-18 15:00: 00 Yes 1g 1 g, Oral, TID MEALS, First dose on Tue05/18/23 at 0900, Until Discontinu ed, Routine [facility] foLIC acid (FOLATE) tablet 1 mg 05-18 15:00: 00 Yes 1mg 1 mg, Oral, DAILY, First dose on Tue05/18/23 at 0900, Until Discontinu ed, Routine [facility] thiamine (VITAMIN B1) tablet 100 mg 05-18 15:00: 00 Yes 100mg 100 mg, Oral, DAILY, First dose on Tue05/18/23 at 0900, Until Discontinu ed, Routine [facility] pantoprazol e (PROTONIX) EC tablet 40 mg 05-18 15:00: 00 Yes 40mg 40 mg, Oral, QAM, First dose on Tue05/18/23 at 0900, Until Discontinu ed, Routine [facility] aspirin EC tablet 81 mg 05-18 15:00: 00 Yes 81mg 81 mg, Oral, DAILY, First dose on Tue05/18/23 at 0900, Until Discontinu ed, Routine [facility] albumin (PLASBUMIN) 25 % injection 25 g 05-18 04:30: 00 05-18 04:55 :00 No 25g 25 g, IV Infusion, ONCE, 1 dose, On Tue05/17/23 at 2230, 100 mL
Erlinda cation: HEPATORENA L SYNDROME (TREATMENT )
Comme nts: 1. Albumin + octreotide and midodrine< br>Comment s: 2. Albumin + norepineph rine for patients in the ICU [facility] enoxaparin (LOVENOX) injection 40 mg 05-17 23:00: 00 Yes 40mg 40 mg, Subcutaneo us, DAILY, First dose on Tue05/17/23 at 1700, Until Discontinu ed, Routine [facility] oxazepam (SERAX) capsule 15 mg 05-17 22:58: 52 Yes 15mg 15 mg, Oral, Q4HPRN, Starting on Tue05/17/23 at 1658, Until Discontinu ed, Routine, Only while awake for DBP equal to or greater than 100, HR equal to or greater than 100. [facility] magnesium sulfate in water 2 gram/50 mL (4 %) infusion 2 g 05-17 22:15: 00 05-17 23:12 :00 No 2g 2 g, IV Piggyback, Administer over 60 Minutes, ONCE, 1 dose, On Tue05/17/23 at 1615, STAT [facility] proMETHazin e (PHENERGAN) 25 mg in NS 50 mL IV piggyback (CNR) 05-17 21:47: 22 Yes 25mg 25 mg, IV Piggyback, at 200 mL/hr Administer over 15 Minutes, Q6HPRN, Starting on Tue05/17/23 at 1547, Until Discontinu ed, Routine, Nausea and Vomiting (N/V) [facility] lactated ringers IV infusion 1,000 mL 05-17 21:30: 00 Yes 1000mL at 150 mL/hr, 1,000 mL, IV Infusion, CONTINUOUS , Starting on Tue05/17/23 at 1530, Until Discontinu ed, Routine [facility] acetaminoph en (TYLENOL) tablet 650 mg 05-17 21:22: 59 Yes 650mg 650 mg, Oral, Q6HPRN, Starting on Tue05/17/23 at 1522, Until Discontinu ed, Routine, Pain (scale 1-3), Temp > 38 C [facility] traZODone (DESYREL) tablet 50 mg 05-17 21:21: 05 Yes 50mg 50 mg, Oral, QHSPRN, Starting on Tue05/17/23 at 1521, Until Discontinu ed, Routine, Insomnia [facility] cefTRIAXone (ROCEPHIN) 1,000 mg in NaCl 0.9% (NS) 100 mL MINI-BAG 05-17 19:45: 00 05-17 20:58 :00 No 1000mg 1,000 mg, IV Piggyback, ONCE, 1 dose, On Tue05/17/23 at 1345, Administer over 30 Minutes, 100 mL
Reas on for Anti-Infec tive: Documented Infection< br>Documen suzette Infection Site: Urine
D uration of Therapy: Other (see Comments) [facility] NaCl 0.9% (NS) bolus infusion 500 mL 05-17 19:15: 00 05-17 20:02 :00 No 500mL at 999 mL/hr, 500 mL, IV Infusion, ONCE, 1 dose, On Tue05/17/23 at 1315, STAT [facility] atorvastati n 40 mg tablet 28 00:00: 00 09-13 00:00 :00 No [id number] 40mg Take 1 tablet by mouth in the morning. [facility] traZODone 50 mg tablet 24 00:00: 00 09-13 00:00 :00 No [id number] 25mg Take 0.5-1 tablets by mouth at bedtime as needed for Insomnia. F/u and labs needed [facility] atenoloL 25 mg tablet 8-14 00:00: 00 05-26 00:00 :00 No [id number] 25mg Take 1 tablet by mouth in the morning. [facility] atorvastati n 40 mg tablet 10-08 00:00: 00 12-20 00:00 :00 No [id number] 40mg Take 1 tablet by mouth in the morning. [facility] atorvastati n 40 mg tablet 09-14 00:00: 00 10-08 00:00 :00 No [id number] 40mg Take 1 tablet by mouth in the morning. [facility] diclofenac 50 mg tablet 08-25 00:00: 00 Yes [id number] 50mg Take 1 tablet by mouth 3 (three) times daily as needed for Pain (scale 4-6). [facility] tiZANidine 2 mg tablet 08-25 00:00: 00 09-13 00:00 :00 No [id number] 2mg Take 1 tablet by mouth every 6 (six) hours as needed for Pain (scale 4-6). [facility] aspirin 81 mg EC tablet 08-24 10:52: 58 Yes 81mg Take 1 tablet by mouth in the morning. [facility] cholecalcif bronwyn, vitamin D3, (VITAMIN D3 ORAL) 08-24 10:52: 58 Yes 1{capsu le} Take 1 capsule by mouth daily. [facility] cyclobenzap rine 5 mg tablet 08-24 00:00: 00 09-13 00:00 :00 No [id number] 5mg Take 1 tablet by mouth in the morning and 1 tablet at noon and 1 tablet in the evening. [facility] hydrOXYzine 25 mg tablet 08-24 00:00: 00 10-24 04:59 :00 No [id number] 25mg Take 1 tablet by mouth every 6 (six) hours as needed for Itching or Anxiety for up to 60 days. [facility] traZODone 50 mg tablet 07-30 00:00: 00 12-15 00:00 :00 No [id number] 25mg Take 0.5-1 tablets by mouth at bedtime as needed for Insomnia. [facility] molnupiravi r 200 mg capsule 06-24 00:00: 00 09-13 00:00 :00 No [id number] 800mg Take 4 capsules by mouth every 12 (twelve) hours. [facility] PANTOPRAZOL E 40 mg EC tablet 06-07 00:00: 00 Yes [id number] TAKE 1 TABLET BY MOUTH IN THE MORNING [facility] cyclobenzap rine 5 mg tablet 2021-04 00:00: 00 08-24 00:00 :00 No [id number] 5mg Take 1 tablet by mouth in the morning and 1 tablet at noon and 1 tablet in the evening. [facility] ibuprofen 600 mg tablet 2021-04 00:00: 00 05-06 05:59 :00 No [id number] 600mg Take 1 tablet by mouth every 6 (six) hours as needed for Temp > 38.5 C for up to 14 days. [facility] pantoprazol e 40 mg EC tablet 2021-04 00:00: 00 06-07 00:00 :00 No [id number] 40mg Take 1 tablet by mouth every morning. [facility] atorvastati n 40 mg tablet 2021-04 00:00: 00 09-14 00:00 :00 No [id number] 40mg Take 1 tablet by mouth in the morning. [facility] atenoloL 25 mg tablet 12-29 00:00: 00 12-06 00:00 :00 No [id number] 25mg Take 1 tablet by mouth in the morning. [facility] busPIRone 10 mg tablet 12-29 00:00: 00 04-21 00:00 :00 No [id number] 10mg Take 1 tablet by mouth 2 (two) times daily as needed (anxiety). [facility] aspirin 81 mg EC tablet 11-20 16:55: 00 Yes 81mg Take 1 tablet by mouth in the morning. [facility] cholecalcif bronwyn, vitamin D3, (VITAMIN D3 ORAL) 11-20 16:55: 00 Yes 1{capsu le} Take 1 capsule by mouth daily. [facility] PANTOPRAZOL E 40 mg EC tablet 11-18 00:00: 00 04-05 00:00 :00 No [id number] TAKE 1 TABLET BY MOUTH IN THE MORNING [facility] traZODone 50 mg tablet 11-09 00:00: 00 07-30 00:00 :00 No [id number] 25mg Take 0.5-1 tablets by mouth at bedtime as needed for Insomnia. [facility] enalapril 20 mg tablet 2020-04 00:00: 00 07-12 00:00 :00 No 10mg Take 0.5 tablets by mouth in the morning. [facility] atorvastati n 40 mg tablet 2020-04 00:00: 00 02-05 00:00 :00 No 40mg Take 1 tablet by mouth daily. [facility] Citalopram Hydrobromid e 10 MG Citalopram Hydrobromid e 10 MG No Citalopram Hydrobromi de 10 MG traMADol HCl 50 MG traMADol HCl 50 MG No traMADol HCl 50 MG Amitriptyli ne HCl 25 MG Amitriptyli ne HCl 25 MG No Amitriptyl ine HCl 25 MG Immunizations Ordered Immunization Name Filled Immunization Name Date Status Comments Source SARS-COV-2 COVID-19 PFIZER VACCINE 2024-01-09 00:00:[address] [facility] Influenza Virus Vaccine,quad Im,preserve Free 65+ (FLUAD) 2024-01-09 00:00:[address] [facility] Pneumococcal Polysaccharide, PPSV23 (PNEUMOVAX) 2024-01-09 00:00:[address] [facility] Zoster Vaccine Recombinant 2024-01-09 00:00:[address] [facility] Influenza High Dose 2024-01-09 00:00:[address] [facility] SARS-COV-2 COVID-19 PFIZER VACCINE 2023-09-20 13:48:[address] [facility] Influenza Virus Vaccine,quad Im,preserve Free 65+ (FLUAD) 2023-09-20 13:48:[address] [facility] Pneumococcal Polysaccharide, PPSV23 (PNEUMOVAX) 2023-09-20 13:48:[address] [facility] Zoster Vaccine Recombinant 2023-09-20 13:48:[address] [facility] Influenza High Dose 2023-09-20 13:48:[address] [facility] Influenza Virus Vaccine,quad Im,preserve Free 65+ (FLUAD) 2023-08-23 00:00:[address] [facility] Pneumococcal Polysaccharide, PPSV23 (PNEUMOVAX) 2023-08-23 00:00:[address] [facility] Zoster Vaccine Recombinant 2023-08-23 00:00:[address] [facility] Influenza High Dose 2023-08-23 00:00:[address] [facility] SARS-COV-2 COVID-19 PFIZER VACCINE 2023-08-23 00:00:[address] [facility] SARS-COV-2 COVID-19 PFIZER VACCINE 2023-07-18 00:00:[address] [facility] Influenza Virus Vaccine,quad Im,preserve Free 65+ (FLUAD) 2023-07-18 00:00:[address] [facility] Pneumococcal Polysaccharide, PPSV23 (PNEUMOVAX) 2023-07-18 00:00:[address] [facility] Zoster Vaccine Recombinant 2023-07-18 00:00:[address] [facility] Influenza High Dose 2023-07-18 00:00:[address] [facility] Influenza Virus Vaccine,quad Im,preserve Free 65+ (FLUAD) 2023-07-13 13:40:[address] [facility] Pneumococcal Polysaccharide, PPSV23 (PNEUMOVAX) 2023-07-13 13:40:[address] [facility] Influenza High Dose 2023-07-13 13:40:[address] [facility] SARS-COV-2 COVID-19 PFIZER VACCINE 2023-07-13 13:40:[address] [facility] Zoster Vaccine Recombinant 2023-07-13 13:40:[address] [facility] SARS-COV-2 COVID-19 PFIZER VACCINE 2023-07-13 00:00:[address] [facility] Influenza Virus Vaccine,quad Im,preserve Free 65+ (FLUAD) 2023-07-13 00:00:[address] [facility] Pneumococcal Polysaccharide, PPSV23 (PNEUMOVAX) 2023-07-13 00:00:[address] [facility] Zoster Vaccine Recombinant 2023-07-13 00:00:[address] [facility] Influenza High Dose 2023-07-13 00:00:[address] [facility] SARS-COV-2 COVID-19 PFIZER VACCINE 2023-07-13 00:00:[address] [facility] Influenza Virus Vaccine,quad Im,preserve Free 65+ (FLUAD) 2023-07-13 00:00:[address] [facility] Pneumococcal Polysaccharide, PPSV23 (PNEUMOVAX) 2023-07-13 00:00:[address] [facility] Zoster Vaccine Recombinant 2023-07-13 00:00:[address] [facility] Influenza High Dose 2023-07-13 00:00:[address] [facility] SARS-COV-2 COVID-19 PFIZER VACCINE 2023-06-24 00:00:[address] [facility] Influenza Virus Vaccine,quad Im,preserve Free 65+ (FLUAD) 2023-06-24 00:00:[address] [facility] Pneumococcal Polysaccharide, PPSV23 (PNEUMOVAX) 2023-06-24 00:00:[address] [facility] Zoster Vaccine Recombinant 2023-06-24 00:00:[address] [facility] Influenza High Dose 2023-06-24 00:00:[address] [facility] Influenza Virus Vaccine,quad Im,preserve Free 65+ (FLUAD) 2023-06-21 00:00:[address] [facility] Pneumococcal Polysaccharide, PPSV23 (PNEUMOVAX) 2023-06-21 00:00:[address] [facility] Influenza High Dose 2023-06-21 00:00:[address] [facility] SARS-COV-2 COVID-19 PFIZER VACCINE 2023-06-21 00:00:[address] [facility] Zoster Vaccine Recombinant 2023-06-21 00:00:[address] [facility] SARS-COV-2 COVID-19 PFIZER VACCINE 2023-06-21 00:00:[address] [facility] Influenza Virus Vaccine,quad Im,preserve Free 65+ (FLUAD) 2023-06-21 00:00:[address] [facility] Pneumococcal Polysaccharide, PPSV23 (PNEUMOVAX) 2023-06-21 00:00:[address] [facility] Zoster Vaccine Recombinant 2023-06-21 00:00:[address] [facility] Influenza High Dose 2023-06-21 00:00:[address] [facility] SARS-COV-2 COVID-19 PFIZER VACCINE 2023-06-14 14:15:[address] [facility] Influenza Virus Vaccine,quad Im,preserve Free 65+ (FLUAD) 2023-06-14 14:15:[address] [facility] Pneumococcal Polysaccharide, PPSV23 (PNEUMOVAX) 2023-06-14 14:15:[address] [facility] Zoster Vaccine Recombinant 2023-06-14 14:15:[address] [facility] Influenza High Dose 2023-06-14 14:15:[address] [facility] Influenza Virus Vaccine,quad Im,preserve Free 65+ (FLUAD) 2023-06-14 13:40:[address] [facility] Pneumococcal Polysaccharide, PPSV23 (PNEUMOVAX) 2023-06-14 13:40:[address] [facility] Influenza High Dose 2023-06-14 13:40:[address] [facility] SARS-COV-2 COVID-19 PFIZER VACCINE 2023-06-14 13:40:[address] [facility] Zoster Vaccine Recombinant 2023-06-14 13:40:[address] [facility] SARS-COV-2 COVID-19 PFIZER VACCINE 2023-06-14 00:00:[address] [facility] Influenza Virus Vaccine,quad Im,preserve Free 65+ (FLUAD) 2023-06-14 00:00:[address] [facility] Pneumococcal Polysaccharide, PPSV23 (PNEUMOVAX) 2023-06-14 00:00:[address] [facility] Zoster Vaccine Recombinant 2023-06-14 00:00:[address] [facility] Influenza High Dose 2023-06-14 00:00:[address] [facility] SARS-COV-2 COVID-19 PFIZER VACCINE 2023-06-08 09:36:[address] [facility] Influenza Virus Vaccine,quad Im,preserve Free 65+ (FLUAD) 2023-06-08 09:36:[address] [facility] Pneumococcal Polysaccharide, PPSV23 (PNEUMOVAX) 2023-06-08 09:36:[address] [facility] Zoster Vaccine Recombinant 2023-06-08 09:36:[address] [facility] Influenza High Dose 2023-06-08 09:36:[address] [facility] SARS-COV-2 COVID-19 PFIZER VACCINE 2023-06-08 08:30:[address] [facility] Influenza Virus Vaccine,quad Im,preserve Free 65+ (FLUAD) 2023-06-08 08:30:[address] [facility] Pneumococcal Polysaccharide, PPSV23 (PNEUMOVAX) 2023-06-08 08:30:[address] [facility] Zoster Vaccine Recombinant 2023-06-08 08:30:[address] [facility] Influenza High Dose 2023-06-08 08:30:[address] [facility] SARS-COV-2 COVID-19 PFIZER VACCINE 2023-05-26 13:00:[address] [facility] Influenza Virus Vaccine,quad Im,preserve Free 65+ (FLUAD) 2023-05-26 13:00:[address] [facility] Pneumococcal Polysaccharide, PPSV23 (PNEUMOVAX) 2023-05-26 13:00:[address] [facility] Zoster Vaccine Recombinant 2023-05-26 13:00:[address] [facility] Influenza High Dose 2023-05-26 13:00:[address] [facility] SARS-COV-2 COVID-19 PFIZER VACCINE 2023-05-26 00:00:[address] [facility] Influenza Virus Vaccine,quad Im,preserve Free 65+ (FLUAD) 2023-05-26 00:00:[address] [facility] Pneumococcal Polysaccharide, PPSV23 (PNEUMOVAX) 2023-05-26 00:00:[address] [facility] Zoster Vaccine Recombinant 2023-05-26 00:00:[address] [facility] Influenza High Dose 2023-05-26 00:00:[address] [facility] SARS-COV-2 COVID-19 PFIZER VACCINE 2023-05-23 00:00:[address] [facility] Influenza Virus Vaccine,quad Im,preserve Free 65+ (FLUAD) 2023-05-23 00:00:[address] [facility] Pneumococcal Polysaccharide, PPSV23 (PNEUMOVAX) 2023-05-23 00:00:[address] [facility] Zoster Vaccine Recombinant 2023-05-23 00:00:[address] [facility] Influenza High Dose 2023-05-23 00:00:[address] [facility] SARS-COV-2 COVID-19 PFIZER VACCINE 2023-05-17 11:05:[address] [facility] Influenza Virus Vaccine,quad Im,preserve Free 65+ (FLUAD) 2023-05-17 11:05:[address] [facility] Pneumococcal Polysaccharide, PPSV23 (PNEUMOVAX) 2023-05-17 11:05:[address] [facility] Zoster Vaccine Recombinant 2023-05-17 11:05:[address] [facility] Influenza High Dose 2023-05-17 11:05:[address] [facility] SARS-COV-2 COVID-19 PFIZER VACCINE 2023-05-06 14:32:[address] [facility] Influenza Virus Vaccine,quad Im,preserve Free 65+ (FLUAD) 2023-05-06 14:32:[address] [facility] Pneumococcal Polysaccharide, PPSV23 (PNEUMOVAX) 2023-05-06 14:32:[address] [facility] Zoster Vaccine Recombinant 2023-05-06 14:32:[address] [facility] Influenza High Dose 2023-05-06 14:32:[address] [facility] SARS-COV-2 COVID-19 PFIZER VACCINE 2023-05-06 14:32:[address] [facility] Influenza Virus Vaccine,quad Im,preserve Free 65+ (FLUAD) 2023-05-06 14:32:[address] [facility] Pneumococcal Polysaccharide, PPSV23 (PNEUMOVAX) 2023-05-06 14:32:[address] [facility] Zoster Vaccine Recombinant 2023-05-06 14:32:[address] [facility] Influenza High Dose 2023-05-06 14:32:[address] [facility] SARS-COV-2 COVID-19 PFIZER VACCINE 2023-05-06 00:00:[address] [facility] Influenza Virus Vaccine,quad Im,preserve Free 65+ (FLUAD) 2023-05-06 00:00:[address] [facility] Pneumococcal Polysaccharide, PPSV23 (PNEUMOVAX) 2023-05-06 00:00:[address] [facility] Zoster Vaccine Recombinant 2023-05-06 00:00:[address] [facility] Influenza High Dose 2023-05-06 00:00:[address] [facility] SARS-COV-2 COVID-19 PFIZER VACCINE 2023-04-06 00:00:[address] [facility] Influenza Virus Vaccine,quad Im,preserve Free 65+ (FLUAD) 2023-04-06 00:00:[address] [facility] Pneumococcal Polysaccharide, PPSV23 (PNEUMOVAX) 2023-04-06 00:00:[address] [facility] Zoster Vaccine Recombinant 2023-04-06 00:00:[address] [facility] Influenza High Dose 2023-04-06 00:00:[address] [facility] SARS-COV-2 COVID-19 PFIZER VACCINE 2023-04-06 00:00:[address] [facility] Influenza Virus Vaccine,quad Im,preserve Free 65+ (FLUAD) 2023-04-06 00:00:[address] [facility] Pneumococcal Polysaccharide, PPSV23 (PNEUMOVAX) 2023-04-06 00:00:[address] [facility] Zoster Vaccine Recombinant 2023-04-06 00:00:[address] [facility] Influenza High Dose 2023-04-06 00:00:[address] [facility] SARS-COV-2 COVID-19 PFIZER VACCINE 2023-02-10 00:00:[address] [facility] Influenza Virus Vaccine,quad Im,preserve Free 65+ (FLUAD) 2023-02-10 00:00:[address] [facility] Pneumococcal Polysaccharide, PPSV23 (PNEUMOVAX) 2023-02-10 00:00:[address] [facility] Zoster Vaccine Recombinant 2023-02-10 00:00:[address] [facility] Influenza High Dose 2023-02-10 00:00:[address] [facility] SARS-COV-2 COVID-19 PFIZER VACCINE 2023-02-02 00:00:[address] [facility] Influenza Virus Vaccine,quad Im,preserve Free 65+ (FLUAD) 2023-02-02 00:00:[address] [facility] Pneumococcal Polysaccharide, PPSV23 (PNEUMOVAX) 2023-02-02 00:00:[address] [facility] Zoster Vaccine Recombinant 2023-02-02 00:00:[address] [facility] Influenza High Dose 2023-02-02 00:00:[address] [facility] SARS-COV-2 COVID-19 PFIZER VACCINE 2022-03-12 00:00:[address] [facility] Influenza Virus Vaccine,quad Im,preserve Free 65+ (FLUAD) 2022-03-12 00:00:[address] [facility] Pneumococcal Polysaccharide, PPSV23 (PNEUMOVAX) 2022-03-12 00:00:[address] [facility] Zoster Vaccine Recombinant 2022-03-12 00:00:[address] [facility] Influenza High Dose 2022-03-12 00:00:[address] [facility] Influenza High Dose 2021-12-22 00:00:[address] [facility] Influenza High Dose 2021-12-22 00:00:[address] [facility] Influenza High Dose 2021-12-22 00:00:[address] [facility] Influenza High Dose 2021-12-22 00:00:[address] [facility] Influenza High Dose 2021-12-22 00:00:[address] [facility] Influenza High Dose 2021-12-22 00:00:[address] [facility] Influenza High Dose 2021-12-22 00:00:[address] [facility] Influenza High Dose 2021-12-22 00:00:[address] [facility] Influenza High Dose 2021-12-22 00:00:[address] [facility] Influenza High Dose 2021-12-22 00:00:[address] [facility] Influenza High Dose 2021-12-22 00:00:[address] [facility] Influenza High Dose 2021-12-22 00:00:[address] [facility] Influenza High Dose 2021-12-22 00:00:00 Completed [facility] Influenza High Dose 2021-12-22 00:00:00 Completed [facility] Influenza High Dose 2021-12-22 00:00:[address] [facility] Influenza High Dose 2021-12-22 00:00:00 Completed [facility] Influenza High Dose 2021-12-22 00:00:[address] [facility] Influenza High Dose 2021-12-22 00:00:[address] [facility] Influenza High Dose 2021-12-22 00:00:[address] [facility] Influenza High Dose 2021-12-22 00:00:[address] [facility] Influenza High Dose 2021-12-22 00:00:[address] [facility] Influenza High Dose 2021-12-22 00:00:[address] [facility] Influenza High Dose 2021-12-22 00:00:[address] [facility] Influenza High Dose 2021-12-22 00:00:[address] [facility] Influenza High Dose 2021-12-22 00:00:[address] [facility] Influenza High Dose 2021-12-22 00:00:[address] [facility] Influenza High Dose 2021-12-22 00:00:[address] [facility] Influenza High Dose 2021-12-22 00:00:[address] [facility] Influenza High Dose 2021-12-22 00:00:[address] [facility] Influenza High Dose 2021-12-22 00:00:[address] [facility] Influenza High Dose 2021-12-22 00:00:[address] [facility] Influenza High Dose 2021-12-22 00:00:[address] [facility] Influenza High Dose 2021-12-22 00:00:[address] [facility] Influenza High Dose 2021-12-22 00:00:[address] [facility] Influenza High Dose 2021-12-22 00:00:[address] [facility] Influenza High Dose 2021-12-22 00:00:[address] [facility] Influenza High Dose 2021-12-22 00:00:[address] [facility] Influenza High Dose 2021-12-22 00:00:[address] [facility] Influenza High Dose 2021-12-22 00:00:[address] [facility] Influenza High Dose 2021-12-22 00:00:[address] [facility] Influenza High Dose 2021-12-22 00:00:[address] [facility] SARS-COV-2 COVID-19 PFIZER VACCINE 2021-11-13 00:00:[address] [facility] SARS-COV-2 COVID-19 PFIZER VACCINE 2021-11-13 00:00:[address] [facility] SARS-COV-2 COVID-19 PFIZER VACCINE 2021-11-13 00:00:[address] [facility] SARS-COV-2 COVID-19 PFIZER VACCINE 2021-11-13 00:00:[address] [facility] SARS-COV-2 COVID-19 PFIZER VACCINE 2021-11-13 00:00:[address] [facility] SARS-COV-2 COVID-19 PFIZER VACCINE 2021-11-13 00:00:[address] [facility] SARS-COV-2 COVID-19 PFIZER VACCINE 2021-11-13 00:00:[address] [facility] SARS-COV-2 COVID-19 PFIZER VACCINE 2021-11-13 00:00:[address] [facility] SARS-COV-2 COVID-19 PFIZER VACCINE 2021-11-13 00:00:[address] [facility] SARS-COV-2 COVID-19 PFIZER VACCINE 2021-11-13 00:00:[address] [facility] SARS-COV-2 COVID-19 PFIZER VACCINE 2021-11-13 00:00:[address] [facility] SARS-COV-2 COVID-19 PFIZER VACCINE 2021-11-13 00:00:[address] [facility] SARS-COV-2 COVID-19 PFIZER VACCINE 2021-11-13 00:00:[address] [facility] SARS-COV-2 COVID-19 PFIZER VACCINE 2021-11-13 00:00:[address] [facility] SARS-COV-2 COVID-19 PFIZER VACCINE 2021-11-13 00:00:[address] [facility] SARS-COV-2 COVID-19 PFIZER VACCINE 2021-11-13 00:00:[address] [facility] SARS-COV-2 COVID-19 PFIZER VACCINE 2021-11-13 00:00:[address] [facility] SARS-COV-2 COVID-19 PFIZER VACCINE 2021-11-13 00:00:[address] [facility] SARS-COV-2 COVID-19 PFIZER VACCINE 2021-11-13 00:00:[address] [facility] SARS-COV-2 COVID-19 PFIZER VACCINE 2021-11-13 00:00:[address] [facility] SARS-COV-2 COVID-19 PFIZER VACCINE 2021-11-13 00:00:[address] [facility] SARS-COV-2 COVID-19 PFIZER VACCINE 2021-11-13 00:00:[address] [facility] SARS-COV-2 COVID-19 PFIZER VACCINE 2021-11-13 00:00:[address] [facility] SARS-COV-2 COVID-19 PFIZER VACCINE 2021-11-13 00:00:[address] [facility] SARS-COV-2 COVID-19 PFIZER VACCINE 2021-11-13 00:00:[address] [facility] SARS-COV-2 COVID-19 PFIZER VACCINE 2021-11-13 00:00:[address] [facility] SARS-COV-2 COVID-19 PFIZER VACCINE 2021-11-13 00:00:[address] [facility] SARS-COV-2 COVID-19 PFIZER VACCINE 2021-11-13 00:00:[address] [facility] SARS-COV-2 COVID-19 PFIZER VACCINE 2021-11-13 00:00:[address] [facility] SARS-COV-2 COVID-19 PFIZER VACCINE 2021-11-13 00:00:[address] [facility] SARS-COV-2 COVID-19 PFIZER VACCINE 2021-11-13 00:00:[address] [facility] SARS-COV-2 COVID-19 PFIZER VACCINE 2021-11-13 00:00:[address] [facility] SARS-COV-2 COVID-19 PFIZER VACCINE 2021-11-13 00:00:[address] [facility] SARS-COV-2 COVID-19 PFIZER VACCINE 2021-11-13 00:00:[address] [facility] SARS-COV-2 COVID-19 PFIZER VACCINE 2021-11-13 00:00:[address] [facility] SARS-COV-2 COVID-19 PFIZER VACCINE 2021-11-13 00:00:[address] [facility] SARS-COV-2 COVID-19 PFIZER VACCINE 2021-11-13 00:00:[address] [facility] SARS-COV-2 COVID-19 PFIZER VACCINE 2021-11-13 00:00:[address] [facility] SARS-COV-2 COVID-19 PFIZER VACCINE 2021-11-13 00:00:[address] [facility] SARS-COV-2 COVID-19 PFIZER VACCINE 2021-11-13 00:00:[address] [facility] SARS-COV-2 COVID-19 PFIZER VACCINE 2021-11-13 00:00:[address] [facility] SARS-COV-2 COVID-19 PFIZER VACCINE 2021-11-13 00:00:00 Completed SARS-COV-2 COVID-19 PFIZER VACCINE 2021-04-28 00:00:[address] [facility] SARS-COV-2 COVID-19 PFIZER VACCINE 2021-04-28 00:00:[address] [facility] SARS-COV-2 COVID-19 PFIZER VACCINE 2021-04-28 00:00:[address] [facility] SARS-COV-2 COVID-19 PFIZER VACCINE 2021-04-28 00:00:[address] [facility] SARS-COV-2 COVID-19 PFIZER VACCINE 2021-04-28 00:00:[address] [facility] SARS-COV-2 COVID-19 PFIZER VACCINE 2021-04-28 00:00:[address] [facility] SARS-COV-2 COVID-19 PFIZER VACCINE 2021-04-28 00:00:[address] [facility] SARS-COV-2 COVID-19 PFIZER VACCINE 2021-04-28 00:00:00 Completed [facility] SARS-COV-2 COVID-19 PFIZER VACCINE 2021-04-28 00:00:[address] [facility] SARS-COV-2 COVID-19 PFIZER VACCINE 2021-04-28 00:00:[address] [facility] SARS-COV-2 COVID-19 PFIZER VACCINE 2021-04-28 00:00:[address] [facility] SARS-COV-2 COVID-19 PFIZER VACCINE 2021-04-28 00:00:[address] [facility] SARS-COV-2 COVID-19 PFIZER VACCINE 2021-04-28 00:00:[address] [facility] SARS-COV-2 COVID-19 PFIZER VACCINE 2021-04-28 00:00:[address] [facility] SARS-COV-2 COVID-19 PFIZER VACCINE 2021-04-28 00:00:[address] [facility] SARS-COV-2 COVID-19 PFIZER VACCINE 2021-04-28 00:00:[address] [facility] SARS-COV-2 COVID-19 PFIZER VACCINE 2021-04-28 00:00:[address] [facility] SARS-COV-2 COVID-19 PFIZER VACCINE 2021-04-28 00:00:[address] [facility] SARS-COV-2 COVID-19 PFIZER VACCINE 2021-04-28 00:00:[address] [facility] SARS-COV-2 COVID-19 PFIZER VACCINE 2021-04-28 00:00:[address] [facility] SARS-COV-2 COVID-19 PFIZER VACCINE 2021-04-28 00:00:[address] [facility] SARS-COV-2 COVID-19 PFIZER VACCINE 2021-04-28 00:00:[address] [facility] SARS-COV-2 COVID-19 PFIZER VACCINE 2021-04-28 00:00:[address] [facility] SARS-COV-2 COVID-19 PFIZER VACCINE 2021-04-28 00:00:[address] [facility] SARS-COV-2 COVID-19 PFIZER VACCINE 2021-04-28 00:00:[address] [facility] SARS-COV-2 COVID-19 PFIZER VACCINE 2021-04-28 00:00:[address] [facility] SARS-COV-2 COVID-19 PFIZER VACCINE 2021-04-28 00:00:[address] [facility] SARS-COV-2 COVID-19 PFIZER VACCINE 2021-04-28 00:00:[address] [facility] SARS-COV-2 COVID-19 PFIZER VACCINE 2021-04-28 00:00:[address] [facility] SARS-COV-2 COVID-19 PFIZER VACCINE 2021-04-28 00:00:[address] [facility] SARS-COV-2 COVID-19 PFIZER VACCINE 2021-04-28 00:00:[address] [facility] SARS-COV-2 COVID-19 PFIZER VACCINE 2021-04-28 00:00:[address] [facility] SARS-COV-2 COVID-19 PFIZER VACCINE 2021-04-28 00:00:[address] [facility] SARS-COV-2 COVID-19 PFIZER VACCINE 2021-04-28 00:00:[address] [facility] SARS-COV-2 COVID-19 PFIZER VACCINE 2021-04-28 00:00:[address] [facility] SARS-COV-2 COVID-19 PFIZER VACCINE 2021-04-28 00:00:[address] [facility] SARS-COV-2 COVID-19 PFIZER VACCINE 2021-04-28 00:00:[address] [facility] SARS-COV-2 COVID-19 PFIZER VACCINE 2021-04-28 00:00:[address] [facility] SARS-COV-2 COVID-19 PFIZER VACCINE 2021-04-28 00:00:[address] [facility] SARS-COV-2 COVID-19 PFIZER VACCINE 2021-04-28 00:00:[address] [facility] SARS-COV-2 COVID-19 PFIZER VACCINE 2021-04-28 00:00:[address] [facility] SARS-COV-2 COVID-19 PFIZER VACCINE 2021-04-28 00:00:[address] [facility] Influenza Virus Vaccine,quad Im,preserve Free 2021-03-02 00:00:[address] [facility] Influenza Virus Vaccine,quad Im,preserve Free 2021-03-02 00:00:[address] [facility] Influenza Virus Vaccine,quad Im,preserve Free 2021-03-02 00:00:[address] [facility] Influenza Virus Vaccine,quad Im,preserve Free 2021-03-02 00:00:[address] [facility] Influenza Virus Vaccine,quad Im,preserve Free 2021-03-02 00:00:[address] [facility] Influenza Virus Vaccine,quad Im,preserve Free 2021-03-02 00:00:[address] [facility] Influenza Virus Vaccine,quad Im,preserve Free 2021-03-02 00:00:[address] [facility] Influenza Virus Vaccine,quad Im,preserve Free 2021-03-02 00:00:[address] [facility] Influenza Virus Vaccine,quad Im,preserve Free 2021-03-02 00:00:[address] [facility] Influenza Virus Vaccine,quad Im,preserve Free 2021-03-02 00:00:[address] [facility] Influenza Virus Vaccine,quad Im,preserve Free 2021-03-02 00:00:[address] [facility] Influenza Virus Vaccine,quad Im,preserve Free 2021-03-02 00:00:[address] [facility] Influenza Virus Vaccine,quad Im,preserve Free 2021-03-02 00:00:[address] [facility] Influenza Virus Vaccine,quad Im,preserve Free 2021-03-02 00:00:[address] [facility] Influenza Virus Vaccine,quad Im,preserve Free 2021-03-02 00:00:[address] [facility] Influenza Virus Vaccine,quad Im,preserve Free 2021-03-02 00:00:[address] [facility] Influenza Virus Vaccine,quad Im,preserve Free 2021-03-02 00:00:[address] [facility] Influenza Virus Vaccine,quad Im,preserve Free 2021-03-02 00:00:[address] [facility] Influenza Virus Vaccine,quad Im,preserve Free 2021-03-02 00:00:[address] [facility] Influenza Virus Vaccine,quad Im,preserve Free 2021-03-02 00:00:[address] [facility] Influenza Virus Vaccine,quad Im,preserve Free 2021-03-02 00:00:[address] [facility] Influenza Virus Vaccine,quad Im,preserve Free 2021-03-02 00:00:[address] [facility] Influenza Virus Vaccine,quad Im,preserve Free 2021-03-02 00:00:[address] [facility] Influenza Virus Vaccine,quad Im,preserve Free 2021-03-02 00:00:[address] [facility] Influenza Virus Vaccine,quad Im,preserve Free 2021-03-02 00:00:[address] [facility] Influenza Virus Vaccine,quad Im,preserve Free 2021-03-02 00:00:[address] [facility] Influenza Virus Vaccine,quad Im,preserve Free 2021-03-02 00:00:[address] [facility] Influenza Virus Vaccine,quad Im,preserve Free 2021-03-02 00:00:[address] [facility] Influenza Virus Vaccine,quad Im,preserve Free 2021-03-02 00:00:[address] [facility] Influenza Virus Vaccine,quad Im,preserve Free 2021-03-02 00:00:[address] [facility] Influenza Virus Vaccine,quad Im,preserve Free 2021-03-02 00:00:[address] [facility] Influenza Virus Vaccine,quad Im,preserve Free 2021-03-02 00:00:[address] [facility] Influenza Virus Vaccine,quad Im,preserve Free 2021-03-02 00:00:[address] [facility] Influenza Virus Vaccine,quad Im,preserve Free 2021-03-02 00:00:[address] [facility] Influenza Virus Vaccine,quad Im,preserve Free 2021-03-02 00:00:[address] [facility] Influenza Virus Vaccine,quad Im,preserve Free 2021-03-02 00:00:[address] [facility] Influenza Virus Vaccine,quad Im,preserve Free 2021-03-02 00:00:[address] [facility] Influenza Virus Vaccine,quad Im,preserve Free 2021-03-02 00:00:[address] [facility] Influenza Virus Vaccine,quad Im,preserve Free 65+ 2021-03-02 00:00:[address] [facility] Influenza Virus Vaccine,quad Im,preserve Free 65+ 2021-03-02 00:00:[address] [facility] Influenza Virus Vaccine,quad Im,preserve Free 65+ (FLUAD) 2021-03-02 00:00:[address] [facility] Zoster Vaccine Recombinant 2021-01-23 00:00:[address] [facility] Zoster Vaccine Recombinant 2021-01-23 00:00:[address] [facility] Zoster Vaccine Recombinant 2021-01-23 00:00:[address] [facility] Zoster Vaccine Recombinant 2021-01-23 00:00:[address] [facility] Zoster Vaccine Recombinant 2021-01-23 00:00:[address] [facility] Zoster Vaccine Recombinant 2021-01-23 00:00:[address] [facility] Zoster Vaccine Recombinant 2021-01-23 00:00:[address] [facility] Zoster Vaccine Recombinant 2021-01-23 00:00:[address] [facility] Zoster Vaccine Recombinant 2021-01-23 00:00:[address] [facility] Zoster Vaccine Recombinant 2021-01-23 00:00:[address] [facility] Zoster Vaccine Recombinant 2021-01-23 00:00:[address] [facility] Zoster Vaccine Recombinant 2021-01-23 00:00:[address] [facility] Zoster Vaccine Recombinant 2021-01-23 00:00:[address] [facility] Zoster Vaccine Recombinant 2021-01-23 00:00:[address] [facility] Zoster Vaccine Recombinant 2021-01-23 00:00:[address] [facility] Zoster Vaccine Recombinant 2021-01-23 00:00:[address] [facility] Zoster Vaccine Recombinant 2021-01-23 00:00:[address] [facility] Zoster Vaccine Recombinant 2021-01-23 00:00:[address] [facility] Zoster Vaccine Recombinant 2021-01-23 00:00:[address] [facility] Zoster Vaccine Recombinant 2021-01-23 00:00:[address] [facility] Zoster Vaccine Recombinant 2021-01-23 00:00:[address] [facility] Zoster Vaccine Recombinant 2021-01-23 00:00:[address] [facility] Zoster Vaccine Recombinant 2021-01-23 00:00:[address] [facility] Zoster Vaccine Recombinant 2021-01-23 00:00:[address] [facility] Zoster Vaccine Recombinant 2021-01-23 00:00:[address] [facility] Zoster Vaccine Recombinant 2021-01-23 00:00:[address] [facility] Zoster Vaccine Recombinant 2021-01-23 00:00:[address] [facility] Zoster Vaccine Recombinant 2021-01-23 00:00:[address] [facility] Zoster Vaccine Recombinant 2021-01-23 00:00:[address] [facility] Zoster Vaccine Recombinant 2021-01-23 00:00:[address] [facility] Zoster Vaccine Recombinant 2021-01-23 00:00:[address] [facility] Zoster Vaccine Recombinant 2021-01-23 00:00:[address] [facility] Zoster Vaccine Recombinant 2021-01-23 00:00:[address] [facility] Zoster Vaccine Recombinant 2021-01-23 00:00:[address] [facility] Zoster Vaccine Recombinant 2021-01-23 00:00:[address] [facility] Zoster Vaccine Recombinant 2021-01-23 00:00:[address] [facility] Zoster Vaccine Recombinant 2021-01-23 00:00:[address] [facility] Zoster Vaccine Recombinant 2021-01-23 00:00:[address] [facility] Zoster Vaccine Recombinant 2021-01-23 00:00:[address] [facility] Zoster Vaccine Recombinant 2021-01-23 00:00:[address] [facility] Zoster Vaccine Recombinant 2021-01-23 00:00:[address] [facility] Zoster Vaccine Recombinant 2021-01-23 00:00:00 Completed Zoster Vaccine Recombinant 2020-11-23 00:00:[address] [facility] Zoster Vaccine Recombinant 2020-11-23 00:00:[address] [facility] Zoster Vaccine Recombinant 2020-11-23 00:00:[address] [facility] Zoster Vaccine Recombinant 2020-11-23 00:00:[address] [facility] Zoster Vaccine Recombinant 2020-11-23 00:00:[address] [facility] Zoster Vaccine Recombinant 2020-11-23 00:00:[address] [facility] Zoster Vaccine Recombinant 2020-11-23 00:00:[address] [facility] Zoster Vaccine Recombinant 2020-11-23 00:00:[address] [facility] Zoster Vaccine Recombinant 2020-11-23 00:00:[address] [facility] Zoster Vaccine Recombinant 2020-11-23 00:00:[address] [facility] Zoster Vaccine Recombinant 2020-11-23 00:00:[address] [facility] Zoster Vaccine Recombinant 2020-11-23 00:00:[address] [facility] Zoster Vaccine Recombinant 2020-11-23 00:00:[address] [facility] Zoster Vaccine Recombinant 2020-11-23 00:00:[address] [facility] Zoster Vaccine Recombinant 2020-11-23 00:00:[address] [facility] Zoster Vaccine Recombinant 2020-11-23 00:00:[address] [facility] Zoster Vaccine Recombinant 2020-11-23 00:00:[address] [facility] Zoster Vaccine Recombinant 2020-11-23 00:00:[address] [facility] Zoster Vaccine Recombinant 2020-11-23 00:00:[address] [facility] Zoster Vaccine Recombinant 2020-11-23 00:00:[address] [facility] Zoster Vaccine Recombinant 2020-11-23 00:00:[address] [facility] Zoster Vaccine Recombinant 2020-11-23 00:00:[address] [facility] Zoster Vaccine Recombinant 2020-11-23 00:00:[address] [facility] Zoster Vaccine Recombinant 2020-11-23 00:00:[address] [facility] Zoster Vaccine Recombinant 2020-11-23 00:00:[address] [facility] Zoster Vaccine Recombinant 2020-11-23 00:00:[address] [facility] Zoster Vaccine Recombinant 2020-11-23 00:00:[address] [facility] Zoster Vaccine Recombinant 2020-11-23 00:00:[address] [facility] Zoster Vaccine Recombinant 2020-11-23 00:00:[address] [facility] Zoster Vaccine Recombinant 2020-11-23 00:00:[address] [facility] Zoster Vaccine Recombinant 2020-11-23 00:00:[address] [facility] Zoster Vaccine Recombinant 2020-11-23 00:00:[address] [facility] Zoster Vaccine Recombinant 2020-11-23 00:00:[address] [facility] Zoster Vaccine Recombinant 2020-11-23 00:00:[address] [facility] Zoster Vaccine Recombinant 2020-11-23 00:00:[address] [facility] Zoster Vaccine Recombinant 2020-11-23 00:00:[address] [facility] Zoster Vaccine Recombinant 2020-11-23 00:00:[address] [facility] Zoster Vaccine Recombinant 2020-11-23 00:00:[address] [facility] Zoster Vaccine Recombinant 2020-11-23 00:00:[address] [facility] Zoster Vaccine Recombinant 2020-11-23 00:00:[address] [facility] Zoster Vaccine Recombinant 2020-11-23 00:00:[address] [facility] SARS-COV-2 COVID-19 PFIZER VACCINE 2020-07-08 00:00:[address] [facility] SARS-COV-2 COVID-19 PFIZER VACCINE 2020-07-08 00:00:[address] [facility] SARS-COV-2 COVID-19 PFIZER VACCINE 2020-07-08 00:00:[address] [facility] SARS-COV-2 COVID-19 PFIZER VACCINE 2020-07-08 00:00:[address] [facility] SARS-COV-2 COVID-19 PFIZER VACCINE 2020-07-08 00:00:[address] [facility] SARS-COV-2 COVID-19 PFIZER VACCINE 2020-07-08 00:00:[address] [facility] SARS-COV-2 COVID-19 PFIZER VACCINE 2020-07-08 00:00:[address] [facility] SARS-COV-2 COVID-19 PFIZER VACCINE 2020-07-08 00:00:[address] [facility] SARS-COV-2 COVID-19 PFIZER VACCINE 2020-07-08 00:00:[address] [facility] SARS-COV-2 COVID-19 PFIZER VACCINE 2020-07-08 00:00:[address] [facility] SARS-COV-2 COVID-19 PFIZER VACCINE 2020-07-08 00:00:[address] [facility] SARS-COV-2 COVID-19 PFIZER VACCINE 2020-07-08 00:00:[address] [facility] SARS-COV-2 COVID-19 PFIZER VACCINE 2020-07-08 00:00:[address] [facility] SARS-COV-2 COVID-19 PFIZER VACCINE 2020-07-08 00:00:[address] [facility] SARS-COV-2 COVID-19 PFIZER VACCINE 2020-07-08 00:00:[address] [facility] SARS-COV-2 COVID-19 PFIZER VACCINE 2020-07-08 00:00:[address] [facility] SARS-COV-2 COVID-19 PFIZER VACCINE 2020-07-08 00:00:[address] [facility] SARS-COV-2 COVID-19 PFIZER VACCINE 2020-07-08 00:00:[address] [facility] SARS-COV-2 COVID-19 PFIZER VACCINE 2020-07-08 00:00:[address] [facility] SARS-COV-2 COVID-19 PFIZER VACCINE 2020-07-08 00:00:[address] [facility] SARS-COV-2 COVID-19 PFIZER VACCINE 2020-07-08 00:00:[address] [facility] SARS-COV-2 COVID-19 PFIZER VACCINE 2020-07-08 00:00:[address] [facility] SARS-COV-2 COVID-19 PFIZER VACCINE 2020-07-08 00:00:[address] [facility] SARS-COV-2 COVID-19 PFIZER VACCINE 2020-07-08 00:00:[address] [facility] SARS-COV-2 COVID-19 PFIZER VACCINE 2020-07-08 00:00:[address] [facility] SARS-COV-2 COVID-19 PFIZER VACCINE 2020-07-08 00:00:[address] [facility] SARS-COV-2 COVID-19 PFIZER VACCINE 2020-07-08 00:00:[address] [facility] SARS-COV-2 COVID-19 PFIZER VACCINE 2020-07-08 00:00:[address] [facility] SARS-COV-2 COVID-19 PFIZER VACCINE 2020-07-08 00:00:[address] [facility] SARS-COV-2 COVID-19 PFIZER VACCINE 2020-07-08 00:00:[address] [facility] SARS-COV-2 COVID-19 PFIZER VACCINE 2020-07-08 00:00:[address] [facility] SARS-COV-2 COVID-19 PFIZER VACCINE 2020-07-08 00:00:[address] [facility] SARS-COV-2 COVID-19 PFIZER VACCINE 2020-07-08 00:00:[address] [facility] SARS-COV-2 COVID-19 PFIZER VACCINE 2020-07-08 00:00:[address] [facility] SARS-COV-2 COVID-19 PFIZER VACCINE 2020-07-08 00:00:[address] [facility] SARS-COV-2 COVID-19 PFIZER VACCINE 2020-07-08 00:00:[address] [facility] SARS-COV-2 COVID-19 PFIZER VACCINE 2020-07-08 00:00:[address] [facility] SARS-COV-2 COVID-19 PFIZER VACCINE 2020-07-08 00:00:[address] [facility] SARS-COV-2 COVID-19 PFIZER VACCINE 2020-07-08 00:00:[address] [facility] SARS-COV-2 COVID-19 PFIZER VACCINE 2020-07-08 00:00:[address] [facility] SARS-COV-2 COVID-19 PFIZER VACCINE 2020-07-08 00:00:[address] [facility] SARS-COV-2 COVID-19 PFIZER VACCINE 2020-07-08 00:00:00 Completed SARS-COV-2 COVID-19 PFIZER VACCINE 2020-06-17 00:00:[address] [facility] SARS-COV-2 COVID-19 PFIZER VACCINE 2020-06-17 00:00:[address] [facility] SARS-COV-2 COVID-19 PFIZER VACCINE 2020-06-17 00:00:[address] [facility] SARS-COV-2 COVID-19 PFIZER VACCINE 2020-06-17 00:00:[address] [facility] SARS-COV-2 COVID-19 PFIZER VACCINE 2020-06-17 00:00:[address] [facility] SARS-COV-2 COVID-19 PFIZER VACCINE 2020-06-17 00:00:[address] [facility] SARS-COV-2 COVID-19 PFIZER VACCINE 2020-06-17 00:00:[address] [facility] SARS-COV-2 COVID-19 PFIZER VACCINE 2020-06-17 00:00:[address] [facility] SARS-COV-2 COVID-19 PFIZER VACCINE 2020-06-17 00:00:[address] [facility] SARS-COV-2 COVID-19 PFIZER VACCINE 2020-06-17 00:00:[address] [facility] SARS-COV-2 COVID-19 PFIZER VACCINE 2020-06-17 00:00:[address] [facility] SARS-COV-2 COVID-19 PFIZER VACCINE 2020-06-17 00:00:[address] [facility] SARS-COV-2 COVID-19 PFIZER VACCINE 2020-06-17 00:00:[address] [facility] SARS-COV-2 COVID-19 PFIZER VACCINE 2020-06-17 00:00:[address] [facility] SARS-COV-2 COVID-19 PFIZER VACCINE 2020-06-17 00:00:[address] [facility] SARS-COV-2 COVID-19 PFIZER VACCINE 2020-06-17 00:00:[address] [facility] SARS-COV-2 COVID-19 PFIZER VACCINE 2020-06-17 00:00:[address] [facility] SARS-COV-2 COVID-19 PFIZER VACCINE 2020-06-17 00:00:[address] [facility] SARS-COV-2 COVID-19 PFIZER VACCINE 2020-06-17 00:00:[address] [facility] SARS-COV-2 COVID-19 PFIZER VACCINE 2020-06-17 00:00:[address] [facility] SARS-COV-2 COVID-19 PFIZER VACCINE 2020-06-17 00:00:[address] [facility] SARS-COV-2 COVID-19 PFIZER VACCINE 2020-06-17 00:00:[address] [facility] SARS-COV-2 COVID-19 PFIZER VACCINE 2020-06-17 00:00:[address] [facility] SARS-COV-2 COVID-19 PFIZER VACCINE 2020-06-17 00:00:[address] [facility] SARS-COV-2 COVID-19 PFIZER VACCINE 2020-06-17 00:00:[address] [facility] SARS-COV-2 COVID-19 PFIZER VACCINE 2020-06-17 00:00:[address] [facility] SARS-COV-2 COVID-19 PFIZER VACCINE 2020-06-17 00:00:[address] [facility] SARS-COV-2 COVID-19 PFIZER VACCINE 2020-06-17 00:00:[address] [facility] SARS-COV-2 COVID-19 PFIZER VACCINE 2020-06-17 00:00:[address] [facility] SARS-COV-2 COVID-19 PFIZER VACCINE 2020-06-17 00:00:[address] [facility] SARS-COV-2 COVID-19 PFIZER VACCINE 2020-06-17 00:00:[address] [facility] SARS-COV-2 COVID-19 PFIZER VACCINE 2020-06-17 00:00:[address] [facility] SARS-COV-2 COVID-19 PFIZER VACCINE 2020-06-17 00:00:[address] [facility] SARS-COV-2 COVID-19 PFIZER VACCINE 2020-06-17 00:00:[address] [facility] SARS-COV-2 COVID-19 PFIZER VACCINE 2020-06-17 00:00:[address] [facility] SARS-COV-2 COVID-19 PFIZER VACCINE 2020-06-17 00:00:[address] [facility] SARS-COV-2 COVID-19 PFIZER VACCINE 2020-06-17 00:00:[address] [facility] SARS-COV-2 COVID-19 PFIZER VACCINE 2020-06-17 00:00:[address] [facility] SARS-COV-2 COVID-19 PFIZER VACCINE 2020-06-17 00:00:[address] [facility] SARS-COV-2 COVID-19 PFIZER VACCINE 2020-06-17 00:00:[address] [facility] SARS-COV-2 COVID-19 PFIZER VACCINE 2020-06-17 00:00:[address] [facility] Pneumococcal Polysaccharide, PPSV23 (PNEUMOVAX) 2018-10-14 00:00:[address] [facility] Pneumococcal Polysaccharide, PPSV23 (PNEUMOVAX) 2018-10-14 00:00:[address] [facility] Pneumococcal Polysaccharide, PPSV23 (PNEUMOVAX) 2018-10-14 00:00:[address] [facility] Pneumococcal Polysaccharide, PPSV23 (PNEUMOVAX) 2018-10-14 00:00:[address] [facility] Pneumococcal Polysaccharide, PPSV23 (PNEUMOVAX) 2018-10-14 00:00:[address] [facility] Pneumococcal Polysaccharide, PPSV23 (PNEUMOVAX) 2018-10-14 00:00:[address] [facility] Pneumococcal Polysaccharide, PPSV23 (PNEUMOVAX) 2018-10-14 00:00:[address] [facility] Pneumococcal Polysaccharide, PPSV23 (PNEUMOVAX) 2018-10-14 00:00:[address] [facility] Pneumococcal Polysaccharide, PPSV23 (PNEUMOVAX) 2018-10-14 00:00:[address] [facility] Pneumococcal Polysaccharide, PPSV23 (PNEUMOVAX) 2018-10-14 00:00:[address] [facility] Pneumococcal Polysaccharide, PPSV23 (PNEUMOVAX) 2018-10-14 00:00:[address] [facility] Pneumococcal Polysaccharide, PPSV23 (PNEUMOVAX) 2018-10-14 00:00:[address] [facility] Pneumococcal Polysaccharide, PPSV23 (PNEUMOVAX) 2018-10-14 00:00:[address] [facility] Pneumococcal Polysaccharide, PPSV23 (PNEUMOVAX) 2018-10-14 00:00:[address] [facility] Pneumococcal Polysaccharide, PPSV23 (PNEUMOVAX) 2018-10-14 00:00:[address] [facility] Pneumococcal Polysaccharide, PPSV23 (PNEUMOVAX) 2018-10-14 00:00:[address] [facility] Pneumococcal Polysaccharide, PPSV23 (PNEUMOVAX) 2018-10-14 00:00:[address] [facility] Pneumococcal Polysaccharide, PPSV23 (PNEUMOVAX) 2018-10-14 00:00:[address] [facility] Pneumococcal Polysaccharide, PPSV23 (PNEUMOVAX) 2018-10-14 00:00:[address] [facility] Pneumococcal Polysaccharide, PPSV23 (PNEUMOVAX) 2018-10-14 00:00:[address] [facility] Pneumococcal Polysaccharide, PPSV23 (PNEUMOVAX) 2018-10-14 00:00:[address] [facility] Pneumococcal Polysaccharide, PPSV23 (PNEUMOVAX) 2018-10-14 00:00:[address] [facility] Pneumococcal Polysaccharide, PPSV23 (PNEUMOVAX) 2018-10-14 00:00:[address] [facility] Pneumococcal Polysaccharide, PPSV23 (PNEUMOVAX) 2018-10-14 00:00:[address] [facility] Pneumococcal Polysaccharide, PPSV23 (PNEUMOVAX) 2018-10-14 00:00:[address] [facility] Pneumococcal Polysaccharide, PPSV23 (PNEUMOVAX) 2018-10-14 00:00:[address] [facility] Pneumococcal Polysaccharide, PPSV23 (PNEUMOVAX) 2018-10-14 00:00:[address] [facility] Pneumococcal Polysaccharide, PPSV23 (PNEUMOVAX) 2018-10-14 00:00:[address] [facility] Pneumococcal Polysaccharide, PPSV23 (PNEUMOVAX) 2018-10-14 00:00:[address] [facility] Pneumococcal Polysaccharide, PPSV23 (PNEUMOVAX) 2018-10-14 00:00:[address] [facility] Pneumococcal Polysaccharide, PPSV23 (PNEUMOVAX) 2018-10-14 00:00:[address] [facility] Pneumococcal Polysaccharide, PPSV23 (PNEUMOVAX) 2018-10-14 00:00:[address] [facility] Pneumococcal Polysaccharide, PPSV23 (PNEUMOVAX) 2018-10-14 00:00:[address] [facility] Pneumococcal Polysaccharide, PPSV23 (PNEUMOVAX) 2018-10-14 00:00:[address] [facility] Pneumococcal Polysaccharide, PPSV23 (PNEUMOVAX) 2018-10-14 00:00:[address] [facility] Pneumococcal Polysaccharide, PPSV23 (PNEUMOVAX) 2018-10-14 00:00:[address] [facility] Pneumococcal Polysaccharide, PPSV23 (PNEUMOVAX) 2018-10-14 00:00:[address] [facility] Pneumococcal Polysaccharide, PPSV23 (PNEUMOVAX) 2018-10-14 00:00:[address] [facility] Pneumococcal Polysaccharide, PPSV23 (PNEUMOVAX) 2018-10-14 00:00:[address] [facility] Pneumococcal Polysaccharide, PPSV23 (PNEUMOVAX) 2018-10-14 00:00:[address] [facility] Pneumococcal Polysaccharide, PPSV23 (PNEUMOVAX) 2018-10-14 00:00:[address] [facility] Vital Signs Vital Name Observation Time Observation Value Comments S ource Systolic blood pressure 2024-09-13 19:34:00 152 mm[Hg] [facility] Diastolic blood pressure 2024-09-13 19:34:00 82 mm[Hg] [facility] Heart rate 2024-09-13 19:13:00 88 /min [facility] Body temperature 2024-09-13 19:13:[address] [facility] Body height 2024-09-13 19:13:[address] [facility] Body weight 2024-09-13 19:13:[address] [facility] BMI 2024-09-13 19:13:00 17.36 kg/m2 [facility] Oxygen saturation in Arterial blood by Pulse oximetry 2024-09-13 19:13:00 96 /min [facility] Systolic blood pressure 2024-08-15 19:45:00 156 mm[Hg] [facility] Diastolic blood pressure 2024-08-15 19:45:00 84 mm[Hg] [facility] Heart rate 2024-08-15 19:38:00 113 /min [facility] Respiratory rate 2024-08-15 19:38:00 20 /min [facility] Body height 2024-08-15 19:38:[address] [facility] Body weight 2024-08-15 19:38:[address] [facility] BMI 2024-08-15 19:38:00 17.74 kg/m2 [facility] Oxygen saturation in Arterial blood by Pulse oximetry 2024-08-15 19:38:00 98 /min [facility] Systolic blood pressure 2024-08-06 19:56:00 166 mm[Hg] [facility] Diastolic blood pressure 2024-08-06 19:56:00 92 mm[Hg] [facility] Heart rate 2024-08-06 19:56:00 84 /min [facility] Body height 2024-08-06 19:56:[address] [facility] Body weight 2024-08-06 19:56:[address] [facility] BMI 2024-08-06 19:56:00 17.61 kg/m2 [facility] Oxygen saturation in Arterial blood by Pulse oximetry 2024-08-06 19:56:00 97 /min [facility] height 2023-11-24 13:30:00 62 [in_i] [facility] 2023-11-24 13:30:00 42.18 kg [facility] bmi 2023-11-24 13:30:00 17.01 kg/m2 [facility] heart rate 2023-11-24 13:30:00 99 /min [facility] blood pressure systolic 2023-11-24 13:30:00 122 mm[Hg] [facility] blood [facility] diastolic 2023-11-24 13:30:00 82 mm[Hg] [facility] Systolic blood pressure 2023-11-09 17:52:00 132 mm[Hg] taken w/pt's machine [facility] Diastolic blood pressure 2023-11-09 17:52:00 81 mm[Hg] taken w/pt's machine [facility] Heart rate 2023-11-09 17:52:00 86 /min [facility] Body temperature 2023-11-09 17:50:[address] [facility] Respiratory rate 2023-11-09 17:50:00 16 /min [facility] Body height 2023-11-09 17:50:[address] [facility] Body weight 2023-11-09 17:50:[address] [facility] BMI 2023-11-09 17:50:00 17.14 kg/m2 [facility] Oxygen saturation in Arterial blood by Pulse oximetry 2023-11-09 17:50:00 100 /min [facility] Systolic blood pressure 2023-07-13 18:06:00 154 mm[Hg] [facility] Diastolic blood pressure 2023-07-13 18:06:00 79 mm[Hg] [facility] Heart rate 2023-07-13 18:06:00 58 /min [facility] Body temperature 2023-07-13 18:06:[address] [facility] Respiratory rate 2023-07-13 18:06:00 18 /min [facility] Oxygen saturation in Arterial blood by Pulse oximetry 2023-07-13 18:06:00 100 /min [facility] Body height 2023-07-13 18:04:[address] [facility] Body weight 2023-07-13 18:04:[address] [facility] BMI 2023-07-13 18:04:00 18.36 kg/m2 [facility] Systolic blood pressure 2023-06-14 19:37:00 145 mm[Hg] [facility] Diastolic blood pressure 2023-06-14 19:37:00 80 mm[Hg] [facility] Heart rate 2023-06-14 19:34:00 79 /min [facility] Body temperature 2023-06-14 19:34:[address] [facility] Body height 2023-06-14 19:34:[address] [facility] Body weight 2023-06-14 19:34:[address] [facility] BMI 2023-06-14 19:34:00 17.80 kg/m2 [facility] Oxygen saturation in Arterial blood by Pulse oximetry 2023-06-14 19:34:00 100 /min [facility] Systolic blood pressure 2023-05-26 19:08:00 147 mm[Hg] [facility] Diastolic blood pressure 2023-05-26 19:08:00 100 mm[Hg] [facility] Heart rate 2023-05-26 19:08:00 101 /min [facility] Body height 2023-05-26 19:08:[address] [facility] Body weight 2023-05-26 19:08:[address] [facility] BMI 2023-05-26 19:08:00 19.53 kg/m2 [facility] Oxygen saturation in Arterial blood by Pulse oximetry 2023-05-26 19:08:00 94 /min [facility] Systolic blood pressure 2023-05-20 17:38:00 103 mm[Hg] [facility] Diastolic blood pressure 2023-05-20 17:38:00 64 mm[Hg] [facility] Heart rate 2023-05-20 17:38:00 79 /min [facility] Body temperature 2023-05-20 17:38:[address] [facility] Respiratory rate 2023-05-20 17:38:00 18 /min [facility] Oxygen saturation in Arterial blood by Pulse oximetry 2023-05-20 17:38:00 95 /min [facility] Body weight 2023-05-20 09:31:[address] [facility] BMI 2023-05-20 09:31:00 20.41 kg/m2 [facility] Body height 2023-05-17 21:21:[address] [facility] Systolic blood pressure 2022-08-24 15:51:00 183 mm[Hg] [facility] Diastolic blood pressure 2022-08-24 15:51:00 74 mm[Hg] [facility] Heart rate 2022-08-24 15:50:00 66 /min [facility] Body temperature 2022-08-24 15:50:[address] [facility] Body height 2022-08-24 15:50:[address] [facility] Body weight 2022-08-24 15:50:[address] [facility] BMI 2022-08-24 15:50:00 17.80 kg/m2 [facility] Oxygen saturation in Arterial blood by Pulse oximetry 2022-08-24 15:50:00 99 /min [facility] Systolic blood pressure 2022-04-21 19:26:00 133 mm[Hg] [facility] Diastolic blood pressure 2022-04-21 19:26:00 72 mm[Hg] [facility] Heart rate 2022-04-21 19:26:00 78 /min [facility] Body temperature 2022-04-21 19:26:[address] [facility] Body height 2022-04-21 19:26:[address] [facility] Body weight 2022-04-21 19:26:[address] [facility] BMI 2022-04-21 19:26:00 17.92 kg/m2 [facility] Oxygen saturation in Arterial blood by Pulse oximetry 2022-04-21 19:26:00 99 /min [facility] Systolic blood pressure 2022-03-30 16:46:00 133 mm[Hg] [facility] Diastolic blood pressure 2022-03-30 16:46:00 63 mm[Hg] [facility] Heart rate 2022-03-30 16:46:00 63 /min [facility] Body temperature 2022-03-30 16:46:[address] [facility] Body height 2022-03-30 16:46:[address] [facility] Body weight 2022-03-30 16:46:[address] [facility] BMI 2022-03-30 16:46:00 18.03 kg/m2 [facility] Oxygen saturation in Arterial blood by Pulse oximetry 2022-03-30 16:46:00 98 /min [facility] Systolic blood pressure 2024-12-27 20:03:00 126 mm[Hg] [facility] Diastolic blood pressure 2024-12-27 20:03:00 74 mm[Hg] [facility] Heart rate 2024-12-27 20:03:00 76 /min [facility] Body height 2024-12-27 20:03:00 157.5 cm pt stated height [facility] Body weight 2024-12-27 20:03:[address] [facility] BMI 2024-12-27 20:03:00 17.05 kg/m2 [facility] Oxygen saturation in Arterial blood by Pulse oximetry 2024-12-27 20:03:00 98 /min [facility] Body temperature 2024-09-13 19:13:[address] [facility] Respiratory rate 2024-08-15 19:38:00 20 /min [facility] Procedures Procedure Date / Time Performed Performing Clinician Source HB ECG ROUTINE & RHYTHM STRIP 2024-08-15 19:50:[address] [facility] MEDICAL RELEASE/CLEARANCE FORMS 2023-07-13 05:01:00 Doctor Unassigned, [place] [facility] MEDICAL RELEASE/CLEARANCE FORMS 2023-06-21 06:01:00 Doctor Unassigned, [place] [facility] TRANSTHORACIC ECHO (TTE) COMPLETE W/ CONTRAST 2023-06-08 16:30:[address] [facility] HB ECG ROUTINE & RHYTHM STRIP 2023-05-26 19:03:[address] [facility] XR CHEST 1 VW 2023-05-20 09:49:05 Vicki Gillespie [facility] LIPASE 2023-05-19 10:46:00 Martha Sanabria [facility] MAGNESIUM 2023-05-19 10:46:00 Gladis Escobar [facility] HEPATIC FUNCTION PANEL (61857) (ALB,T.PRO,BILI T,BU/BC,ALT,AST,ALK PHOS) 2023-05-19 10:46:[address] [facility] BASIC METABOLIC PANEL (NA, K, CL, CO2, GLUCOSE, BUN, CREATININE, CA) 2023-05-19 10:46:[address] [facility] CBC WITHOUT DIFF 2023-05-19 10:46:00 Martha Sanabria [facility] MAGNESIUM 2023-05-18 23:09:00 Gladis Escobar [facility] LIPASE 2023-05-18 10:42:00 Martha Sanabria [facility] MAGNESIUM 2023-05-18 10:42:00 [facility] FUN[facility] (63863) (ALB,T.PRO,BILI T,BU/BC,ALT,AST,ALK PHOS) 2023-05-18 10:42:00 Daniele [facility] BASIC METABOLIC PANEL (NA, K, CL, CO2, GLUCOSE, BUN, CREATININE, CA) 2023-05-18 10:42:00 Daniele [facility] CBC WITH DIFF 2023-05-18 10:42:[facility] URINE CULTURE 2023-05-18 03:40:00 Marvel Woot[address] [facility] PROTHROMBIN TIME / INR 2023-05-17 20:57:[address] [facility] LIPASE 2023-05-17 18:10:00 [facility] MAGNESIUM 2023-05-17 18:10:00 Marvel Wooten [facility] COMP. METABOLIC PANEL (53269) 2023-05-17 18:10:[address] [facility] CBC WITH DIFF 2023-05-17 18:10:00 Marvel Wooten [facility] GLYCOSYLATED HEMOGLOBIN (A1C) 2023-05-17 18:10:[address] [facility] URINALYSIS 2023-05-17 18:10:00 Marvel Wooten [facility] DEXA AXIAL (HIP AND SPINE) 2023-05-06 21:41:25 Requisition, Paper [facility] BI SCREENING TOMOSYNTHESIS BILATERAL 2023-05-06 21:24:34 Requisition, Paper [facility] ASSIGNMENT OF BENEFITS 2023-05-06 20:31:09 Docto r Unassigned, [place] [facility] MEDICAL RELEASE/CLEARANCE FORMS 2023-04-06 06:01:00 Doctor Unassigned, [place] [facility] REFERRAL- REQUEST/RESPONSE 2023-02-02 05:01:00 Doctor Unassigned, [place] [facility] DEXA AXIAL (HIP AND SPINE) 2022-09-14 15:01:[address] [facility] CONSENT/REFUSAL FOR DIAGNOSIS AND TREATMENT 2022-09-14 14:39:10 Doctor Unassigned, [place] [facility] ASSIGNMENT OF BENEFITS 2022-09-14 14:38:56 Docto r Unassigned, [place] [facility] PATIENT FINANCIAL POLICY 2022-08-24 15:19:41 Doctor Unassigned, [place] [facility] HCV ANTIBODY 2021-07-23 17:21:00 [facility] 2021-03-13 16:49:00 Doctor Unas signed, [place] [facility] EXTERNAL FIT DNA 2021-03-13 16:49:00 Doctor Unas signed, [place] [facility] Encounters Start Date/Time End Date/Time Encounter Type Admission Type Attending [facility] Care Department Encounter ID Source 2023-11-24 13:19:01 Outpatient Renae Juarez [facility] [id number] [place] [facility] 2024-12-07 00:00:00 2025-01-12 18:32:58 Patient Secure Msg Doctor Unassigned, [place] Doctor Unassigned, [place] [facility] 1.2.840.114 350.1.13.10 4.2.7.2.686 [id number] [facility] 2024-12-03 00:00:00 2025-01-05 18:55:32 Patient Secure Msg Doctor Unassigned, [place] Doctor Unassigned, [place] [facility] ([facility]) 1.2.840.114 350.1.13.10 4.2.7.2.686 [id number] [facility] 2024-12-28 00:00:00 2025-01-04 12:04:34 Telephone Ashleigh Toth [facility] 1.2.840.114 350.1.13.10 4.2.7.2.686 [id number] [facility] 2025-01-01 15:28:53 2025-01-01 23:59:00 Hospital Encounter R Shanique Wang 1.2.840.1 [id number] 3.104.2.7 .3.263195 .8 [id number] [facility] 2025-01-01 14:49:35 2025-01-01 15:27:00 Outpatient R RADIOLOGY [facility] [id number] [facility] 2025-01-01 00:00:00 2025-01-01 00:00:00 Travel 1.2.840.1 [id number] 3.104.2.7 .3.810846 .8 1.2.840.114 350.1.13.10 4.2.7.3.698 [id number] [facility] 2024-12-31 00:00:00 2024-12-31 00:00:00 Patient Secure Msg Doctor Unassigned, [place] 1.2.840.1 43132.1.1 3.104.2.7 .3.182570 .8 [id number] [facility] 2024-12-27 08:00:00 2024-12-27 23:59:00 Hospital Encounter R Ashleigh Toth 1.2.840.1 [id number] 3.104.2.7 .3.749412 .8 [id number] [facility] 2024-12-27 15:00:00 2024-12-27 15:33:15 Office Visit Ashleigh Natarajan 1.2.840.1 43673.1.1 3.104.2.7 .3.830185 .8 [id number] [facility] 2024-12-27 00:00:00 2024-12-27 00:00:00 Travel 1.2.840.1 [id number] 3.104.2.7 .3.779881 .8 1.2.840.114 350.1.13.10 4.2.7.3.698 [id number] [facility] 2024-12-13 00:00:00 2024-12-19 15:23:14 Telephone Shanique Wang 1.2.840.1 20830.1.1 3.104.2.7 .3.661575 .8 [id number] [facility] 2024-12-13 10:20:00 2024-12-13 10:20:00 Outpatient ASHLEIGH NATARAJAN CHOCKALINGA M [facility] [id number] [facility] 2024-11-29 00:00:00 2024-11-30 18:29:00 Sly Corrales 1.2.840.1 00669.1.1 3.104.2.7 .3.210010 .8 [id number] [facility] 2024-11-05 13:20:00 2024-11-05 13:20:00 Outpatient JANICE BEAN [facility] [id number] [facility] 2024-09-20 00:00:00 2024-10-27 18:32:24 Patient Secure Msg Shanique Wang [facility] 1.2840.114 350.1.13.10 4.2.7.2.686 [id number] [facility] 2024-09-14 00:00:00 2024-10-20 18:30:49 Patient Secure Msg Doctor Unassigned, [place] Doctor Unassigned, [place] [facility] (ADE[facility]) 1.2.840.114 350.1.13.10 4.2.7.2.686 [id number] [facility] 2024-09-14 00:00:00 2024-10-20 18:29:07 Patient Secure Msg Shanique [facility] 1.2.840.114 350.1.13.10 4.2.7.2.686 [id number] [facility] 2024-09-17 00:00:00 2024-10-20 18:26:45 Patient Secure g Shanique Wang [facility] 1.2.840.114 350.1.13.10 4.2.7.2.686 [id number] [facility] 2024-10-17 00:00:00 2024-10-17 16:23:38 Telephone Shanique Wang 1.2.840.1 [id number] 3.104.2.7 .3.998924 .8 [id number] [facility] 2024-09-27 16:00:00 2024-09-27 16:00:00 Outpatient R SHANIQUE WANG [facility] [id number] [facility] 2024-09-19 16:00:00 2024-09-19 16:00:00 Outpatient SILVANO EGAN HAIDER [facility] [id number] [facility] 2024-09-13 15:45:00 2024-09-13 15:45:00 Instrument Technician Apprentice Visit R SHANIQUE WANG [facility] 1.2.840.114 350.1.13.10 4.2.7.2.686 [id number] [facility] 2024-09-13 14:00:00 2024-09-13 15:16:22 Office Visit Shanique Beck [facility] 1.2.840.114 350.1.13.10 4.2.7.2.686 [id number] [facility] 2024-09-12 13:00:00 2024-09-12 13:00:00 Outpatient R SILVANO VALDOVINOS SILVANO [facility] [id number] [facility] 2024-08-15 15:00:00 2024-08-15 15:28:37 Outpatient R SILVANO VALDOVINOS [facility] [id number] [facility] 2024-08-15 15:00:00 2024-08-15 15:28:37 Office Visit Silvano Valdovinos [facility] 1.2840.114 350.1.13.10 4.2.7.2.686 [id number] [facility] 2024-08-14 00:00:00 2024-08-14 15:14:02 [facility] 1.2.840.114 350.1.13.10 4.2.7.2.686 [id number] [facility] 2024-08-14 00:00:00 2024-08-14 14:02:46 [facility] 1.2.840.114 350.1.13.10 4.2.7.2.686 [id number] [facility] 2024-08-06 14:40:00 2024-08-06 15:24:24 Outpatient R [facility] [id number] [facility] 2024-08-06 14:40:00 2024-08-06 15:24:24 [facility] 1.2.840.114 350.1.13.10 4.2.7.2.686 [id number] [facility] 2024-05-24 13:40:00 2024-05-24 13:40:00 Outpatient JANICE BEAN [facility] [id number] [facility] 2024-05-15 13:20:00 2024-05-15 13:20:00 Outpatient JANICE BEAN [facility] [id number] [facility] 2024-01-09 00:00:00 2024-01-09 10:39:38 Refill NelSly [facility] 1.2.840.114 350.1.13.10 4.2.7.2.686 [id number] [facility] 2023-12-30 00:00:00 2024-01-02 09:00:43 Refill Lissett Leggett [facility] 1.2.840.114 350.1.13.10 4.2.7.2.686 [id number] [facility] 2023-12-20 00:00:00 2023-12-20 12:51:09 Refill NelSly [facility] 1.2.840.114 350.1.13.10 4.2.7.2.686 [id number] [facility] 2023-12-14 00:00:00 2023-12-14 09:30:34 Telephone [place] [facility] 1.2.840.114 350.1.13.10 4.2.7.2.686 [id number] [facility] 2023-12-12 00:00:00 2023-12-12 00:00:00 (TEL) [facility] [id number] [facility] 2023-11-24 00:00:00 2023-11-24 00:00:00 Office Visit- New Pt.- Level [address] [facility] [id number] [facility] 2023-11-09 13:00:00 2023-11-09 13:07:24 Outpatient R JANICE ANDINO [facility] [id number] [facility] 2023-11-09 13:00:00 2023-11-09 13:07:24 [facility] 1.2.840.114 350.1.13.10 4.2.7.2.686 [id number] [facility] 2023-09-22 00:00:00 2023-10-29 18:28:04 Patient Secure Msg Sina [facility] 1.2.840.114 350.1.13.10 4.2.7.2.686 [id number] [facility] 2023-09-20 13:48:49 2023-09-20 23:59:00 Outpatient R [facility]ENSIA [facility]INOFORM[facility] [id number] [facility] 2023-09-20 13:48:49 2023-09-20 23:59:00 [facility] 1.2.840.114 350.1.13.10 4.2.7.2.686 [id number] [facility] 2023-08-23 00:00:00 2023-08-23 00:00:00 [facility] 1.2.840.114 350.1.13.10 4.2.7.2.686 [id number] [facility] 2023-07-18 00:00:00 2023-07-18 00:00:00 [facility] 1.2.840.114 350.1.13.10 4.2.7.2.686 [id number] [facility] 2023-07-13 13:40:00 2023-07-13 13:40:00 [facility] 1.2.840.114 350.1.13.10 4.2.7.2.686 [id number] [facility] 2023-07-13 13:40:00 2023-07-13 13:32:47 Outpatient R [facility]IA [facility]FORM[facility] [id number] [facility] 2023-07-13 00:00:00 2023-07-13 00:00:00 Telephone Sina [facility] 1.2.840.114 350.1.13.10 4.2.7.2.686 [id number] [facility] 2023-07-13 00:00:00 2023-07-13 00:00:00 Orders Only Doctor Unassigned, [place] [facility] 1.2840.114 350.1.13.10 4.2.7.2.686 [id number] [facility] 2023-06-24 00:00:00 2023-06-24 00:00:00 Patient Secure Msg Sina [facility] 1.2.840.114 350.1.13.10 4.2.7.2.686 [id number] [facility] 2023-06-21 00:00:00 2023-06-21 00:00:00 Telephone Sina [facility] 1.2.840.114 350.1.13.10 4.2.7.2.686 [id number] [facility] 2023-06-21 00:00:00 2023-06-21 00:00:00 Orders Only Doctor Unassigned, [place] [facility] 1.2840.114 350.1.13.10 4.2.7.2.686 [id number] [facility] 2023-06-14 14:15:00 2023-06-14 14:30:00 Instrument Technician Apprentice Visit 2, [facility] [facility] N[facility] BUILDING 1.2.840.114 350.1.13.10 4.2.7.2.686 [id number] [facility] 2023-06-14 14:15:00 2023-06-14 14:15:00 Outpatient R HORTENSIA ANDINOFORMERLY [facility] [id number] [facility] 2023-06-14 13:40:00 2023-06-14 13:53:14 Office Visit Sina [facility] BUILDING 1.2.840.114 350.1.13.10 4.2.7.2.686 [id number] [facility] 2023-06-14 00:00:00 2023-06-14 00:00:00 Patient Secure Msg Sina [facility] BUILDING 1.2.840.114 350.1.13.10 4.2.7.2.686 [id number] [facility] 2023-06-08 09:36:33 2023-06-08 23:59:00 Outpatient R HORTENSIA ANDINOFORMERLY [facility] [id number] [facility] 2023-06-08 09:36:33 2023-06-08 23:59:00 Hospital Encounter Sina [facility] BUILDING 1.2.840.114 350.1.13.10 4.2.7.2.686 [id number] [facility] 2023-06-08 08:30:00 2023-06-08 09:35:[address] [facility] NAL BUILDING 1.2.840.114 350.1.13.10 4.2.7.2.686 [id number] [facility] 2023-05-26 13:00:00 2023-05-26 13:33:54 Outpatient R HORTENSIA ANDINOFORMERLY [facility] [id number] [facility] 2023-05-26 13:00:00 2023-05-26 13:33:54 [facility] 1.2.840.114 350.1.13.10 4.2.7.2.686 [id number] 059 [id number] [facility] 2023-05-26 00:00:00 2023-05-26 00:00:00 Refill Sina [facility] PROFESSIO NAL BUILDING 1.2.840.114 350.1.13.10 4.2.7.2.686 [id number] [facility] 2023-05-23 00:00:00 2023-05-23 00:00:00 Transition of Care [place] Abigail MONDRAGONKenton ANJANA MORROW 1.2.840.114 350.1.13.10 4.2.7.2.686 [id number] [facility] 2023-05-17 11:05:00 2023-05-20 15:23:00 Inpatient X MARTHA SANABRIA [facility] [id number] [facility] 2023-05-17 11:05:00 2023-05-20 15:23:00 Hospital Encounter Marvel Wooten Jelani [facility] 1.2.840.114 350.1.13.10 4.2.7.2.686 [id number] [facility] 2023-05-06 14:32:38 2023-05-06 23:59:00 Hospital Encounter Radiology [facility] 1.2.840.114 350.1.13.10 4.2.7.2.686 [id number] [facility] 2023-05-06 14:32:05 2023-05-06 23:59:00 Outpatient R RADIOLOGY [facility] [id number] [facility] 2023-05-06 14:32:05 2023-05-06 23:59:00 Hospital Encounter Radiology [facility] 1.2.840.114 350.1.13.10 4.2.7.2.686 [id number] [facility] 2023-05-06 00:00:00 2023-05-06 00:00:00 Orders Only Doctor Unassigned, [place] [facility] 1.2.840.114 350.1.13.10 4.2.7.2.686 [id number] [facility] 2023-04-28 10:00:00 2023-04-28 10:00:00 Outpatient R HORTENSIA ANDINOFORMERLY [facility] [id number] [facility] 2023-04-06 00:00:00 2023-04-06 00:00:00 Telephone Sina [facility] PROFESSIO [facility] 1.2.840.114 350.1.13.10 4.2.7.2.686 [id number] [facility] 2023-04-06 00:00:00 2023-04-06 00:00:00 Orders Only Doctor Unassigned, [place] [facility] 1.2.840.114 350.1.13.10 4.2.7.2.686 [id number] [facility] 2023-03-11 13:40:00 2023-03-11 13:40:00 Outpatient MATT GOLDSTEIN HOWARD [facility] [id number] [facility] 2023-02-10 00:00:00 2023-02-10 00:00:00 Patient Secure Msg Doctor Unassigned, [place] [facility] 1.2.840.114 350.1.13.10 4.2.7.2.686 [id number] [facility] 2023-02-02 00:00:00 2023-02-02 00:00:00 Orders Only Doctor Unassigned, [place] [facility] 1.2.840.114 350.1.13.10 4.2.7.2.686 [id number] [id number] [facility] 2022-12-27 00:00:00 2022-12-27 00:00:00 Telephone Betsey LissettCritical access hospital HOLLI?[facility] BUILDING 1.2840.114 350.1.13.10 4.2.7.2.686 [id number] 044 [id number] [facility] 2022-12-20 00:00:00 2022-12-20 00:00:00 Refill Betsey LissettAtrium HealthTASHA PACHECOE?[facility] BUILDING 1.2.840.114 350.1.13.10 4.2.7.2.686 [id number] 044 [id number] [facility] 2022-12-15 00:00:00 2022-12-15 00:00:00 Refill Nel Sly [facility] HOLLI?[facility] BUILDING 1.2840.114 350.1.13.10 4.2.7.2.686 [id number] 044 [id number] [facility] 2022-12-15 00:00:00 2022-12-15 00:00:00 Refill Nel Sly [facility] HOLLI?[facility] BUILDING 1.2840.114 350.1.13.10 4.2.7.2.686 [id number] [facility] 2022-12-08 00:00:00 2022-12-08 00:00:00 Telephone Barbara LeggettCritical access hospital HOLLI?[facility] BUILDING 1.2840.114 350.1.13.10 4.2.7.2.686 [id number] 044 [id number] [facility] 2022-12-06 00:00:00 2022-12-06 00:00:00 [facility]ill [facility] 1.2840.114 350.1.13.10 4.2.7.2.686 [id number] [id number] [facility] 2022-11-28 00:00:00 2022-11-28 00:00:00 Refill Sly [facility] 1.2840.114 350.1.13.10 4.2.7.2.686 [id number] 044 [id number] [facility] 2022-10-31 00:00:00 2022-10-31 00:00:00 Refill Sly Neumann [facility] BU[facility] 1.2840.114 350.1.13.10 4.2.7.2.686 [id number] 044 [id number] [facility] 2022-10-18 00:00:00 2022-10-18 00:00:00 Refill Sly Neumann [facility] 1.2840.114 350.1.13.10 4.2.7.2.686 [id number] 044 [id number] [facility] 2022-10-08 00:00:00 2022-10-08 00:00:00 Telephone BetseyOrvilleAtrium HealthTASHA DE LA GARZA?[facility] BUILDING 1.2840.114 350.1.13.10 4.2.7.2.686 [id number] 044 [id number] [facility] 2022-10-02 00:00:00 2022-10-02 00:00:00 Refill AneBarbara poolethia [facility] 1.840.114 350.1.13.10 4.2.7.2.686 [id number] 044 [id number] [facility] 2022-09-28 14:00:00 2022-09-28 14:00:00 Outpatient BARBARA ARCHERTHIA [facility] [id number] [facility] 2022-09-14 09:39:33 2022-09-14 23:59:00 Outpatient R SLY NEUMANN [facility] [id number] [facility] 2022-09-14 09:39:33 2022-09-14 23:59:00 Hospital Encounter NelSly [facility] 1.840.114 350.1.13.10 4.2.7.2.686 [id number] [facility] 2022-09-14 11:15:00 2022-09-14 11:20:59 Instrument Technician Apprentice Visit Lab, Ang - Db RafaelSly zhu [facility] 1.84.114 350.1.13.10 4.2.7.2.686 [id number] [facility] 2022-09-14 00:00:00 2022-09-14 00:00:00 Orders Only Doctor Unassigned, [place] [facility] 1..114 350.1.13.10 4.2.7.2.686 [id number] [id number] [facility] 2022-09-11 00:00:00 2022-09-11 00:00:00 Telephone BetseyBarbaraLissett [facility] 1.84.114 350.1.13.10 4.2.7.2.686 [id number] 044 [id number] [facility] 2022-09-06 00:00:00 2022-09-06 00:00:00 Telephone Team, [facility] 1.2.840.114 350.1.13.10 4.2.7.2.686 [id number] [facility] 2022-08-25 00:00:00 2022-08-25 00:00:00 Patient Secure Magdalene Larose [facility] HOLLI?[facility] BU[facility] 1.2.840.114 350.1.13.10 4.2.7.2.686 [id number] 044 [id number] [facility] 2022-08-25 00:00:00 2022-08-25 00:00:00 Telephone NelSly [facility] 1.2.840.114 350.1.13.10 4.2.7.2.686 [id number] [id number] [facility] 2022-08-25 00:00:00 2022-08-25 00:00:00 Telephone NelSly [facility] 1.2840.114 350.1.13.10 4.2.7.2.686 [id number] 044 [id number] [facility] 2022-08-25 00:00:00 2022-08-25 00:00:00 Telephone RafaelSly zhu [facility] BU[facility] 1.2.840.114 350.1.13.10 4.2.7.2.686 [id number] 044 [id number] [facility] 2022-08-24 11:00:00 2022-08-24 11:15:00 Instrument Technician Apprentice Visit Lab, Lissett Banegas [facility] HOLLI?[facility] 1.2.840.114 350.1.13.10 4.2.7.2.686 [id number] [facility] 2022-08-24 10:30:00 2022-08-24 11:07:37 Outpatient R SLY NEUMANN [facility] [id number] [facility] 2022-08-24 10:30:00 2022-08-24 11:07:37 Office Visit Sly Neumann [facility] [place] 1.2840.114 350.1.13.10 4.2.7.2.686 [id number] 044 [id number] [facility] 2022-08-24 00:00:00 2022-08-24 00:00:00 Orders Only Doctor Unassigned, [place] [facility] 1.20.114 350.1.13.10 4.2.7.2.686 [id number] [facility] 2022-08-24 00:00:00 2022-08-24 00:00:00 Telephone Sly Neumann [facility] 1.20.114 350.1.13.10 4.2.7.2.686 [id number] 044 [id number] [facility] 2022-08-07 00:00:00 2022-08-07 00:00:00 Refill Sly Neumann [facility] 1.20.114 350.1.13.10 4.2.7.2.686 [id number] 044 [id number] [facility] 2022-07-30 00:00:00 2022-07-30 00:00:00 Refill Lissett Leggett [facility] 1.20.114 350.1.13.10 4.2.7.2.686 [id number] 044 [id number] [facility] 2022-06-23 00:00:00 2022-06-23 00:00:00 Telephone Lissett Leggett [facility] BU[facility] 1.2840.114 350.1.13.10 4.2.7.2.686 [id number] 044 [id number] [facility] 2022-06-07 00:00:00 2022-06-07 00:00:00 Refill Sly Neumann [facility] 1.840.114 350.1.13.10 4.2.7.2.686 [id number] 044 [id number] [facility] 2022-06-06 00:00:00 2022-06-06 00:00:00 Refill Sly Neumann [facility] 1.840.114 350.1.13.10 4.2.7.2.686 [id number] 044 [id number] [facility] 2022-05-12 00:00:00 2022-05-12 00:00:00 Telephone Lissett Leggett [facility] HOLLI?[facility] 1.0.114 350.1.13.10 4.2.7.2.686 [id number] 044 [id number] [facility] 2022-04-21 13:43:12 2022-04-21 23:59:00 Outpatient R RAFAELSLY Zhu [facility] [id number] [facility] 2022-04-21 14:00:00 2022-04-21 14:15:00 Instrument Technician Apprentice Visit Lab, Kimo NeumannlSy [facility] HOLLI?[facility] 1.840.114 350.1.13.10 4.2.7.2.686 [id number] [facility] 2022-04-21 13:30:00 2022-04-21 14:00:00 Office Visit NelSly [facility] 1.840.114 350.1.13.10 4.2.7.2.686 [id number] 044 [id number] [facility] 2022-04-20 00:00:00 2022-04-20 00:00:00 Refill Lissett Leggett [facility] 1.2.840.114 350.1.13.10 4.2.7.2.686 [id number] 044 [id number] [facility] 2022-04-05 00:00:00 2022-04-05 00:00:00 Refill Sly Neumann [facility] HO[facility]I?[facility] 1.2.840.114 350.1.13.10 4.2.7.2.686 [id number] 044 [id number] [facility] 2022-03-30 11:00:00 2022-03-30 11:03:11 Outpatient R NEL SLY [facility] [id number] [facility] 2022-03-30 11:00:00 2022-03-30 11:03:11 Office Visit Nel Sly [facility] HOLLI?[facility] 1..840.114 350.1.13.10 4.2.7.2.686 [id number] 044 [id number] [facility] 2022-03-12 00:00:00 2022-03-12 00:00:00 Patient Secure Msg Doctor Unassigned, [place] [facility] HOLLI?[facility] 1..840.114 350.1.13.10 4.2.7.2.686 [id number] [facility] 2022-03-05 00:00:00 2022-03-05 00:00:00 Telephone RafaelSly zhu [facility] 1.2.840.114 350.1.13.10 4.2.7.2.686 [id number] [id number] [facility] 2022-02-23 11:15:00 2022-02-23 11:30:00 Instrument Technician Apprentice Visit Lab, Kimo Soria Sly Neumann [facility] HOLLI?[facility] BU[facility] 1.2.840.114 350.1.13.10 4.2.7.2.686 [id number] [facility] 2022-02-23 11:15:00 2022-02-23 11:15:00 Outpatient R RAFAELELLA ZhuIE [facility] [id number] [facility] 2022-02-04 00:00:00 2022-02-04 00:00:00 Refill Ana MariaBarbara pooleCritical access hospital HOLLI?[facility] BUILDING 1.2.840.114 350.1.13.10 4.2.7.2.686 [id number] 044 [id number] [facility] 2022-01-26 00:00:00 2022-01-26 00:00:00 Alondra HallSly zhu [facility] HOLLI?[facility] BUILDING 1.2.840.114 350.1.13.10 4.2.7.2.686 [id number] 044 [id number] [facility] 2022-01-25 11:30:00 2022-01-25 11:45:00 Instrument Technician Apprentice Visit Lab, Kimo RodgersBarbara pooleCritical access hospital HOLLI?[facility] BUILDING 1.2.840.114 350.1.13.10 4.2.7.2.686 [id number] [facility] 2022-01-25 11:30:00 2022-01-25 11:30:00 Outpatient LISSETT ARCHER [facility] [id number] [facility] 2022-01-22 11:30:00 2022-01-22 11:30:00 Outpatient LISSETT ARCHER [facility] [id number] [facility] 2022-01-22 11:30:00 2022-01-22 11:30:00 Outpatient LISSETT ARCHER [facility] [id number] [facility] 2022-01-22 11:30:00 2022-01-22 11:30:00 Outpatient LISSETT ARCHER [facility] [id number] [facility] 2022-01-22 11:30:00 2022-01-22 11:30:00 Outpatient LISSETT ARCHER [facility] [id number] [facility] 2021-12-30 00:00:00 2021-12-30 00:00:00 Telephone Nel Sly [facility] 1.2.840.114 350.1.13.10 4.2.7.2.686 [id number] [id number] [facility] 2021-12-29 12:00:00 2021-12-29 12:00:00 Outpatient SLY SCHUSTER [facility] [id number] [facility] 2021-12-29 12:00:00 2021-12-29 12:00:00 Instrument Technician Apprentice Visit Lab, Kimo - Yang Neumann Sly [facility] HOLLI?[facility] 1.2.840.114 350.1.13.10 4.2.7.2.686 [id number] [facility] 2021-12-29 11:00:00 2021-12-29 11:30:00 Office Visit Nel Sly [facility]I?[facility] 1.2.840.114 350.1.13.10 4.2.7.2.686 [id number] 044 [id number] [facility] 2021-12-29 11:00:00 2021-12-29 11:00:00 Outpatient SLY SCHUSTER [facility] [id number] [facility] 2021-12-29 11:00:00 2021-12-29 11:00:00 Outpatient SLY SCHUSTER [facility] [id number] [facility] 2021-12-18 00:00:00 2021-12-18 00:00:00 Telephone Lissett Leggett [facility] HO[facility] 1.84114 350.1.13.10 4.2.7.2.686 [id number] 044 [id number] [facility] 2021-12-02 00:00:00 2021-12-02 00:00:00 Patient Secure Msg Doctor Unassigned, [place] [facility] HOLLI?[facility] 1.84114 350.1.13.10 4.2.7.2.686 [id number] 044 [id number] [facility] 2021-11-27 10:45:00 2021-11-27 11:00:00 Instrument Technician Apprentice Visit Lab, Kimo Neumann Sly [facility] HOLLI?[facility] 1.84.114 350.1.13.10 4.2.7.2.686 [id number] [facility] 2021-11-27 10:00:00 2021-11-27 10:48:11 Outpatient R SLY NEUMANN [facility] [id number] [facility] 2021-11-27 10:00:00 2021-11-27 10:48:11 Office Visit Nel Sly [facility] 1.84.114 350.1.13.10 4.2.7.2.686 [id number] 044 [id number] [facility] 2021-11-27 10:00:00 2021-11-27 10:00:00 Outpatient R SLY NEUMANN [facility] [id number] [facility] 2021-11-27 00:00:00 2021-11-27 00:00:00 Telephone Nel Sly [facility] HO[facility] 1.84.114 350.1.13.10 4.2.7.2.686 [id number] [id number] [facility] 2021-11-25 00:00:00 2021-11-25 00:00:00 Destin CaseyNat girardtim Zhu [facility] 1.84.114 350.1.13.10 4.2.7.2.686 [id number] 044 [id number] [facility] 2021-11-23 00:00:00 2021-11-23 00:00:00 Transition of Care Shantirandy Lucille L SHREYAS MORROW 1.84.114 350.1.13.10 4.2.7.2.686 [id number] [facility] 2021-11-18 18:32:00 2021-11-20 16:03:00 Hospital Encounter Keagan Coreas, Martha Sullivan [facility] 1.84.114 350.1.13.10 4.2.7.2.686 [id number] [facility] 2021-11-18 11:00:00 2021-11-18 11:15:00 Instrument Technician Apprentice Visit Lab, Sly Bustos [facility] 1.840.114 350.1.13.10 4.2.7.2.686 [id number] [facility] 2021-11-18 09:30:00 2021-11-18 11:01:17 Outpatient R SLY NEUMANN [facility] [id number] [facility] 2021-11-18 09:30:00 2021-11-18 11:01:17 [facility] 1.840.114 350.1.13.10 4.2.7.2.686 [id number] [facility] 2021-11-18 09:30:00 2021-11-18 11:01:17 Outpatient R SLY NEUMANN [facility] [id number] [facility] 2021-11-18 09:30:00 2021-11-18 11:01:17 Outpatient R SLY NEUMANN [facility] [id number] [facility] 2021-11-18 00:00:00 2021-11-18 00:00:00 Refill Sly Neumann [facility] 1.2.840.114 350.1.13.10 4.2.7.2.686 [id number] [facility] 2021-11-09 16:00:00 2021-11-09 16:15:00 Instrument Technician Apprentice Visit Lab, Kimo RodgersBarbara pooleCritical access hospital HOLLI?[facility] 1.2.840.114 350.1.13.10 4.2.7.2.686 [id number] [facility] 2021-11-09 16:00:00 2021-11-09 16:09:54 Instrument Technician Apprentice Visit Lab, Kimo Soria Barbara [facility]gettCritical access hospital HOLLI?[facility] 1.2.840.114 350.1.13.10 4.2.7.2.686 [id number] [facility] 2021-11-09 16:00:00 2021-11-09 16:00:00 Outpatient R LISSETT LEGGETT [facility] [id number] [facility] 2021-11-09 15:00:00 2021-11-09 15:57:42 Office Visit Barbara LeggettCritical access hospital HOLLI?[facility] 1.2.840.114 350.1.13.10 4.2.7.2.686 [id number] [facility] 2021-11-09 15:00:00 2021-11-09 15:57:42 Outpatient R LISSETT LEGGETT [facility] [id number] [facility] 2021-11-09 15:00:00 2021-11-09 15:57:42 Outpatient R LISSETT LEGGETT [facility] [id number] [facility] 2021-11-09 15:00:00 2021-11-09 15:57:42 Office [facility] 1.2.840.114 350.1.13.10 4.2.7.2.686 [id number] [facility] 2021-09-10 00:00:00 2021-09-10 00:00:00 [facility]ill [facility]ana Xena [facility] 1.2.840.114 350.1.13.10 4.2.7.2.686 [id number] [facility] 2021-08-04 00:00:00 2021-08-04 00:00:00 Refill Rossana [facility] 1.2.840.114 350.1.13.10 4.2.7.2.686 [id number] [facility] 2021-07-23 12:15:00 2021-07-23 12:30:00 Instrument Technician Apprentice Visit Lab, Kimo - Yang Tracy Xena Zhu [facility] 1.2.840.114 350.1.13.10 4.2.7.2.686 [id number] [facility] 2021-07-23 11:30:00 2021-07-23 12:13:54 Outpatient R XENA TRACY [facility] [id number] [facility] 2021-07-23 11:30:00 2021-07-23 12:13:54 [facility] 1..840.114 350.1.13.10 4.2.7.2.686 [id number] [facility] 2021-07-21 10:30:00 2021-07-21 10:30:00 [facility] [id number] [facility] 2021-07-21 10:30:00 2021-07-21 10:30:00 [facility] [id number] [facility] 2021-06-23 13:00:00 2021-06-23 13:47:11 [facility] [id number] [facility] 2021-06-12 11:15:00 2021-06-12 11:30:00 Office Visit Fariha Cali [facility] 1..840.114 350.1.13.10 4.2.7.2.686 [id number] [facility] 2021-06-12 11:15:00 2021-06-12 11:15:00 Outpatient FARIHA RUSSO [facility] [id number] [facility] 2021-05-28 00:00:00 2021-05-28 00:00:00 Telephone Elvis Kearns [facility] 1..840.114 350.1.13.10 4.2.7.2.686 [id number] [facility] 2021-05-25 00:00:00 2021-05-25 00:00:00 Telephone CaseyLorraine girardronnietim Zhu [facility] 1..840.114 350.1.13.10 4.2.7.2.686 [id number] [facility] 2021-05-25 00:00:00 2021-05-25 00:00:00 Telephone Xena Tracy [facility] 1.2840.114 350.1.13.10 4.2.7.2.686 [id number] [facility] 2021-05-25 00:00:00 2021-05-25 00:00:00 Refill Xena Tracy [facility] 1.2840.114 350.1.13.10 4.2.7.2.686 [id number] [facility] 2021-04-28 16:00:00 2021-04-28 16:10:00 Imm/Inj Visit Vaccine, Ang Db Cbc Fam Xena Tracy [facility] 1.840.114 350.1.13.10 4.2.7.2.686 [id number] [facility] 2021-04-28 16:00:00 2021-04-28 16:00:00 Outpatient R XENA TRACY [facility] [id number] [facility] 2021-04-10 11:00:00 2021-04-10 11:00:00 Outpatient R [facility] [id number] [facility] 2021-03-06 00:00:00 2021-03-06 00:00:00 Telephone Xena Tracy [facility] 1.2840.114 350.1.13.10 4.2.7.2.686 [id number] [facility] 2021-03-02 13:40:07 2021-03-02 14:33:01 Office Visit Xena Tracy [facility] 1.2840.114 350.1.13.10 4.2.7.2.686 [id number] [facility] 2021-03-02 13:30:00 2021-03-02 14:33:01 Outpatient R XENA TRACY [facility] [id number] [facility] 2021-03-02 13:30:00 2021-03-02 14:33:01 Outpatient R LORRAINE TRACYTIM [facility] [id number] [facility] 2020-12-23 14:29:02 2020-12-23 23:59:00 Hospital Encounter Radiology [facility] 1.2.840.114 350.1.13.10 4.2.7.2.686 [id number] [facility] 2020-12-23 14:29:02 2020-12-23 23:59:00 Outpatient R RADIOLOGY [facility] [id number] [facility] 2020-12-23 14:27:10 2020-12-23 14:28:00 Hospital Encounter Radiology [facility] 1.2.840.114 350.1.13.10 4.2.7.2.686 [id number] [facility] 2020-12-23 00:00:00 2020-12-23 00:00:00 Outpatient R RADIOLOGY [facility] [id number] [facility] 2020-07-08 11:30:00 2020-07-08 11:30:00 Outpatient R CHINO BARAHONA [facility] [id number] [facility] 2020-06-17 10:20:00 2020-06-17 10:20:00 Outpatient R CHINO BARAHONA [facility] [id number] [facility] 2019-11-01 00:00:00 2019-11-01 00:00:00 Outpatient R RADIOLOGY [facility] [id number] [facility] 2019-05-03 00:00:00 2019-05-03 23:59:00 Outpatient R SHAKEEL BILLY I [facility] [id number] [facility] 2019-05-03 14:11:09 2019-05-03 14:12:00 Outpatient R SHAKEEL BILLY I [facility] [id number] [facility] 2019-05-03 14:11:00 2019-05-03 14:12:00 Hospital Encounter Shakeel Billy i [facility] 1.2.840.114 350.1.13.10 4.2.7.2.686 [id number] [facility] Results Test Description Test Time Test Comments Results Result Co mments Source [facility] 1 [id number] 09:58:05Study: Single view chest. Ordering Physician: ANISA GILLESPIE Date: 05/20/2023 3:45 AM History:shortness of breath and cough COMPARISON: None. Findings: Single frontal view chest demonstrates a normal heart size.Perihilar interstitial edema is present with small pleural effusions.Bibasilar airspace opacities are identified which may result fromatelectasis or pneumonia. No pneumothorax is present. [facility] Center[facility]cosylated Hemoglobin (A1C)2023-05-18 02:08:43* Test Item Value Reference Range Interpretation Comme [facility] HGB A1C (test code = 4548-4) 5.4 % 4.0-5.7 AGUSTIN (test code = AGUSTIN) Reference RangesNormal: <5.7%Prediabetes: 5.7 - 6.4%Diabetes: > 6.5% Lab Interpretation (test code = 02881-7) Normal [facility] CenterProthrombin Time / [id number] 21:27:23* Test Item Value Reference Range Interpretation Comme nts PROTIME PATIENT (test code = 5964-2) 12.1 See_Comment [Automated [employer]] The system which generated this result transmitted reference range: 12.0 - 14.7 Seconds. The reference range was not used to interpret this result as normal/abnormal. INR (test code = 6301-6) 0.9 Normal INR <1.1; Warfarin Therapeutic range 2.0 to 3.0 or 2.5 to 3.5, depending upon the indications. Lab Interpretation (test code = 14859-0) Normal [facility] CenterMagnesium2024-01-23 20:22:03* Test Item Value Reference Range Interpretation Comme nts MAGNESIUM (test code = 4075889968) 0.8 mg/dL 1.7-2.4 L Lab Interpretation (test cod e = 41414-6) Abnormal [facility] CenterComp. Metabolic Panel (86637)2023-05-17 19:05:37* Test Item Value Reference Range Interpretation Comme nts NA (test code = 7655006408) 127 mmol/L 135-145 L K (test code = 1288751206) 3.6 mmol/L 3.5-5.0 CL (test code = 9354906078) 87 mmol/L 98-108 L CO2 TOTAL (test code = 7599240933) 16 mmol/L 23-31 L AGAP (test code = 9025783925) 24 2-16 H BUN (test code = 4010030338) 13 mg/dL 7-23 GLUCOSE (test code = 7096343255) 179 mg/dL 70-110 H CREATININE (test code = 1957090683) 0.64 mg/dL 0.50-1.04 TOTAL BILI (test code = 0296801043) 2.1 mg/dL 0.1-1.1 H CALCIUM (test code = 9860546502) 9.0 mg/dL 8.6-10.6 T PROTEIN (test code = 0374709319) 8.6 g/dL 6.3-8.2 H ALBUMIN (test code = 3977215537) 4.9 g/dL 3.5-5.0 ALK PHOS (test code = 3142111522) 165 U/L 34-122 H ALTv (test code = 1742-6) 118 U/L 5-35 H AST(SGOT) (test code = 4511675238) 237 U/L 13-40 H eGFR (test code = 46760-8) 94.6 mL/min/1.73m2 CKD-EPI eGFR (2020). Assuming creatinine has been stable day-to-day for at least three months, the eGFR indicates Category G1 (>= 90 mL/min/1.73 m2) Lab Interpretation (test code = 72832-7) Abnormal [facility] CenterLipase2024-01-23 19:05:36* Test Item Value Reference Range Interpretation Comme nts LIPASE (test code = 0044005877) 265 U/L 0-220 H Lab Interpretation (test cod e = 97035-4) Abnormal [facility] CenterCb with [id number] 18:53:14* Test Item Value Reference Range Interpretation Comme nts WBC (test code = 6690-2) 10.19 See_Comment [Automated messa ge] The system which generated this result transmitted reference range: 4.30 - 11.10 10*3/?L. The reference range was not used to interpret this result as normal/abnormal. RBC (test code = 789-8) 3.68 See_Comment L [Automated messa ge] The system [...] 35.0 g/dL 31.6-35.1 RDW-SD (test code = 71475-7) 48.0 fL 39.0-49.9 RDW-CV (test code = 788-0) 12.8 % 12.0-15.5 PLT (test code = 777-3) 133 See_Comment L [Automated messa ge] The system which generated this result transmitted reference range: 166 - 358 10*3/?L. The reference range was not used to interpret this result as normal/abnormal. MPV (test code = 95190-4) 11.0 fL 9.5-12.9 NRBC/100 WBC (test code = 3216910353) 0.0 See_Comment [Automated me ssage] The system which generated this result transmitted reference range: 0.0 - 10.0 /100 WBCs. The reference range was not used to interpret this result as normal/abnormal. NRBC x10^3 (test code = 4098612306) See_Comment [Automated messa ge] The system which generated this result transmitted reference range: 10*3/?L. The reference range was not used to interpret this result as normal/abnormal. GRAN MAT (NEUT) % (test code = 770-8) 79.6 % IMM GRAN % (test code = 1466578826) 0.80 % LYMPH % (test code = 736-9) 8.6 % MONO % (test code = 5905-5) 10.8 % EOS % (test code = 713-8) 0.0 % BASO % (test code = 706-2) 0.2 % GRAN MAT x10^3(ANC) (test code = 8534989730) 8.11 10*3/uL 1.88-7.09 H IMM GRAN x10^3 (test code = 5635529440) 0.08 10*3/uL 0.00-0.06 H LYMPH x10^3 (test code = 731-0) 0.88 10*3/uL 1.32-3.29 L MONO x10^3 (test code = 742-7) 1.10 10*3/uL 0.33-0.92 H EOS x10^3 (test code = 711-2) 0.03-0.39 L BASO x10^3 (test code = 704-7) 0.01-0.07 Lab Interpretation (test code = 45497-6) Abnormal [facility] CenterEXTERNAL FIT [id number] 07:58:00* Test Item Value Reference Range Interpretation [...] screened with both Cologuard and colonoscopy. (Hanna Candelaria al, N Engl J Med 2014;370(14):6879-2279) The normal value (reference range) for this assay is negative. COLOGUARD RE-SCREENING RECOMMENDATION: Periodic colorectal cancer screening is an important part of preventive healthcare for asymptomatic individuals at average risk for colorectal cancer. ?Following a negative Cologuard result, the [place] [employer] and U.S. Multi-Society Task Force?screening guidelines recommend a Cologuard re-screening interval of 3 years. References: [place] [employer] Guideline for Colorectal Cancer Screening: https://www.cancer.org/ cancer/ovttd-nggfkq-pxc cer/detection-diagnosis -staging/acs-recommenda tions.html.; [place] DK, Laura MARTINEZ, Dirk HopsonK, Colorectal Cancer Screening: Recommendations for Physicians and Patients from the U.S. Multi-Society Task Force on Colorectal Cancer Screening , Am J Gastroenterology 2017; 112:1982-8984. TEST DESCRIPTION: Composite algorithmic analysis of stool [...] screened with both Cologuard and colonoscopy. (Hanna Candelaria al, N Engl J Med 2014;370(14):0929-7559. ) Cologuard may produce a false negative or false positive result (no colorectal cancer or?precancerous polyp present at colonoscopy follow up). A negative Cologuard test result does not guarantee the absence of CRC or advanced adenoma (pre-cancer). The current Cologuard screening interval is every 3 years. ([place] [employer] and U.S. Multi-Society Task Force). Cologuard performance data in a 10,000 patient pivotal study using colonoscopy as the reference method can be accessed at the following location: www.Sharypic/resul ts. Additional description of the Cologuard test process, warnings and precautions can be found at www.[employer]Linked. Resulting Agency [employer] (CLIA #:[id number]) Specimen Collected: 03/13/21 10:49 Last Resulted: 03/25/21 01:58 Received From: [employer] Result Received: 08/24/22 10:19 Lab Interpretation (test code = 19191-8) Normal [facility] History and Physical Notes Date/Time Note Provider Source 2023-05-17 17:58:26 [facility] Hospitalist Admission H&P Date of Service: 05/17/2023 CHIEF COMPLAINT: Nausea and diarrhea HISTORY OF PRESENT ILLNESS Homar Alvarez is a 73 year old female [...] were consulted for inpatient admission and further evaluation. 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 Prediabetes Seasonal allergies 03/02/2021 Tachycardia 03/02/2021 PAST SURGICAL HISTORY Past Surgical History: Procedure Laterality Date BLEPHAROPLASTY BREAST BIOPSY EXCISION 1993-left, 1994-B/l BUNIONECTOMY RADICAL HYSTERECTOMY ALLERGIES Allergies Allergen Reactions Codeine Nausea and/or Vomiting Desflurane Nausea and/or Vomiting Doxepin Dizziness Fentanyl Other - See comments Slow recovery Iodine Hives, Nausea and/or Vomiting and Shortness of Breath Propofol Nausea and/or Vomiting Sertraline Dizziness Succinylcholine Other - See comments Due to pseudocholinesterase deficiency Zofran [Ondansetron Hcl] Nausea and/or Vomiting MEDICATIONS Current home medication list reviewed: Current Discharge Medication List STOP taking these medications atorvastatin 40 mg tablet Comments: Reason for Stopping: traZODone 50 mg tablet Comments: Reason for Stopping: atenoloL 25 mg tablet Comments: Reason for Stopping: diclofenac 50 mg tablet Comments: Reason for Stopping: tiZANidine 2 mg tablet Comments: Reason for Stopping: cyclobenzaprine 5 mg tablet Comments: Reason for Stopping: molnupiravir 200 mg capsule Comments: Reason for Stopping: PANTOPRAZOLE 40 mg EC tablet Comments: Reason for Stopping: aspirin 81 mg EC tablet Comments: Reason for Stopping: cholecalciferol, vitamin D3, (VITAMIN D3 ORAL) Comments: Reason for Stopping: enalapril 20 mg tablet Comments: Reason for Stopping: FAMILY HISTORY Family History Problem Relation Age of Onset Breast Cancer Mother Allergies Mother Lung Cancer Father Stroke Father Hypertension Father Diabetes Father Heart Father SOCIAL HISTORY Social History Socioeconomic History Marital status: Number of children: 2 Tobacco Use Smoking status: Former Smokeless tobacco: Never Tobacco comments: smoked for less than 5 years after high school Substance and Sexual Activity Alcohol use: Yes Comment: 7 drinks per week REVIEW OF SYSTEMS Constitutional: negative fevers/chills, weight changes Eyes: negative acute blurry vision, eye discharge Ears, Nose, Mouth, Throat: negative dysphagia, runny nose, sore throat, tinnitus Cardiovascular: negative chest pain, paplitaitons Respiratory: negative sob, cough Gastrointestinal: Positive for nausea, vomiting diarrhea Genitourinary: Negative dysuria, hematuria Musculoskeletal: negative calf pain, swelling Integumentray: negative rash, itching Neurological: negative syncope, focal weakness Psychiatric: negative hallucinations PHYSICAL EXAMINATION BP 114/73 | Pulse 82 | Temp 36.7 ?C (98 ?F) (Temporal Artery) | Resp 16 | Ht 1.575 m (5' 2") | Wt 46.3 kg (102 lb) | SpO2 99% | BMI 18.66 kg/m? General: No acute distress, thin HEENT: Normal oral mucosa, anicteric sclerae, NCAT Cardiovascular: RRR, strong symmetric radial pulses Lungs: CTAB Abdomen: Soft, NTND Musculoskeletal: Normal ROM, normal muscle mass Genitourinary: Normal Skin: No rash, lesions Neuro: AAOx3, fine hand tremors Psych: Normal affect LABS - reviewed pertinent labs as below: CBC BMP PT/INR WBC (10*3/?L) Date Value 05/17/2023 10.19 NA (mmol/L) Date Value 05/17/2023 127 (L) No results found for: "PT" RBC (10*6/?L) Date Value 05/17/2023 3.68 (L) K (mmol/L) Date Value 05/17/2023 3.6 INR (no units) Date Value 05/17/2023 0.9 PLT (10*3/?L) Date Value 05/17/2023 133 (L) CALCIUM (mg/dL) Date Value 05/17/2023 9.0 HGB (g/dL) Date Value 05/17/2023 13.2 CL (mmol/L) Date Value 05/17/2023 87 (L) aPTT HCT (%) Date Value 05/17/2023 37.7 BUN (mg/dL) Date Value 05/17/2023 13 No results found for: "APTTPAT" CREATININE (mg/dL) Date Value 05/17/2023 0.64 IMAGING - reviewed, pertinent results as below: No results found for this visit on 05/17/23. ASSESSMENT/PLAN Homar Alvarez 73 years old admitted for: Nausea and diarrhea -- Reports nausea and vomiting for the past 14 days -- Zofran as needed -- Stool sample for fecal -- Patient may need to follow-up with GI on an outpatient basis. Patient reports she has a consult and has not followed up yet -- Hemoglobin A1c pending Hyponatremia Hypomagnesia likely secondary to nausea and diarrhea --Will replace and trend MCV elevation likely secondary to alcoholism Elevated LFTs --Patient with hand tremors she reports that she stopped drinking 2 weeks ago then she said a month ago patient does report she does not have any alcohol in the house. --Will continue IVF --CIWA protocol, with Serax taper dose Acute cystitis -- Urinalysis abnormal -- Urine culture pending -- Patient has received 1 dose of ceftriaxone although she was unable to give urine for culture Hypertension -- Patient takes atenolol, hold medication for now will reevaluate Depression/anxiety --Continue trazodone 50 mg at bedtime Prophylaxis: DVT- enoxaparin Stress Ulcer: no indication for prophylaxis Advanced Care Planning (Z71.89) Above assessment and plan discussed at length with patient, patient expressed full understanding. Questions and concerned addressed, I spent 18 minutes discussing the advance care plan. Surrogate decision maker: self Level of care expected after discharge: independant Code status: Full code Smoking Cessation: (Z71.6) Tobacco user?: non smoker Patient will require inpatient stay of 2 midnights or more given high risk of morbidity and mortality. [facility] was viewed during this stay CELINA Noble NSED PHARMACIST Associated attestation - Martha Sanabria MD - 05/17/2023 7:48 PM LICENSED PHARMACIST I have independently seen and evaluated this [...] Medicine team will continue to provide daily care. Martha Sanabria MD 05/17/2023 7:42 PM [facility] - Health Notes Date/Time Note Provider Source 2025-01-02 15:05:29 Called Homar Alvarez at [phone] (home) verified name and Advised I would pass concern on to provider and that patient education about s/s stroke had been sent to her my chart. Brittany Krishnamurthy RN [facility] 2024-12-28 12:03:39 Copied from [facility] #[id number]. Topic: Clinical - Medical Advice >> Dec 28, 2024 11:59 AM Patient Systems Integration Engineer wrote: Homar Alvarez is a 74 year old female Patient is calling stating that she has questions she forgot to ask yesterday during her visit. Patient would like to know what is the percentage of the possibility of a stroke and what what her family needs to look out for. [phone] (home) Please advise. Naz Saha [facility] 2024-12-27 08:00:00 Patient was enrolled through [employer] for 30 day event monitor to be mailed to home for self hook-up. Patient was already aware of plan from last office visit. Lisseth Cary [facility] 2024-12-13 08:37:17 Noted, per insurance send 100 day supply. Dayana Lugo MA [facility] 2024-12-13 08:01:57 Images from the original note were not included. Vandana Fields [facility] 2024-10-17 15:08:18 Referral for cardiology has been placed per [facility] guidelines. [facility] 2024-10-17 15:01:[address] referral for pt upcoming appt with cardiology. Bonnie Vigil [facility] 2024-09-13 15:45:00 Images from the original note were not included. Venipuncture collection performed by clean technique on the left anticubitus. Total of 1 attempts were made. Slight pressure and a bandage/dressing were applied to the site(s). The patient experienced no complications. The following specimens were processed according to instructions and sent to [facility] laboratories per lab order on 09/13/2024: LT BLUE SST 3 1 Lt Green RED LAV 2 PPT DK GREEN (LiHep) 1 DK GREEN (SodH) BRANDT DK BLUE (K2) DK BLUE (S) ACD Blood Culture NIPT/NTD Patient has been identified by and name and was provided with cup, antiseptic towelette, and clean catch instructions. 1 urine specimen(s) sent. Unpreserved 1 Urine Culture Aptima tube Other urine [facility] 2024-08-14 15:12:13 Discussed with pt the option of using [facility] pharmacy. Pt is agreeable to try. Pt will answer phone when they call. Rx forwarded. [facility] 2024-08-14 14:02:[address] Names and a phone number so the pt can get I contact with the clinic. Osbaldo Grant [facility] 2024-08-14 13:43:44 Homar Alvarez is a 74 year old female Pt is also wanting to see if there is something cheaper than the [facility] pharmacy is $500 Please advise Dot Levine [facility] 2024-08-14 13:34:36 Homar Alvarez is a 74 year old female Pt is calling and asking who the 2 primary care doctors that are downstairs are. Please advise Dot Levine [facility] 2024-01-09 08:39:14 Images from the original note were not included. Name from pharmacy: Pantoprazole Sodium 40 MG Oral Tablet Delayed Release Will file in chart as: PANTOPRAZOLE 40 mg EC tablet Possible duplicate: Hover to review recent actions on this medication Sig: TAKE 1 TABLET BY MOUTH EVERY MORNING Disp: 30 tablet Refills: 11 Start: 01/09/2024 Class: eRX For: Anxiety and depression, Weight loss To pharmacy: Requesting 1 year supply Last ordered: 2 weeks ago (12/20/2023) by CELINA Dotson Last refill: 12/20/2023 Rx #: [id number] Gastroenterology: Antiulcer - Proton Pump Inhibitors Zwcwlg4301/09/2024 03:57 AM Protocol Details Valid encounter within last 12 months To be filled at: [address] Please review and refill if appropriate Recent Visits Date Type Provider Dept 08/24/22 Office Visit Sly Neumann FNP [facility] Showing recent visits within past 540 days with a meds authorizing provider and meeting all other requirements Future Appointments No visits were found meeting these conditions. Showing future appointments within next 150 days with a meds authorizing provider and meeting all other requirements Radha Gonzalez MA [facility] 2023-12-20 12:50:03 Images from the original note were not included. Notes: MUST BE SEEN FOR FURTHER REFILLS Last Refilled: Name from pharmacy: Pantoprazole Sodium 40 MG Oral Tablet Delayed Release Will file in chart as: PANTOPRAZOLE 40 mg EC tablet Sig: Take 1 tablet by mouth every morning. Original sig: TAKE 1 TABLET BY MOUTH EVERY MORNING Disp: 30 tablet Refills: 11 Start: 12/20/2023 Class: eRX For: Anxiety and depression, Weight loss To pharmacy: Requesting 1 year supply Last ordered: 3 months ago (09/08/2023) by CELINA Dotson Last refill: 11/03/2023 Rx #: [id number] Gastroenterology: Antiulcer - Proton Pump Inhibitors [id number]/20/2023 12:12 PM Protocol Details Valid encounter within last 12 months To be filled at: [address] Recent Visits Date Type Provider Dept 08/24/22 Office Visit Sly Neumann FNP [facility] Showing recent visits within past 540 days with a meds authorizing provider and meeting all other requirements Future Appointments No visits were found meeting these conditions. Showing future appointments within next 150 days with a meds authorizing provider and meeting all other requirements [facility] 2023-12-14 09:28:23 Received MRI fax from pain management [place] for Ortho . Dr. Diaz does not treat for back injury . I called patient and left a voice mail . I am not able to notify Pain management because they did not send their information Ela Delgado [facility] 2023-07-19 15:26:23 No Rx sent in from Cardiology dept. Since . Per pt unsure who ordered. Will contact pharmacy to clarify. Jose Roberto Conley MA [facility] 2023-07-18 15:11:31 Copied from [facility] #[id number]. 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 She picked up amitriptyline 25 mg, and does not know why she was prescribed this medication. She is needing clarification. Please advise Jasmin Almendarez [facility] 2023-07-13 15:29:24 Refaxing now. Jose Roberto Conley MA [facility] 2023-07-13 11:59:50 Copied from [facility] #[id number]. Topic: Clinical - Paperwork/Forms >> Jul 13, 2023 11:58 AM Patient Systems Integration Engineer wrote: Homar Alvarez is a 73 year old female Alicja with [facility] is calling and states they did not receive fax from 06/21/23 and asking if it can be re-faxed to [phone] Office [phone] Isaura Vigil [facility] 2023-07-08 11:47:35 Attempted to contact patient with results/recommendations. LVM for patient to return call to [phone]. If patient calls back please let her know that results of blood work and heart monitor were normal. Please continue same medications and follow up as planned. NOV 07/13/23 Nasrin Olson RN [facility] 2023-07-08 11:46:08 Attempted to contact patient with results/recommendations. LVM for patient to return call to [phone]. If patient calls back please let her know that results of blood work and heart monitor were normal. Please continue same medications and follow up as planned. NOV 07/13/23 Nasrin Olson RN [facility] 2023-06-21 12:42:02 Cardiac Clearance faxed back to [facility] and scanned into chart along with fax confirmation. N Vigil MA [facility] 2023-06-21 10:10:24 Received cardiac clearance request from [facility], placed in Dr. Andino's folder for review . NSED PHARMACIST Cinthya Ayala MA [facility] 2023-06-14 14:15:00 Images from the original note were not included. Venipuncture collection performed by clean technique on the left anticubitus. Total of 1 attempts were made. Slight pressure and a bandage/dressing were applied to the site(s). The patient experienced no complications. The following specimens were processed according to instructions and sent to [facility] laboratories per lab order on 06/14/2023 : LT BLUE SST 1 RED LAV PPT DK GREEN (LiHep) DK GREEN (SodH) BRANDT DK BLUE (K2) DK BLUE (S) ACD Blood Culture NIPT/NTD [facility] 2023-06-08 08:30:00 24 hour holter (SEER 1000, #1) applied to patient, tolerated well. Wear, care, diary entry and monitor return teaching given, understanding verbalized. Monitor to be returned on tomorrow by noon, return letter acknowledged and signed. N Conley MA [facility] 2023-05-26 15:08:13 Received refill request for: Medication: Requested Prescriptions Pending Prescriptions Disp Refills KCL 20 mEq tablet 30 tablet 1 Sig: Take 1 tablet by mouth in the morning. Requested Prescriptions Pending Prescriptions Disp Refills KCL 20 mEq tablet 30 tablet 1 Sig: Take 1 tablet by mouth in the morning. Endocrinology: Minerals - Potassium Supplementation Passed - 05/26/2023 2:34 PM Passed - Valid encounter within last 12 months Recent Visits No visits were found meeting these conditions. Showing recent visits within past 365 days and meeting all other requirements Today's Visits Date Type Provider Dept 05/26/23 Office Visit Janice Andino MD [facility] Showing today's visits and meeting all other requirements Future Appointments Date Type Provider Dept 06/14/23 Appointment Janice Andino MD [facility] Showing future appointments within next 365 days and meeting all other requirements Medication Last filled: 05/26/2023 Provider Note: Your Medication List (continued) as of May 26, 2023 2:46 PM KCL 20 mEq tablet Commonly known as: KLOR-CON M20 For diagnoses: Acute lung edema Quantity: 30 tablet Started by: Janice Andino MD Take 1 tablet by mouth in the morning Recent Visits No visits were found meeting these conditions. Showing recent visits within past 365 days and meeting all other requirements Today's Visits Date Type Provider Dept 05/26/23 Office Visit Janice Andino MD [facility] Showing today's visits and meeting all other requirements Future Appointments Date Type Provider Dept 06/14/23 Appointment Janice Andino MD [facility] Showing future appointments within next 365 days and meeting all other requirements Refilled approval sent to: Pharmacy: [id number] - [place], [place] - [address] [facility] [address] [facility] [address] [facility] - [place], [place] [address] [facility] [address] [facility] [place] - [address] [facility] [address] [facility] [phone] [facility] [phone] [address] Refilled based on current protocol and last office visit note. Viviana Samra Noonan 05/26/2023 3:09 PM Admission on 05/17/2023, Discharged on 05/20/2023 Component Date Value WBC 05/17/2023 10.19 RBC 05/17/2023 3.68 (L) HGB 05/17/2023 13.2 HCT 05/17/2023 37.7 MCV 05/17/2023 102.4 (H) MCH 05/17/2023 35.9 (H) MCHC 05/17/2023 35.0 RDW-SD 05/17/2023 48.0 RDW-CV 05/17/2023 12.8 PLT 05/17/2023 133 (L) MPV 05/17/2023 11.0 NRBC/100 WBC 05/17/2023 0.0 NRBC x10 3 05/17/2023 <0.01 GRAN MAT (NEUT) % 05/17/2023 79.6 IMM GRAN % 05/17/2023 0.80 LYMPH % 05/17/2023 8.6 MONO % 05/17/2023 10.8 EOS % 05/17/2023 0.0 BASO % 05/17/2023 0.2 GRAN MAT x10 3 (ANC) 05/17/2023 8.11 (H) IMM GRAN x10 3 05/17/2023 0.08 (H) LYMPH x10 3 05/17/2023 0.88 (L) MONO x10 3 05/17/2023 1.10 (H) EOS x10 3 05/17/2023 <0.03 (L) BASO x10 3 05/17/2023 <0.03 NA 05/17/2023 127 (L) K 05/17/2023 3.6 CL 05/17/2023 87 (L) CO2 TOTAL 05/17/2023 16 (L) AGAP 05/17/2023 24 (H) BUN 05/17/2023 13 GLUCOSE 05/17/2023 179 (H) CREATININE 05/17/2023 0.64 TOTAL BILI 05/17/2023 2.1 (H) CALCIUM 05/17/2023 9.0 T PROTEIN 05/17/2023 8.6 (H) ALBUMIN 05/17/2023 4.9 ALK PHOS 05/17/2023 165 (H) ALTv 05/17/2023 118 (H) AST(SGOT) 05/17/2023 237 (H) eGFR 05/17/2023 94.6 APPEARANCE 05/17/2023 Cloudy (A) COLOR 05/17/2023 Gertrudis (A) PH 05/17/2023 5.0 SP GRAVITY 05/17/2023 1.039 (H) GLU U QUAL 05/17/2023 50 mg/dL (A) BLOOD 05/17/2023 1+ (A) KETONES 05/17/2023 20 mg/dL (A) PROTEIN 05/17/2023 500 mg/dL (A) UROBILIN 05/17/2023 4.0 mg/dL (A) BILIRUBIN 05/17/2023 4 mg/dL (A) NITRITE 05/17/2023 Negative LEUK JAZZ 05/17/2023 75/uL (A) RBC/HPF 05/17/2023 91 (H) WBC/HPF 05/17/2023 >182 (H) BACTERIA 05/17/2023 Moderate (A) MUCOUS 05/17/2023 Marked (A) SQ EPITH 05/17/2023 28 PHI EPITH 05/17/2023 5 (H) Ictotest 05/17/2023 Positive LIPASE 05/17/2023 265 (H) URINE CULTURE 05/17/2023 No aerobic growth (< 1000 CFU/mL) MAGNESIUM 05/17/2023 0.8 (L) PROTIME PATIENT 05/17/2023 12.1 INR 05/17/2023 0.9 HGB A1C 05/17/2023 5.4 NA 05/18/2023 125 (L) K 05/18/2023 3.6 CL 05/18/2023 91 (L) CO2 TOTAL 05/18/2023 25 AGAP 05/18/2023 9 BUN 05/18/2023 9 GLUCOSE 05/18/2023 147 (H) CREATININE 05/18/2023 0.48 (L) CALCIUM 05/18/2023 8.5 (L) eGFR 05/18/2023 101.4 WBC 05/18/2023 4.93 RBC 05/18/2023 2.83 (L) HGB 05/18/2023 10.0 (L) HCT 05/18/2023 26.8 (L) MCV 05/18/2023 94.7 MCH 05/18/2023 35.3 (H) MCHC 05/18/2023 37.3 (H) RDW-SD 05/18/2023 44.1 RDW-CV 05/18/2023 12.9 PLT 05/18/2023 89 (L) MPV 05/18/2023 11.0 IPF % 05/18/2023 11.5 (H) NRBC/100 WBC 05/18/2023 0.0 NRBC x10 3 05/18/2023 <0.01 GRAN MAT (NEUT) % 05/18/2023 68.9 IMM GRAN % 05/18/2023 0.20 LYMPH % 05/18/2023 18.5 MONO % 05/18/2023 11.0 EOS % 05/18/2023 0.8 BASO % 05/18/2023 0.6 GRAN MAT x10 3 (ANC) 05/18/2023 3.40 IMM GRAN x10 3 05/18/2023 <0.03 LYMPH x10 3 05/18/2023 0.91 (L) MONO x10 3 05/18/2023 0.54 EOS x10 3 05/18/2023 0.04 BASO x10 3 05/18/2023 0.03 PLT ESTIMATE 05/18/2023 Decreased (A) GIANT PLATELETS 05/18/2023 Present (A) TOTAL BILI 05/18/2023 1.4 (H) BILI UNCON 05/18/2023 0.9 BILI CONJ 05/18/2023 0.0 T PROTEIN 05/18/2023 7.2 ALBUMIN 05/18/2023 4.1 ALK PHOS 05/18/2023 101 ALTv 05/18/2023 73 (H) AST(SGOT) 05/18/2023 147 (H) LIPASE 05/18/2023 292 (H) MAGNESIUM 05/18/2023 1.1 (L) MAGNESIUM 05/18/2023 1.5 (L) NA 05/19/2023 133 (L) K 05/19/2023 3.6 CL 05/19/2023 100 CO2 TOTAL 05/19/2023 30 AGAP 05/19/2023 3 BUN 05/19/2023 5 (L) GLUCOSE 05/19/2023 117 (H) CREATININE 05/19/2023 0.58 CALCIUM 05/19/2023 8.4 (L) eGFR 05/19/2023 96.9 MAGNESIUM 05/19/2023 1.8 WBC 05/19/2023 4.81 RBC 05/19/2023 2.70 (L) HGB 05/19/2023 9.6 (L) HCT 05/19/2023 27.5 (L) MCH 05/19/2023 35.6 (H) MCV 05/19/2023 101.9 (H) MCHC 05/19/2023 34.9 PLT 05/19/2023 102 (L) MPV 05/19/2023 10.7 RDW-CV 05/19/2023 12.6 RDW-SD 05/19/2023 46.9 NRBC x10 3 05/19/2023 <0.01 NRBC/100 WBC 05/19/2023 0.0 IPF % 05/19/2023 8.0 (H) LIPASE 05/19/2023 272 (H) TOTAL BILI 05/19/2023 0.8 BILI UNCON 05/19/2023 0.5 BILI CONJ 05/19/2023 0.0 T PROTEIN 05/19/2023 6.2 (L) ALBUMIN 05/19/2023 3.3 (L) ALK PHOS 05/19/2023 122 ALTv 05/19/2023 90 (H) AST(SGOT) 05/19/2023 245 (H) NSED PHARMACIST Viviana Noonan [facility] 2023-05-26 14:33:50 Received a 90 day request NSED PHARMACIST [facility] 2023-05-23 15:22:31 TRANSITIONAL CARE MANAGEMENT ASSESSMENT 05/23/2023 Homar Alvarez [id number] Homar Alvarez is a 73 year old /White female was admitted on 05/17/23 to [facility], [facility]. She was discharged on 05/20/23 with discharge disposition of HR- Routine Discharge. Admitting Physician: Martha Sanabria Discharge Diagnosis: Nausea and diarrhea Linked Episodes Type: Episode: Status: Noted: Resolved: Last update: Updated by: TRANSITION OF CARE TCM Active 05/23/2023 05/23/2023 1:57 PM Abigail Carroll RN Comments: TCM [id number] outreach documentation: Discharge Assessment Chart Assessed: 05/23/23 Future Appointments: Future Appointments Provider Department Dept Phone 05/26/2023 1:00 PM Janice Andino MD [facility] [phone] Transition CM attempted to contact patient x2. CM left a discreet voicemail explaining purpose of call and call back information. Abigail Carroll RN, MSN, [facility] CCRN, CCM Transitions of Accounts Officer Proficient Corporate Fitness Program Coordinator Drive In Theater Attendant Management Office: [phone] NSED PHARMACIST Abigail Carroll RN [facility] 2023-05-23 13:57:21 CM LVM to return call. Will attempt again at a later time. NSED PHARMACIST [facility] 2023-05-20 13:14:01 Problem: Falls, Risk of Goal: Absence of falls Outcome: Resolved Problem: Pain Goal: Control of pain at or below patient's documented comfort goal Outcome: Resolved Goal: Reduction in pain sensation Outcome: Resolved Problem: Cognitive-Perceptual Pattern - Impaired Goal: Cognitive status restored to baseline Outcome: Resolved Problem: Nutrition Deficit Goal: Adequate nutritional intake Outcome: Resolved Problem: Sleep Pattern Disturbance Goal: Able to sleep Outcome: Resolved Problem: Violence, Self/Other-Directed, Risk of Goal: Absence of violence Outcome: Resolved Problem: Nausea/Vomiting Goal: Absence of nausea/vomiting Outcome: Resolved Problem: Coping - Ineffective, Individual Goal: Effective coping Outcome: Resolved Goal: Knowledge of positive coping patterns Outcome: Resolved Goal: Knowledge of depression symptoms Outcome: Resolved N Parra RN [facility] 2023-05-20 00:53:40 Problem: Falls, Risk of Goal: Absence of falls Outcome: Progressing as expected Problem: Pain Goal: Control of pain at or below patient's documented comfort goal Outcome: Progressing as expected Goal: Reduction in pain sensation Outcome: Progressing as expected Problem: Cognitive-Perceptual Pattern - Impaired Goal: Cognitive status restored to baseline Outcome: Progressing as expected Problem: Nutrition Deficit Goal: Adequate nutritional intake Outcome: Progressing as expected Problem: Sleep Pattern Disturbance Goal: Able to sleep Outcome: Progressing as expected Problem: Violence, Self/Other-Directed, Risk of Goal: Absence of violence Outcome: Progressing as expected Problem: Nausea/Vomiting Goal: Absence of nausea/vomiting Outcome: Progressing as expected Problem: Coping - Ineffective, Individual Goal: Effective coping Outcome: Progressing as expected Goal: Knowledge of positive coping patterns Outcome: Progressing as expected Goal: Knowledge of depression symptoms Outcome: Progressing as expected N Meredith RN [facility] 2023-05-19 18:07:09 Problem: Falls, Risk of Goal: Absence of falls Outcome: Progressing as expected Problem: Pain Goal: Control of pain at or below patient's documented comfort goal Outcome: Progressing as expected Goal: Reduction in pain sensation Outcome: Progressing as expected Problem: Cognitive-Perceptual Pattern - Impaired Goal: Cognitive status restored to baseline Outcome: Progressing as expected Problem: Nutrition Deficit Goal: Adequate nutritional intake Outcome: Progressing as expected Problem: Sleep Pattern Disturbance Goal: Able to sleep Outcome: Progressing as expected Problem: Violence, Self/Other-Directed, Risk of Goal: Absence of violence Outcome: Progressing as expected Problem: Nausea/Vomiting Goal: Absence of nausea/vomiting Outcome: Progressing as expected Problem: Coping - Ineffective, Individual Goal: Effective coping Outcome: Progressing as expected Goal: Knowledge of positive coping patterns Outcome: Progressing as expected Goal: Knowledge of depression symptoms Outcome: Progressing as expected [facility] 2023-05-19 00:17:37 Problem: Falls, Risk of Goal: Absence of falls Outcome: Progressing as expected Problem: Pain Goal: Control of pain at or below patient's documented comfort goal Outcome: Progressing as expected Goal: Reduction in pain sensation Outcome: Progressing as expected Problem: Cognitive-Perceptual Pattern - Impaired Goal: Cognitive status restored to baseline Outcome: Progressing as expected Problem: Nutrition Deficit Goal: Adequate nutritional intake Outcome: Progressing as expected Problem: Sleep Pattern Disturbance Goal: Able to sleep Outcome: Progressing as expected Problem: Violence, Self/Other-Directed, Risk of Goal: Absence of violence Outcome: Progressing as expected Problem: Nausea/Vomiting Goal: Absence of nausea/vomiting Outcome: Progressing as expected Problem: Coping - Ineffective, Individual Goal: Effective coping Outcome: Progressing as expected Goal: Knowledge of positive coping patterns Outcome: Progressing as expected Goal: Knowledge of depression symptoms Outcome: Progressing as expected N Sousa RN [facility] 2023-05-18 17:52:00 Problem: Falls, Risk of Goal: Absence of falls Outcome: Progressing as expected Problem: Pain Goal: Control of pain at or below patient's documented comfort goal Outcome: Progressing as expected Goal: Reduction in pain sensation Outcome: Progressing as expected Problem: Cognitive-Perceptual Pattern - Impaired Goal: Cognitive status restored to baseline Outcome: Progressing as expected Problem: Nutrition Deficit Goal: Adequate nutritional intake Outcome: Progressing as expected Problem: Sleep Pattern Disturbance Goal: Able to sleep Outcome: Progressing as expected Problem: Violence, Self/Other-Directed, Risk of Goal: Absence of violence Outcome: Progressing as expected Problem: Nausea/Vomiting Goal: Absence of nausea/vomiting Outcome: Progressing as expected Problem: Coping - Ineffective, Individual Goal: Effective coping Outcome: Progressing as expected Goal: Knowledge of positive coping patterns Outcome: Progressing as expected Goal: Knowledge of depression symptoms Outcome: Progressing as expected NSED PHARMACIST Joyce Washington RN [facility] 2023-05-18 01:47:36 Problem: Falls, Risk of Goal: Absence of falls Outcome: Progressing as expected Problem: Pain Goal: Control of pain at or below patient's documented comfort goal Outcome: Progressing as expected Goal: Reduction in pain sensation Outcome: Progressing as expected Problem: Cognitive-Perceptual Pattern - Impaired Goal: Cognitive status restored to baseline Outcome: Progressing as expected Problem: Nutrition Deficit Goal: Adequate nutritional intake Outcome: Progressing as expected Problem: Sleep Pattern Disturbance Goal: Able to sleep Outcome: Progressing as expected Problem: Violence, Self/Other-Directed, Risk of Goal: Absence of violence Outcome: Progressing as expected Problem: Nausea/Vomiting Goal: Absence of nausea/vomiting Outcome: Progressing as expected Problem: Coping - Ineffective, Individual Goal: Effective coping Outcome: Progressing as expected Goal: Knowledge of positive coping patterns Outcome: Progressing as expected Goal: Knowledge of depression symptoms Outcome: Progressing as expected NSED PHARMACIST Yi Arroyo RN [facility] 2023-05-17 17:35:00 Problem: Falls, Risk of Goal: Absence of falls Outcome: Progressing as expected Problem: Pain Goal: Control of pain at or below patient's documented comfort goal Outcome: Progressing as expected Goal: Reduction in pain sensation Outcome: Progressing as expected Problem: Cognitive-Perceptual Pattern - Impaired Goal: Cognitive status restored to baseline Outcome: Progressing as expected Problem: Nutrition Deficit Goal: Adequate nutritional intake Outcome: Progressing as expected Problem: Sleep Pattern Disturbance Goal: Able to sleep Outcome: Progressing as expected Problem: Violence, Self/Other-Directed, Risk of Goal: Absence of violence Outcome: Progressing as expected Problem: Nausea/Vomiting Goal: Absence of nausea/vomiting Outcome: Progressing as expected Problem: Coping - Ineffective, Individual Goal: Effective coping Outcome: Progressing as expected Goal: Knowledge of positive coping patterns Outcome: Progressing as expected Goal: Knowledge of depression symptoms Outcome: Progressing as expected [facility] 2023-05-17 14:49:14 Nurse Report Report given to MARIANNA Rebolledo over the phone, no questions received. Chief complaint, assessment findings and medications were discussed. Plan of care discussed with patient/family member at bedside, patient aware of plan. Patient in stable condition at time report was given,no distress. Vital signs reassessed. Patient will be moved upstairs by tech shortly. Melissa Ferris RN [facility] Melissa Ferris RN [facility] 2023-05-17 11:35:00 Patient's name and verified with patient. Family member at bedside with patient. Chief Complaint Patient presents with Vomiting Patient ambulatory with steady gait with EC arrival. Patient is conscious and alert, with normal/unlabored breathing, and normal color/tone for ethnicity -oriented to name, time, place, and situation. GCS 15. Patient reports that she has been experiencing nausea/diarrhea and vomiting ~7 days ago. Mentions that this has happened before and she had abnormal electrolytes. Reports nausea is not constant but "it comes and goes". 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 Vitals obtained. Assessment performed. IV in place and patent. Placed on continuous spo2/cardiac monitoring, HR 87, sinus rhythm on monitor. Bed low and locked, secured with two rails, call light within reach. Belongings at bedside. Patient aware of plan of care. Melissa Ferris RN NSED PHARMACIST [facility] 2023-05-17 11:05:51 Pt reports vomiting every time she eats solid food and frequent BM for a couple of weeks. Pt states she can swallow liquids and keep them down but any solid food comes back up. Pt has a hx of electrolyte deficiency. N Harmon RN [facility] 2023-05-17 10:59:00 [facility] Emergency Department Note Patient Name: Homar Alvarez Date of : 1950 73 year old female Treatment Room: [facility]2222[facility] Primary Care Physician: Juan Carlos Snow Patient Escorted by: Family [5] Mode of Arrival: Personal means [1] EMS Treatment Prior to ED Arrival: CRTS treatment: None Travel and Exposure Screening: Symptoms Does patient have any of these symptoms?: (not recorded) Exposure Screening Has patient had contact with someone with a communicable disease in the last month?: (not recorded) Diseases exposed to:: (not recorded) Is Patient ?: (not recorded) Exposure Date: (not recorded) Chief Complaint: Chief Complaint Patient presents with Vomiting History of Present Illness: Patient presents with complaint of vomiting that has [...] other complaints. She admits frequent falls at home. 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 Prediabetes Seasonal allergies 03/02/2021 Tachycardia 03/02/2021 Tetanus received in last 5 years: Unknown Allergies: Allergies Allergen Reactions Codeine Nausea and/or Vomiting Desflurane Nausea and/or Vomiting Doxepin Dizziness Fentanyl Other - See comments Slow recovery Iodine Hives, Nausea and/or Vomiting and Shortness of Breath Propofol Nausea and/or Vomiting Sertraline Dizziness Succinylcholine Other - See comments Due to pseudocholinesterase deficiency Zofran [Ondansetron Hcl] Nausea and/or Vomiting Past Social History: Tobacco Use Former Smokeless Tobacco: Never used smokeless tobacco. Tobacco Cessation: Counseling given: Not Answered Comments: smoked for less than 5 years after high school Vaping Use Never used Alcohol Use Not Currently. Comments: 7 drinks per week Past Surgical History: Past Surgical History: Procedure Laterality Date BLEPHAROPLASTY BREAST BIOPSY EXCISION 1992-left, 1994-B/l BUNIONECTOMY RADICAL HYSTERECTOMY Review of Systems: Review of Systems Constitutional: Negative for fever. Respiratory: Negative for shortness of breath. Cardiovascular: Negative for chest pain. Gastrointestinal: Positive for vomiting. Negative for abdominal pain. Physical Exam: ED Triage Vitals Weight 05/17/23 1112 40.8 kg (90 lb) Actual or estimated 05/17/23 1521 Actual Height 05/17/23 1112 1.575 m (5' 2") BP 05/17/23 1112 (!) 112/99 Pulse 05/17/23 1112 88 Resp 05/17/23 1112 11 Temp 05/17/23 1112 36.9 ?C (98.4 ?F) Temp source 05/17/23 1517 TEMPORAL ART SpO2 05/17/23 1112 97 % Measured on 05/17/23 1120 Room air Physical Exam Vitals and nursing note reviewed. Constitutional: General: She is not in acute distress. Comments: Thin and appears malnourished. HENT: Nose: Nose normal. No congestion. Mouth/Throat: Mouth: Mucous membranes are moist. Cardiovascular: Rate and Rhythm: Normal rate and regular rhythm. Pulses: Normal pulses. Heart sounds: Normal heart sounds. No murmur heard. Pulmonary: Effort: Pulmonary effort is normal. No respiratory distress. Breath sounds: Normal breath sounds. Abdominal: General: Abdomen is flat. There is no distension. Palpations: Abdomen is soft. Tenderness: There is no abdominal tenderness. There is no guarding. Musculoskeletal: General: Normal range of motion. Skin: General: Skin is warm and dry. Neurological: Mental Status: She is alert. Radiology: No orders to display Lab Results: Lab Results CBC WITH DIFF - Abnormal Result Value Ref Range WBC 10.19 4.30 - 11.10 10*3/?L RBC 3.68 (*) 3.93 - 5.25 10*6/?L HGB 13.2 11.6 - 15.0 g/dL HCT 37.7 35.7 - 45.2 % MCV 102.4 (*) 80.6 - 95.5 fL MCH 35.9 (*) 25.9 - 32.8 pg MCHC 35.0 31.6 - 35.1 g/dL RDW-SD 48.0 39.0 - 49.9 fL RDW-CV 12.8 12.0 - 15.5 % PLT 133 (*) 166 - 358 10*3/?L MPV 11.0 9.5 - 12.9 fL NRBC/100 WBC 0.0 0.0 - 10.0 /100 WBCs NRBC x10 3 <0.01 10*3/?L GRAN MAT (NEUT) % 79.6 % IMM GRAN % 0.80 % LYMPH % 8.6 % MONO % 10.8 % EOS % 0.0 % BASO % 0.2 % GRAN MAT x10 3 (ANC) 8.11 (*) 1.88 - 7.09 10*3/uL IMM GRAN x10 3 0.08 (*) 0.00 - 0.06 10*3/uL LYMPH x10 3 0.88 (*) 1.32 - 3.29 10*3/uL MONO x10 3 1.10 (*) 0.33 - 0.92 10*3/uL EOS x10 3 <0.03 (*) 0.03 - 0.39 10*3/uL BASO x10 3 <0.03 0.01 - 0.07 10*3/uL COMP. METABOLIC PANEL (01477) - Abnormal NA 127 (*) 135 - 145 mmol/L K 3.6 3.5 - 5.0 mmol/L CL 87 (*) 98 - 108 mmol/L CO2 TOTAL 16 (*) 23 - 31 mmol/L AGAP 24 (*) 2 - 16 BUN 13 7 - 23 mg/dL GLUCOSE 179 (*) 70 - 110 mg/dL CREATININE 0.64 0.50 - 1.04 mg/dL TOTAL BILI 2.1 (*) 0.1 - 1.1 mg/dL CALCIUM 9.0 8.6 - 10.6 mg/dL T PROTEIN 8.6 (*) 6.3 - 8.2 g/dL ALBUMIN 4.9 3.5 - 5.0 g/dL ALK PHOS 165 (*) 34 - 122 U/L ALTv 118 (*) 5 - 35 U/L AST(SGOT) 237 (*) 13 - 40 U/L eGFR 94.6 mL/min/1.73m2 URINALYSIS - Abnormal APPEARANCE Cloudy (*) Clear COLOR Gertrudis (*) Yellow PH 5.0 4.8 - 8.0 SP GRAVITY 1.039 (*) 1.003 - 1.030 GLU U QUAL 50 mg/dL (*) Normal BLOOD 1+ (*) Negative KETONES 20 mg/dL (*) Negative PROTEIN 500 mg/dL (*) Negative UROBILIN 4.0 mg/dL (*) Normal BILIRUBIN 4 mg/dL (*) Negative NITRITE Negative Negative LEUK JAZZ 75/uL (*) Negative RBC/HPF 91 (*) 0 - 3 HPF WBC/HPF >182 (*) 0 - 5 HPF BACTERIA Moderate (*) Negative MUCOUS Marked (*) Negative LPF SQ EPITH 28 HPF PHI EPITH 5 (*) <=1 HPF Ictotest Positive LIPASE - Abnormal LIPASE 265 (*) 0 - 220 U/L MAGNESIUM - Abnormal MAGNESIUM 0.8 (*) 1.7 - 2.4 mg/dL URINE CULTURE EKG: If EKG completed, see Procedure Note. Orders and Treatments: Orders Placed This Encounter Procedures Cbc with Diff Comp. Metabolic Panel (83230) Urinalysis Lipase Urine Culture Magnesium Prothrombin Time / INR Basic Metabolic Panel (NA, K, CL, CO2, GLUCOSE, BUN, CREATININE, CA) CBC with Differential HEPATIC FUNCTION PANEL (38161) (ALB,T.PRO,BILI T,BU/BC,ALT,AST,ALK PHOS) Lipase Glycosylated Hemoglobin (A1C) Orders Placed This Encounter Medications NaCl 0.9% (NS) bolus infusion 500 mL cefTRIAXone (ROCEPHIN) 1,000 mg in NaCl 0.9% (NS) 100 mL MINI-BAG aspirin EC tablet 81 mg pantoprazole (PROTONIX) EC tablet 40 mg traZODone (DESYREL) tablet 50 mg lactated ringers IV infusion 1,000 mL enoxaparin (LOVENOX) injection 40 mg acetaminophen (TYLENOL) tablet 650 mg traMADoL (ULTRAM) tablet 50 mg morpHINE (2 mg/mL) injection 4 mg DISCONTD: ondansetron (ZOFRAN (PF)) injection 4 mg magnesium sulfate in water 2 gram/50 mL (4 %) infusion 2 g proMETHazine (PHENERGAN) 25 mg in NS 50 mL IV piggyback (CNR) FOLLOWED BY Linked Order Group oxazepam (SERAX) capsule 15 mg oxazepam (SERAX) capsule 15 mg oxazepam (SERAX) capsule 15 mg oxazepam (SERAX) capsule 15 mg thiamine (VITAMIN B1) tablet 100 mg foLIC acid (FOLATE) tablet 1 mg cefTRIAXone (ROCEPHIN) 1,000 mg in NaCl 0.9% (NS) 100 mL MINI-BAG DISCONTD: albumin (PLASBUMIN) 25 % injection 46.3 g albumin (PLASBUMIN) 25 % injection 46.3 g First Provider Eval: ED Events Date/Time Event User Comments 05/17/23 1130 Medical Screening Begins PRISCILLA CARUSO -- 05/17/23 1130 First Provider Evaluation PRISCILLA CARUSO -- ED COURSE Diagnosis/Impression as of 05/17/232108 Nausea and vomiting, unspecified vomiting type Acute cystitis with hematuria Hypomagnesemia Hyponatremia Procedures: Procedures MDM: Medical Decision Making Patient with complaint of increased vomiting over the past 3 days. She has history of chronic vomiting. History of alcohol use, states she quit 1 month ago. Patient is hyponatremic, low magnesium, low platelets. Marked UTI on urinalysis Rocephin given in ER with 500 mL normal saline. Patient taken upstairs for admission prior to magnesium replacement. Normal sinus rhythm on telemetry Problems Addressed: Acute cystitis with hematuria: acute illness or injury Hypomagnesemia: acute illness or injury Hyponatremia: acute illness or injury Nausea and vomiting, unspecified vomiting type: acute illness or injury Amount and/or Complexity of Data Reviewed Labs: ordered. Decision-making details documented in ED Course. Discussion of management or test interpretation with external provider(s): Pt d/w DR sanabria, [facility], exam, labs, admission. Risk Prescription drug management. Parenteral controlled substances. Decision regarding hospitalization. Flowsheet Documentation: Scoring Tools: No data recorded Disposition/Condition: ED Disposition ED Disposition Admit - Inpatient Condition -- Comment -- Electronically signed by: Marvel Wooten PAC 05/17/232108 NSED PHARMACIST Associated attestation - Darnell Carranza DO - 05/18/2023 8:42 AM LICENSED PHARMACIST I was available for consultation at all times during the patient encounter and present in the Emergency Department providing general supervision. However, I did not see or evaluate the patient. Patient seen and evaluated by ENMANUEL. [facility] 2022-12-27 10:11:11 Formatting of this n ote might be different from the original. Lipitor Tab 40 m G Take on tablet by mouth in the morning Qty: 90 Gelacio Nicole [facility] 2022-12-20 12:37:59 Formatting of this n ote is different from the original. Outpatient Medication Detail Disp Refills Start End EVAN atorvastatin 40 mg tablet 90 tablet 0 10/08/2022 -- Sig: Take 1 tablet by mouth in the morning. Sent to pharmacy as: atorvastatin 40 mg tablet (LIPITOR) Class: eRX Route: Oral Order: [id number] Date/Time Signed: 10/08/2022 11:40 E-Prescribing Status: Receipt confirmed by pharmacy (10/08/2022 11:41 AM CDT) Recent Visits Date Type Provider Dept 08/24/22 Office Visit Sly Neumann FNP [facility] 04/21/22 Office Visit Sly Neumann FNP [facility] 03/30/22 Office Visit Sly Neumann FNP [facility] 12/29/21 Office Visit Sly Neumann FNP [facility] 11/27/21 Office Visit Sly Neumann FNP [facility] 11/18/21 Office Visit Sly Neumann FNP [facility] 11/09/21 Office Visit Lissett Leggett FNP [facility] Showing recent visits within past 540 days with a meds authorizing provider and meeting all other requirements Future Appointments No visits were found meeting these conditions. Showing future appointments within next 150 days with a meds authorizing provider and meeting all other requirements [facility] 2022-12-20 10:23:25 Formatting of this n ote might be different from the original. Lipitor Tab 40 mg Take one tablet by mouth in the morning Qty:90 Gelacio Nicole [facility] 2022-12-16 08:48:30 Formatting of this n ote is different from the original. Images from the original note were not included. Please review and sign if appropriate. traZODone 50 [...] last 12 months To be filled at: [facility] ([facility]) - [address] Preferred delivery: Mail Recent Visits Date Type Provider Dept 08/24/22 Office Visit Sly Neumann FNP [facility] 04/21/22 Office Visit Sly Neumann FNP [facility] 03/30/22 Office Visit Sly Neumann FNP [facility] 12/29/21 Office Visit Sly Neumann, [employer] [facility] 11/27/21 Office Visit Sly Neumann, [employer] [facility] 11/18/21 Office Visit Sly Neumann, [employer] [facility] 11/09/21 Office Visit Lissett Leggett, [employer] [facility] Showing recent visits within past 540 days with a meds authorizing provider and meeting all other requirements Future Appointments No visits were found meeting these conditions. Showing future appointments within next 150 days with a meds authorizing provider and meeting all other requirements T [facility] 2022-12-10 14:04:53 Formatting of this n ote might be different from the original. Per insurance to maximize their benefits, a 100 day supply is requested. T [facility] 2022-12-08 15:51:53 Formatting of this n ote might be different from the original. Received [employer] medical clarification request. Placed in providers basket. T Izabella Ceballos [facility] 2022-12-06 10:03:49 Formatting of this n ote is different from the original. Medication refilled per policy: Last office visit: 08/24/22 Next office visit: not scheduled Requested Prescriptions Pending Prescriptions Disp Refills atenoloL 25 mg tablet 90 tablet 1 Sig: Take 1 tablet by mouth in the morning. Refused Prescriptions Disp Refills pantoprazole 40 mg EC tablet 90 tablet 3 Sig: Take 1 tablet by mouth every morning. [id number] - [place], [place] - [address] [facility] [address] [facility]
--- NOTE | 2025-01-17 12:24 | RAD REPORT ---
EXAMINATION: XR Foot Left 3 View CLINICAL INDICATION: Female, 75 years old. [facility] Bed Name: 1 TECHNIQUE: 3 view radiographs of the left foot were obtained. COMPARISON: 12/26/2024. FINDINGS: Unchanged alignment of mildly impacted second metatarsal neck fracture with mild periosteal reaction. Stable moderate degenerative changes at the first metatarsophalangeal articulation. No other evidence of arthropathy or other focal bone lesion. Soft tissue swelling about the medial foref oot. No other significant degenerative changes. IMPRESSION: Unchanged alignment of mildly impacted second metatarsal neck fracture.
--- NOTE | 2025-01-17 12:26 | ER ---
Nurse's Notes [facility] Name: Flower Alvarez Age: 75 yrs Sex: Female : 1950 Arrival Date: 01/17/2025 Time: 10:07 Bed DX4 Private MD: Diagnosis: Contusion of left foot Presentation: 01/17 10:25 Chief complaint: Patient states: injured her left foot three weeks ago, has been having iw pain and swelling since then. Coronavirus screen: At this time, the client does not indicate any symptoms associated with coronavirus-19. Ebola Screen: No symptoms or risks identified at this time. Initial Sepsis Screen: Does the patient meet any 2 criteria? No. Patient's initial sepsis screen is negative. Does the patient have a suspected source of infection? No. Patient's initial sepsis screen is negative. Risk Assessment: Do you want to hurt yourself or someone else? Patient reports no desire to harm self or others. 10:25 Method Of Arrival: Ambulatory iw 10:25 Acuity: ANUP 4 iw Historical: - Allergies: 10:26 Fentanyl; iw 10:26 Codeine; iw 10:26 Iodine; iw - PMHx: 10:26 HTN; a-fib; iw - Infectious Disease History:: Denies. Assessment: 13:05 Reassessment: Patient is alert, oriented x 3, equal unlabored respirations, skin aa5 warm/dry/pink. Vital Signs: 10:25 BP 164 / 101; Pulse 78; Resp 16; Temp 98.5; Pulse Ox 99% on R/A; Weight 43.54 kg; iw Height 5 ft. 2 in. ; Pain 7/10; 10:25 Body Mass Index 17.56 (43.54 kg, 157.48 cm) iw 10:25 Pain Scale: Adult iw ED Course: 10:09 Patient arrived in ED. mr 10:10 Kaitlin Garvey PA-C is PHCP. sb4 10:10 Malick Steward MD is Attending Physician. sb4 10:26 Triage completed. iw 10:26 Arm band placed on. iw 11:54 Foot Left 3 View XRAY In Process Unspecified. EDMS 12:25 Duong Villeda DPM is Referral Physician. sb4 13:05 Ortho shoe applied to left foot. aa5 13:05 No provider procedures requiring assistance completed. Patient did not have IV access aa5 during this emergency room visit. Administered Medications: No medications were administered Outcome: 12:26 Discharge ordered by . beverly 13:05 Discharged to home ambulatory, aa5 13:05 Condition: stable 13:05 Discharge instructions given to patient, Instructed on discharge instructions, follow up and referral plans. Demonstrated understanding of instructions, follow-up care, 13:08 Patient left the ED. ts3 Signatures: Dispatcher [employer] EDSC Nidhi Miller, Shayan Downey mr Chelita Kirkland, RN Willa Mcdonald RN RN aaKaitlin Yap, PA-C PA-C sb4 Jenny Lugo ts3
--- NOTE | 2025-01-17 12:26 | EDPHYS ---
Physician Documentation [facility] Name: Flower Alvarez Age: 75 yrs Sex: Female : 1950 Arrival Date: 01/17/2025 Time: 10:07 Bed DX4 Private MD: ED Physician Malick Steward HPI: 01/17 10:24 This 75 yrs old Female presents to ER via Unassigned with complaints of Foot Injury. sb4 10:24 Patient states that she fell and injured her left foot about 3 weeks ago. She states sb4 that it was very swollen and bruised at first but that has improved with elevation. However, she states that it still remains bruised and swollen and does not know what else to do about it. She states she has been trying to stay off of it.. Historical: - Allergies: 10:26 Fentanyl; iw 10:26 Codeine; iw 10:26 Iodine; iw - PMHx: 10:26 HTN; a-fib; iw - Infectious Disease History:: Denies. ROS: 10:24 Constitutional: Negative for fever, chills, and weight loss, sb4 10:24 MS/extremity: Positive for injury or acute deformity, pain, of the left foot, 10:24 All other systems are negative, Exam: 10:31 Constitutional: This is a well developed, well nourished patient who is awake, alert, sb4 and in no acute distress. Head/Face: Normocephalic, atraumatic. Eyes: Extra-ocular motions intact. Periorbital areas with no swelling, redness, or edema. ENT: Mucous membranes moist. Respiratory: No increased work of breathing, no retractions or nasal flaring. 10:31 Skin: Warm, dry with normal turgor. Normal color with no rashes, no lesions, and no evidence of cellulitis. 10:31 Musculoskeletal/extremity: Joints: Swelling and limited range of motion of left great toe. Pedal pulses intact, good cap refill, Ecchymosis base of left great toe. Vital Signs: 10:25 BP 164 / 101; Pulse 78; Resp 16; Temp 98.5; Pulse Ox 99% on R/A; Weight 43.54 kg; iw Height 5 ft. 2 in. ; Pain 7/10; 10:25 Body Mass Index 17.56 (43.54 kg, 157.48 cm) iw 10:25 Pain Scale: Adult iw MDM: 10:11 Medical Screening Exam initiated sb4 11:46 Independent interpretation of the following test(s) in the Emergency Department X-Ray: sb4 My interpretation is Left foot x-ray images -no acute fracture or dislocation. 11:46 Historians other than the Patient: Parent: mom and dad. sb4 12:01 ED course: care significantly delayed by >1hour xray wait time. sb4 12:26 Differential diagnosis: dislocation, closed fracture, contusion. Data reviewed: vital sb4 signs, nurses notes, radiologic studies, and as a result, I will discharge patient. Counseling: I had a detailed discussion with the patient and/or guardian regarding the historical points, exam findings, and any diagnostic results supporting the discharge/admit diagnosis, radiology results, the need for outpatient follow up, a group reservations coordinator, to return to the emergency department if symptoms worsen or persist or if there are any questions or concerns that arise at home. 01/17 10:22 Order name: Foot Left 3 View XRAY; Complete Time: 12:25 sb4 01/17 12:25 Order name: Ortho shoe; Complete Time: 13:08 sb4 Administered Medications: No medications were administered Disposition: 16:46 Co-signature as Attending Physician, Malick Steward MD I reviewed the patient's care rn provided by the Advanced Practice Provider and agree with the diagnosis and treatment plan. Disposition Summary: 01/17/25 12:26 Discharge Ordered Notes: Location: Home sb4 Problem: an ongoing problem sb4 Symptoms: are unchanged sb4 Condition: Stable sb4 Diagnosis - Contusion of left foot sb4 Followup: sb4 - With: Duong Villeda DPM - When: 1 week - Reason: Recheck today's complaints, Re-evaluation by your physician Discharge Instructions: - Discharge Summary Sheet sb4 - Foot Contusion, [id number] sb4 Forms: - Patient Portal Instructions sb4 - Leadership Thank You Letter sb4 Signatures: Dispatcher [employer] Chelita Chua RN RN iw Nieto, Roman, MD MD rn Brown, Sophia, PAJazC PACong sb4
[2025-01-17 13:15] VITALS: BP 164/101; TEMP 98.5; O2SAT 99
== END 2025-01-17 13:08 | disposition home or self-care (01) ==
LOC: ER 10:07
DX: S90.32XA Contusion of left foot, initial encounter (principal)
CPT/HCPCS: 99283